=== PATIENT | female | born 1960 | race Two or more races ===

== ENCOUNTER 2018-06-26 17:46 | Inpatient (IN) | payer OTHER ==
[~2018-06-26] VITALS: Ht 160 cm; Wt 63.2 kg
[2018-06-26 21:00] VITALS: BP 134/76; PULSE 94; RESP 18
[2018-06-26 22:00] VITALS: Ht 160 cm; Wt 63.2 kg
[2018-06-26] MEDS ORDERED: IPRATROPIUM (NEB) 0.5 MG/2.5 ML AMP INH PRN (23:09)
[2018-06-26] MEDS ORDERED: ALBUTEROL 0.5% (NEB) 2.5 MG/0.5 ML AMP INH PRN (23:09)
[2018-06-26] MEDS ORDERED: OCULAR LUBRICANT 3.5 GM OPH OINT BOTH EYES PRN (23:09)
[2018-06-27] MEDS ORDERED: MAGNESIUM HYDROXIDE 30ML CUP GTB PRN
[2018-06-27] MEDS ORDERED: BISACODYL 10 MG SUPP PR PRN
[2018-06-27] MEDS ORDERED: LACTULOSE 30ML CUP GTB PRN
[2018-06-27 02:00] VITALS: BP 120/77; PULSE 80; RESP 16
--- NOTE | 2018-06-27 05:51 | NUR ---
Pt slept well during night hours, no complaints noted, vital signs stable. Able to turn position by self, continent for bladder and bowel, voids in the urinal, had BM last night. Hourly rounds done and patient care needs met. Bed alarm activated for safety, call light and bedside table within reach. Addendum: 06/27/18 at 0605 by GENOVEVA ROUSE RN This above notes belongs to another patient
--- NOTE | 2018-06-27 06:03 | NUR ---
Pt got admitted from [place] on 06/26/18 around 5 hours. Around [address] Pearl exchange and left message regarding admission of the patient in the unit. Admission assessment done around 2200 hours. Pt was restless and anxious, try to pull out tracheostomy tube (capped) and G-tube and trying to get out of bed. Pt is Alert, awake to name only, confused most of the time, not able to follow direction and instruction. Pt's daughter Sania was at bedside till 2230 hours, then around 2300 hours pt's sister came to sit with patient, her sister was at bedside last night. Around 0100am, pt went to sleep. She slept on and off during night hours, no complaints noted, vital signs stable. Position turned Q2hrs as per pt's comfort. Gtube feeding Isosource HN @50ml/hr is started and free water 100 ml Q6hrs flushed via feeding pump. HOB elevated >30 degree while on G tubed feeding. Pt kept under aspiration, fall and seizure precaution. Incontinent for bladder and bowel, had BM last night changed and cleaned her. Hourly rounds done and patient care needs met. Bed alarm activated for safety, call light and bedside table within reach.
--- NOTE | 2018-06-27 06:30 | NUR ---
last night Gtube site dressing changed and protect with abdominal binder.
[2018-06-27 07:35] VITALS: BP 117/76; PULSE 84; RESP 18
[2018-06-27 07:45] VITALS: BP 125/81; PULSE 96; RESP 18
[2018-06-27] MEDS: DOCUSATE SODIUM 10 MG/ML (10ML CUP) GTB SCH ×2 (08:50→21:00)
[2018-06-27] MEDS: FAMOTIDINE 20 MG TAB GTB SCH ×2 (08:51→21:00)
[2018-06-27] MEDS: AMLODIPINE 10 MG TAB GTB SCH (08:51)
[2018-06-27] MEDS: NYSTATIN SUSP 5 ML CUP PO SCH ×2 (08:51→21:00)
[2018-06-27] MEDS: LACOSAMIDE (100 MG/10 ML PO SYR) GTB SCH ×2 (08:52→21:03)
[2018-06-27] MEDS: NYSTATIN 30 GM POWDER BTL TOP SCH ×3 (08:52→21:05)
[2018-06-27] MEDS: ENOXAPARIN 40 MG/0.4 ML SYG SC SCH (08:53)
[2018-06-27] MEDS: BALSAM PERU/CASTOR OIL 60 GM TUBE TOP SCH ×2 (09:00→21:00)
--- NOTE | 2018-06-27 09:08 | NUR ---
RN followed up with pharmacy for Jaquan at 8:50 AM.
--- NOTE | 2018-06-27 09:42 | HP ---
Date/Time of Note Date/Time of Note DATE: 06/27/18 TIME: 09:39 Assessment/Plan VTE Prophylaxis Risk score (from Ns)>0 risk: 3 SCD applied (from [facility] [place]): No SCD contraindicated: other Pharmacological prophylaxis: other Lines/Catheters Urinary Cath still in place: No Assessment/Plan Hospital Course HISTORY OF PRESENT ILLNESS: The patient is a 57-year-old female who was transferred from [facility]. 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 She was stabilized, discharged on 04/07/2018 and readmitted on with neck stiffness with major subarachnoid hemorrhage with midline shift and subfalcine herniation. This progressed to paralysis with altered mental status. She was taken to left craniotomy on 04/10/2018 with clipping of the left posterior communicating artery aneurysm and left frontal ventriculostomy placement for drainage of the intraventricular hemorrhage. She had persistent major neurologic deficit with obstructive hydrocephalus, ischemic encephalopathy, and some vasospasm. She had a PEG placement on 04/28/2018 and tracheostomy on 05/01/2018. She had ongoing seizures requiring multiple medications for control. She had urinary tract infection, apparently was treated. On 05/12 she was transferred to [place] for continuity of care. There is no current respiratory distress. Secretions are moderate and saturations are 100% with trach capped d/w charge nurse she is awake and is now tracking no fever, chills, new rash, hematuria, melena, dyspnea or seizure like activities. meds were reviewed s/p trach change and eventual capping UTI treated with abx on 06/26 the patient was transferred to ARU no significant event overnight PMH: as above social and family history reviewed ROS: 13 point ROS was done and pertinent findings are in HPI PHYSICAL EXAMINATION: GENERAL: Shows her to be well developed, well nourished, in no acute distress. HEENT: Status post craniotomy. Pupils are slightly equal, left larger than right. Right is reactive. Left questionably reactive. Fundi: Unable. Ears: Externally normal. Nose: Unremarkable. Mouth and throat: Limited exam. No inflammation seen. NECK: Shows tracheostomy in place. No definite JVD. Nodes are negative, neck and supraclavicular. HEART: Regular rate and rhythm without definite murmurs or gallops appreciated. CHEST: Shows slightly coarse breath sounds, a few rhonchi. No wheeze. Exam limited to supine position. ABDOMEN: Soft, nontender. No masses or organomegaly appreciated. Binders in place. G-tube in place. EXTREMITIES: No clubbing, cyanosis, or edema. No evidence for deep vein thrombosis. NEUROLOGIC: awake but non-verbal Impression and Plan: 1. Acute hypoxemic respiratory failure, clinically stable with capped trach. Continue usual respiratory care with tracheostomy care, pulmonary toilet, anti- aspiration measures. We will continue bronchodilators for now. continue PT 2. 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 surgical scar is well healed. continue anti-seizure meds. she is moving left side of her body and is doing well with rehab. She will be admitted to ARU for continuity of care 3. Seizure secondary to above, controlled. 4. Ischemic encephalopathy due to the above, status post vasospasm, status post obstructive hydrocephalus. 5. Dysphagia, tolerating tube feeding. 6. Hypothyroidism. 7. UTI (recurred): cultures were reviewed. s/p abx Result Diagram: 06/27/1837 06/27/1837 Results 24hrs Laboratory Tests Test 06/26/18 21:30 06/27/18 06:37 Urine Color YELLOW Urine Clarity CLOUDY A Urine pH 7.0 Urine Specific [place] 1.011 Urine Ketones NEGATIVE Urine Nitrite NEGATIVE Urine Bilirubin NEGATIVE Urine Urobilinogen NEGATIVE Urine Leukocyte Esterase NEGATIVE Urine Microscopic RBC 3 Urine Microscopic WBC 4 Urine Amorphous Crystals FEW A Urine Bacteria FEW A Urine Mucus FEW A Urine Hemoglobin NEGATIVE Urine Glucose NEGATIVE Urine Total Protein NEGATIVE White Blood Count 10.4 Red Blood Count 4.03 L Hemoglobin 12.6 Hematocrit 36.7 L Mean Corpuscular Volume 91.1 Mean Corpuscular Hemoglobin 31.3 Mean Corpuscular Hemoglobin Concent 34.3 Red Cell Distribution Width 13.0 Platelet Count 315 Mean Platelet Volume 10.6 H Immature Granulocytes % 0.400 Neutrophils % 58.7 Lymphocytes % 31.3 Monocytes % 7.1 Eosinophils % 2.0 Basophils % 0.5 Nucleated Red Blood Cells % 0.0 Immature Granulocytes # 0.040 H Neutrophils # 6.1 Lymphocytes # 3.3 H Monocytes # 0.7 Eosinophils # 0.2 Basophils # 0.1 Nucleated Red Blood Cells # 0.0 Sodium Level 141 Potassium Level 3.7 Chloride Level 100 Carbon Dioxide Level 31 Anion Gap 10 Blood Urea Nitrogen 13 Creatinine 0.41 L Est Glomerular Filtrat Rate mL/min > 60 Glucose Level 115 Calcium Level 9.5 Total Bilirubin 0.0 L Direct Bilirubin 0.00 Indirect Bilirubin 0.0 Aspartate Amino Transf (AST/SGOT) 26 Alanine Aminotransferase (ALT/SGPT) 39 Alkaline Phosphatase 94 Total Protein 6.9 Albumin 3.8 Globulin 3.10 Albumin/Globulin Ratio 1.22 HPI/ROS Admit Date/Time Admit Date/Time Jun 26, 2018 at 21:04 PMH/Family/Social Past Medical History Medications Current Medications Zolpidem Tartrate (Ambien) 10 mg HS GTB ; Start 06/26/18 at 23:09 Atorvastatin Calcium (Lipitor) 20 mg DAILY@21 PO ; Start 06/26/18 at 23:09 Lacosamide (Vimpat Liq) 50 mg BID GTB Last administered on 06/27/18at 08:52; Admin Dose 50 MG; Start 06/26/18 at 23:09 Albuterol (Proventil 0.5% (Neb)) 2.5 mg Q4H RESP THERAPY PRN INH PRN DYSPNEA; Start 06/26/18 at 23:09 Ipratropium [place] (Atrovent 0.02% (Neb)) 0.5 mg Q4H RESP THERAPY PRN INH DYSPNEA; Start 06/26/18 at 23:09 Simethicone (Mylicon) 80 mg QID PRN PEG DISTENSION/GAS/BLOATING; Start 05/31 02/14 at 23:09 Amlodipine Besylate (Norvasc) 10 mg DAILY GTB Last administered on 06/27/18at 08:51; Admin Dose 10 MG; Start 06/26/18 at 23:09 Nystatin (Nystatin Susp) 5 ml BID PO Last administered on 06/27/18at 08:51; Admin Dose 5 ML; Start 06/26/18 at 23:09 Olanzapine (Zyprexa) 2.5 mg QHS PO ; Start 06/26/18 at 23:09 Acetaminophen (Tylenol Liquid) 650 mg Q4H PRN GTB PRN FOR FEVER; Start at 23:09 Enoxaparin Sodium (Lovenox) 40 mg DAILY SC Last administered on 06/27/18at 08:53; Admin Dose 40 MG; Start 06/26/18 at 23:09 Famotidine (Pepcid) 20 mg BID GTB Last administered on 06/27/18at 08:51; Admin Dose 20 MG; Start 06/26/18 at 23:09 Levetiracetam (Keppra Liquid) 500 mg BID GTB ; Start 06/26/18 at 23:09 Nystatin (Nystatin Powder) 1 applic TID TOP Last administered on 06/27/18at 08:52; Admin Dose 1 APPLIC; Start 06/26/18 at 23:09 Eye Lubricant (Akwa Oint) 1 applic Q1H PRN BOTH EYES PRN; Start 06/26/18 at 23:09 Acetaminophen (Tylenol Liquid) 650 mg Q4H PRN GTB MILD PAIN LEVEL 1-3; Start 06/26/18 at 23:09 Docusate Sodium (Colace Liquid Cup) 100 mg BID GTB ; Start 06/27/18 at 09:00 Magnesium Hydroxide (Milk Of Mag) 30 ml BID PRN GTB CONSTIPATION; Start 06/27/18 at 00:00 Lactulose (Enulose) 20 gm DAILY PRN GTB CONSTIPATION; Start 06/27/18 at 00:00 Bisacodyl (Dulcolax Supp) 10 mg DAILY PRN [place] CONSTIPATION; Start 06/27/18 at 00:00 Coded Allergies: No Known Allergies (Verified Allergy, Unknown, 05/13/18) Social History Smoking Status: Never smoker Exam/Review of Systems Vital Signs Vitals Vital Signs Date Temp Pulse Resp B/P (MAP) Pulse Ox O2 O2 Flow FiO2 Time Delivery Rate 06/27/18 96 18 125/81 96 Room Air 07:45 (96) 06/27/18 97.7 07:35 Intake and Output 06/26/18 06/26/18 06/27/18 1515:00 23:00 07:00 IntakeIntake Total 600 ml BalanceBalance 600 ml HERNAN SHIPLEY DO Jun 27, 2018 09:42
--- NOTE | 2018-06-27 11:29 | NUR ---
RE: Synthroid tablet and Portex 7.0 mm trach RN verified with pharmacy. Pt was taking Synthroid 88 mcg once daily from 05/12/18 to 06/11/18. RN got order to give Synthroid 88 mcg via GTB once daily. RN verified with [facility] at [place]. Pt on Room air with Trach, Portex, 7.0mm uncuffed since 7 days ago. Pt tolerated over 48 hours capped and should remain capped. Do not need to remove light armored reconnaissance officer at night. Respiratory therapist will be made aware. Addendum: 06/27/18 at 1636 by ROMARIO REY RN Respiratory therapist Jeanette made aware about the Portex trach uncuffed. Continue to cap tach as tolerated. RN set up suction and a new set of Portex 7.00 mm with cuff at bedside.
[2018-06-27] MEDS: LEVETIRACETAM (100 MG/ML) 5ML CUP GTB SCH ×2 (11:48→20:59)
[2018-06-27] MEDS: BACLOFEN 10 MG TAB GTB SCH ×3 (11:49→21:00)
[2018-06-27 13:27] VITALS: BP 102/59; PULSE 95; RESP 18
--- NOTE | 2018-06-27 16:36 | NUR ---
RN note Pt is max assist for bed transfer. 2 persons assist. Pt sat in the wheelchair twice this morning for 15 -30 mins. Agitated and anxious, complaining of discomfort on the upper back. Hence, Dr. Gill ordered Baclofen 5 mg GTB TID to relieve the right upper arm stiffness and upper back pain. Discoloration on right subscapular area, 6 cm x [address] Gill assessed the lesion. No skin issue on sacrococcyx area. Air-mattress order canceled. ROHO cushion, seizure pads at bedside. Pt has right sided neglect, advise staff to stay on pt's side to let her get use to it. Eye patch to one eye, alternate it every hour but pt refused. On continuous GT feeding at 50 ml/hr of Isosource HN and water flush 100 cc every 6 hours and Pureed diet. Staff feeds pt and she ate 75% at lunch time. No difficulty swallowing and no coughing episode noted. Bed at the lowest position, call light within reach but pt does not use call light. Bed alarm on at all times. Pt able to stay calm and sleep for 2 hours after a large BM in the afternoon.
--- NOTE | 2018-06-27 19:58 | CONS ---
DATE OF ADMISSION: 06/26/2018 DATE OF CONSULTATION: 06/27/2018 REHABILITATION POST ADMISSION PHYSICIAN EVALUATION REHABILITATION IMPAIRMENT CATEGORY: Left subarachnoid hemorrhage, hydrocephalus, midline shift and subfalcine herniation with patient status post left craniotomy with clipping of the left posterior communicating artery aneurysm and left frontal ventriculostomy placement on 04/10/2018. ACTIVE COMORBIDITIES: 1. Encephalopathy 2. Dysphagia-s/p PEG 3. Seizure Disorder 4. Respiratory Failure- s/p tracheostomy, tolerating cap 5. Urinary Tract Infection 6. Spasticity with increaed tone in Right Upper and Lower Extremity 7. Hypothyroidism 8. 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 Patient was noted to have Left subarachnoid hemorrhage, hydrocephalus, midline shift and subfalcine herniation and underwent left craniotomy with clipping of the left posterior communicating artery aneurysm and left frontal ventriculostomy placement on 04/10/2018. The patient's hospital course was notable for encephalopathy, vasospasm, acute respiratory failure requiring tracheostomy, dysphagia with PEG placement, ongoing seizures, and urinary tract infection. The patient was eventually stabilized and weaned from ventilator support and was transferred to [facility] for continued care. The patient's pulmonary status has gradually improved, and patient has been tolerating trach capping. The patient has now been cleared to transfer to the rehabilitation unit for comprehensive interdisciplinary rehab care. FUNCTIONAL HISTORY: Prior to recent events, she was independent in self-care tasks and mobility. Currently, patient requires moderate to maximal assist for self-care and mobility tasks. I have reviewed the preadmission screen and the patient's current functional status is consistent with the preadmission screen. PAST MEDICAL HISTORY: 1.Hypothyroidism 2.Urinary tract infection. FAMILY AND SOCIAL HISTORY: The patient lives at home with very supportive who hopes to have her return home upon discharge. CURRENT MEDICATIONS: 1. Tylenol p.r.n. 2. Albuterol inhaler. 3. Norvasc 10 mg p.o. daily. 4. Ocular eye drops. 5. Lipitor 20 mg p.o. daily. 6. Lovenox 40 mg subcutaneous daily. 7. Pepcid 20 mg b.i.d. 8. Vimpat liquid 50 mg b.i.d. 9. Keppra 500 mg b.i.d. ALLERGIES: THE PATIENT WITH NO KNOWN DRUG ALLERGIES. PHYSICAL EXAMINATION: VITAL SIGNS: She is currently afebrile with stable vital signs. HEENT: The craniotomy site appears well healed. Oropharynx is clear. Trach site appears clean and is capped. NECK: Supple. LUNGS: Clear anteriorly. CARDIAC: S1, S2. ABDOMEN: Soft, nontender, positive bowel sounds. G-tube site clean. NEUROLOGIC: She is awake and alert. She will follow simple 1-step command. She does have some perseveration to tasks. She demonstrates antigravity strength in the left upper and left lower extremities. She has significant increased tone in the right upper extremity and lower extremity with flexor synergy in the right upper extremity and extensor tone in the right lower extremity. PLAN: The patient has been admitted for comprehensive interdisciplinary acute rehab and is anticipated to tolerate 3 hours of daily therapy in divided doses for at least 5/7 days a week. The treatment plan will include: 1. Physical therapy to focus on bed mobility, transfers, and household ambulation with the goal of having the patient reach a standby assist level. 2. Occupational therapy to focus on hygiene, grooming, dressing, bathing, and toileting activities with goal of having the patient reach a standby assist level. 3. Speech therapy for full cognitive assessment and retraining in addition to dysphagia management with the goal of having the patient meet nutritional needs by mouth and have the G-tube removed and have patient expressed basic needs and improve short-term memory. 4. Neuropsychology for full cognitive assessment and retraining. 5. Rehabilitation nursing for carryover of therapeutic interventions, the goal of continent of bowel and bladder, and the goal of patient and family education with regard to the aforementioned issues. 6. Neurosurgical Nurse to monitor nutritional status, with goal of patient meeting nutritional needs as she is transitioned to full po diet. Will likely start with transition to bolus feeds, and as oral intake improves, work towards discontinuation of tube feedings. 7. Patient with notable spasticity/increased tone, will start low dose baclofen. ESTIMATED LENGTH OF STAY: 14 days. DISPOSITION GOAL: Home with family. BARRIER: Dysphagia INTERVENTION FOR BARRIER: Speech Therapy I acknowledge that I performed a full physical examination on this patient within 24 hours of admission to the rehabilitation unit and believe the patient is a good candidate for comprehensive interdisciplinary rehab care and is anticipated to make reasonable goals in a reasonable period of time as outlined above. Dictated By: ROB HUFF/ASHOK Conf#: [id number] DID#: [id number] MTDD
[2018-06-27 20:00] VITALS: BP 112/66; PULSE 96; RESP 18
[2018-06-27] MEDS: OLANZAPINE 2.5 MG TAB PO SCH (20:59)
[2018-06-27] MEDS: ZOLPIDEM 5 MG TAB GTB SCH (21:00)
[2018-06-27] MEDS: ATORVASTATIN 20 MG TAB PO SCH (21:00)
[2018-06-28 02:00] VITALS: BP 124/76; PULSE 84; RESP 16
--- NOTE | 2018-06-28 06:22 | NUR ---
Pt slept around midnight after giving night medications. NO complaints noted. Vital signs stable. Pt kept on fall, aspiration and seizure precautions, side rails padded. Pt is on G tube feeding Isosource HN @ 50ml/hr is on flow, with free water 100ml q6hrs via feeding pump. HOB elevated >30 degree all the times while on tube feeding. Position turned Q2hrs per turning schedule. Pt's family at bedside all the times. Incontinent for bladder and bowel, changed and cleaned the patient, no BM noted. Hourly round done and patient care needs met. Bed alarm activated for safety, call light and bedside table within reach.
[2018-06-28] MEDS: LEVOTHYROXINE 88 MCG TAB GTB SCH (06:30)
[2018-06-28 08:00] VITALS: BP 116/61; PULSE 89; RESP 18
[2018-06-28] MEDS: BACLOFEN 10 MG TAB GTB SCH ×3 (08:21→20:48)
[2018-06-28] MEDS: AMLODIPINE 10 MG TAB GTB SCH (08:21)
[2018-06-28] MEDS: ENOXAPARIN 40 MG/0.4 ML SYG SC SCH (08:22)
[2018-06-28] MEDS: FAMOTIDINE 20 MG TAB GTB SCH ×2 (08:22→20:48)
[2018-06-28] MEDS: BALSAM PERU/CASTOR OIL 60 GM TUBE TOP SCH ×2 (08:23→20:50)
[2018-06-28] MEDS: NYSTATIN SUSP 5 ML CUP PO SCH ×2 (08:23→20:48)
[2018-06-28] MEDS: LACOSAMIDE (100 MG/10 ML PO SYR) GTB SCH ×2 (08:23→20:49)
[2018-06-28] MEDS: NYSTATIN 30 GM POWDER BTL TOP SCH ×3 (08:24→20:50)
[2018-06-28] MEDS: DOCUSATE SODIUM 10 MG/ML (10ML CUP) GTB SCH ×2 (08:24→20:47)
[2018-06-28] MEDS: LEVETIRACETAM (100 MG/ML) 5ML CUP GTB SCH ×2 (08:24→20:47)
--- NOTE | 2018-06-28 08:30 | PN ---
Date/Time of Note Date/Time of Note DATE: 06/28/18 TIME: 08:30 Assessment/Plan VTE Prophylaxis Risk score (from Ns)>0 risk: 3 SCD applied (from Ns): No SCD contraindicated: other Pharmacological prophylaxis: other Lines/Catheters IV Catheter Type (from [facility]): [place] Urinary Cath still in place: No Assessment/Plan Hospital Course HISTORY OF PRESENT ILLNESS: The patient is a 57-year-old female who was transferred from [facility]. 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 She was stabilized, discharged on 04/07/2018 and readmitted on with neck stiffness with major subarachnoid hemorrhage with midline shift and subfalcine herniation. This progressed to paralysis with altered mental status. She was taken to left craniotomy on 04/10/2018 with clipping of the left posterior communicating artery aneurysm and left frontal ventriculostomy placement for drainage of the intraventricular hemorrhage. She had persistent major neurologic deficit with obstructive hydrocephalus, ischemic encephalopathy, and some vasospasm. She had a PEG placement on 04/28/2018 and tracheostomy on 05/01/2018. She had ongoing seizures requiring multiple medi cations for control. She had urinary tract infection, apparently was treated. On 05/12 she was transferred to [place] for continuity of care. There is no current respiratory distress. Secretions are moderate and saturations are 100% with trach capped d/w charge nurse she is awake and is now tracking no fever, chills, new rash, hematuria, melena, dyspnea or seizure like activities. ROS: 13 point ROS was done and pertinent findings are in HPI PHYSICAL EXAMINATION: GENERAL: Shows her to be well developed, well nourished, in no acute distress. HEENT: Status post craniotomy. Pupils are slightly equal, left larger than right. Right is reactive. Left questionably reactive. Fundi: Unable. Ears: Externally normal. Nose: Unremarkable. Mouth and throat: Limited exam. No inflammation seen. NECK: Shows tracheostomy in place. No definite JVD. Nodes are negative, neck and supraclavicular. HEART: Regular rate and rhythm without definite murmurs or gallops appreciated. CHEST: Shows slightly coarse breath sounds, a few rhonchi. No wheeze. Exam limited to supine position. ABDOMEN: Soft, nontender. No masses or organomegaly appreciated. Binders in place. G-tube in place. EXTREMITIES: No clubbing, cyanosis, or edema. No evidence for deep vein thrombosis. NEUROLOGIC: awake but non-verbal Impression and Plan: 1. Acute hypoxemic respiratory failure, clinically stable with capped trach. Continue usual respiratory care with tracheostomy care, pulmonary toilet, anti- aspiration measures. We will continue bronchodilators for now. continue PT 2. 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 surgical scar is well healed. continue anti-seizure meds. she is moving left side of her body and is doing well with rehab. She will be admitted to ARU for continuity of care 3. Seizure secondary to above, controlled. 4. Ischemic encephalopathy due to the above, status post vasospasm, status post obstructive hydrocephalus. 5. Dysphagia, tolerating tube feeding. 6. Hypothyroidism. 7. UTI (recurred): cultures were reviewed. s/p abx Result Diagram: 06/27/1837 06/27/18 0637 Exam/Review of Systems Vital Signs Vitals Vital Signs Date Temp Pulse Resp B/P (MAP) Pulse Ox O2 O2 Flow FiO2 Time Delivery Rate 06/28/18 97.8 89 18 116/61 Room Air 08:00 (79) 06/28/18 96 02:00 06/28/18 21 01:50 Intake and Output 06/27/18 06/27/18 06/28/18 1515:00 23:00 07:00 IntakeIntake Total 1620 ml 800 ml BalanceBalance 1620 ml 800 ml Medications Medications Current Medications Zolpidem Tartrate (Ambien) 10 mg HS GTB Last administered on 06/27/18at 21:00; Admin Dose 10 MG; Start 06/26/18 at 23:09 Atorvastatin Calcium (Lipitor) 20 mg DAILY@21 PO Last administered on 06/27/18at 21:00; Admin Dose 20 MG; Start 06/26/18 at 23:09 Lacosamide (Vimpat Liq) 50 mg BID GTB Last administered on 06/27/18at 21:03; Admin Dose 50 MG; Start 06/26/18 at 23:09 Albuterol (Proventil 0.5% (Neb)) 2.5 mg Q4H RESP THERAPY PRN INH PRN DYSPNEA; Start 06/26/18 at 23:09 Ipratropium [place] (Atrovent 0.02% (Neb)) 0.5 mg Q4H RESP THERAPY PRN INH DYSPNEA; Start 06/26/18 at 23:09 Simethicone (Mylicon) 80 mg QID PRN PEG DISTENSION/GAS/BLOATING; Start 06/26/18 at 23:09 Amlodipine Besylate (Norvasc) 10 mg DAILY GTB Last administered on 06/27/18at 08:51; Admin Dose 10 MG; Start 06/26/18 at 23:09 Nystatin (Nystatin Susp) 5 ml BID PO Last administered on 06/27/18 08:51; Admin Dose 5 ML; Start 06/26/18 at 23:09 Olanzapine (Zyprexa) 2.5 mg QHS PO Last administered on 06/27/18 20:59; Admin Dose 2.5 MG; Start 06/26/18 at 23:09 Acetaminophen (Tylenol Liquid) 650 mg Q4H PRN GTB PRN FOR FEVER; Start 06/26/18 at 23:09 Enoxaparin Sodium (Lovenox) 40 mg DAILY SC Last administered on 06/27/18 08:53; Admin Dose 40 MG; Start 06/26/18 at 23:09 Famotidine (Pepcid) 20 mg BID GTB Last administered on 06/27/18at 21:00; Admin Dose 20 MG; Start 06/26/18 at 23:09 Levetiracetam (Keppra Liquid) 500 mg BID GTB Last administered on 06/27/18at 20:59; Admin Dose 500 MG; Start 06/26/18 at 23:09 Nystatin (Nystatin Powder) 1 applic TID TOP Last administered on 06/27/18at 21:05; Admin Dose 1 APPLIC; Start 06/26/18 at 23:09 Eye Lubricant (Akwa Oint) 1 applic Q1H PRN BOTH EYES PRN; Start 06/26/18 at 2 3:09 Acetaminophen (Tylenol Liquid) 650 mg Q4H PRN GTB MILD PAIN LEVEL 1-3; Start 06/26/18 at 23:09 Docusate Sodium (Colace Liquid Cup) 100 mg BID GTB ; Start 06/27/18 at 09:00 Magnesium Hydroxide (Milk Of Mag) 30 ml BID PRN GTB CONSTIPATION; Start 06/27/18 at 00:00 Lactulose (Enulose) 20 gm DAILY PRN GTB CONSTIPATION; Start 06/27/18 at 00:00 Bisacodyl (Dulcolax Supp) 10 mg DAILY PRN [place] CONSTIPATION; Start 06/27/18 at 00:00 Baclofen (Lioresal) 5 mg TID GTB Last administered on 06/27/18at 21:00; Admin Dose 5 MG; Start 06/27/18 at 10:30 Levothyroxine Sodium (Synthroid) 88 mcg DAILY@06 GTB Last administered on 06/28/18at 06:30; Admin Dose 88 MCG; Start 06/28/18 at 06:00 HERNAN SHIPLEY DO Jun 28, 2018 08:30
[2018-06-28 14:00] VITALS: BP 104/60; PULSE 82; RESP 18
--- NOTE | 2018-06-28 17:47 | NUR ---
Patient is alert with 1 simple word response. patient with episode of restlessness. speak to in a calm manner and qamar care done. Patient on Feeding tube. patent and intact. no s/sx of malfunction. no residual. Patient with Trach capped. patent and intact. no s/sx of malfunction. trach care done. no s/sx of bleeding or infection in the trach site. Diet given as ordered and required max assist. repositioning as scheduled.
--- NOTE | 2018-06-28 18:09 | NUR ---
Bedside Clinical Swallow Evaluation Completed: Brief Hx: Ms. Rinaldi is a 57-year-old female who was transferred from [facility]. 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 She was stabilized, discharged on 04/07/2018 and readmitted on with neck stiffness with major subarachnoid hemorrhage with midline shift and subfalcine herniation. This progressed to paralysis with altered mental status. She was taken to left craniotomy on 04/10/2018 with clipping of the left posterior communicating artery aneurysm and left frontal ventriculostomy placement for drainage of the intraventricular hemorrhage. She had persistent major neurologic deficit with obstructive hydrocephalus, ischemic encephalopathy, and some vasospasm. She had a PEG placement on 04/28/2018 and tracheostomy on 05/01/2018. She had ongoing seizures requiring multiple medications for control. She had urinary tract infection, apparently was treated. On 05/12 she was transferred to [place] for continuity of care. There is no current respiratory distress. Secretions are moderate and saturations are 100% with trach red capping trials. Trach size: 7mm Portex with red capping trials. (Anticipate decannulation). No further suctioning required, per RN. Current diet: PEG tube-50ml/hr and puree/NTL by cup (pt was recently seen by ST at [place] but per chart review, no Video swallow was completed). Subjective assessment of cognition specific to swallow safety: Awake, alert and can respond to simple yes/no questions with 50% reliability, unable to follow simple commands. Pt primary language is Citizen [place]. Oral mechanism examination completed: Face is symmetrical, lips, and palate are symmetrical, unable to determine strength/symmetry of tongue, and upper/lower dentition noted. P.O trials consisting of the following: thin liquids by teaspoon x 2 and cup x 5, NTL by cup x 5, puree x 4 (sequential bites in a row), cheese x 3 bites, and cracker x2 bites. Impulsivity noted but with prompts pt was able to slow down her rate of p.o intake. Oral phase of swallow: Slow but adequate oral motor strength/coordination. Slow but adequate bolus manipulation/mastication and cohesive formation. Mildly delayed oral anterior to posterior transit. No anterior oral leakage or residue in the oral cavity after the swallow. Mildly reduced oral control with minimally suspected premature loss into the hypopharynx before initiation of the swallow. Pharyngeal phase of swallow; Mildly delayed trigger of swallow. Mildly reduced hyolaryngeal excursion and elevation. No suspected residue in the pharyngeal cavity after the initial or sequential swallows. No overt or subtle s/s of aspiration or penetration noted. Vocal quality was clear across p.o trials. Coordination of breath with swallow safety was adequate. Impression: mild oropharyngeal dysphagia s/p trach and reduced safety awareness during p.o intake. Pt would benefit from a video swallow prior to diet advancement to thin liquids and soft solids inorder to objectively r/o silent aspiration during or after the swallow. Recommendation: 1. Initiate dysphagia therapy 5x per week for 30 minutes 2. Continue with puree diet and NTL by cup until Video swallow is completed 3. Anticipate need for f/u with RD regarding the pts PEG tube feeds, which need to be changed since pt is consuming 50-75% of each meal, per RN. 4. Anticipate Video swallow to objectively determine oropharyngeal swallow function 5. Anticipate need to f/u with Home Agent regarding the pts need to be decannulated off of trach since she has been tolerating the red capping trials. 6. anticipate cognitive-speech evaluation to determine speech/cognitive level
[2018-06-28 20:00] VITALS: BP 115/69; PULSE 96; RESP 18
[2018-06-28] MEDS: ZOLPIDEM 5 MG TAB GTB SCH (20:47)
[2018-06-28] MEDS: ATORVASTATIN 20 MG TAB PO SCH (20:48)
[2018-06-28] MEDS: OLANZAPINE 2.5 MG TAB PO SCH (20:48)
[2018-06-29 02:00] VITALS: BP 124/69; PULSE 86; RESP 16
--- NOTE | 2018-06-29 05:57 | NUR ---
Pt slept after midnight, no complaints noted. Vital signs stable. Medication crushed and given via G-tube, on G-tube feeding Isosource 50ml/hr is on flow and Free H20 100ml Q6hrs via feeding pump. No residual noted. Incontinent for bladder and bowel, cleaned and changed the patient, requires 2 person to change the patient. Kept on fall, aspiration and seizure precautions. HOB elevated >30 degree all the times while on feeding. Position turned Q2hrs as per turning schedule. Allevyn applied over sacrococcyx area for protection. Hourly round done and patient care needs met. Bed alarm activated for safety, call light and bedside table within reach.
[2018-06-29] MEDS: LEVOTHYROXINE 88 MCG TAB GTB SCH (06:16)
[2018-06-29 07:45] VITALS: BP 120/72; PULSE 82; RESP 17
--- NOTE | 2018-06-29 08:54 | PN ---
DATE: 06/29/2018 SUBJECTIVE: The patient stable, no events overnight. No fevers, chills, nausea, or vomiting. OBJECTIVE: VITAL SIGNS: Blood pressure is 124/69, respirations 16, pulse 86, temperature 98.0. HEENT: Head is normocephalic. NECK: Shows trach. HEART: Regular rate. LUNGS: Show diminished breath sounds at the base. ABDOMEN: Soft, nontender to palpation without rebound or guarding. EXTREMITIES: Negative for clubbing, cyanosis, no edema. DERMATOLOGIC: No rashes. MUSCULOSKELETAL: No joint effusions. NEUROLOGIC: No change in exam. MEDICATIONS: Reviewed. LABORATORY DATA: On 06/27/2018 was reviewed. The patient's urine culture is growing out enterococcu s species negative at less than 10,000 colony-forming units. ASSESSMENT AND PLAN: 1. Acute hypoxemic respiratory failure. The patient is currently stable. Trach is capped. Continu e trach care. Follow up with pulmonary for recommendations. Continue pulmonary toilet and anti aspi ration measures. Monitor closely. 2. Status post subarachnoid hemorrhage with left craniotomy and clipping of the left posterior commu nicating artery aneurysm. The patient's surgical scar is well healed. Continue anti-seizure medicat ions. 3. Seizure. Continue medical management. 4. Encephalopathy secondary to cerebrovascular accident. Continue current treatment plan. 5. Dysphagia, continue tube feeding. Continue swallow evaluation. 6. Hypothyroidism. Continue Synthroid. 7. Urinary tract infection. The patient has completed antibiotic course. 8. Mood disorder. Continue Zyprexa. 9. Hypertension. Continue Norvasc. 10. Dyslipidemia. Continue Lipitor. 11. Gastrointestinal and deep vein thrombosis prophylaxis. Dictated By: ANGIE CORDOVA DO NR/ASHOK Conf#: [id number] DID#: [id number] CC: HERNAN SHIPLEY DO;*EndCC*
[2018-06-29] MEDS: FAMOTIDINE 20 MG TAB GTB SCH ×2 (08:59→20:10)
[2018-06-29] MEDS: LACOSAMIDE (100 MG/10 ML PO SYR) GTB SCH ×2 (08:59→20:09)
[2018-06-29] MEDS: AMLODIPINE 10 MG TAB GTB SCH (08:59)
[2018-06-29] MEDS: LEVETIRACETAM (100 MG/ML) 5ML CUP GTB SCH ×2 (08:59→20:09)
[2018-06-29] MEDS: BALSAM PERU/CASTOR OIL 60 GM TUBE TOP SCH ×2 (09:00→20:11)
[2018-06-29] MEDS: ENOXAPARIN 40 MG/0.4 ML SYG SC SCH (09:00)
[2018-06-29] MEDS: NYSTATIN 30 GM POWDER BTL TOP SCH ×3 (09:01→20:11)
[2018-06-29] MEDS: BACLOFEN 10 MG TAB GTB SCH ×3 (09:02→20:10)
[2018-06-29] MEDS: DOCUSATE SODIUM 10 MG/ML (10ML CUP) GTB SCH ×2 (09:12→20:09)
[2018-06-29] MEDS: NYSTATIN SUSP 5 ML CUP PO SCH ×2 (09:14→20:12)
--- NOTE | 2018-06-29 09:45 | PN ---
Date/Time of Note Date/Time of Note DATE: 06/29/18 TIME: 09:43 Objective Vital Signs Date Temp Pulse Resp B/P (MAP) Pulse Ox O2 O2 Flow FiO2 Time Delivery Rate 06/29/18 99.1 82 17 120/72 97 Room Air 07:45 (88) 06/28/18 21 01:50 Intake and Output 06/28/18 06/28/18 06/29/18 1515:00 23:00 07:00 IntakeIntake Total 800 ml BalanceBalance 800 ml Exam INTERDISCIPLINARY TEAM CONFERENCE EXAM PULM-cta ABD-soft, bs BOWEL- Cont BLADDER-Cont SKIN- incision c/d/i OT- DRESSING-max BATHING-max TOILETING-max PT- BED MOBILITY-mod/max TRANSFERS-mod/max AMBULATION-mod/max SPEECH- COGNITION-max Dysphagia- tube feeds, and good p.o. intake of dysphagia diet with . A/P- Interdisciplinary team conference held today. Please see interdisciplinary sheet. Working toward d.c. on 07/10 with post discharge follow up of physical therapy, occupational therapy, speech therapy and home health nursing. Will change from continuous feeds to bolus feeds, and order videofluroscopy, and monitor p.o. intake. Rehab- Left subarachnoid hemorrhage, hydrocephalus, midline shift and subfalcine herniation with patient status post left craniotomy with clipping of the left posterior communicating artery aneurysm and left frontal ventriculostomy placement on 04/10/2018. Treatment plan as above Encephalopathy Dysphagia-s/p PEG Seizure Disorder Respiratory Failure- s/p tracheostomy, tolerating cap Urinary Tract Infection Spasticity with increased tone in Right Upper and Lower Extremity-Continue baclofen, ROM Hypothyroidism Results/Medications Result Diagram: 06/27/1837 06/27/1837 Medications Current Medications Zolpidem Tartrate (Ambien) 10 mg HS GTB Last administered on 06/28/18at 20:47; Admin Dose 10 MG; Start 06/26/18 at 23:09 Atorvastatin Calcium (Lipitor) 20 mg DAILY@21 PO Last administered on 06/28/18at 20:48; Admin Dose 20 MG; Start 06/26/18 at 23:09 Lacosamide (Vimpat Liq) 50 mg BID GTB Last administered on 06/29/18at 08:59; Admin Dose 50 MG; Start 06/26/18 at 23:09 Albuterol (Proventil 0.5% (Neb)) 2.5 mg Q4H RESP THERAPY PRN INH PRN DYSPNEA; Start 06/26/18 at 23:09 Ipratropium [place] (Atrovent 0.02% (Neb)) 0.5 mg Q4H RESP THERAPY PRN INH D YSPNEA; Start 06/26/18 at 23:09 Simethicone (Mylicon) 80 mg QID PRN PEG DISTENSION/GAS/BLOATING; Start 06/26/18 at 23:09 Amlodipine Besylate (Norvasc) 10 mg DAILY GTB Last administered on 06/29/18 08:59; Admin Dose 10 MG; Start 06/26/18 at 23:09 Nystatin (Nystatin Susp) 5 ml BID PO Last administered on 06/29/18at 09:14; Admin Dose 5 ML; Start 06/26/18 at 23:09 Olanzapine (Zyprexa) 2.5 mg QHS PO Last administered on 06/28/18at 20:48; Admin Dose 2.5 MG; Start 06/26/18 at 23:09 Acetaminophen (Tylenol Liquid) 650 mg Q4H PRN GTB PRN FOR FEVER; Start 06/26/18 at 23:09 Enoxaparin Sodium (Lovenox) 40 mg DAILY SC Last administered on 06/29/18at 09:00; Admin Dose 40 MG; Start 06/26/18 at 23:09 Famotidine (Pepcid) 20 mg BID GTB Last administered on 06/29/18 08:59; Admin Dose 20 MG; Start 06/26/18 at 23:09 Levetiracetam (Keppra Liquid) 500 mg BID GTB Last administered on 06/29/18 08:59; Admin Dose 500 MG; Start 06/26/18 at 23:09 Nystatin (Nystatin Powder) 1 applic TID TOP Last administered on 06/29/18at 09:01; Admin Dose 1 APPLIC; Start 06/26/18 at 23:09 Eye Lubricant (Akwa Oint) 1 applic Q1H PRN BOTH EYES PRN; Start 06/26/18 at 23:09 Acetaminophen (Tylenol Liquid) 650 mg Q4H PRN GTB MILD PAIN LEVEL 1-3; Start 06/26/18 at 23:09 Docusate Sodium (Colace Liquid Cup) 100 mg BID GTB Last administered on 06/29/18at 09:12; Admin Dose 100 MG; Start 06/27/18 at 09:00 Magnesium Hydroxide (Milk Of Mag) 30 ml BID PRN GTB CONSTIPATION; Start 06/27/18 at 00:00 Lactulose (Enulose) 20 gm DAILY PRN GTB CONSTIPATION; Start 06/27/18 at 00:00 Bisacodyl (Dulcolax Supp) 10 mg DAILY PRN [place] CONSTIPATION; Start 06/27/18 at 00:00 Baclofen (Lioresal) 5 mg TID GTB Last administered on 06/29/18at 09:02; Admin Dose 5 MG; Start 06/27/18 at 10:30 Levothyroxine Sodium (Synthroid) 88 mcg DAILY@06 GTB Last administered on 06/29/18at 06:16; Admin Dose 88 MCG; Start 06/28/18 at 06:00 ROB CARMONA MD Jun 29, 2018 09:45
[2018-06-29] MEDS: ACETAMINOPHEN 650MG/20.3ML CUP GTB PRN ×2 (11:20→16:20)
[2018-06-29 14:00] VITALS: BP 114/69; PULSE 82; RESP 18
--- NOTE | 2018-06-29 15:00 | CONS ---
DATE OF ADMISSION: 06/26/2018 DATE OF CONSULTATION: TYPE OF CONSULTATION: Pulmonary. REASON FOR CONSULT: Respiratory management. HISTORY OF PRESENT ILLNESS: This is a 57-year-old lady with history of CVA with respiratory failure with tracheostomy, now has tracheostomy capped, transferred to acute rehab for continuing care where she continues physical therapy and speech therapy. PAST MEDICAL HISTORY: Rupture of left posterior communicating artery with aneurysm coiling in 2017 following subarachnoid hemorrhage, status post craniotomy with clipping of communicating artery. She had subsequent persistent hemiplegia, encephalopathy. She is status post PEG tube placement an d tracheostomy, now remains stable for several days with tracheostomy capped for more than 24 hours. PAST MEDICAL HISTORY: As above. MEDICATIONS: Per chart. ALLERGIES: NONE. SOCIAL HISTORY: Nonsmoker, no alcohol, no history of drug use. FAMILY HISTORY: Noncontributory. SYSTEMS REVIEW: A 12-point review of systems was negative other than mentioned above. PHYSICAL EXAMINATION: GENERAL: Well-nourished, well-developed lady, comfortable at rest, in no acute distress. VITAL SIGNS: Currently afebrile, pulse is 80, blood pressure 120/72, O2 saturation 97% on room air, with tracheostomy capped. NECK: Supple. Trach site is clean and intact. CARDIAC: S1, S2. No added sounds or murmurs. CHEST: Diminished air entry bilaterally. ABDOMEN: Soft, nontender. No guarding or rebound. EXTREMITIES: No cyanosis, clubbing, edema. NEUROLOGIC: With hemiplegia. LABORATORY DATA: White count 10.4, hemoglobin 12.6, platelets of 315. BUN 13, creatinine 0.41. IMPRESSION AND PLAN: 1. Status post respiratory failure. 2. 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 3. Dysphagia with G-tube. PLAN: 1. Follow speech therapy recommendations regarding p.o. diet and aspiration risk. 2. Continue trach capping as tolerated. 3. Anticipate decannulation in the next 2 to 3 days. Dictated By: GERTRUDIS SINGH/ASHOK Conf#: [id number] DID#: [id number] CC: HERNAN SHIPLEY DO;*EndCC*
--- NOTE | 2018-06-29 16:05 | NUR ---
G-tube feeding changed to bolus feeding Dr. Gill ordered to increase Baclofen 10 mg via GTB TID. G-tube feeding changed to bolus with Fibersource HN 1 Can 250 ml TID at 10:00, 15:00 and 20:00. Pt ate 100% of pureed food for lunch. First bolus feeding given at 1500. During therapy this morning, pt very confused trying to get out of wheelchair, so she had to be transferred back to bed immediately. Moderate assist to use the BSC, incontinent 2x in the morning. Large BM x1, incontinent. Grimacing and pointing to her R arm with pain scale of 8/10 during therapy. Tylenol 650 mg via GTB given and relieved the pain to 0/10 when re-assessed at 12:05. Bed alarm on at all times. Bed in the lowest position. Family at bedside.
--- NOTE | 2018-06-29 16:38 | NUR ---
Trach Portex inner cannula 7.0 mm changed by RN and Alisia Cabezas. New Hydrphilic foam dressing changed. No secretion noted. Trach capped.
[2018-06-29 20:06] VITALS: BP 113/60; PULSE 95; RESP 18
[2018-06-29] MEDS: ZOLPIDEM 5 MG TAB GTB SCH (20:10)
[2018-06-29] MEDS: OLANZAPINE 2.5 MG TAB PO SCH (20:10)
[2018-06-29] MEDS: ATORVASTATIN 20 MG TAB PO SCH (20:10)
[2018-06-30 02:00] VITALS: BP 107/60; PULSE 88; RESP 16
[2018-06-30] MEDS: ACETAMINOPHEN 650MG/20.3ML CUP GTB PRN ×2 (02:09→08:50)
--- NOTE | 2018-06-30 06:04 | NUR ---
PT IS CONFUSED, AGITATED, NON COOPERATIVE AND TRYING TO GET OUT BED OR PULLING HER TRACH AND GT AT TIMES. FREQUENT VERBAL CUEING GIVEN. SLEPT ON OFF DURING THE NIGHT. C/O PAIN ON HER RIGHT HAND WHEN MOVING OR TURNING. TYLENOL GIVEN, EFFECTIVE. NO ACUTE RESPIRATORY DISTRESS NOTED. TRACH CAPPED AND CARE PROVIDED. GT SITE DRESSING IS DRY AND INTACT, ABDOMINAL BINDER APPLIED. BOLUS OF FIBERSOURCE HN 250 CC GIVEN AT 1999. NO RESIDUAL NOTED. KEEP HOB ELEVATED. PT IS INC. HAD BM X 2, KEPT DRY AND CLEAN. TURN AND REPOSITION Q 2 HOURS. ELEVATED HER RIGHT HAND AND BILATERAL HEELS ON PILLOW. IS AT BEDSIDE. FREQUENT HOURLY ROUNDING MADE. BED ALARM ON. CALL LIGHT AND TABLE ARE WITHIN REACH.
[2018-06-30] MEDS: LEVOTHYROXINE 88 MCG TAB GTB SCH (06:37)
[2018-06-30 07:52] VITALS: BP 122/71; PULSE 85; RESP 18
[2018-06-30] MEDS: ENOXAPARIN 40 MG/0.4 ML SYG SC SCH (07:57)
[2018-06-30] MEDS: LACOSAMIDE (100 MG/10 ML PO SYR) GTB SCH ×2 (07:57→20:22)
[2018-06-30] MEDS: BACLOFEN 10 MG TAB GTB SCH ×3 (08:35→20:23)
[2018-06-30] MEDS: AMLODIPINE 10 MG TAB GTB SCH (08:35)
[2018-06-30] MEDS: FAMOTIDINE 20 MG TAB GTB SCH ×2 (08:35→20:23)
[2018-06-30] MEDS: NYSTATIN SUSP 5 ML CUP PO SCH ×2 (08:35→20:23)
[2018-06-30] MEDS: LEVETIRACETAM (100 MG/ML) 5ML CUP GTB SCH ×2 (08:36→20:23)
[2018-06-30] MEDS: DOCUSATE SODIUM 10 MG/ML (10ML CUP) GTB SCH ×2 (08:37→21:42)
--- NOTE | 2018-06-30 09:51 | PN ---
DATE: 06/30/2018 SUBJECTIVE: The patient is stable, no events overnight. OBJECTIVE: VITAL SIGNS: Blood pressure is 120/72, pulse 95, respiration 18, temperature 99.1. HEENT: Head is normocephalic. NECK: Supple. HEART: Regular rate. LUNGS: Show diminished breath sounds at the base. ABDOMEN: Soft, nontender to palpation without rebound or guarding. EXTREMITIES: Negative for clubbing, cyanosis, no edema. DERMATOLOGIC: No rashes. MUSCULOSKELETAL: No joint effusion. NEUROLOGIC: No change in exam. MEDICATIONS: Reviewed. LABORATORY DATA: From 06/27/2018 was reviewed. ASSESSMENT AND PLAN: 1. Acute hypoxic respiratory failure. The patient is currently stable. The patient's trach is fuller hospital ed. Continue to monitor. Follow up with pulmonary. Expect decannulation in the next 1 to 2 days. 2. Status post subarachnoid hemorrhage with left craniotomy and clipping of left posterior communica ting artery. The patient is currently stable. Continue to monitor. 3. Seizure disorder. Continue medical management. 4. Encephalopathy secondary to cerebrovascular accident. Continue to monitor. 5. Dysphagia. Continue tube feeding. Follow up with swallow evaluation. 6. Hypothyroidism. Continue Synthroid. 7. Urinary tract infection. The patient is completing antibiotic course. 8. Mood disorder. Continue Zyprexa. 9. Hypertension. Continue Norvasc. 10. Dyslipidemia. Continue Lipitor. 11. Gastrointestinal and deep vein thrombosis prophylaxis. Dictated By: ANGIE PINEDA/NTS Conf#: [id number] DID#: [id number]
--- NOTE | 2018-06-30 10:49 | PN ---
Date/Time of Note Date/Time of Note DATE: 06/30/18 TIME: 10:49 Subjective Improving activity tolerance. Patietn still with notable demonstration of pain with Right UE activities. Discussed with medication adjustments. Objective Vital Signs Date Temp Pulse Resp B/P (MAP) Pulse Ox O2 O2 Flow FiO2 Time Delivery Rate 06/30/18 98.0 85 18 122/71 100 Room Air 07:52 (88) 06/28/18 21 01:50 Intake and Output 06/29/18 06/29/18 06/30/18 1515:00 23:00 07:00 IntakeIntake Total 1160 ml 400 ml BalanceBalance 1160 ml 400 ml Exam pulm-cta significant tone in R UE and LE max ambulation Results/Medications Result Diagram: 06/27/1863606/27/18 06 Medications Current Medications Zolpidem Tartrate (Ambien) 10 mg HS GTB Last administered on 06/29/18at 20:10; Admin Dose 10 MG; Start 06/26/18 at 23:09 Atorvastatin Calcium (Lipitor) 20 mg DAILY@21 PO Last administered on at 20:10; Admin Dose 20 MG; Start 06/26/18 at 23:09 Lacosamide (Vimpat Liq) 50 mg BID GTB Last administered on 06/30/18at 07:57; Admin Dose 50 MG; Start 06/26/18 at 23:09 Albuterol (Proventil 0.5% (Neb)) 2.5 mg Q4H RESP THERAPY PRN INH PRN DYSPNEA; Start 06/26/18 at 23:09 Ipratropium [place] (Atrovent 0.02% (Neb)) 0.5 mg Q4H RESP THERAPY PRN INH DYSPNEA; Start 06/26/18 at 23:09 Simethicone (Mylicon) 80 mg QID PRN PEG DISTENSION/GAS/BLOATING; Start 06/26/18 at 23:09 Amlodipine Besylate (Norvasc) 10 mg DAILY GTB Last administered on 06/30/18at 08:35; Admin Dose 10 MG; Start 06/26/18 at 23:09 Nystatin (Nystatin Susp) 5 ml BID PO Last administered on 06/30/18at 08:35; Admin Dose 5 ML; Start 06/26/18 at 23:09 Olanzapine (Zyprexa) 2.5 mg QHS PO Last administered on 06/29/18 20:10; Admin Dose 2.5 MG; Start 06/26/18 at 23:09 Acetaminophen (Tylenol Liquid) 650 mg Q4H PRN GTB PRN FOR FEVER; Start 06/26/18 at 23:09 Enoxaparin Sodium (Lovenox) 40 mg DAILY SC Last administered on 06/30/18 07:57; Admin Dose 40 MG; Start 06/26/18 at 23:09 Famotidine (Pepcid) 20 mg BID GTB Last administered on 06/30/18 08:35; Admin Dose 20 MG; Start 06/26/18 at 23:09 Levetiracetam (Keppra Liquid) 500 mg BID GTB Last administered on 06/30/18 08:36; Admin Dose 500 MG; Start 06/26/18 at 23:09 Nystatin (Nystatin Powder) 1 applic TID TOP Last administered on 06/29/18 20:11; Admin Dose 1 APPLIC; Start 06/26/18 at 23:09 Eye Lubricant (Akwa Oint) 1 applic Q1H PRN BOTH EYES PRN; Start 06/26/18 at 23:09 Acetaminophen (Tylenol Liquid) 650 mg Q4H PRN GTB MILD PAIN LEVEL 1-3 Last administered on 06/30/18 08:50; Admin Dose 650 MG; Start 06/26/18 at 23:09 Docusate Sodium (Colace Liquid Cup) 100 mg BID GTB Last administered on 06/29/18at 20:09; Admin Dose 100 MG; Start 06/27/18 at 09:00 Magnesium Hydroxide (Milk Of Mag) 30 ml BID PRN GTB CONSTIPATION; Start 06/27/18 at 00:00 Lactulose (Enulose) 20 gm DAILY PRN GTB CONSTIPATION; Start 06/27/18 at 00:00 Bisacodyl (Dulcolax Supp) 10 mg DAILY PRN [place] CONSTIPATION; Start 06/27/18 at 00:00 Levothyroxine Sodium (Synthroid) 88 mcg DAILY@06 GTB Last administered on 06/30/18 06:37; Admin Dose 88 MCG; Start 06/28/18 at 06:00 Baclofen (Lioresal) 10 mg TID GTB Last administered on 06/30/18at 08:35; Admin Dose 10 MG; Start 06/29/18 at 13:00 Gabapentin (Neurontin) 100 mg Q12 GTB ; Start 06/30/18 at 21:00 Assessment/Plan Additional Assessment/Plan Rehab- L SAH/hydrocephalus-s/p crani & clipping of the L INSPECTOR CASING aneurysm and L frontal ventriculostomy placement; Encephalopathy Tolerating rehab program, continue treatment plan Pain- add neurontin for likely neuropathic pain Dysphagia-s/p PEG Seizure Disorder Respiratory Failure- s/p tracheostomy, tolerating cap Urinary Tract Infection Spasticity with increased tone in Right Upper and Lower Extremity- Increase baclofen, continue ROM Hypothyroidism ROB CARMONA MD Jun 30, 2018 10:49
[2018-06-30] MEDS: BALSAM PERU/CASTOR OIL 60 GM TUBE TOP SCH ×2 (13:38→20:24)
[2018-06-30] MEDS: NYSTATIN 30 GM POWDER BTL TOP SCH ×2 (13:38→20:24)
[2018-06-30 14:00] VITALS: BP 124/70; PULSE 72; RESP 17
--- NOTE | 2018-06-30 16:35 | NUR ---
Nursing Notes: patient CXR done, RN called the office to notify Dr. Mckee results and the call was connected to answering service machine and nobody answer the phone. Will endorse to next shift to inform Dr. Mckee tomorrow morning. Patient is not in distress, with VS stable, O2 Saturation 99-100 % in Room Air
[2018-06-30 19:29] VITALS: BP 120/73; PULSE 90; RESP 18
[2018-06-30] MEDS: OLANZAPINE 2.5 MG TAB PO SCH (20:22)
[2018-06-30] MEDS: GABAPENTIN 100 MG CAP GTB SCH (20:23)
[2018-06-30] MEDS: ATORVASTATIN 20 MG TAB PO SCH (20:23)
[2018-06-30] MEDS: ZOLPIDEM 5 MG TAB GTB SCH (20:23)
--- NOTE | 2018-07-01 05:43 | NUR ---
PT IS CONFUSED, BUT CALM AND COOPERATIVE. SLEPT WELL DURING THE NIGHT AFTER ALL MEDS GIVEN. NO ACUTE RESPIRATORY DISTRESS NOTED. TRACH CAPPED AND CARE PROVIDED. GT SITE DRESSING IS DRY AND INTACT, ABDOMINAL BINDER APPLIED. BOLUS OF FIBERSOURCE HN 250 CC GIVEN AT 1999. NO RESIDUAL NOTED. KEEP HOB ELEVATED. PT IS INC. HAD BM X 1, KEPT DRY AND CLEAN. TURN AND REPOSITION Q 2 HOURS. ELEVATED HER RIGHT HAND AND BILATERAL HEELS ON PILLOW. IS AT BEDSIDE. FREQUENT HOURLY ROUNDING MADE. BED ALARM ON. CALL LIGHT AND TABLE ARE WITHIN REACH.
[2018-07-01] MEDS: LEVOTHYROXINE 88 MCG TAB GTB SCH (06:13)
[2018-07-01 08:00] VITALS: BP 107/65; PULSE 86; RESP 18
--- NOTE | 2018-07-01 08:23 | NUR ---
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 patient is alert and awake. breathing even with Trach capped.
--- NOTE | 2018-07-01 08:27 | PN ---
DATE: 07/01/2018 SUBJECTIVE: The patient is stable, no events overnight. No fevers, chills, nausea, vomiting. OBJECTIVE: VITAL SIGNS: Blood pressure is 124/70, pulse 90, respiration 18, temperature 98.4. HEENT: Head is normocephalic. NECK: Supple. HEART: Regular rate. LUNGS: Show diminished breath sounds at base. ABDOMEN: Soft, nontender to palpation without rebound or guarding. EXTREMITIES: Negative for clubbing, cyanosis, no edema. DERMATOLOGIC: No rashes. MUSCULOSKELETAL: No joint effusions. NEUROLOGIC: No change in exam. MEDICATIONS: Have been reviewed. LABORATORY DATA: Has been reviewed. ASSESSMENT AND PLAN: 1. Acute hypoxemic respiratory failure. The patient is status post trach. Trach is currently cappe d and stable. Pending possible decannulation per pulmonary. Continue to monitor. 2. Status post subarachnoid hemorrhage with left craniotomy, status post clipping of left posterior communicating artery. The patient is currently stable. Continue to monitor. 3. Seizure disorder. Continue medical management. 4. Encephalopathy secondary to cerebrovascular accident. Continue to monitor. 5. Dysphagia. Continue pureed diet. 6. Hypothyroidism. Continue Synthroid. 7. Urinary tract infection. Patient is completing antibiotic course. 8. Hypertension. Continue Norvasc. 9. Dyslipidemia. Continue Lipitor. 10. Mood disorder. Continue Zyprexa. 11. Gastrointestinal and deep venous thrombosis prophylaxis. Dictated By: ANGIE CORDOVA DO NR/NTS Conf#: [id number] DID#: [id number] CC: HERNAN SHIPLEY DO;*EndCC*
--- NOTE | 2018-07-01 09:15 | NUR ---
Patient came back from Radiology via [facility].
[2018-07-01] MEDS: DOCUSATE SODIUM 10 MG/ML (10ML CUP) GTB SCH ×2 (09:29→20:39)
[2018-07-01] MEDS: LEVETIRACETAM (100 MG/ML) 5ML CUP GTB SCH ×2 (09:29→20:39)
[2018-07-01] MEDS: AMLODIPINE 10 MG TAB GTB SCH (09:30)
[2018-07-01] MEDS: LACOSAMIDE (100 MG/10 ML PO SYR) GTB SCH ×2 (09:30→20:39)
[2018-07-01] MEDS: BACLOFEN 10 MG TAB GTB SCH ×3 (09:30→20:39)
[2018-07-01] MEDS: NYSTATIN SUSP 5 ML CUP PO SCH ×2 (09:30→20:39)
[2018-07-01] MEDS: FAMOTIDINE 20 MG TAB GTB SCH ×2 (09:30→20:39)
[2018-07-01] MEDS: GABAPENTIN 100 MG CAP GTB SCH ×2 (09:30→20:39)
[2018-07-01] MEDS: ENOXAPARIN 40 MG/0.4 ML SYG SC SCH (09:31)
[2018-07-01] MEDS: BALSAM PERU/CASTOR OIL 60 GM TUBE TOP SCH ×2 (09:32→20:40)
[2018-07-01] MEDS: NYSTATIN 30 GM POWDER BTL TOP SCH ×3 (09:32→20:40)
--- NOTE | 2018-07-01 10:56 | NUR ---
PT NOTE Attempted to see pt for PT tx. Pt resistive when encouraged, emotionally labile, becomes agitated then cries. Will try to PU if time permits.
--- NOTE | 2018-07-01 11:25 | PN ---
Date/Time of Note Date/Time of Note DATE: 07/01/18 TIME: 11:22 Subjective Patient with less demonstration of pain, however noted to have more agitation when is not present. Objective Vital Signs Date Temp Pulse Resp B/P (MAP) Pulse Ox O2 O2 Flow FiO2 Time Delivery Rate 06/30/18 98.4 90 18 120/73 98 Room Air 19:29 (89) 06/28/18 21 01:50 Intake and Output 06/30/18 06/30/18 07/01/18 1515:00 23:00 07:00 IntakeIntake Total 900 ml 170 ml 400 ml BalanceBalance 900 ml 170 ml 400 ml Exam pulm-cta bd-soft mod/max Results/Medications Result Diagram: 06/27/1837 06/27/18 0637 Medications Current Medications Zolpidem Tartrate (Ambien) 10 mg HS GTB Last administered on 06/30/18 20:23; Admin Dose 10 MG; Start 06/26/18 at 23:09 Atorvastatin Calcium (Lipitor) 20 mg DAILY@21 PO Last administered on 06/30/18 20:23; Admin Dose 20 MG; Start 06/26/18 at 23:09 Lacosamide (Vimpat Liq) 50 mg BID GTB Last administered on 07/01/18 09:30; Admin Dose 50 MG; Start 06/26/18 at 23:09 Albuterol (Proventil 0.5% (Neb)) 2.5 mg Q4H RESP THERAPY PRN INH PRN DYSPNEA; Start 06/26/18 at 23:09 Ipratropium [place] (Atrovent 0.02% (Neb)) 0.5 mg Q4H RESP THERAPY PRN INH DYSPNEA; Start 06/26/18 at 23:09 Simethicone (Mylicon) 80 mg QID PRN PEG DISTENSION/GAS/BLOATING; Start 06/26/18 at 23:09 Amlodipine Besylate (Norvasc) 10 mg DAILY GTB Last administered on 07/01/18 09:30; Admin Dose 10 MG; Start 06/26/18 at 23:09 Nystatin (Nystatin Susp) 5 ml BID PO Last administered on 07/01/18 09:30; Admin Dose 5 ML; Start 06/26/18 at 23:09 Olanzapine (Zyprexa) 2.5 mg QHS PO Last administered on 06/30/18 20:22; Admin Dose 2.5 MG; Start 06/26/18 at 23:09 Acetaminophen (Tylenol Liquid) 650 mg Q4H PRN GTB PRN FOR FEVER; Start 06/26/18 at 23:09 Enoxaparin Sodium (Lovenox) 40 mg DAILY SC Last administered on 07/01/18 09:31; Admin Dose 40 MG; Start 06/26/18 at 23:09 Famotidine (Pepcid) 20 mg BID GTB Last administered on 07/01/18 09:30; Admin Dose 20 MG; Start 06/26/18 at 23:09 Levetiracetam (Keppra Liquid) 500 mg BID GTB Last administered on 07/01/18 09:29; Admin Dose 500 MG; Start 06/26/18 at 23:09 Nystatin (Nystatin Powder) 1 applic TID TOP Last administered on 07/01/18 09:32; Admin Dose 1 APPLIC; Start 06/26/18 at 23:09 Eye Lubricant (Akwa Oint) 1 applic Q1H PRN BOTH EYES PRN; Start 06/26/18 at 23:09 Acetaminophen (Tylenol Liquid) 650 mg Q4H PRN GTB MILD PAIN LEVEL 1-3 Last administered on 06/30/18 08:50; Admin Dose 650 MG; Start 06/26/18 at 23:09 Docusate Sodium (Colace Liquid Cup) 100 mg BID GTB Last administered on 07/01/18 09:29; Admin Dose 100 MG; Start 06/27/18 at 09:00 Magnesium Hydroxide (Milk Of Mag) 30 ml BID PRN GTB CONSTIPATION; Start at 00:00 Lactulose (Enulose) 20 gm DAILY PRN GTB CONSTIPATION; Start 06/27/18 at 00:00 Bisacodyl (Dulcolax Supp) 10 mg DAILY PRN [place] CONSTIPATION; Start 06/27/18 at 00:00 Levothyroxine Sodium (Synthroid) 88 mcg DAILY@06 GTB Last administered on 07/01/18 06:13; Admin Dose 88 MCG; Start 06/28/18 at 06:00 Baclofen (Lioresal) 10 mg TID GTB Last administered on 1/2/19at 09:30; Admin Dose 10 MG; Start 06/29/18 at 13:00 Gabapentin (Neurontin) 100 mg Q12 GTB Last administered on 07/01/18at 09:30; Admin Dose 100 MG; Start 06/30/18 at 21:00 Assessment/Plan Additional Assessment/Plan Rehab- L SAH/hydrocephalus-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 Pain- appears improved on neurontin for Dysphagia-s/p PEG- tolerating bolus feeds. Apparently unable to tolerate videofluoro today. Would rec patient's be present for videofluoro Seizure Disorder-continue seizure precautions Respiratory Failure- s/p tracheostomy, tolerating cap Urinary Tract Infection Spasticity with increased tone in Right Upper and Lower Extremity- Continue baclofen, continue ROM Hypothyroidism ROB CARMONA MD Jul 01, 2018 11:25
--- NOTE | 2018-07-01 11:53 | NUR ---
PT NOTE: Attempted to see pt for PT tx. Difficulty keeping pt aroused despite max V/T stim, pt opened eyes but quickly went back to sleep. BP 102/60 HR 84bpm SpO2 96%. RN made aware.
--- NOTE | 2018-07-01 12:08 | NUR ---
PT NOTE: Attempted to call pt's using the number on pt's facesheet. Noted that pt participates with therapy when is present. This therapist wants to coordinate therapy time with when will be present. Number in facesheet has been disconnected. Called pt's daughter Sania who stated that number has been disconnected for years, gave this therapist her father's number [phone]. This therapist called the number given, no answer and voicemail not set up. Called daughter again who stated that she will try to get a hold of her dad and will ask him to call the unit (unit's # given to daughter). Daughter stated that she is sure her dad will be present tomorrow morning if she's unable to get a hold of her dad.
--- NOTE | 2018-07-01 13:59 | CONS ---
Date/Time of Note Date/Time of Note DATE: 07/01/18 TIME: 13:58 Consult Date/Type/Reason Admit Date/Time Jun 26, 2018 at 21:04 Initial Consult Date Type of Consultation: Pulmonary ICU Subjective Patient comfortable this morning. No new events pending video swallow. Remains capped without respiratory distress. Objective Vital Signs Date Temp Pulse Resp B/P (MAP) Pulse Ox O2 O2 Flow FiO2 Time Delivery Rate 06/30/18 98.4 90 18 120/73 98 Room Air 19:29 (89) 06/28/18 21 01:50 Intake and Output 06/30/18 06/30/18 07/01/18 1515:00 23:00 07:00 IntakeIntake Total 900 ml 170 ml 400 ml BalanceBalance 900 ml 170 ml 400 ml Exam PHYSICAL EXAMINATION: GENERAL: Well-nourished, well-developed lady, comfortable at rest, in no acute distress. VITAL SIGNS: NECK: Supple. Trach site is clean and intact. Tracheostomy capped CARDIAC: S1, S2. No added sounds or murmurs. CHEST: Diminished air entry bilaterally. ABDOMEN: Soft, nontender. No guarding or rebound. EXTREMITIES: No cyanosis, clubbing, edema. NEUROLOGIC: With hemiplegia. Results/Medications Result Diagram: 06/27/1837 06/27/18 0637 Medications Current Medications Zolpidem Tartrate (Ambien) 10 mg HS GTB Last administered on 06/30/18at 20:23; Admin Dose 10 MG; Start 06/26/18 at 23:09 Atorvastatin Calcium (Lipitor) 20 mg DAILY@21 PO Last administered on 06/30/18at 20:23; Admin Dose 20 MG; Start 06/26/18 at 23:09 Lacosamide (Vimpat Liq) 50 mg BID GTB Last administered on 07/01/18 09:30; Admin Dose 50 MG; Start 06/26/18 at 23:09 Albuterol (Proventil 0.5% (Neb)) 2.5 mg Q4H RESP THERAPY PRN INH PRN DYSPNEA; Start 06/26/18 at 23:09 Ipratropium [place] (Atrovent 0.02% (Neb)) 0.5 mg Q4H RESP THERAPY PRN INH DYSPNEA; Start 06/26/18 at 23:09 Simethicone (Mylicon) 80 mg QID PRN PEG DISTENSION/GAS/BLOATING; Start 06/26/18 at 23:09 Amlodipine Besylate (Norvasc) 10 mg DAILY GTB Last administered on 07/01/18 09:30; Admin Dose 10 MG; Start 06/26/18 at 23:09 Nystatin (Nystatin Susp) 5 ml BID PO Last administered on 07/01/18 09:30; Admin Dose 5 ML; Start 06/26/18 at 23:09 Olanzapine (Zyprexa) 2.5 mg QHS PO Last administered on 06/30/18 20:22; Admin Dose 2.5 MG; Start 06/26/18 at 23:09 Acetaminophen (Tylenol Liquid) 650 mg Q4H PRN GTB PRN FOR FEVER; Start 06/26/18 at 23:09 Enoxaparin Sodium (Lovenox) 40 mg DAILY SC Last administered on 07/01/18 09:31; Admin Dose 40 MG; Start 06/26/18 at 23:09 Famotidine (Pepcid) 20 mg BID GTB Last administered on 07/01/18 09:30; Admin Dose 20 MG; Start 06/26/18 at 23:09 Levetiracetam (Keppra Liquid) 500 mg BID GTB Last administered on 07/01/18 09:29; Admin Dose 500 MG; Start 06/26/18 at 23:09 Nystatin (Nystatin Powder) 1 applic TID TOP Last administered on 07/01/18 12:4 3; Admin Dose 1 APPLIC; Start 06/26/18 at 23:09 Eye Lubricant (Akwa Oint) 1 applic Q1H PRN BOTH EYES PRN; Start 06/26/18 at 23:09 Acetaminophen (Tylenol Liquid) 650 mg Q4H PRN GTB MILD PAIN LEVEL 1-3 Last administered on 06/30/18 08:50; Admin Dose 650 MG; Start 06/26/18 at 23:09 Docusate Sodium (Colace Liquid Cup) 100 mg BID GTB Last administered on 07/01/18 09:29; Admin Dose 100 MG; Start 06/27/18 at 09:00 Magnesium Hydroxide (Milk Of Mag) 30 ml BID PRN GTB CONSTIPATION; Start 06/27/18 at 00:00 Lactulose (Enulose) 20 gm DAILY PRN GTB CONSTIPATION; Start 06/27/18 at 00:00 Bisacodyl (Dulcolax Supp) 10 mg DAILY PRN [place] CONSTIPATION; Start 06/27/18 at 00:00 Levothyroxine Sodium (Synthroid) 88 mcg DAILY@06 GTB Last administered on 07/01/18at 06:13; Admin Dose 88 MCG; Start 06/28/18 at 06:00 Baclofen (Lioresal) 10 mg TID GTB Last administered on 07/01/18at 12:42; Admin Dose 10 MG; Start 06/29/18 at 13:00 Gabapentin (Neurontin) 100 mg Q12 GTB Last administered on 07/01/18at 09:30; Admin Dose 100 MG; Start 06/30/18 at 21:00 Assessment/Plan Chief Complaint/Hosp Course IMPRESSION AND PLAN: 1. Status post respiratory failure. 2. 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 3. Dysphagia with G-tube. PLAN: 1. Follow speech therapy recommendations regarding p.o. diet and aspiration risk. 2. Continue trach capping as tolerated. 3. Anticipate decannulation in the next 2 to 3 days. GERTRUDIS ROACH MD, [facility] Jul 01, 2018 13:59
[2018-07-01 14:00] VITALS: BP 109/67; PULSE 77; RESP 18
[2018-07-01] MEDS: ACETAMINOPHEN 650MG/20.3ML CUP GTB PRN (16:44)
--- NOTE | 2018-07-01 19:19 | NUR ---
Patient is alert x1, unable to follow command. patient with episode of agitation and refused to eat breakfast also patient is getting bolus feeding. patient tolerated well. patient with trach capped. no s/sx of malfunction. no SOB. no secretion. no s/sx of infection on the site. G tube patent and intact. no s/sx of malfunction. repositioned patient as scheduled as patient always leaning on her right sided.
[2018-07-01 19:36] VITALS: BP 112/64; PULSE 87; RESP 18
[2018-07-01] MEDS: ZOLPIDEM 5 MG TAB GTB SCH (20:39)
[2018-07-01] MEDS: OLANZAPINE 2.5 MG TAB PO SCH (20:39)
[2018-07-01] MEDS: ATORVASTATIN 20 MG TAB PO SCH (20:39)
[2018-07-02 01:24] VITALS: BP 90/68; PULSE 70; RESP 18
--- NOTE | 2018-07-02 06:15 | NUR ---
PT IS CONFUSED, BUT CALM AND COOPERATIVE, RECOGNIZE FAMILY MEMBERS. ALL MEDS GIVEN VIA GTUBE. BOLUS OF FIBERSOURCE HN 250 CC GIVEN VIA GT. TOLERATED WELL. KEPT HOB ELEVATED. ASPIRATION PRECAUTION. DRESSING ON GT SITE CHANGED. TRACH CARE DONE. PT WAS IN DEEP SLEEP BUT AROUSABLE WITH PAIN STIMULI AFTER MEDS GIVEN. VS CHECKED. NO ACUTE RESPIRATORY DISTRESS NOTED. TURN AND REPOSITION Q 2HOURS. KEPT DRY AND CLEAN. CLOSE MONITORING. FREQUENT HOURLY ROUNDING MADE.
[2018-07-02 06:37] VITALS: BP 111/65; PULSE 80; RESP 18
[2018-07-02] MEDS: LEVOTHYROXINE 88 MCG TAB GTB SCH (06:38)
--- NOTE | 2018-07-02 06:39 | NUR ---
ST NOTE; attempted yesterday am to do video swallow however when pt came down and procedure started pt blocking her mouth; agitated;pushing therapist away; pt would not allow professor of radiology to take id band from her that she had crumpled up in her hand. st removed this and placed band on side rail on bed. pt also almost pulled out her trach. pt appears to need 1:1 supervision for safety as sev. cognitive deficits video could not get done as pt non compliant; primary rehab therapist needs to call pt's to be present and then can reschedule video swallow; RN aware of inability to do video and will reattempt to schedule. would rec. to be present as pt not participating well in therapy without him.
--- NOTE | 2018-07-02 07:30 | NUR ---
Pt was referred to Dr. Velasquez re: per report pt having deep sleep at night. MD ordered decrease Ambien to 5mg via GT at HS.
--- NOTE | 2018-07-02 07:46 | NUR ---
PT NOTE [id number] Attempted to see pt for PT tx. Pt adamantly refused despite max encouragement. Highly resistive and becomes agitated.
[2018-07-02 08:00] VITALS: BP 115/67; PULSE 85; RESP 18
[2018-07-02] MEDS: LEVETIRACETAM (100 MG/ML) 5ML CUP GTB SCH ×2 (08:24→21:33)
[2018-07-02] MEDS: ACETAMINOPHEN 650MG/20.3ML CUP GTB PRN (08:24)
[2018-07-02] MEDS: BACLOFEN 10 MG TAB GTB SCH ×3 (08:25→21:32)
[2018-07-02] MEDS: GABAPENTIN 100 MG CAP GTB SCH ×2 (08:25→21:32)
[2018-07-02] MEDS: FAMOTIDINE 20 MG TAB GTB SCH ×2 (08:25→21:33)
[2018-07-02] MEDS: NYSTATIN SUSP 5 ML CUP PO SCH ×2 (08:25→21:34)
[2018-07-02] MEDS: LACOSAMIDE (100 MG/10 ML PO SYR) GTB SCH ×2 (08:25→21:33)
[2018-07-02] MEDS: AMLODIPINE 10 MG TAB GTB SCH (08:25)
[2018-07-02] MEDS: DOCUSATE SODIUM 10 MG/ML (10ML CUP) GTB SCH ×2 (08:25→21:00)
[2018-07-02] MEDS: BALSAM PERU/CASTOR OIL 60 GM TUBE TOP SCH ×2 (08:26→21:35)
[2018-07-02] MEDS: NYSTATIN 30 GM POWDER BTL TOP SCH ×3 (08:26→21:34)
--- NOTE | 2018-07-02 08:38 | PN ---
DATE: 07/02/2018 SUBJECTIVE: The patient is stable. No events overnight. No fevers, chills. OBJECTIVE: VITAL SIGNS: Blood pressure is 112/64, pulse 87, respiration 18, temperature 98.4. HEENT: Head is normocephalic. NECK: Supple. HEART: Regular rate. LUNGS: Show diminished breath sounds at the base. ABDOMEN: Soft, nontender to palpation. No rebound or guarding. EXTREMITIES: Negative for clubbing, cyanosis. No edema. DERMATOLOGIC: No rashes. MUSCULOSKELETAL: No joint effusion. NEUROLOGIC: No change in exam. MEDICATIONS: Reviewed. LABORATORY DATA: Has been reviewed. ASSESSMENT AND PLAN: 1. Acute hypoxemic respiratory failure. The patient is status post trach. The patient's trach is c urrently capped. Continue to monitor. Follow up with pulmonary. 2. Status post subarachnoid hemorrhage with craniotomy. Continue to monitor. 3. Seizure disorder. Continue medical management. 4. Encephalopathy secondary to cerebrovascular accident. Continue to monitor. 5. Dysphagia. Continue bolus feeding. Continue puree diet. The patient's video swallow evaluation is pending. 6. Hypothyroidism. Continue Synthroid. 7. Urinary tract infection. Patient completing antibiotic course. 8. Hypertension. Continue Norvasc. 9. Dyslipidemia. Continue Lipitor. 10. Mood disorder. Continue Zyprexa. 11. Gastrointestinal and deep vein thrombosis prophylaxis. Dictated By: ANGIE PINEDA/NTS Conf#: [id number] DID#: [id number] CC: HERNAN SHIPLEY DO; GERTRUDIS ROACH MD;*[facility]*
[2018-07-02] MEDS: ENOXAPARIN 40 MG/0.4 ML SYG SC SCH (09:13)
--- NOTE | 2018-07-02 09:23 | NUR ---
OT NOTE: Upon arrival (829), pt supine in bed and present. Vitals WNL. Therapist attempt to assist pt supine to sit w/ simple verbal cues and tactile cues allowing extra time for processing w/ acting as winter sports manager at times. Each time therapist provide tactile cues, patient push therapist away and become more resistive to movement. After >10 trials, attempt tactile + verbal cues. Pt become more willing to participate. 3p reqd at this time to perform supine to sit, and Min-Max A to maintain sitting EOB (1p application of gait belt; 1p Min-Max A d/t agitation/unsafe movement). Mod A x 2 sit to stand; however resist all safety devices (walker and gait belt). Able to maintain gait belt placement (buckle out of reach behind the back) using distraction and verbal/tactile cues for next command, however, pt refuse to use FWW. One seated in the chair; attempt funct amb d/t pt and family request. Therapist verbalize to pt and family that pt must follow commands and have gait belt on to ensure safety. Family verbalize understanding; pt demo poor understanding. Pt cont to be agitated by gait belt; however w/ extra time and verbal cues for L hand placement pt perform 3 sit to stands w/ Mod A x 2 to stand and Total A to bring RUE onto trough. Max A stand to sit for proper/safe seated position. Unable to take steps d/t agitation w/ gait belt and emotional labile. Once gait belt doffed in sitting position (75% done by patient; unable to successfully re don) pt began to attempt multiple sit to stands. Pt highly agitated. At this time it was deemed unsafe for pt to be up in chair; and pt assisted back to bed. Once in bed pt emotional again and not following commands. COOK CHILL TECHNICIAN present as OT exit.
--- NOTE | 2018-07-02 10:00 | NUR ---
Pt was referred to Dr. Gill re: distended bladder. MD ordered I/O cath PRN per protocol, time void q3h, & collect urine for UA/CS. MD also updated re: in pain w/ activity. MD ordered decrease frequency of Gabapentin 100mg via GT at HS & start pt on [place] 5/325 mg 1 tab via GT q24H (start to give conchita AM before therapy). Also place DVT pumps. Orders were explained to pt's at bedside w/ verbalization of understanding.
--- NOTE | 2018-07-02 11:13 | PN ---
Date/Time of Note Date/Time of Note DATE: 07/02/18 TIME: 11:08 Subjective Staff reports that patient still with significant demonstration of pain with activities. RN reports patient with 700cc retention via bladder scan Objective Vital Signs Date Temp Pulse Resp B/P (MAP) Pulse Ox O2 O2 Flow FiO2 Time Delivery Rate 07/02/18 98.5 85 18 115/67 94 Room Air 08:00 (83) Intake and Output 07/01/18 07/01/18 07/02/18 1515:00 23:00 07:00 IntakeIntake Total 1080 ml BalanceBalance 1080 ml Exam pulm-cta pain with ROM to R UE max transfer Results/Medications Medications Current Medications Atorvastatin Calcium (Lipitor) 20 mg DAILY@21 PO Last administered on 07/01/18 20:39; Admin Dose 20 MG; Start 06/26/18 at 23:09 Lacosamide (Vimpat Liq) 50 mg BID GTB Last administered on 07/02/18 08:25; Admin Dose 50 MG; Start 06/26/18 at 23:09 Albuterol (Proventil 0.5% (Neb)) 2.5 mg Q4H RESP THERAPY PRN INH PRN DYSPNEA; Start 06/26/18 at 23:09 Ipratropium [place] (Atrovent 0.02% (Neb)) 0.5 mg Q4H RESP THERAPY PRN INH DYSPNEA; Start 06/26/18 at 23:09 Simethicone (Mylicon) 80 mg QID PRN PEG DISTENSION/GAS/BLOATING; Start 06/26/18 at 23:09 Amlodipine Besylate (Norvasc) 10 mg DAILY GTB Last administered on 07/02/18 08:25; Admin Dose 10 MG; Start 06/26/18 at 23:09 Nystatin (Nystatin Susp) 5 ml BID PO Last administered on 07/02/18 08:25; Admin Dose 5 ML; Start 06/26/18 at 23:09 Olanzapine (Zyprexa) 2.5 mg QHS PO Last administered on 07/01/18 20:39; Admin Dose 2.5 MG; Start 06/26/18 at 23:09 Acetaminophen (Tylenol Liquid) 650 mg Q4H PRN GTB PRN FOR FEVER Last administered on 1/2/19at 16:44; Admin Dose 650 MG; Start 06/26/18 at 23:09 Enoxaparin Sodium (Lovenox) 40 mg DAILY SC Last administered on 07/02/18 09:13; Admin Dose 40 MG; Start 06/26/18 at 23:09 Famotidine (Pepcid) 20 mg BID GTB Last administered on 07/02/18 08:25; Admin Dose 20 MG; Start 06/26/18 at 23:09 Levetiracetam (Keppra Liquid) 500 mg BID GTB Last administered on 07/02/18 08:2 4; Admin Dose 500 MG; Start 06/26/18 at 23:09 Nystatin (Nystatin Powder) 1 applic TID TOP Last administered on 07/02/18 08:26; Admin Dose 1 APPLIC; Start 06/26/18 at 23:09 Eye Lubricant (Akwa Oint) 1 applic Q1H PRN BOTH EYES PRN; Start 06/26/18 at 23:09 Acetaminophen (Tylenol Liquid) 650 mg Q4H PRN GTB MILD PAIN LEVEL 1-3 Last administered on 07/02/18 08:24; Admin Dose 650 MG; Start 06/26/18 at 23:09 Docusate Sodium (Colace Liquid Cup) 100 mg BID GTB Last administered on 07/02/18 08:25; Admin Dose 100 MG; Start 06/27/18 at 09:00 Magnesium Hydroxide (Milk Of Mag) 30 ml BID PRN GTB CONSTIPATION; Start 06/27/18 at 00:00 Lactulose (Enulose) 20 gm DAILY PRN GTB CONSTIPATION; Start 06/27/18 at 00:00 Bisacodyl (Dulcolax Supp) 10 mg DAILY PRN [place] CONSTIPATION; Start 06/27/18 at 00:00 Levothyroxine Sodium (Synthroid) 88 mcg DAILY@06 GTB Last administered on 07/02/18 06:38; Admin Dose 88 MCG; Start 06/28/18 at 06:00 Baclofen (Lioresal) 10 mg TID GTB Last administered on 07/02/18 08:25; Admin Dose 10 MG; Start 06/29/18 at 13:00 Gabapentin (Neurontin) 100 mg Q12 GTB Last administered on 07/02/18 08:25; Admin Dose 100 MG; Start 06/30/18 at 21:00 Zolpidem Tartrate (Ambien) 5 mg HS GTB ; Start 07/02/18 at 21:00 Assessment/Plan Additional Assessment/Plan Rehab- 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 Seizure Disorder-continue seizure precautions Respiratory Failure- s/p tracheostomy, tolerating cap. case d/w Dr. Mckee, working towards decannulation Friday Urinary Tract Infection Spasticity with increased tone in Right Upper and Lower Extremity- Continue bacl ofen, continue ROM Hypothyroidism ROB CARMONA MD Jul 02, 2018 11:13
[2018-07-02 14:00] VITALS: BP 102/67; PULSE 85; RESP 16
--- NOTE | 2018-07-02 17:39 | NUR ---
Patients was present for treatment. Pt was more willing to participate but was still emotionally labile and would begin to cry spontaneously. Pt required substantial cueing for proper sequencing and safety awareness. When attempting to ambulate, pt would attempt to remove gait belt. Tried to use sheet instead but pt still attempting to remove. Gait belt was placed higher and seemed to tolerate better. Also, patients is reporting that the patient was ambulating with better quality when ambulating hand held assist with 2 therapist. Did not attempt at this time for safety.
--- NOTE | 2018-07-02 18:49 | NUR ---
Pt resting comfortably on her bed at this time. Pt able to participate w/ therapy late in the PM w/ support by . Pt fed w/ strict aspiration precaution. Pt was seen & examined by Dr. Gill & Dr. Mckee during shift. Pt had BM x1. On PVR PRN. Pt need's attended. Pt turned & repositioned q2H & as needed. Placed bilateral DVT pumps. Requested for padded side rails d/t hx of sz however per central supply nothing is available. Pt able to take a rest. Safety precaution observed at all times. Will endorse to PM RN for WM.
[2018-07-02 20:00] VITALS: BP 107/66; PULSE 94; RESP 18
[2018-07-02] MEDS: ATORVASTATIN 20 MG TAB PO SCH (21:31)
[2018-07-02] MEDS: OLANZAPINE 2.5 MG TAB PO SCH (21:32)
[2018-07-02] MEDS: ZOLPIDEM 5 MG TAB GTB SCH (21:33)
[2018-07-03] MEDS: ACETAMINOPHEN 650MG/20.3ML CUP GTB PRN ×2 (01:08→20:23)
[2018-07-03 02:00] VITALS: BP 114/66; PULSE 74; RESP 16
--- NOTE | 2018-07-03 05:59 | NUR ---
Pt was agitated and anxious, try to remove her tracheostomy tube last night, she was calm down after 0100am then went back to sleep. Pt's family came around 2300 hours to sit with patient. c/o pain , Tylenol liquid given x 1 time last night. Vital signs stable. Incontinent for bladder and bowel, had BM last night. Bladder scan done Q6hrs, if no void or PVR >350 ml to do straight cath. Position turned Q2hrs as per turning schedule. Pt kept under fall, aspiration and seizure precautions. Hourly round made and patient care needs met. Bed alarm activated for safety, call light and bedside table within reach.
[2018-07-03] MEDS: LEVOTHYROXINE 88 MCG TAB GTB SCH (06:29)
[2018-07-03] MEDS: HYDROCODONE/APAP (5/325) TAB GTB PRN (07:29)
--- NOTE | 2018-07-03 07:29 | NUR ---
Pt premedicated w/ [place] 5/325 mg 1 tab via GT as ordered prior to therapy. Pt noted was able to participate w/ PT.
[2018-07-03 07:30] VITALS: BP 115/71; PULSE 80; RESP 18
[2018-07-03] MEDS: DOCUSATE SODIUM 10 MG/ML (10ML CUP) GTB SCH ×2 (08:44→20:30)
[2018-07-03] MEDS: BACLOFEN 10 MG TAB GTB SCH ×3 (08:44→20:29)
[2018-07-03] MEDS: FAMOTIDINE 20 MG TAB GTB SCH ×2 (08:44→20:29)
[2018-07-03] MEDS: LEVETIRACETAM (100 MG/ML) 5ML CUP GTB SCH ×2 (08:44→20:29)
[2018-07-03] MEDS: NYSTATIN 30 GM POWDER BTL TOP SCH ×3 (08:45→20:40)
[2018-07-03] MEDS: LACOSAMIDE (100 MG/10 ML PO SYR) GTB SCH ×2 (08:45→20:29)
[2018-07-03] MEDS: AMLODIPINE 10 MG TAB GTB SCH (08:45)
[2018-07-03] MEDS: NYSTATIN SUSP 5 ML CUP PO SCH ×2 (08:45→20:23)
[2018-07-03] MEDS: BALSAM PERU/CASTOR OIL 60 GM TUBE TOP SCH ×2 (08:46→20:40)
[2018-07-03] MEDS: ENOXAPARIN 40 MG/0.4 ML SYG SC SCH (08:50)
--- NOTE | 2018-07-03 09:30 | NUR ---
Dr. Gill updated about pt condition. seen & examined the pt w/ orders to start Lidoderm patch daily to apply on R shoulder. UA/prelim cx results reviewed by w/ orders to start pt on Levaquin 250mg via GT daily x 7 days for UTI. Orders were explained to the at bedside w/ verbalization of understanding.
--- NOTE | 2018-07-03 10:40 | PN ---
Date/Time of Note Date/Time of Note DATE: 07/03/18 TIME: 10:32 Subjective Patient much better today after medication adjustment Objective Vital Signs Date Temp Pulse Resp B/P (MAP) Pulse Ox O2 O2 Flow FiO2 Time Delivery Rate 07/03/18 97.8 80 18 115/71 96 Room Air 07:30 (86) 07/02/18 21 20:35 Intake and Output 07/02/18 07/02/18 07/03/18 1515:00 23:00 07:00 IntakeIntake Total 990 ml 550 ml 50 ml OutputOutput Total 1350 ml 250 ml BalanceBalance -360 ml 300 ml 50 ml Exam pulm-cta abd-soft max ambulation 20 feet Results/Medications Result Diagram: 07/03/18 0547 07/03/18 0547 Results 24 hrs Laboratory Tests Test 07/02/18 10:50 07/03/18 05:47 Urine Color RED Urine Clarity CLOUDY A Urine pH 6.0 Urine Specific Ryan 1.012 Urine Ketones NEGATIVE Urine Nitrite NEGATIVE Urine Bilirubin NEGATIVE Urine Urobilinogen NEGATIVE Urine Leukocyte Esterase 2+ H Urine Microscopic RBC 1 Urine Microscopic WBC > 182 H Urine Bacteria FEW A Urine Mucus FEW A Urine Hemoglobin NEGATIVE Urine Glucose NEGATIVE Urine Total Protein NEGATIVE White Blood Count 10.1 Red Blood Count 3.68 L Hemoglobin 11.8 L Hematocrit 33.4 L Mean Corpuscular Volume 90.8 Mean Corpuscular Hemoglobin 32.1 Mean Corpuscular Hemoglobin Concent 35.3 Red Cell Distribution Width 12.9 Platelet Count 311 Mean Platelet Volume 10.5 H Immature Granulocytes % 0.400 Neutrophils % 54.3 Lymphocytes % 34.4 Monocytes % 7.4 Eosinophils % 2.9 Basophils % 0.6 Nucleated Red Blood Cells % 0.0 Immature Granulocytes # 0.040 H Neutrophils # 5.5 Lymphocytes # 3.5 H Monocytes # 0.8 Eosinophils # 0.3 Basophils # 0.1 Nucleated Red Blood Cells # 0.0 Sodium Level 140 Potassium Level 3.4 L Chloride Level 101 Carbon Dioxide Level 30 Anion Gap 9 Blood Urea Nitrogen 13 Creatinine 0.45 Est Glomerular Filtrat Rate mL/min > 60 Glucose Level 96 Calcium Level 9.4 Phosphorus Level 5.1 H Magnesium Level 2.1 Medications Current Medications Atorvastatin Calcium (Lipitor) 20 mg DAILY@21 PO Last administered on 07/02/18at 21:31; Admin Dose 20 MG; Start 06/26/18 at 23:09 Lacosamide (Vimpat Liq) 50 mg BID GTB Last administered on 07/03/18 08:45; Admin Dose 50 MG; Start 06/26/18 at 23:09 Albuterol (Proventil 0.5% (Neb)) 2.5 mg Q4H RESP THERAPY PRN INH PRN DYSPNEA; Start 06/26/18 at 23:09 Ipratropium [place] (Atrovent 0.02% (Neb)) 0.5 mg Q4H RESP THERAPY PRN INH DYSPNEA; Start 06/26/18 at 23:09 Simethicone (Mylicon) 80 mg QID PRN PEG DISTENSION/GAS/BLOATING; Start 06/26/18 at 23:09 Amlodipine Besylate (Norvasc) 10 mg DAILY GTB Last administered on 07/03/18 08:45; Admin Dose 10 MG; Start 06/26/18 at 23:09 Nystatin (Nystatin Susp) 5 ml BID PO Last administered on 07/03/18 08:45; Admin Dose 5 ML; Start 06/26/18 at 23:09 Olanzapine (Zyprexa) 2.5 mg QHS PO Last administered on 07/02/18 21:32; Admin Dose 2.5 MG; Start 06/26/18 at 23:09 Acetaminophen (Tylenol Liquid) 650 mg Q4H PRN GTB PRN FOR FEVER Last administered on 07/01/18 16:44; Admin Dose 650 MG; Start 06/26/18 at 23:09 Enoxaparin Sodium (Lovenox) 40 mg DAILY SC Last administered on 07/03/18 08:50; Admin Dose 40 MG; Start 06/26/18 at 23:09 Famotidine (Pepcid) 20 mg BID GTB Last administered on 07/03/18 08:44; Admin Dose 20 MG; Start 06/26/18 at 23:09 Levetiracetam (Keppra Liquid) 500 mg BID GTB Last administered on 07/03/18 08:44; Admin Dose 500 MG; Start 06/26/18 at 23:09 Nystatin (Nystatin Powder) 1 applic TID TOP Last administered on 07/03/18 08:45; Admin Dose 1 APPLIC; Start 06/26/18 at 23:09 Eye Lubricant (Akwa Oint) 1 applic Q1H PRN BOTH EYES PRN; Start 06/26/18 at 23:09 Acetaminophen (Tylenol Liquid) 650 mg Q4H PRN GTB MILD PAIN LEVEL 1-3 Last adm inistered on 07/03/18 01:08; Admin Dose 650 MG; Start 06/26/18 at 23:09 Docusate Sodium (Colace Liquid Cup) 100 mg BID GTB Last administered on 07/03/18 08:44; Admin Dose 100 MG; Start 06/27/18 at 09:00 Magnesium Hydroxide (Milk Of Mag) 30 ml BID PRN GTB CONSTIPATION; Start 06/27/18 at 00:00 Lactulose (Enulose) 20 gm DAILY PRN GTB CONSTIPATION; Start 06/27/18 at 00:00 Bisacodyl (Dulcolax Supp) 10 mg DAILY PRN [place] CONSTIPATION; Start 06/27/18 at 00:00 Levothyroxine Sodium (Synthroid) 88 mcg DAILY@06 GTB Last administered on 07/03/18 06:29; Admin Dose 88 MCG; Start 06/28/18 at 06:00 Baclofen (Lioresal) 10 mg TID GTB Last administered on 07/03/18 08:44; Admin Dose 10 MG; Start 06/29/18 at 13:00 Zolpidem Tartrate (Ambien) 5 mg HS GTB Last administered on 07/02/18 21:33; Admin Dose 5 MG; Start 07/02/18 at 21:00 Gabapentin (Neurontin) 100 mg HS GTB Last administered on 07/02/18 21:32; Admin Dose 100 MG; Start 07/02/18 at 21:00 Acetaminophen/ Hydrocodone Bitart ([place] (5/325)) 1 tab Q24H PRN GTB SEVERE PAIN LEVEL 7-10 Last administered on 07/03/18 07:29; Admin Dose 1 TAB; Start 07/02/18 at 12:00 Lidocaine (Lidoderm) 1 patch DAILY TD ; Start 07/03/18 at 10:30 Assessment/Plan Additional Assessment/Plan Rehab- L SAH/hydrocephalus-s/p crani & clipping of the L RECREATION PROGRAMMER aneurysm and L frontal ventriculostomy placement; Encephalopathy Much better today after medication adjustment, and with present. reports he will be available for videofluoro Pain- improved. Patient with neuropathic pain, and pain from spasticity- improved with neurontin/baclofen/ and small prn dose of norco Dysphagia-s/p PEG- tolerating bolus feeds. Encourage po intake. Await videofluoro Seizure Disorder-continue seizure precautions Respiratory Failure- s/p tracheostomy, tolerating cap, probable decannulation Friday - Urinary retention, started on Levoquin for UTI Spasticity with increased tone in Right Upper and Lower Extremity- Continue baclofen, continue ROM Hypothyroidism ROB CARMONA MD Jul 03, 2018 10:40
[2018-07-03] MEDS ORDERED: POTASSIUM CHLORIDE (SR) 20 MEQ TAB PO STA (10:58)
--- NOTE | 2018-07-03 10:59 | PN ---
Date/Time of Note Date/Time of Note DATE: 07/03/18 TIME: 10:59 Assessment/Plan VTE Prophylaxis Risk score (from Ns)>0 risk: 4 SCD applied (from Ns): Yes Pharmacological prophylaxis: other Lines/Catheters IV Catheter Type (from Nrs): Saline Lock Urinary Cath still in place: No Assessment/Plan Hospital Course HISTORY OF PRESENT ILLNESS: The patient is a 57-year-old female who was tr ansferred from [facility]. 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 She was stabilized, discharged on 04/07/2018 and readmitted on with neck stiffness with major subarachnoid hemorrhage with midline shift and subfalcine herniation. This progressed to paralysis with altered mental status. She was taken to left craniotomy on 04/10/2018 with clipping of the left posterior communicating artery aneurysm and left frontal ventriculostomy placement for drainage of the intraventricular hemorrhage. She had persistent major neurologic deficit with obstructive hydrocephalus, ischemic encephalopathy, and some vasospasm. She had a PEG placement on 04/28/2018 and tracheostomy on 05/01/2018. She had ongoing seizures requiring multiple medications for control. She had urinary tract infection, apparently was treated. On 05/12 she was transferred to [facility] for continuity of care. There is no current respiratory distress. Secretions are moderate and saturations are 100% with trach capped d/w charge nurse she is awake and is now tracking no fever, chills, new rash, hematuria, melena, dyspnea or seizure like activities. ROS: 13 point ROS was done and pertinent findings are in HPI PHYSICAL EXAMINATION: GENERAL: Shows her to be well developed, well nourished, in no acute distress. HEENT: Status post craniotomy. Pupils are slightly equal, left larger than right. Right is reactive. Left questionably reactive. Fundi: Unable. Ears: Externally normal. Nose: Unremarkable. Mouth and throat: Limited exam. No inflammation seen. NECK: Shows tracheostomy in place. No definite JVD. Nodes are negative, neck and supraclavicular. HEART: Regular rate and rhythm without definite murmurs or gallops appreciated. CHEST: Shows slightly coarse breath sounds, a few rhonchi. No wheeze. Exam limited to supine position. ABDOMEN: Soft, nontender. No masses or organomegaly appreciated. Binders in place. G-tube in place. EXTREMITIES: No clubbing, cyanosis, or edema. No evidence for deep vein thrombosis. NEUROLOGIC: awake but non-verbal Impression and Plan: 1. Acute hypoxemic respiratory failure, clinically stable with capped trach. Continue usual respiratory care with tracheostomy care, pulmonary toilet, anti- aspiration measures. We will continue bronchodilators for now. continue PT 2. 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 surgical scar is well healed. c ontinue anti-seizure meds. she is moving left side of her body and is doing well with rehab. She will be admitted to ARU for continuity of care 3. Seizure secondary to above, controlled. 4. Ischemic encephalopathy due to the above, status post vasospasm, status post obstructive hydrocephalus. 5. Dysphagia, tolerating tube feeding. 6. Hypothyroidism. 7. UTI (recurred): cultures were reviewed. s/p abx Result Diagram: 07/03/18 0547 07/03/18 0547 Results 24hrs Laboratory Tests Test 07/03/18 05:47 White Blood Count 10.1 Red Blood Count 3.68 L Hemoglobin 11.8 L Hematocrit 33.4 L Mean Corpuscular Volume 90.8 Mean Corpuscular Hemoglobin 32.1 Mean Corpuscular Hemoglobin Concent 35.3 Red Cell Distribution Width 12.9 Platelet Count 311 Mean Platelet Volume 10.5 H Immature Granulocytes % 0.400 Neutrophils % 54.3 Lymphocytes % 34.4 Monocytes % 7.4 Eosinophils % 2.9 Basophils % 0.6 Nucleated Red Blood Cells % 0.0 Immature Granulocytes # 0.040 H Neutrophils # 5.5 Lymphocytes # 3.5 H Monocytes # 0.8 Eosinophils # 0.3 Basophils # 0.1 Nucleated Red Blood Cells # 0.0 Sodium Level 140 Potassium Level 3.4 L Chloride Level 101 Carbon Dioxide Level 30 Anion Gap 9 Blood Urea Nitrogen 13 Creatinine 0.45 Est Glomerular Filtrat Rate mL/min > 60 Glucose Level 96 Calcium Level 9.4 Phosphorus Level 5.1 H Magnesium Level 2.1 Exam/Review of Systems Vital Signs Vitals Vital Signs Date Temp Pulse Resp B/P (MAP) Pulse Ox O2 O2 Flow FiO2 Time Delivery Rate 07/03/18 97.8 80 18 115/71 96 Room Air 07:30 (86) 07/02/18 21 20:35 Intake and Output 07/02/18 07/02/18 07/03/18 1515:00 23:00 07:00 IntakeIntake Total 990 ml 550 ml 50 ml OutputOutput Total 1350 ml 250 ml BalanceBalance -360 ml 300 ml 50 ml Medications Medications Current Medications Atorvastatin Calcium (Lipitor) 20 mg DAILY@21 PO Last administered on 07/02/18 21:31; Admin Dose 20 MG; Start 06/26/18 at 23:09 Lacosamide (Vimpat Liq) 50 mg BID GTB Last administered on 07/03/18 08:45; Admin Dose 50 MG; Start 06/26/18 at 23:09 Albuterol (Proventil 0.5% (Neb)) 2.5 mg Q4H RESP THERAPY PRN INH PRN DYSPNEA; Start 06/26/18 at 23:09 Ipratropium [place] (Atrovent 0.02% (Neb)) 0.5 mg Q4H RESP THERAPY PRN INH DYSPNEA; Start 06/26/18 at 23:09 Simethicone (Mylicon) 80 mg QID PRN PEG DISTENSION/GAS/BLOATING; Start 06/26/18 at 23:09 Amlodipine Besylate (Norvasc) 10 mg DAILY GTB Last administered on 07/03/18 08:45; Admin Dose 10 MG; Start 06/26/18 at 23:09 Nystatin (Nystatin Susp) 5 ml BID PO Last administered on 07/03/18 08:45; Admin Dose 5 ML; Start 06/26/18 at 23:09 Olanzapine (Zyprexa) 2.5 mg QHS PO Last administered on 07/02/18 21:32; Admin Dose 2.5 MG; Start 06/26/18 at 23:09 Acetaminophen (Tylenol Liquid) 650 mg Q4H PRN GTB PRN FOR FEVER Last administered on 07/01/18 16:44; Admin Dose 650 MG; Start 06/26/18 at 23:09 Enoxaparin Sodium (Lovenox) 40 mg DAILY SC Last administered on 07/03/18 08:50; Admin Dose 40 MG; Start 06/26/18 at 23:09 Famotidine (Pepcid) 20 mg BID GTB Last administered on 07/03/18 08:44; Admin Dose 20 MG; Start 06/26/18 at 23:09 Levetiracetam (Keppra Liquid) 500 mg BID GTB Last administered on 07/03/18 08:44; Admin Dose 500 MG; Start 06/26/18 at 23:09 Nystatin (Nystatin Powder) 1 applic TID TOP Last administered on 07/03/18 08:45; Admin Dose 1 APPLIC; Start 06/26/18 at 23:09 Eye Lubricant (Akwa Oint) 1 applic Q1H PRN BOTH EYES PRN; Start 06/26/18 at 23:09 Acetaminophen (Tylenol Liquid) 650 mg Q4H PRN GTB MILD PAIN LEVEL 1-3 Last a dministered on 07/03/18 01:08; Admin Dose 650 MG; Start 06/26/18 at 23:09 Docusate Sodium (Colace Liquid Cup) 100 mg BID GTB Last administered on 07/03/18 08:44; Admin Dose 100 MG; Start 06/27/18 at 09:00 Magnesium Hydroxide (Milk Of Mag) 30 ml BID PRN GTB CONSTIPATION; Start 06/27/18 at 00:00 Lactulose (Enulose) 20 gm DAILY PRN GTB CONSTIPATION; Start 06/27/18 at 00:00 Bisacodyl (Dulcolax Supp) 10 mg DAILY PRN [place] CONSTIPATION; Start 06/27/18 at 00:00 Levothyroxine Sodium (Synthroid) 88 mcg DAILY@06 GTB Last administered on 07/03/18 06:29; Admin Dose 88 MCG; Start 06/28/18 at 06:00 Baclofen (Lioresal) 10 mg TID GTB Last administered on 07/03/18 08:44; Admin Dose 10 MG; Start 06/29/18 at 13:00 Zolpidem Tartrate (Ambien) 5 mg HS GTB Last administered on 07/02/18 21:33; Admin Dose 5 MG; Start 07/02/18 at 21:00 Gabapentin (Neurontin) 100 mg HS GTB Last administered on 07/02/18 21:32; Admin Dose 100 MG; Start 07/02/18 at 21:00 Acetaminophen/ Hydrocodone Bitart ([place] (5/325)) 1 tab Q24H PRN GTB SEVERE PAIN LEVEL 7-10 Last administered on 07/03/18at 07:29; Admin Dose 1 TAB; Start 07/02/18 at 12:00 Lidocaine (Lidoderm) 1 patch DAILY TD ; Start 07/03/18 at 10:30 Levofloxacin (Levaquin) 250 mg DAILY GTB ; Start 07/03/18 at 11:00; Stop 07/10/18 at 10:59 HERNAN SHIPLEY DO Jul 03, 2018 10:59
[2018-07-03] MEDS ORDERED: LEVOFLOXACIN 250 MG TAB GTB SCH (11:00)
[2018-07-03] MEDS: LIDOCAINE 5% PATCH TD SCH (11:12)
[2018-07-03] MEDS: LEVOFLOXACIN 250 MG TAB GTB SCH (11:13)
--- NOTE | 2018-07-03 11:33 | NUR ---
Speech therapist at bedside, pt tolerated drinking her Fibersource HN w/o difficulty as well as taking some of her crushed meds w/ applesauce. Followed strict aspiration precaution.
--- NOTE | 2018-07-03 12:34 | NUR ---
SOCIAL WORK NOTE: Received a call from Sandra at [employer] [phone] reports that pt has been authorized until 07/06/18. This medical writer made medical billing and coding instructor and entry level programmer aware, medical billing and coding instructor requesting extension until 07/13 due to decsnnulation and urinary retention. This executive secretary social welfare will f/u with JOHN Nicole.
[2018-07-03 14:00] VITALS: BP 118/69; PULSE 78; RESP 18
--- NOTE | 2018-07-03 15:46 | CONS ---
Date/Time of Note Date/Time of Note DATE: 07/03/18 TIME: 15:45 Consult Date/Type/Reason Admit Date/Time Jun 26, 2018 at 21:04 Initial Consult Date Type of Consultation: Pulmonary ICU Subjective Patient continues to remain stable no significant events. Attempted to pull out tracheostomy the other day. Objective Vital Signs Date Temp Pulse Resp B/P (MAP) Pulse Ox O2 O2 Flow FiO2 Time Delivery Rate 07/03/18 97.8 80 18 115/71 96 Room Air 07:30 (86) 07/02/18 21 20:35 Intake and Output 07/02/18 07/02/18 07/03/18 1515:00 23:00 07:00 IntakeIntake Total 990 ml 550 ml 50 ml OutputOutput Total 1350 ml 250 ml BalanceBalance -360 ml 300 ml 50 ml Exam PHYSICAL EXAMINATION: GENERAL: Well-nourished, well-developed lady, comfortable at rest, in no acute distress. VITAL SIGNS: NECK: Supple. Trach site is clean and intact. Tracheostomy capped CARDIAC: S1, S2. No added sounds or murmurs. CHEST: Diminished air entry bilaterally. ABDOMEN: Soft, nontender. No guarding or rebound. EXTREMITIES: No cyanosis, clubbing, edema. NEUROLOGIC: With hemiplegia. Results/Medications Result Diagram: 07/03/18 0547 07/03/18 0547 Results 24 hrs Laboratory Tests Test 07/03/18 05:47 White Blood Count 10.1 Red Blood Count 3.68 L Hemoglobin 11.8 L Hematocrit 33.4 L Mean Corpuscular Volume 90.8 Mean Corpuscular Hemoglobin 32.1 Mean Corpuscular Hemoglobin Concent 35.3 Red Cell Distribution Width 12.9 Platelet Count 311 Mean Platelet Volume 10.5 H Immature Granulocytes % 0.400 Neutrophils % 54.3 Lymphocytes % 34.4 Monocytes % 7.4 Eosinophils % 2.9 Basophils % 0.6 Nucleated Red Blood Cells % 0.0 Immature Granulocytes # 0.040 H Neutrophils # 5.5 Lymphocytes # 3.5 H Monocytes # 0.8 Eosinophils # 0.3 Basophils # 0.1 Nucleated Red Blood Cells # 0.0 Sodium Level 140 Potassium Level 3.4 L Chloride Level 101 Carbon Dioxide Level 30 Anion Gap 9 Blood Urea Nitrogen 13 Creatinine 0.45 Est Glomerular Filtrat Rate mL/min > 60 Glucose Level 96 Calcium Level 9.4 Phosphorus Level 5.1 H Magnesium Level 2.1 Medications Current Medications Atorvastatin Calcium (Lipitor) 20 mg DAILY@21 PO Last administered on 07/02/18 21:31; Admin Dose 20 MG; Start 06/26/18 at 23:09 Lacosamide (Vimpat Liq) 50 mg BID GTB Last administered on 07/03/18 08:45; Admin Dose 50 MG; Start 06/26/18 at 23:09 Albuterol (Proventil 0.5% (Neb)) 2.5 mg Q4H RESP THERAPY PRN INH PRN DYSPNEA; Start 06/26/18 at 23:09 Ipratropium [place] (Atrovent 0.02% (Neb)) 0.5 mg Q4H RESP THERAPY PRN INH DYSPNEA; Start 06/26/18 at 23:09 Simethicone (Mylicon) 80 mg QID PRN PEG DISTENSION/GAS/BLOATING; Start 06/26/18 at 23:09 Amlodipine Besylate (Norvasc) 10 mg DAILY GTB Last administered on 07/03/18 08:45; Admin Dose 10 MG; Start 06/26/18 at 23:09 Nystatin (Nystatin Susp) 5 ml BID PO Last administered on 07/03/18 08:45; Admin Dose 5 ML; Start 06/26/18 at 23:09 Olanzapine (Zyprexa) 2.5 mg QHS PO Last administered on 07/02/18 21:32; Admin Dose 2.5 MG; Start 06/26/18 at 23:09 Acetaminophen (Tylenol Liquid) 650 mg Q4H PRN GTB PRN FOR FEVER Last administered on 07/01/18 16:44; Admin Dose 650 MG; Start 06/26/18 at 23:09 Enoxaparin Sodium (Lovenox) 40 mg DAILY SC Last administered on 07/03/18 08:50; Admin Dose 40 MG; Start 06/26/18 at 23:09 Famotidine (Pepcid) 20 mg BID GTB Last administered on 07/03/18 08:44; Admin Dose 20 MG; Start 06/26/18 at 23:09 Levetiracetam (Keppra Liquid) 500 mg BID GTB Last administered on 07/03/18 08:44; Admin Dose 500 MG; Start 06/26/18 at 23:09 Nystatin (Nystatin Powder) 1 applic TID TOP Last administered on 07/03/18 1 3:56; Admin Dose 1 APPLIC; Start 06/26/18 at 23:09 Eye Lubricant (Akwa Oint) 1 applic Q1H PRN BOTH EYES PRN; Start 06/26/18 at 23:09 Acetaminophen (Tylenol Liquid) 650 mg Q4H PRN GTB MILD PAIN LEVEL 1-3 Last administered on 07/03/18 01:08; Admin Dose 650 MG; Start 06/26/18 at 23:09 Docusate Sodium (Colace Liquid Cup) 100 mg BID GTB Last administered on 07/03/18 08:44; Admin Dose 100 MG; Start 06/27/18 at 09:00 Magnesium Hydroxide (Milk Of Mag) 30 ml BID PRN GTB CONSTIPATION; Start 06/27 at 00:00 Lactulose (Enulose) 20 gm DAILY PRN GTB CONSTIPATION; Start 06/27/18 at 00:00 Bisacodyl (Dulcolax Supp) 10 mg DAILY PRN [place] CONSTIPATION; Start 06/27/18 at 00:00 Levothyroxine Sodium (Synthroid) 88 mcg DAILY@06 GTB Last administered on 07/03/18 06:29; Admin Dose 88 MCG; Start 06/28/18 at 06:00 Baclofen (Lioresal) 10 mg TID GTB Last administered on 07/03/18 13:56; Admin Dose 10 MG; Start 06/29/18 at 13:00 Zolpidem Tartrate (Ambien) 5 mg HS GTB Last administered on 07/02/18 21:33; Admin Dose 5 MG; Start 07/02/18 at 21:00 Gabapentin (Neurontin) 100 mg HS GTB Last administered on 07/02/18 21:32; Admin Dose 100 MG; Start 07/02/18 at 21:00 Acetaminophen/ Hydrocodone Bitart ([place] (5/325)) 1 tab Q24H PRN GTB SEVERE PAIN LEVEL 7-10 Last administered on 07/03/18 07:29; Admin Dose 1 TAB; Start 07/02/18 at 12:00 Lidocaine (Lidoderm) 1 patch DAILY TD Last administered on 1/4/19at 11:12; Admin Dose 1 PATCH; Start 07/03/18 at 10:30 Levofloxacin (Levaquin) 250 mg DAILY GTB Last administered on 07/03/18at 11:13; Admin Dose 250 MG; Start 07/03/18 at 11:00; Stop 07/10/18 at 10:59 Assessment/Plan Chief Complaint/Hosp Course IMPRESSION AND PLAN: 1. Status post respiratory failure. 2. 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 3. Dysphagia with G-tube. PLAN: 1. Follow speech therapy recommendations regarding p.o. diet and aspiration risk. 2. Continue trach capping as tolerated. 3. Anticipate decannulation in the next 2 to 3 days. Would not replace tracheostomy if patient self decannulates GERTRUDIS ROACH MD, [facility] Jul 03, 2018 15:46
--- NOTE | 2018-07-03 18:42 | NUR ---
Pt resting on her bed at this time, not showing any sign of pain. Pt answers to simple question. Pt had BM, large amount. PVR done after diaper noted soaked w/ urine, 100cc. Brother at bedside at this time. Pt turned/repositioned q2H. Trach & GT kept patent & intact w/ no sign of infection. Dressing clean & dry. Kept well rested. Needs attended. Bed kept low & in locked pos. Call light w/in reach. Will endorse to PM RN for WM.
[2018-07-03 20:00] VITALS: BP 110/68; PULSE 84; RESP 18
[2018-07-03] MEDS: OLANZAPINE 2.5 MG TAB PO SCH (20:23)
[2018-07-03] MEDS: ATORVASTATIN 20 MG TAB PO SCH (20:23)
[2018-07-03] MEDS: ZOLPIDEM 5 MG TAB GTB SCH (20:29)
[2018-07-03] MEDS: GABAPENTIN 100 MG CAP GTB SCH (20:29)
[2018-07-04 01:53] VITALS: BP 95/55; PULSE 65; RESP 18
--- NOTE | 2018-07-04 05:37 | NUR ---
Pt asleep at this time, no s/s of distress. Tylenol given for mild pain; manifested relief after interventions. Slept well through the night. Due meds given. Incontinent care given, kept clean and comfortable. PVR done after change of absorbent pad. Trach and Gtube patent, with no signs of infection. Safety precautions in place. Frequent checks done. at bedside. Will endorse accordingly.
[2018-07-04] MEDS: LEVOTHYROXINE 88 MCG TAB GTB SCH (06:39)
[2018-07-04 08:00] VITALS: BP 104/58; PULSE 67; RESP 16
[2018-07-04] MEDS: HYDROCODONE/APAP (5/325) TAB GTB PRN (08:15)
[2018-07-04] MEDS: FAMOTIDINE 20 MG TAB GTB SCH ×2 (08:15→20:24)
[2018-07-04] MEDS: BACLOFEN 10 MG TAB GTB SCH ×3 (08:15→20:24)
[2018-07-04] MEDS: DOCUSATE SODIUM 10 MG/ML (10ML CUP) GTB SCH ×2 (08:16→20:29)
[2018-07-04] MEDS: AMLODIPINE 10 MG TAB GTB SCH (08:16)
[2018-07-04] MEDS: NYSTATIN SUSP 5 ML CUP PO SCH ×2 (08:16→20:29)
[2018-07-04] MEDS: LACOSAMIDE (100 MG/10 ML PO SYR) GTB SCH ×2 (08:16→21:25)
[2018-07-04] MEDS: LEVETIRACETAM (100 MG/ML) 5ML CUP GTB SCH ×2 (08:16→20:24)
[2018-07-04] MEDS: LEVOFLOXACIN 250 MG TAB GTB SCH (08:16)
[2018-07-04] MEDS: BALSAM PERU/CASTOR OIL 60 GM TUBE TOP SCH ×2 (08:17→22:15)
[2018-07-04] MEDS: LIDOCAINE 5% PATCH TD SCH (08:17)
[2018-07-04] MEDS: NYSTATIN 30 GM POWDER BTL TOP SCH ×3 (08:17→22:15)
[2018-07-04] MEDS: ENOXAPARIN 40 MG/0.4 ML SYG SC SCH (08:32)
--- NOTE | 2018-07-04 10:00 | NUR ---
Pt was seen & examined by Dr. Gill. MD also updated about pt able to tolerate taking her meds crushed w/ apple sauce as well as drinking his Fibersource HN PO. Per MD may hold GTF now. also ordered to use abdominal binder instead of gait belt for support as pt refusing to use gait belt. at bedside.
--- NOTE | 2018-07-04 11:08 | CONS ---
Date/Time of Note Date/Time of Note DATE: 07/04/18 TIME: 11:07 Consult Date/Type/Reason Admit Date/Time Jun 26, 2018 at 21:04 Initial Consult Date Type of Consultation: Pulmonary ICU Objective Vital Signs Date Temp Pulse Resp B/P (MAP) Pulse Ox O2 O2 Flow FiO2 Time Delivery Rate 07/04/18 98.2 65 18 95/55 (68) 96 Room Air 01:53 07/02/18 21 20:35 Intake and Output 07/03/18 07/03/18 07/04/18 1515:00 23:00 07:00 IntakeIntake Total 900 ml 100 ml 120 ml OutputOutput Total 1150 ml BalanceBalance -250 ml 100 ml 120 ml Results/Medications Result Diagram: 07/03/18 0547 07/03/18 0547 Medications Current Medications Atorvastatin Calcium (Lipitor) 20 mg DAILY@21 PO Last administered on 07/03/18 20:23; Admin Dose 20 MG; Start 06/26/18 at 23:09 Lacosamide (Vimpat Liq) 50 mg BID GTB Last administered on 07/04/18 08:16; Admin Dose 50 MG; Start 06/26/18 at 23:09 Albuterol (Proventil 0.5% (Neb)) 2.5 mg Q4H RESP THERAPY PRN INH PRN DYSPNEA; Start 06/26/18 at 23:09 Ipratropium [place] (Atrovent 0.02% (Neb)) 0.5 mg Q4H RESP THERAPY PRN INH DYSPNEA; Start 06/26/18 at 23:09 Simethicone (Mylicon) 80 mg QID PRN PEG DISTENSION/GAS/BLOATING; Start 06/26 at 23:09 Amlodipine Besylate (Norvasc) 10 mg DAILY GTB Last administered on 07/03/18 08:45; Admin Dose 10 MG; Start 06/26/18 at 23:09 Nystatin (Nystatin Susp) 5 ml BID PO Last administered on 07/04/18 08:16; Admin Dose 5 ML; Start 06/26/18 at 23:09 Olanzapine (Zyprexa) 2.5 mg QHS PO Last administered on 07/03/18 20:23; Admin Dose 2.5 MG; Start 06/26/18 at 23:09 Acetaminophen (Tylenol Liquid) 650 mg Q4H PRN GTB PRN FOR FEVER Last administered on 07/01/18 16:44; Admin Dose 650 MG; Start 06/26/18 at 23:09 Enoxaparin Sodium (Lovenox) 40 mg DAILY SC Last administered on 07/04/18 08:32; Admin Dose 40 MG; Start 06/26/18 at 23:09 Famotidine (Pepcid) 20 mg BID GTB Last administered on 07/04/18 08:15; Admin Dose 20 MG; Start 06/26/18 at 23:09 Levetiracetam (Keppra Liquid) 500 mg BID GTB Last administered on 07/04/18 08:16; Admin Dose 500 MG; Start 06/26/18 at 23:09 Nystatin (Nystatin Powder) 1 applic TID TOP Last administered on 07/04/18 08:17; Admin Dose 1 APPLIC; Start 06/26/18 at 23:09 Eye Lubricant (Akwa Oint) 1 applic Q1H PRN BOTH EYES PRN; Start 06/26/18 at 23:09 Acetaminophen (Tylenol Liquid) 650 mg Q4H PRN GTB MILD PAIN LEVEL 1-3 Last administered on 07/03/18 20:23; Admin Dose 650 MG; Start 06/26/18 at 23:09 Docusate Sodium (Colace Liquid Cup) 100 mg BID GTB Last administered on 07/04/18 08:16; Admin Dose 100 MG; Start 06/27/18 at 09:00 Magnesium Hydroxide (Milk Of Mag) 30 ml BID PRN GTB CONSTIPATION; Start 06/27/18 at 00:00 Lactulose (Enulose) 20 gm DAILY PRN GTB CONSTIPATION; Start 06/27/18 at 00:00 Bisacodyl (Dulcolax Supp) 10 mg DAILY PRN [place] CONSTIPATION; Start 06/27/18 at 00:00 Levothyroxine Sodium (Synthroid) 88 mcg DAILY@06 GTB Last administered on 07/04/18 06:39; Admin Dose 88 MCG; Start 06/28/18 at 06:00 Baclofen (Lioresal) 10 mg TID GTB Last administered on 07/04/18 08:15; Admin Dose 10 MG; Start 06/29/18 at 13:00 Zolpidem Tartrate (Ambien) 5 mg HS GTB Last administered on 07/03/18 20:29; Admin Dose 5 MG; Start 07/02/18 at 21:00 Gabapentin (Neurontin) 100 mg HS GTB Last administered on 07/03/18 20:29; Admin Dose 100 MG; Start 07/02/18 at 21:00 Acetaminophen/ Hydrocodone Bitart ([place] (5/325)) 1 tab Q24H PRN GTB SEVERE PAIN LEVEL 7-10 Last administered on 07/04/18 08:15; Admin Dose 1 TAB; Start 07/02/18 at 12:00 Lidocaine (Lidoderm) 1 patch DAILY TD Last administered on 07/04/18 08:17; Admin Dose 1 PATCH; Start 07/03/18 at 10:30 Levofloxacin (Levaquin) 250 mg DAILY GTB Last administered on 07/04/18 08:16; Admin Dose 250 MG; Start 07/03/18 at 11:00; Stop 07/10/18 at 10:59 Assessment/Plan Chief Complaint/Hosp Course she is awake and is now tracking no fever, chills, new rash, hematuria, melena, dyspnea or seizure like activities. ROS: 13 point ROS was done and pertinent findings are in HPI PHYSICAL EXAMINATION: GENERAL: Shows her to be well developed, well nourished, in no acute distress. HEENT: Status post craniotomy. Pupils are slightly equal, left larger than r ight. Right is reactive. Left questionably reactive. Fundi: Unable. Ears: Externally normal. Nose: Unremarkable. Mouth and throat: Limited exam. No inflammation seen. NECK: Shows tracheostomy in place. No definite JVD. Nodes are negative, neck and supraclavicular. HEART: Regular rate and rhythm without definite murmurs or gallops appreciated. CHEST: Shows slightly coarse breath sounds, a few rhonchi. No wheeze. Exam limited to supine position. ABDOMEN: Soft, nontender. No masses or organomegaly appreciated. Binders in place. G-tube in place. EXTREMITIES: No clubbing, cyanosis, or edema. No evidence for deep vein thrombosis. NEUROLOGIC: awake but non-verbal Impression and Plan: 1. Acute hypoxemic respiratory failure, clinically stable with capped trach. Continue usual respiratory care with tracheostomy care, pulmonary toilet, anti- aspiration measures. We will continue bronchodilators for now. continue PT 2. 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 surgical scar is well healed. continue anti-seizure meds. she is moving left side of her body and is doing well with rehab. She will be admitted to ARU for continuity of care 3. Seizure secondary to above, controlled. 4. Ischemic encephalopathy due to the above, status post vasospasm, status post obstructive hydrocephalus. 5. Dysphagia, tolerating tube feeding. 6. Hypothyroidism. 7. UTI (recurred): cultures were reviewed. s/p GOVIND Petit MD Jul 04, 2018 11:08
--- NOTE | 2018-07-04 11:30 | PN ---
Date/Time of Note Date/Time of Note DATE: 07/04/18 TIME: 11:27 Subjective Patient does not like gait belt, perhaps due to irritation to gtube. RN reports improved p.o. intake Objective Vital Signs Date Temp Pulse Resp B/P (MAP) Pulse Ox O2 O2 Flow FiO2 Time Delivery Rate 07/04/18 98.2 65 18 95/55 (68) 96 Room Air 01:53 07/02/18 21 20:35 Intake and Output 07/03/18 07/03/18 07/04/18 1515:00 23:00 07:00 IntakeIntake Total 900 ml 100 ml 120 ml OutputOutput Total 1150 ml BalanceBalance -250 ml 100 ml 120 ml Exam pulm-cta abd-soft mod/max assist Results/Medications Result Diagram: 07/03/18 0547 07/03/18 0547 Medications Current Medications Atorvastatin Calcium (Lipitor) 20 mg DAILY@21 PO Last administered on 07/03/18 20:23; Admin Dose 20 MG; Start 06/26/18 at 23:09 Lacosamide (Vimpat Liq) 50 mg BID GTB Last administered on 07/04/18 08:16; Admin Dose 50 MG; Start 06/26/18 at 23:09 Albuterol (Proventil 0.5% (Neb)) 2.5 mg Q4H RESP THERAPY PRN INH PRN DYSPNEA; Start 06/26/18 at 23:09 Ipratropium [place] (Atrovent 0.02% (Neb)) 0.5 mg Q4H RESP THERAPY PRN INH DYSPNEA; Start 06/26/18 at 23:09 Simethicone (Mylicon) 80 mg QID PRN PEG DISTENSION/GAS/BLOATING; Start 06/26/18 at 23:09 Amlodipine Besylate (Norvasc) 10 mg DAILY GTB Last administered on 07/03/18 08:45; Admin Dose 10 MG; Start 06/26/18 at 23:09 Nystatin (Nystatin Susp) 5 ml BID PO Last administered on 07/04/18 08:16; Admin Dose 5 ML; Start 06/26/18 at 23:09 Olanzapine (Zyprexa) 2.5 mg QHS PO Last administered on 07/03/18 20:23; Admin Dose 2.5 MG; Start 06/26/18 at 23:09 Acetaminophen (Tylenol Liquid) 650 mg Q4H PRN GTB PRN FOR FEVER Last administered on 07/01/18 16:44; Admin Dose 650 MG; Start 06/26/18 at 23:09 Enoxaparin Sodium (Lovenox) 40 mg DAILY SC Last administered on 07/04/18 08:32; Admin Dose 40 MG; Start 06/26/18 at 23:09 Famotidine (Pepcid) 20 mg BID GTB Last administered on 07/04/18 08:15; Admin Dose 20 MG; Start 06/26/18 at 23:09 Levetiracetam (Keppra Liquid) 500 mg BID GTB Last administered on 07/04/18 08:16; Admin Dose 500 MG; Start 06/26/18 at 23:09 Nystatin (Nystatin Powder) 1 applic TID TOP Last administered on 07/04/18 08:17; Admin Dose 1 APPLIC; Start 06/26/18 at 23:09 Eye Lubricant (Akwa Oint) 1 applic Q1H PRN BOTH EYES PRN; Start 06/26/18 at 23:09 Acetaminophen (Tylenol Liquid) 650 mg Q4H PRN GTB MILD PAIN LEVEL 1-3 Last administered on 07/03/18 20:23; Admin Dose 650 MG; Start 06/26/18 at 23:09 Docusate Sodium (Colace Liquid Cup) 100 mg BID GTB Last administered on 07/04/18 08:16; Admin Dose 100 MG; Start 06/27/18 at 09:00 Magnesium Hydroxide (Milk Of Mag) 30 ml BID PRN GTB CONSTIPATION; Start 06/27/18 at 00:00 Lactulose (Enulose) 20 gm DAILY PRN GTB CONSTIPATION; Start 06/27/18 at 00:00 Bisacodyl (Dulcolax Supp) 10 mg DAILY PRN [place] CONSTIPATION; Start 06/27/18 at 00:00 Levothyroxine Sodium (Synthroid) 88 mcg DAILY@06 GTB Last administered on 07/04/18 06:39; Admin Dose 88 MCG; Start 06/28/18 at 06:00 Baclofen (Lioresal) 10 mg TID GTB Last administered on 07/04/18 08:15; Admin Dose 10 MG; Start 06/29/18 at 13:00 Zolpidem Tartrate (Ambien) 5 mg HS GTB Last administered on 07/03/18 20:29; Admin Dose 5 MG; Start 07/02/18 at 21:00 Gabapentin (Neurontin) 100 mg HS GTB Last administered on 07/03/18 20:29; Admin Dose 100 MG; Start 07/02/18 at 21:00 Acetaminophen/ Hydrocodone Bitart ([place] (5/325)) 1 tab Q24H PRN GTB SEVERE DUSTY N LEVEL 7-10 Last administered on 07/04/18 08:15; Admin Dose 1 TAB; Start 07/02/18 at 12:00 Lidocaine (Lidoderm) 1 patch DAILY TD Last administered on 07/04/18 08:17; Admin Dose 1 PATCH; Start 07/03/18 at 10:30 Levofloxacin (Levaquin) 250 mg DAILY GTB Last administered on 07/04/18 08:16; Admin Dose 250 MG; Start 07/03/18 at 11:00; Stop 07/10/18 at 10:59 Assessment/Plan Additional Assessment/Plan Rehab- L SAH/hydrocephalus-s/p crani & clipping of the L [employer] aneurysm and L frontal ventriculostomy placement; Encephalopathy Ambulation with PT. Modified gait belt for less irritation to gtube Pain- continueneurontin/baclofen/ and small prn dose of norco Dysphagia-s/p PEG- Improving PO intake. Will d.c. tube feeds, as she is able to take nutritional supplement by mouth Seizure Disorder-continue seizure precautions Respiratory Failure- s/p tracheostomy, tolerating cap, probable decannulation Friday - Urinary retention, started on Levoquin for UTI- improved voiding Spasticity with increased tone in Right Upper and Lower Extremity- Continue baclofen, continue ROM Hypothyroidism ROB CARMONA MD Jul 04, 2018 11:30
[2018-07-04 14:00] VITALS: BP 108/68; PULSE 78; RESP 16
--- NOTE | 2018-07-04 15:08 | CONS ---
Date/Time of Note Date/Time of Note DATE: 07/04/18 TIME: 15:07 Consult Date/Type/Reason Admit Date/Time Jun 26, 2018 at 21:04 Initial Consult Date Type of Consultation: Pulmonary Subjective Tolerated trach capping. Objective Vital Signs Date Temp Pulse Resp B/P (MAP) Pulse Ox O2 O2 Flow FiO2 Time Delivery Rate 07/04/18 97.3 67 16 104/58 100 Room Air 08:00 (73) 07/02/18 21 20:35 Intake and Output 07/03/18 07/03/18 07/04/18 1414:59 22:59 06:59 IntakeIntake Total 650 ml 350 ml 120 ml OutputOutput Total 1150 ml BalanceBalance -500 ml 350 ml 120 ml Exam NECK: Supple. Trach site is clean and intact. Tracheostomy capped CARDIAC: S1, S2. No added sounds or murmurs. CHEST: Diminished air entry bilaterally. ABDOMEN: Soft, nontender. No guarding or rebound. EXTREMITIES: No cyanosis, clubbing, edema. NEUROLOGIC: With hemiplegia. Results/Medications Result Diagram: 07/03/18 0547 07/03/18 0547 Medications Current Medications Atorvastatin Calcium (Lipitor) 20 mg DAILY@21 PO Last administered on 07/03/18at 20:23; Admin Dose 20 MG; Start 06/26/18 at 23:09 Lacosamide (Vimpat Liq) 50 mg BID GTB Last administered on 07/04/18at 08:16; Admin Dose 50 MG; Start 06/26/18 at 23:09 Albuterol (Proventil 0.5% (Neb)) 2.5 mg Q4H RESP THERAPY PRN INH PRN DYSPNEA; Start 06/26/18 at 23:09 Ipratropium [place] (Atrovent 0.02% (Neb)) 0.5 mg Q4H RESP THERAPY PRN INH DYSPNEA; Start 06/26/18 at 23:09 Simethicone (Mylicon) 80 mg QID PRN PEG DISTENSION/GAS/BLOATING; Start 06/26/18 at 23:09 Amlodipine Besylate (Norvasc) 10 mg DAILY GTB Last administered on 07/03/18at 08:45; Admin Dose 10 MG; Start 06/26/18 at 23:09 Nystatin (Nystatin Susp) 5 ml BID PO Last administered on 07/04/18 08:16; Admin Dose 5 ML; Start 06/26/18 at 23:09 Olanzapine (Zyprexa) 2.5 mg QHS PO Last administered on 07/03/18 20:23; Admin Dose 2.5 MG; Start 06/26/18 at 23:09 Acetaminophen (Tylenol Liquid) 650 mg Q4H PRN GTB PRN FOR FEVER Last administered on 07/01/18 16:44; Admin Dose 650 MG; Start 06/26/18 at 23:09 Enoxaparin Sodium (Lovenox) 40 mg DAILY SC Last administered on 07/04/18 08:32; Admin Dose 40 MG; Start 06/26/18 at 23:09 Famotidine (Pepcid) 20 mg BID GTB Last administered on 07/04/18 08:15; Admin Dose 20 MG; Start 06/26/18 at 23:09 Levetiracetam (Keppra Liquid) 500 mg BID GTB Last administered on 07/04/18 08:16; Admin Dose 500 MG; Start 06/26/18 at 23:09 Nystatin (Nystatin Powder) 1 applic TID TOP Last administered on 07/04/18 13:56; Admin Dose 1 APPLIC; Start 06/26/18 at 23:09 Eye Lubricant ([place]wa Oint) 1 applic Q1H PRN BOTH EYES PRN; Start 06/26/18 at 23:09 Acetaminophen (Tylenol Liquid) 650 mg Q4H PRN GTB MILD PAIN LEVEL 1-3 Last administered on 07/03/18 20:23; Admin Dose 650 MG; Start 06/26/18 at 23:09 Docusate Sodium (Colace Liquid Cup) 100 mg BID GTB Last administered on 07/04/18 08:16; Admin Dose 100 MG; Start 06/27/18 at 09:00 Magnesium Hydroxide (Milk Of Mag) 30 ml BID PRN GTB CONSTIPATION; Start 06/27/18 at 00:00 Lactulose (Enulose) 20 gm DAILY PRN GTB CONSTIPATION; Start 06/27/18 at 00:00 Bisacodyl (Dulcolax Supp) 10 mg DAILY PRN [place] CONSTIPATION; Start 06/27/18 at 00:00 Levothyroxine Sodium (Synthroid) 88 mcg DAILY@06 GTB Last administered on 07/04/18 06:39; Admin Dose 88 MCG; Start 06/28/18 at 06:00 Baclofen (Lioresal) 10 mg TID GTB Last administered on 07/04/18 13:56; Admin Dose 10 MG; Start 06/29/18 at 13:00 Zolpidem Tartrate (Ambien) 5 mg HS GTB Last administered on 07/03/18 20:29; Admin Dose 5 MG; Start 07/02/18 at 21:00 Gabapentin (Neurontin) 100 mg HS GTB Last administered on 07/03/18 20:29; Admin Dose 100 MG; Start 07/02/18 at 21:00 Acetaminophen/ Hydrocodone Bitart ([place] (5/325)) 1 tab Q24H PRN GTB SEVERE PAIN LEVEL 7-10 Last administered on 07/04/18 08:15; Admin Dose 1 TAB; Start 07/02/18 at 12:00 Lidocaine (Lidoderm) 1 patch DAILY TD Last administered on 07/04/18 08:17; Admin Dose 1 PATCH; Start 07/03/18 at 10:30 Levofloxacin (Levaquin) 250 mg DAILY GTB Last administered on 07/04/18 08:16; Admin Dose 250 MG; Start 07/03/18 at 11:00; Stop 07/10/18 at 10:59 Assessment/Plan Additional Assessment/Plan IMP: 1. Status post respiratory failure 2. Status post clipping of an aneurysm with subarachnoid hemorrhage 3. Dysphagia with G-tube RECS: 1 Will decannulate on Friday if she continues to tolerate capping GUERITA ODEN MD Jul 04, 2018 15:08
[2018-07-04] MEDS: ACETAMINOPHEN 650MG/20.3ML CUP GTB PRN (18:47)
--- NOTE | 2018-07-04 18:53 | NUR ---
Pt on her bed at this time w/ family at bedside. Pt still is emotionally labile when family at bedside. Pt able to participate w/ therapy w/ support from . Pt fed w/ strict aspiration precaution, meds given crushed w/ apple sauce. On PVR PRN, I/O done d/t urinary retention. Pt need's attended. Pt turned & repositioned q2H & as needed. Trach & GT kept patent & intact w/ no issues noted, dressing changed. Pt able to take a rest. Safety precaution observed at all times. Will endorse to PM RN for WM.
[2018-07-04 19:42] VITALS: BP 111/67; PULSE 81; RESP 16
[2018-07-04] MEDS: OLANZAPINE 2.5 MG TAB PO SCH (20:23)
[2018-07-04] MEDS: ZOLPIDEM 5 MG TAB GTB SCH (20:23)
[2018-07-04] MEDS: ATORVASTATIN 20 MG TAB PO SCH (20:24)
[2018-07-04] MEDS: GABAPENTIN 100 MG CAP GTB SCH (20:29)
--- NOTE | 2018-07-05 00:01 | NUR ---
LEXIC RN Weekly Summary Dates From: 06/26/18 to 07/05/18 Patient Name: AG MCCOLLUM MR#: [id number] Height: 5 ft 3 in Weight: 139 lbs 5.314 oz 63.200 kg Reason for Visit: NON TRAUMATIC BRAIN INJURY Precautions: Standard/Fall/Pressure Injury/VTE/Aspiration Date: 07/05/18 Time: 0001 User: ANITA TATYANAJOAN Short-term Goals: 1. Pt will be free of falls or injuries 2. Pt will not develop any pressure sores 3. Pt will be free from aspiration 4. Pt will have a regular BM 5. Pt will have good pain control Patient's progress: Fair Short-term goals not met and reason/barriers: Ongoing Bladder - level of function and accidents: 1, 17 accidents Bowel - level of function and accidents: 1, 8 accidents Skin: Status: bilateral heel and sacrococcyx blanching, left lower back scratches,abdomen bruising Treatment: Venelex applied to left and righ heels Changes: Pain: Yes Level: 3-10/10 pain Location: Right arm Management: PRN Woody and Tylenol given Changes: No Functional levels: Self Care:1 Transfers: 0 Locomotion: 1 Assistance requirements: Communication: 1 Social Cognition: 2 Safety awareness: Yes, high risk for falls, bed alarm activated and call light within pt's reach for safety. Interdisciplinary interactions: PT/OT/ST/RN/MD Patient education: Yes, education given QS and PRN to pt and family regarding safety, medications. Discharge needs: Ongoing Comorbid conditions: 1. Encephalopathy 2. Dysphagia-s/p PEG 3. Seizure Disorder 4. Respiratory Failure- s/p tracheostomy, tolerating cap 5. Urinary Tract Infection 6. Spasticity with increaed tone in Right Upper and Lower Extremity 7. Hypothyroidism 8. Impairments in self care, mobility, and cognition Plan of Care continuation: Yes, continue current plan of care.
[2018-07-05 02:00] VITALS: BP 105/64; PULSE 76; RESP 16
--- NOTE | 2018-07-05 06:13 | NUR ---
No acute distress noted. Pt with at bedside. No complaints of pain/discomfort noted. Due medications given via PO & meds crushed with applesauce. Strict aspiration precautions observed. Pt with capped tracheostomy, dressing change and kept clean and dry. G-tube clamped, secured & patent. Dressing changed. On PVR checks PRN, I & O done as ordered d/t urinary retention. Repositioned patient Q2H and PRN. Slept well during the night. Pt stable. Safety precautions observed at all times. Will endorse to AM nurse all pertinent information.
[2018-07-05] MEDS: LEVOTHYROXINE 88 MCG TAB GTB SCH (06:40)
[2018-07-05] MEDS: NYSTATIN SUSP 5 ML CUP PO SCH ×2 (08:45→20:49)
[2018-07-05] MEDS: AMLODIPINE 10 MG TAB GTB SCH (08:46)
[2018-07-05] MEDS: BACLOFEN 10 MG TAB GTB SCH ×3 (08:46→20:48)
[2018-07-05] MEDS: LEVETIRACETAM (100 MG/ML) 5ML CUP GTB SCH ×2 (08:46→20:49)
[2018-07-05] MEDS: DOCUSATE SODIUM 10 MG/ML (10ML CUP) GTB SCH ×2 (08:46→20:49)
[2018-07-05 08:47] VITALS: BP 113/88; PULSE 76; RESP 20
[2018-07-05] MEDS: HYDROCODONE/APAP (5/325) TAB GTB PRN (08:47)
[2018-07-05] MEDS: LEVOFLOXACIN 250 MG TAB GTB SCH (08:47)
[2018-07-05] MEDS: FAMOTIDINE 20 MG TAB GTB SCH ×2 (08:47→20:48)
[2018-07-05] MEDS: LACOSAMIDE (100 MG/10 ML PO SYR) GTB SCH ×2 (08:47→20:49)
[2018-07-05] MEDS: LIDOCAINE 5% PATCH TD SCH (08:48)
[2018-07-05] MEDS: ENOXAPARIN 40 MG/0.4 ML SYG SC SCH (08:48)
[2018-07-05] MEDS: BALSAM PERU/CASTOR OIL 60 GM TUBE TOP SCH ×2 (08:49→20:49)
[2018-07-05] MEDS: NYSTATIN 30 GM POWDER BTL TOP SCH ×3 (08:49→20:49)
--- NOTE | 2018-07-05 11:06 | CONS ---
Date/Time of Note Date/Time of Note DATE: 07/05/18 TIME: 11:05 Consult Date/Type/Reason Admit Date/Time Jun 26, 2018 at 21:04 Initial Consult Date Type of Consultation: Pulmonary Objective Vital Signs Date Temp Pulse Resp B/P (MAP) Pulse Ox O2 O2 Flow FiO2 Time Delivery Rate 07/05/18 98.0 76 20 113/88 97 Room Air 08:47 (96) 07/04/18 21 21:20 Intake and Output 07/04/18 07/04/18 07/05/18 1515:00 23:00 07:00 IntakeIntake Total 370 ml 120 ml 50 ml OutputOutput Total 1530 ml 630 ml BalanceBalance 370 ml -1410 ml -580 ml Results/Medications Result Diagram: 07/03/1847 07/03/1847 Medications Current Medications Atorvastatin Calcium (Lipitor) 20 mg DAILY@21 PO Last administered on 07/04/18 20:24; Admin Dose 20 MG; Start 06/26/18 at 23:09 Lacosamide (Vimpat Liq) 50 mg BID GTB Last administered on 07/05/18 08:47; Admin Dose 50 MG; Start 06/26/18 at 23:09 Albuterol (Proventil 0.5% (Neb)) 2.5 mg Q4H RESP THERAPY PRN INH PRN DYSPNEA; Start 06/26/18 at 23:09 Ipratropium [place] (Atrovent 0.02% (Neb)) 0.5 mg Q4H RESP THERAPY PRN INH DYSPNEA; Start 06/26/18 at 23:09 Simethicone (Mylicon) 80 mg QID PRN PEG DISTENSION/GAS/BLOATING; Start 1 08/27/17 at 23:09 Amlodipine Besylate (Norvasc) 10 mg DAILY GTB Last administered on 07/05/18 08:46; Admin Dose 10 MG; Start 06/26/18 at 23:09 Nystatin (Nystatin Susp) 5 ml BID PO Last administered on 07/05/18 08:45; Admin Dose 5 ML; Start 06/26/18 at 23:09 Olanzapine (Zyprexa) 2.5 mg QHS PO Last administered on 07/04/18 20:23; Admin Dose 2.5 MG; Start 06/26/18 at 23:09 Acetaminophen (Tylenol Liquid) 650 mg Q4H PRN GTB PRN FOR FEVER Last administered on 07/01/18 16:44; Admin Dose 650 MG; Start 06/26/18 at 23:09 Enoxaparin Sodium (Lovenox) 40 mg DAILY SC Last administered on 07/05/18 08:48; Admin Dose 40 MG; Start 06/26/18 at 23:09 Famotidine (Pepcid) 20 mg BID GTB Last administered on 07/05/18 08:47; Admin Dose 20 MG; Start 06/26/18 at 23:09 Levetiracetam (Keppra Liquid) 500 mg BID GTB Last administered on 07/05/18 08:46; Admin Dose 500 MG; Start 06/26/18 at 23:09 Nystatin (Nystatin Powder) 1 applic TID TOP Last administered on 07/05/18 08:49; Admin Dose 1 APPLIC; Start 06/26/18 at 23:09 Eye Lubricant ([place] Oint) 1 applic Q1H PRN BOTH EYES PRN; Start 06/26/18 at 23:09 Acetaminophen (Tylenol Liquid) 650 mg Q4H PRN GTB MILD PAIN LEVEL 1-3 Last administered on 07/04/18 18:47; Admin Dose 650 MG; Start 06/26/18 at 23:09 Docusate Sodium (Colace Liquid Cup) 100 mg BID GTB Last administered on 07/05/18 08:46; Admin Dose 100 MG; Start 06/27/18 at 09:00 Magnesium Hydroxide (Milk Of Mag) 30 ml BID PRN GTB CONSTIPATION; Start 06/27/18 at 00:00 Lactulose (Enulose) 20 gm DAILY PRN GTB CONSTIPATION; Start 06/27/18 at 00:00 Bisacodyl (Dulcolax Supp) 10 mg DAILY PRN [place] CONSTIPATION; Start 06/27/18 at 00:00 Levothyroxine Sodium (Synthroid) 88 mcg DAILY@06 GTB Last administered on 07/05/18 06:40; Admin Dose 88 MCG; Start 06/28/18 at 06:00 Baclofen (Lioresal) 10 mg TID GTB Last administered on 07/05/18 08:46; Admin Dose 10 MG; Start 06/29/18 at 13:00 Zolpidem Tartrate (Ambien) 5 mg HS GTB Last administered on 07/04/18 20:23; Admin Dose 5 MG; Start 07/02/18 at 21:00 Gabapentin (Neurontin) 100 mg HS GTB Last administered on 07/04/18 20:29; Admin Dose 100 MG; Start 07/02/18 at 21:00 Acetaminophen/ Hydrocodone Bitart ([place] (5/325)) 1 tab Q24H PRN GTB SEVERE PAIN LEVEL 7-10 Last administered on 07/05/18 08:47; Admin Dose 1 TAB; Start 07/02/18 at 12:00 Lidocaine (Lidoderm) 1 patch DAILY TD Last administered on 07/05/18 08:48; Admin Dose 1 PATCH; Start 07/03/18 at 10:30 Levofloxacin (Levaquin) 250 mg DAILY GTB Last administered on 07/05/18 08:47; Admin Dose 250 MG; Start 07/03/18 at 11:00; Stop 07/10/18 at 10:59 Assessment/Plan Chief Complaint/Hosp Course no new c/o. trach capped good uop. no fever, chills, new rash, hematuria, melena, dyspnea or seizure like activities. PHYSICAL EXAMINATION: GENERAL: Shows her to be well developed, well nourished, in no acute distress. HEENT: Status post craniotomy. Pupils are slightly equal, left larger than right. Right is reactive. Left questionably reactive. Fundi: Unable. Ears: Externally normal. Nose: Unremarkable. Mouth and throat: Limited exam. No inflammation seen. NECK: Shows tracheostomy in place. No definite JVD. Nodes are negative, neck and supraclavicular. HEART: Regular rate and rhythm without definite murmurs or gallops appreciated. CHEST: Shows slightly coarse breath sounds, a few rhonchi. No wheeze. Exam limited to supine position. ABDOMEN: Soft, nontender. No masses or organomegaly appreciated. Binders in place. G-tube in place. EXTREMITIES: No clubbing, cyanosis, or edema. No evidence for deep vein thrombosis. NEUROLOGIC: awake but non-verbal Impression and Plan: 1. Acute hypoxemic respiratory failure, clinically stable with capped trach. Continue usual respiratory care with tracheostomy care, pulmonary toilet, anti- aspiration measures. We will continue bronchodilators for now. continue PT 2. 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 surgical scar is well healed. continue anti-seizure meds. she is moving left side of her body and is doing well with rehab. She will be admitted to ARU for continuity of care 3. Seizure secondary to above, controlled. 4. Ischemic encephalopathy due to the above, status post vasospasm, status post obstructive hydrocephalus. 5. Dysphagia, tolerating tube feeding. 6. Hypothyroidism. 7. UTI (recurred): cultures were reviewed. s/p GOVIND Petit MD Jul 05, 2018 11:06
[2018-07-05] MEDS: ACETAMINOPHEN 650MG/20.3ML CUP GTB PRN (12:16)
[2018-07-05 14:00] VITALS: BP 104/61; PULSE 70; RESP 19
--- NOTE | 2018-07-05 17:17 | NUR ---
Patient in bed sleeping. Easily arousable. Alert, oriented x 1 with periods of confusion. No SOB. Complained of pain so given PRN pain medication. Relieved after 30 minutes. No seizure episode noted. Kept clean & dry. All due meds given. Bed alarm on & in low position.
[2018-07-05 20:00] VITALS: BP 107/68; PULSE 69; RESP 16
[2018-07-05] MEDS: ATORVASTATIN 20 MG TAB PO SCH (20:48)
[2018-07-05] MEDS: GABAPENTIN 100 MG CAP GTB SCH (20:48)
[2018-07-05] MEDS: OLANZAPINE 2.5 MG TAB PO SCH (20:48)
[2018-07-05] MEDS: ZOLPIDEM 5 MG TAB GTB SCH (20:49)
[2018-07-06 02:00] VITALS: BP 118/74; PULSE 76; RESP 16
--- NOTE | 2018-07-06 05:28 | NUR ---
Pt in bed with eyes close. Pt slept well throughout the night. No acute distress noted during shift. No complaints of pain/discomfort noted. Pt remains stable and vitals noted WNL. Pt with capped tracheostomy & clamped Gtube. Dressing done as ordered, kept clean and dry. Pt remains incontinent both bowel and bladder with PRN PVR checks d/t urinary retention. Repositoned patient Q2H and PRN. Safety measures in place. Will endorse pt to AM nurse.
[2018-07-06] MEDS: LEVOTHYROXINE 88 MCG TAB GTB SCH (05:47)
--- NOTE | 2018-07-06 07:56 | NUR ---
[facility] PT Weekly Summary Dates From: 06/27/18 to 07/04/18 Patient Name: AG MCCOLLUM MR#: [id number] Height: 5 ft 3 in Weight: 139 lbs 5.314 oz 63.200 kg Reason for Visit: NON TRAUMATIC BRAIN INJURY Precautions: fall risk, Lt hemiplegia, Lt neglect, confused, follows less than 25% commands, emotionally labile Date: 07/06/18 Time: 0756 User: BHARGAVI PATEL Short-term Goals: 1. Bed Mobility with Min A 2. All transfers with Min A 3. Gait training with AD with min A 50ft x20 Pt making very conservative progress during her stay at [facility]. Pt demonstrates mod/max assist for bed mobility, max assist for transfers, max assist for gait 20ft using FWW with FA trough. Pt requires 2PA for safety. Barriers: Lt hemiplegia, Lt neglect, confused, follows less than 25% commands, emotionally labile, multiple refusals. Recommended: FWW with FA trough, manual WC with swing away foot rests, BSC, home with HHPT and 24hr assistance. Cont POC and progress as don Addendum: 07/13/18 at 1444 by BHARGAVI PATEL PT Correction: Right hemiplegia, Right neglect NOT Left
[2018-07-06 08:00] VITALS: BP 104/65; PULSE 88; RESP 18
[2018-07-06] MEDS: BACLOFEN 10 MG TAB GTB SCH ×3 (08:18→20:13)
[2018-07-06] MEDS: LACOSAMIDE (100 MG/10 ML PO SYR) GTB SCH ×2 (08:18→20:12)
[2018-07-06] MEDS: FAMOTIDINE 20 MG TAB GTB SCH ×2 (08:18→20:13)
[2018-07-06] MEDS: NYSTATIN SUSP 5 ML CUP PO SCH ×2 (08:18→20:12)
[2018-07-06] MEDS: LEVOFLOXACIN 250 MG TAB GTB SCH (08:18)
[2018-07-06] MEDS: HYDROCODONE/APAP (5/325) TAB GTB PRN (08:18)
[2018-07-06] MEDS: DOCUSATE SODIUM 10 MG/ML (10ML CUP) GTB SCH ×2 (08:18→20:14)
[2018-07-06] MEDS: LIDOCAINE 5% PATCH TD SCH (08:18)
[2018-07-06] MEDS: LEVETIRACETAM (100 MG/ML) 5ML CUP GTB SCH ×2 (08:18→20:13)
[2018-07-06] MEDS: AMLODIPINE 10 MG TAB GTB SCH (08:19)
[2018-07-06] MEDS: BALSAM PERU/CASTOR OIL 60 GM TUBE TOP SCH ×2 (08:20→20:15)
[2018-07-06] MEDS: NYSTATIN 30 GM POWDER BTL TOP SCH ×3 (08:20→20:16)
[2018-07-06] MEDS: ENOXAPARIN 40 MG/0.4 ML SYG SC SCH (08:22)
--- NOTE | 2018-07-06 08:25 | PN ---
DATE: 07/06/2018 SUBJECTIVE: The patient is stable, no events overnight. No fevers, chills, nausea, vomiting. OBJECTIVE: VITAL SIGNS: Blood pressure is 119/74, respirations 16, pulse 76, temperature 98.3. HEENT: Head is normocephalic. NECK: Supple. HEART: Regular rate. LUNGS: Show diminished breath sounds at base. ABDOMEN: Soft, nontender to palpation without rebound or guarding. EXTREMITIES: Negative for clubbing, cyanosis, no edema. DERMATOLOGIC: No rashes. MUSCULOSKELETAL: No joint effusion. NEUROLOGIC: No change in exam. MEDICATIONS: The patient's medications have been reviewed. LABORATORY DATA: From 07/03/2018 was reviewed. ASSESSMENT AND PLAN: 1. Status post hypoxemic respiratory failure. The patient is currently with trachea that is capped. Consider decannulation per pulmonary and monitor closely. 2. 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 The patient is currently stable. Continue to monitor. 3. Seizure disorder. Continue medical management. 4. Encephalopathy secondary to cerebrovascular improving. 5. Dysphagia. Continue pureed diet, bolus feedings. 6. Hypothyroidism. Continue Synthroid. 7. Urinary tract infection. The patient is completing antibiotic course. 8. Hypertension. Continue current blood pressure regimen. 9. Dyslipidemia. Continue Lipitor. 10. Mood disorder. Continue Zyprexa. 11. Gastrointestinal and deep vein thrombosis prophylaxis. Dictated By: ANGIE CORDOVA DO NR/NTS Conf#: [id number] DID#: [id number] CC: HERNAN SHIPLEY DO;*EndCC*
--- NOTE | 2018-07-06 11:53 | NUR ---
Dr. Mckee agreed to decannulate pt today c/o RT. Dr. Gill & family made aware.
--- NOTE | 2018-07-06 11:55 | PN ---
Date/Time of Note Date/Time of Note DATE: 07/06/18 TIME: 11:49 Subjective Improving activity tolerance, less agitated with family present. Less demonstration of pain. Objective Vital Signs Date Temp Pulse Resp B/P (MAP) Pulse Ox O2 O2 Flow FiO2 Time Delivery Rate 07/06/18 96.9 88 18 104/65 98 Room Air 08:00 (78) 07/04/18 21 21:20 Intake and Output 07/05/18 07/05/18 07/06/18 1414:59 22:59 06:59 IntakeIntake Total 130 ml 250 ml BalanceBalance 130 ml 250 ml Exam INTERDISCIPLINARY TEAM CONFERENCE EXAM PULM-cta ABD-soft, bs BOWEL- Cont BLADDER-Cont SKIN- incision c/d/i OT- DRESSING-mod/max BATHING-mod/max TOILETING-mod/max PT- BED MOBILITY-mod/max TRANSFERS-mod/max AMBULATION-mod/max 20 feet SPEECH- COGNITION-max Dysphagia- tolerating p.o. diet, no tube feeds currently A/P- Interdisciplinary team conference held today. Please see interdisciplinary sheet. Working toward d.c. on 07/16 with post discharge follow up of physical therapy, occupational therapy, speech therapy and home health nursing. Anticipate decannulation today Will monitor caloric intake, and work towards Gtube removal next week Current functional status, goals and medical status reviewed with daughter . Results/Medications Result Diagram: 07/03/18 0547 07/03/18 0547 Medications Current Medications Atorvastatin Calcium (Lipitor) 20 mg DAILY@21 PO Last administered on 07/05/18at 20:48; Admin Dose 20 MG; Start 06/26/18 at 23:09 Lacosamide (Vimpat Liq) 50 mg BID GTB Last administered on 07/06/18at 08:18; Admin Dose 50 MG; Start 06/26/18 at 23:09 Albuterol (Proventil 0.5% (Neb)) 2.5 mg Q4H RESP THERAPY PRN INH PRN DYSPNEA; Start 06/26/18 at 23:09 Ipratropium [place] (Atrovent 0.02% (Neb)) 0.5 mg Q4H RESP THERAPY PRN INH DYSPNEA; Start 06/26/18 at 23:09 Simethicone (Mylicon) 80 mg QID PRN PEG DISTENSION/GAS/BLOATING; Start 06/26/18 at 23:09 Amlodipine Besylate (Norvasc) 10 mg DAILY GTB Last administered on 07/05/18 08:46; Admin Dose 10 MG; Start 06/26/18 at 23:09 Nystatin (Nystatin Susp) 5 ml BID PO Last administered on 07/06/18 08:18; Admin Dose 5 ML; Start 06/26/18 at 23:09 Olanzapine (Zyprexa) 2.5 mg QHS PO Last administered on 07/05/18 20:48; Admin Dose 2.5 MG; Start 06/26/18 at 23:09 Acetaminophen (Tylenol Liquid) 650 mg Q4H PRN GTB PRN FOR FEVER Last administered on 07/01/18 16:44; Admin Dose 650 MG; Start 06/26/18 at 23:09 Enoxaparin Sodium (Lovenox) 40 mg DAILY SC Last administered on 07/06/18 08:22; Admin Dose 40 MG; Start 06/26/18 at 23:09 Famotidine (Pepcid) 20 mg BID GTB Last administered on 07/06/18 08:18; Admin Dose 20 MG; Start 06/26/18 at 23:09 Levetiracetam (Keppra Liquid) 500 mg BID GTB Last administered on 07/06/18 08: 18; Admin Dose 500 MG; Start 06/26/18 at 23:09 Nystatin (Nystatin Powder) 1 applic TID TOP Last administered on 07/06/18 08:20; Admin Dose 1 APPLIC; Start 06/26/18 at 23:09 Eye Lubricant ([place]wa Oint) 1 applic Q1H PRN BOTH EYES PRN; Start 06/26/18 at 23:09 Acetaminophen (Tylenol Liquid) 650 mg Q4H PRN GTB MILD PAIN LEVEL 1-3 Last administered on 07/05/18 12:16; Admin Dose 650 MG; Start 06/26/18 at 23:09 Docusate Sodium (Colace Liquid Cup) 100 mg BID GTB Last administered on 07/06/18 08:18; Admin Dose 100 MG; Start 06/27/18 at 09:00 Magnesium Hydroxide (Milk Of Mag) 30 ml BID PRN GTB CONSTIPATION; Start 06/27/18 at 00:00 Lactulose (Enulose) 20 gm DAILY PRN GTB CONSTIPATION; Start 06/27/18 at 00:00 Bisacodyl (Dulcolax Supp) 10 mg DAILY PRN [place] CONSTIPATION; Start 06/27/18 at 00:00 Levothyroxine Sodium (Synthroid) 88 mcg DAILY@06 GTB Last administered on 07/06/18 05:47; Admin Dose 88 MCG; Start 06/28/18 at 06:00 Baclofen (Lioresal) 10 mg TID GTB Last administered on 07/06/18 08:18; Admin Dose 10 MG; Start 06/29/18 at 13:00 Zolpidem Tartrate (Ambien) 5 mg HS GTB Last administered on 07/05/18 20:49; Admin Dose 5 MG; Start 07/02/18 at 21:00 Gabapentin (Neurontin) 100 mg HS GTB Last administered on 07/05/18 20:48; Admin Dose 100 MG; Start 07/02/18 at 21:00 Acetaminophen/ Hydrocodone Bitart ([place] (5/325)) 1 tab Q24H PRN GTB SEVERE PAIN LEVEL 7-10 Last administered on 07/06/18 08:18; Admin Dose 1 TAB; Start 07/02/18 at 12:00 Lidocaine (Lidoderm) 1 patch DAILY TD Last administered on 07/06/18 08:18; Admin Dose 1 PATCH; Start 07/03/18 at 10:30 Levofloxacin (Levaquin) 250 mg DAILY GTB Last administered on 07/06/18 08:18; Admin Dose 250 MG; Start 07/03/18 at 11:00; Stop 07/10/18 at 10:59 ROB CARMONA MD Jul 06, 2018 11:55
--- NOTE | 2018-07-06 12:30 | NUR ---
Dr. Mckee updated about pt status. Pt is for decannulation today per RT. Left VM to RT on duty 9587. Alisia DIXON rec'd call back from RT & will see pt in a while. Addendum: 07/06/18 at 1426 by LYNN FUNK RN Addendum: Pt's & dtr at bedside informed about the POC.
[2018-07-06 14:00] VITALS: BP 100/64; PULSE 87; RESP 16
--- NOTE | 2018-07-06 16:21 | NUR ---
Nutrition note: Pt potassium and phosphorus levels elevated on 07/03. Rec adding renal diet restriction. Will continue to monitor.
--- NOTE | 2018-07-06 17:00 | NUR ---
Trach Decannulation done c/o RT Machelle. Pt tolerated the procedure well & was happy per dtr who was at bedside at that time. No bleeding noted from the site.
--- NOTE | 2018-07-06 17:00 | NUR ---
PT DECANNULATED PER MD ORDER. PT REMAINS STABLE ON ROOM AIR. SPO2: 97%. NO SOB/RESP DISTRESS NOTED. NO BLEEDING NOTED. RN AWARE.
--- NOTE | 2018-07-06 18:47 | NUR ---
Pt resting comfortably on her bed at this time, s/p decannulation (site is cleaned, dressing is clean/dry/intact). Pt still is emotionally labile at times. Pt able to participate w/ therapy w/ support from family. Pt fed w/ strict aspiration precaution, meds given crushed w/ apple sauce, tolerated well. Pt still incontinent w/ bowel & bladder, uses absorbent pad. Pt need's attended. Pt turned & repositioned q2H & as needed. GT kept patent & intact w/ no issues noted, dressing changed. Pt able to take a rest. Safety precaution observed at all times. Will endorse to PM RN for WM.
[2018-07-06 20:00] VITALS: BP 120/76; PULSE 86; RESP 16
[2018-07-06] MEDS: ATORVASTATIN 20 MG TAB PO SCH (20:13)
[2018-07-06] MEDS: GABAPENTIN 100 MG CAP GTB SCH (20:13)
[2018-07-06] MEDS: OLANZAPINE 2.5 MG TAB PO SCH (20:13)
[2018-07-06] MEDS: ZOLPIDEM 5 MG TAB GTB SCH (20:15)
[2018-07-07 02:00] VITALS: BP 117/64; PULSE 65; RESP 18
[2018-07-07] MEDS: LEVOTHYROXINE 88 MCG TAB GTB SCH (05:17)
--- NOTE | 2018-07-07 06:09 | NUR ---
PATIENT SLEPT WELL. RESTING IN BED. NO C/O PAIN OR DISCOMFORT. DAUGHTER AND SON IN LAW AT BEDSIDE. ON STRICT ASPIRATION PRECAUTION. SEIZURE PRECAUTION. INCONTINENT OF BLADDER AND BOWEL. ON PVR CHECK. IN AND OUT CATH X1 LAST NIGHT. AT 0545 NO VOIDING YET, PVR SHOWS 287. CONTINUE TO MONITOR PVR. RECREATIONAL ACTIVITIES PROVIDED TO PATIENT; WATCHING TV. CALL LIGHT WITHIN REACH. TRACH SITE DRESSING DRY AND INTACT. G TUBE REMAIN CLAMPED. NO ACUTE DISTRESS NOTED
[2018-07-07 07:40] VITALS: BP 112/71; PULSE 70; RESP 18
[2018-07-07] MEDS: HYDROCODONE/APAP (5/325) TAB GTB PRN (07:45)
--- NOTE | 2018-07-07 08:26 | PN ---
DATE: 07/07/2018 SUBJECTIVE: The patient is stable, was decannulated yesterday, tolerated well. OBJECTIVE: VITAL SIGNS: Blood pressure is 117/64, respiration 18, pulse 65, temperature 98.8. HEENT: Head is normocephalic. NECK: Supple. HEART: Regular rate. LUNGS: Show diminished breath sounds at the base. ABDOMEN: Soft, nontender to palpation without rebound or guarding. EXTREMITIES: Negative for clubbing, cyanosis, no edema. DERMATOLOGIC: No rashes. MUSCULOSKELETAL: No joint effusion. NEUROLOGIC: No change in exam. MEDICATIONS: Reviewed. LABORATORY DATA: Shows sodium 143, potassium 3.8, bicarbonate 33. White count 7.7, hemoglobin 13.8, platelet count 337. ASSESSMENT AND PLAN: 1. Status post respiratory failure. The patient has been decannulated. Continue to monitor. 2. Dysphagia. The patient tolerating p.o., will discontinue PEG tube in the next 1 to 2 days if rem ains stable following decannulation. 3. Seizure disorder. Continue medical management. 4. Status post subarachnoid hemorrhage. 5. Encephalopathy, improving. 6. Hypothyroidism. Continue Synthroid. 7. Urinary tract infection. The patient has completed antibiotic course. 8. Hypertension. Continue current blood pressure regimen. 9. Dyslipidemia, continue Lipitor. 10. Mood disorder. Continue and Zyprexa. 11. Gastrointestinal and deep vein thrombosis prophylaxis. Dictated By: ANGIE CORDOVA DO NR/NTS Conf#: [id number] DID#: [id number] CC: GERTRUDIS ROACH MD; HERNAN SHIPLEY DO;*EndCC*
[2018-07-07] MEDS: LEVETIRACETAM (100 MG/ML) 5ML CUP GTB SCH ×2 (08:46→20:25)
[2018-07-07] MEDS: AMLODIPINE 10 MG TAB GTB SCH (08:46)
[2018-07-07] MEDS: LACOSAMIDE (100 MG/10 ML PO SYR) GTB SCH ×2 (08:47→20:26)
[2018-07-07] MEDS: FAMOTIDINE 20 MG TAB GTB SCH ×2 (08:47→20:25)
[2018-07-07] MEDS: LEVOFLOXACIN 250 MG TAB GTB SCH (08:47)
[2018-07-07] MEDS: BACLOFEN 10 MG TAB GTB SCH ×3 (08:47→20:25)
[2018-07-07] MEDS: NYSTATIN SUSP 5 ML CUP PO SCH ×2 (08:47→20:26)
[2018-07-07] MEDS: DOCUSATE SODIUM 10 MG/ML (10ML CUP) GTB SCH ×2 (08:48→20:25)
[2018-07-07] MEDS: ENOXAPARIN 40 MG/0.4 ML SYG SC SCH (08:49)
[2018-07-07] MEDS: LIDOCAINE 5% PATCH TD SCH (08:50)
[2018-07-07] MEDS: NYSTATIN 30 GM POWDER BTL TOP SCH ×3 (09:15→20:26)
[2018-07-07] MEDS: BALSAM PERU/CASTOR OIL 60 GM TUBE TOP SCH ×2 (09:15→20:26)
--- NOTE | 2018-07-07 10:55 | PN ---
Date/Time of Note Date/Time of Note DATE: 07/07/18 TIME: 10:53 Subjective Comfortable Objective Vital Signs Date Temp Pulse Resp B/P (MAP) Pulse Ox O2 O2 Flow FiO2 Time Delivery Rate 07/07/18 98.6 70 18 112/71 98 Room Air 07:40 (85) 07/06/18 21 17:00 Intake and Output 07/06/18 07/06/18 07/07/18 1515:00 23:00 07:00 IntakeIntake Total 450 ml 200 ml 50 ml OutputOutput Total 170 ml BalanceBalance 280 ml 200 ml 50 ml Exam pulm-ca abd-soft mod assist transfer mod ambulation Results/Medications Result Diagram: 07/07/18 0640 07/07/18 0640 Results 24 hrs Laboratory Tests Test 07/07/18 06:40 White Blood Count 7.7 # Red Blood Count 4.48 # Hemoglobin 13.8 Hematocrit 41.2 # Mean Corpuscular Volume 92.0 Mean Corpuscular Hemoglobin 30.8 Mean Corpuscular Hemoglobin Concent 33.5 Red Cell Distribution Width 13.2 Platelet Count 337 Mean Platelet Volume 10.1 Immature Granulocytes % 0.500 H Neutrophils % 62.3 Lymphocytes % 28.6 Monocytes % 5.9 Eosinophils % 2.2 Basophils % 0.5 Nucleated Red Blood Cells % 0.0 Immature Granulocytes # 0.040 H Neutrophils # 4.8 Lymphocytes # 2.2 Monocytes # 0.5 Eosinophils # 0.2 Basophils # 0.0 Nucleated Red Blood Cells # 0.0 Sodium Level 143 Potassium Level 3.8 Chloride Level 93 L Carbon Dioxide Level 33 H Anion Gap 17 H Blood Urea Nitrogen 13 Creatinine 0.45 Est Glomerular Filtrat Rate mL/min > 60 Glucose Level 93 Calcium Level 9.9 Phosphorus Level 4.8 Magnesium Level 2.0 Medications Current Medications Atorvastatin Calcium (Lipitor) 20 mg DAILY@21 PO Last administered on 07/06/18at 20:13; Admin Dose 20 MG; Start 06/26/18 at 23:09 Lacosamide (Vimpat Liq) 50 mg BID GTB Last administered on 07/07/18at 08:47; Admin Dose 50 MG; Start 06/26/18 at 23:09 Albuterol (Proventil 0.5% (Neb)) 2.5 mg Q4H RESP THERAPY PRN INH PRN DYSPNEA; Start 06/26/18 at 23:09 Ipratropium [place] (Atrovent 0.02% (Neb)) 0.5 mg Q4H RESP THERAPY PRN INH DYSPNEA; Start 06/26/18 at 23:09 Simethicone (Mylicon) 80 mg QID PRN PEG DISTENSION/GAS/BLOATING; Start 06/26/18 at 23:09 Amlodipine Besylate (Norvasc) 10 mg DAILY GTB Last administered on 07/07/18 08:46; Admin Dose 10 MG; Start 06/26/18 at 23:09 Nystatin (Nystatin Susp) 5 ml BID PO Last administered on 07/07/18 08:47; Admin Dose 5 ML; Start 06/26/18 at 23:09 Olanzapine (Zyprexa) 2.5 mg QHS PO Last administered on 07/06/18 20:13; Admin Dose 2.5 MG; Start 06/26/18 at 23:09 Acetaminophen (Tylenol Liquid) 650 mg Q4H PRN GTB PRN FOR FEVER Last administered on 07/01/18 16:44; Admin Dose 650 MG; Start 06/26/18 at 23:09 Enoxaparin Sodium (Lovenox) 40 mg DAILY SC Last administered on 07/07/18 08:49; Admin Dose 40 MG; Start 06/26/18 at 23:09 Famotidine (Pepcid) 20 mg BID GTB Last administered on 07/07/18 08:47; Admin Do se 20 MG; Start 06/26/18 at 23:09 Levetiracetam (Keppra Liquid) 500 mg BID GTB Last administered on 07/07/18 08:46; Admin Dose 500 MG; Start 06/26/18 at 23:09 Nystatin (Nystatin Powder) 1 applic TID TOP Last administered on 07/07/18 09:15; Admin Dose 1 APPLIC; Start 06/26/18 at 23:09 Eye Lubricant (Akwa Oint) 1 applic Q1H PRN BOTH EYES PRN; Start 06/26/18 at 23:09 Acetaminophen (Tylenol Liquid) 650 mg Q4H PRN GTB MILD PAIN LEVEL 1-3 Last administered on 07/05/18 12:16; Admin Dose 650 MG; Start 06/26/18 at 23:09 Docusate Sodium (Colace Liquid Cup) 100 mg BID GTB Last administered on 08:18; Admin Dose 100 MG; Start 06/27/18 at 09:00 Magnesium Hydroxide (Milk Of Mag) 30 ml BID PRN GTB CONSTIPATION; Start 06/27/18 at 00:00 Lactulose (Enulose) 20 gm DAILY PRN GTB CONSTIPATION; Start 06/27/18 at 00:00 Bisacodyl (Dulcolax Supp) 10 mg DAILY PRN [place] CONSTIPATION; Start 06/27/18 at 00:00 Levothyroxine Sodium (Synthroid) 88 mcg DAILY@06 GTB Last administered on 07/07/18 05:17; Admin Dose 88 MCG; Start 06/28/18 at 06:00 Baclofen (Lioresal) 10 mg TID GTB Last administered on 07/07/18 08:47; Admin Dose 10 MG; Start 06/29/18 at 13:00 Zolpidem Tartrate (Ambien) 5 mg HS GTB Last administered on 07/06/18 20:15; Admin Dose 5 MG; Start 07/02/18 at 21:00 Gabapentin (Neurontin) 100 mg HS GTB Last administered on 07/06/18 20:13; Admin Dose 100 MG; Start 07/02/18 at 21:00 Acetaminophen/ Hydrocodone Bitart ([place] (5/325)) 1 tab Q24H PRN GTB SEVERE PAIN LEVEL 7-10 Last administered on 07/07/18 07:45; Admin Dose 1 TAB; Start 07/02/18 at 12:00 Lidocaine (Lidoderm) 1 patch DAILY TD Last administered on 07/07/18 08:50; Admin Dose 1 PATCH; Start 07/03/18 at 10:30 Levofloxacin (Levaquin) 250 mg DAILY GTB Last administered on 07/07/18 08:47; Admin Dose 250 MG; Start 07/03/18 at 11:00; Stop 07/10/18 at 10:59 Assessment/Plan Additional Assessment/Plan Rehab- L SAH/hydrocephalus-s/p crani & clipping of the L [employer] aneurysm and L frontal ventriculostomy placement; Encephalopathy Progressin [facility] treatment plan Pain- continueneurontin/baclofen/ and small prn dose of norco Dysphagia-having po intake, monitor calories po Seizure Disorder-continue seizure precautions Respiratory Failure- decannulated, doing well - Urinary retention, started on Levoquin for UTI. Will have urology consult Spasticity with increased tone in Right Upper and Lower Extremity- Continue baclofen, continue ROM Hypothyroidism ROB CARMONA MD Jul 07, 2018 10:55
--- NOTE | 2018-07-07 11:13 | NUR ---
Pt agitated and refused to stay in the wheelchair after working with physical therapist [place]. She removed her lap callie with her left hand, pretty strong. RN stayed with her the whole time for about 45 mins. Reinforcement given. Pt calmed down when her Alexis came to see her at 09:30 AM. Thereafter, pt was able to work with JUNO Moreno. At 10:30 AM, PVR checked showed 472 cc. I/O cath. drained 500 cc, yellowish, clear urine. BM x1. Dr. Gill ordered to consult Dr. Morales for urinary retention. Dr. Gill talked to Alexis at bedside. Alexis agreed to continue giving [place] 5/325 1 tab po before therapy in the morning.
[2018-07-07 14:00] VITALS: BP 110/70; PULSE 72; RESP 18
--- NOTE | 2018-07-07 15:22 | NUR ---
Sami todd [employer] delivered Right Toe-off AFO, size small to bedside.
--- NOTE | 2018-07-07 18:28 | CONS ---
Date/Time of Note Date/Time of Note DATE: 07/07/18 TIME: 18:13 Assessment/Plan Assessment/Plan Assessment/Plan 57-year-old female was transferred from [facility]. 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 She was stabilized, discharged on 04/07/2018 and readmitted on with neck stiffness with major subarachnoid hemorrhage with midline shift and subfalcine herniation. This progressed to paralysis with altered mental status. She underwent left craniotomy on 04/10/2018 with clipping of the left posterior communicating artery aneurysm and left frontal ventriculostomy placement for drainage of the intraventricular hemorrhage. She had persistent major neurologic deficit with obstructive hydrocephalus, ischemic encephalopathy, and some vasospasm. She had a PEG placement on 04/28/2018 and tracheostomy on 05/01/2018. She had ongoing seizures requiring multiple medications for control. She had urinary tract infection, apparently was treated. On 05/12 she was transferred to [place] for continuity of care and then to the rehab floor at [facility]. Patient was initially incontinent and then she was placed on intermittent catheterization. She continues to have urinary retention and therefore a urological consultation was requested. The tracheostomy has been decannulated and the patient still have the G-tube in place and that is comfortably removed tomorrow. Patient does have right sided hemiplegia . The patient is not communicative. I reviewed her medical record. Patient does have urinary retention secondary to her neurological problems.. She also had seizures. Because of the seizures we cannot give her Urecholine as the Urecholine does have a potential of triggering seizures. I will continue t he straight catheterization for a bladder volume of 500 mL or more. We will get a KUB to make sure that she does not have any constipation causing pressure on the urethra. Result Diagram: 07/07/18 0640 07/07/18 0640 Results 24hrs Laboratory Tests Test 07/07/18 06:40 White Blood Count 7.7 # Red Blood Count 4.48 # Hemoglobin 13.8 Hematocrit 41.2 # Mean Corpuscular Volume 92.0 Mean Corpuscular Hemoglobin 30.8 Mean Corpuscular Hemoglobin Concent 33.5 Red Cell Distribution Width 13.2 Platelet Count 337 Mean Platelet Volume 10.1 Immature Granulocytes % 0.500 H Neutrophils % 62.3 Lymphocytes % 28.6 Monocytes % 5.9 Eosinophils % 2.2 Basophils % 0.5 Nucleated Red Blood Cells % 0.0 Immature Granulocytes # 0.040 H Neutrophils # 4.8 Lymphocytes # 2.2 Monocytes # 0.5 Eosinophils # 0.2 Basophils # 0.0 Nucleated Red Blood Cells # 0.0 Sodium Level 143 Potassium Level 3.8 Chloride Level 93 L Carbon Dioxide Level 33 H Anion Gap 17 H Blood Urea Nitrogen 13 Creatinine 0.45 Est Glomerular Filtrat Rate mL/min > 60 Glucose Level 93 Calcium Level 9.9 Phosphorus Level 4.8 Magnesium Level 2.0 Consultation Date/Type/Reason Admit Date/Time Jun 26, 2018 at 21:04 Date of Consultation: Jul 07, 2018 Type of Consult Urology Reason for Consultation Urinary retention Requesting Provider: ROB CARMONA MD Hx of Present Illness 57-year-old female was transferred from [facility]. She apparently had a ruptured left posterior communicating artery aneurysm and underwent coili ng . She was stabilized, discharged on 04/07/2018 and readmitted on with neck stiffness with major subarachnoid hemorrhage with midline shift and subfalcine herniation. This progressed to paralysis with altered mental status. She underwent left craniotomy on 04/10/2018 with clipping of the left posterior communicating artery aneurysm and left frontal ventriculostomy placement for drainage of the intraventricular hemorrhage. She had persistent major neurologic deficit with obstructive hydrocephalus, ischemic encephalopathy, and some vasospasm. She had a PEG placement on 04/28/2018 and tracheostomy on 05/01/2018. She had ongoing seizures requiring multiple medications for contro l. She had urinary tract infection, apparently was treated. On 05/12 she was transferred to [place] for continuity of care and then to the rehab floor at [facility]. Patient was initially incontinent and then she was placed on intermittent catheterization. She continues to have urinary retention and therefore a urological consultation was requested. The tracheostomy has been decannulated and the patient still have the G-tube in place and that is comfortably removed tomorrow. Patient does have right sided hemiplegia . The patient is not communicative. I reviewed her medical record. Subjective hx not possible: pt non-verbal Respiratory: No wheezing Past Medical History Medical History: other (As per history of present illness) Medications Current Medications Atorvastatin Calcium (Lipitor) 20 mg DAILY@21 PO Last administered on 07/06/18 20:13; Admin Dose 20 MG; Start 06/26/18 at 23:09 Lacosamide (Vimpat Liq) 50 mg BID GTB Last administered on 07/07/18 08:47; Admin Dose 50 MG; Start 06/26/18 at 23:09 Albuterol (Proventil 0.5% (Neb)) 2.5 mg Q4H RESP THERAPY PRN INH PRN DYSPNEA; Start 06/26/18 at 23:09 Ipratropium [place] (Atrovent 0.02% (Neb)) 0.5 mg Q4H RESP THERAPY PRN INH DYSPNEA; Start 06/26/18 at 23:09 Simethicone (Mylicon) 80 mg QID PRN PEG DISTENSION/GAS/BLOATING; Start 06/26/18 at 23:09 Amlodipine Besylate (Norvasc) 10 mg DAILY GTB Last administered on 07/07/18 08:46; Admin Dose 10 MG; Start 06/26/18 at 23:09 Nystatin (Nystatin Susp) 5 ml BID PO Last administered on 07/07/18 08:47; Admin Dose 5 ML; Start 06/26/18 at 23:09 Olanzapine (Zyprexa) 2.5 mg QHS PO Last administered on 07/06/18 20:13; Admin Dose 2.5 MG; Start 06/26/18 at 23:09 Acetaminophen (Tylenol Liquid) 650 mg Q4H PRN GTB PRN FOR FEVER Last administered on 07/01/18 16:44; Admin Dose 650 MG; Start 06/26/18 at 23:09 Enoxaparin Sodium (Lovenox) 40 mg DAILY SC Last administered on 07/07/18 08:49; Admin Dose 40 MG; Start 06/26/18 at 23:09 Famotidine (Pepcid) 20 mg BID GTB Last administered on 07/07/18 08:47; Admin Dose 20 MG; Start 06/26/18 at 23:09 Levetiracetam (Keppra Liquid) 500 mg BID GTB Last administered on 07/07/18 08:46; Admin Dose 500 MG; Start 06/26/18 at 23:09 Nystatin (Nystatin Powder) 1 applic TID TOP Last administered on 07/07/18 12:54; Admin Dose 1 APPLIC; Start 06/26/18 at 23:09 Eye Lubricant (Akwa Oint) 1 applic Q1H PRN BOTH EYES PRN; Start 06/26/18 at 23:09 Acetaminophen (Tylenol Liquid) 650 mg Q4H PRN GTB MILD PAIN LEVEL 1-3 Last administered on 07/05/18 12:16; Admin Dose 650 MG; Start 06/26/18 at 23:09 Docusate Sodium (Colace Liquid Cup) 100 mg BID GTB Last administered on 07/06/18 08:18; Admin Dose 100 MG; Start 06/27/18 at 09:00 Magnesium Hydroxide (Milk Of Mag) 30 ml BID PRN GTB CONSTIPATION; Start 06/27/18 at 00:00 Lactulose (Enulose) 20 gm DAILY PRN GTB CONSTIPATION; Start 06/27/18 at 00:00 Bisacodyl (Dulcolax Supp) 10 mg DAILY PRN [place] CONSTIPATION; Start 06/27/18 at 00:00 Levothyroxine Sodium (Synthroid) 88 mcg DAILY@06 GTB Last administered on 07/07/18 05:17; Admin Dose 88 MCG; Start 06/28/18 at 06:00 Baclofen (Lioresal) 10 mg TID GTB Last administered on 07/07/18 12:53; Admin Dose 10 MG; Start 06/29/18 at 13:00 Zolpidem Tartrate (Ambien) 5 mg HS GTB Last administered on 07/06/18 20:15; Admin Dose 5 MG; Start 07/02/18 at 21:00 Gabapentin (Neurontin) 100 mg HS GTB Last administered on 07/06/18 20:13; Admin Dose 100 MG; Start 07/02/18 at 21:00 Acetaminophen/ Hydrocodone Bitart ([place] (5/325)) 1 tab Q24H PRN GTB SEVERE PAIN LEVEL 7-10 Last administered on 07/07/18 07:45; Admin Dose 1 TAB; Start 07/02/18 at 12:00 Lidocaine (Lidoderm) 1 patch DAILY TD Last administered on 07/07/18 08:50; Admin Dose 1 PATCH; Start 07/03/18 at 10:30 Levofloxacin (Levaquin) 250 mg DAILY GTB Last administered on 07/07/18 08:47; Admin Dose 250 MG; Start 07/03/18 at 11:00; Stop 07/10/18 at 10:59 Allergies: Coded Allergies: No Known Allergies (Verified Allergy, Unknown, 05/13/18) Past Surgical History Past Surgical Hx: other (As per history of present illness) Social History Smoking Status: Never smoker Exam/Review of Systems Vital Signs Vitals Vital Signs Date Temp Pulse Resp B/P (MAP) Pulse Ox O2 O2 Flow FiO2 Time Delivery Rate 07/07/18 98.5 72 18 110/70 98 Room Air 14:00 (83) 07/06/18 21 17:00 Intake and Output 07/06/18 07/06/18 07/07/18 1515:00 23:00 07:00 IntakeIntake Total 450 ml 200 ml 50 ml OutputOutput Total 170 ml BalanceBalance 280 ml 200 ml 50 ml Exam Constitutional: alert Neck: other (Tracheostomy wound) Gastrointestinal: other (G-tube in place, mildly distended abdomen.) Genitourinary - Female: other (Pelvic: exam no mass, no discharge. Patient is constipated) Extremities: other (Right hemiparesis) Neurological: other (Right-sided weakness upper as well as lower extremities.) Medications Medications Current Medications Atorvastatin Calcium (Lipitor) 20 mg DAILY@21 PO Last administered on 07/06/18 20:13; Admin Dose 20 MG; Start 06/26/18 at 23:09 Lacosamide (Vimpat Liq) 50 mg BID GTB Last administered on 07/07/18 08:47; Admin Dose 50 MG; Start 06/26/18 at 23:09 Albuterol (Proventil 0.5% (Neb)) 2.5 mg Q4H RESP THERAPY PRN INH PRN DYSPNEA; Start 06/26/18 at 23:09 Ipratropium [place] (Atrovent 0.02% (Neb)) 0.5 mg Q4H RESP THERAPY PRN INH DYSPNEA; Start 06/26/18 at 23:09 Simethicone (Mylicon) 80 mg QID PRN PEG DISTENSION/GAS/BLOATING; Start 06/26/18 at 23:09 Amlodipine Besylate (Norvasc) 10 mg DAILY GTB Last administered on 07/07/18 08:46; Admin Dose 10 MG; Start 06/26/18 at 23:09 Nystatin (Nystatin Susp) 5 ml BID PO Last administered on 07/07/18 08:47; Admin Dose 5 ML; Start 06/26/18 at 23:09 Olanzapine (Zyprexa) 2.5 mg QHS PO Last administered on 07/06/18 20:13; Admin Dose 2.5 MG; Start 06/26/18 at 23:09 Acetaminophen (Tylenol Liquid) 650 mg Q4H PRN GTB PRN FOR FEVER Last administered on 07/01/18 16:44; Admin Dose 650 MG; Start 06/26/18 at 23:09 Enoxaparin Sodium (Lovenox) 40 mg DAILY SC Last administered on 07/07/18 08:49; Admin Dose 40 MG; Start 06/26/18 at 23:09 Famotidine (Pepcid) 20 mg BID GTB Last administered on 07/07/18 08:47; Admin Dose 20 MG; Start 06/26/18 at 23:09 Levetiracetam (Keppra Liquid) 500 mg BID GTB Last administered on 07/07/18 08:46; Admin Dose 500 MG; Start 06/26/18 at 23:09 Nystatin (Nystatin Powder) 1 applic TID TOP Last administered on 07/07/18 12:54; Admin Dose 1 APPLIC; Start 06/26/18 at 23:09 Eye Lubricant ([place]wa Oint) 1 applic Q1H PRN BOTH EYES PRN; Start 06/26/18 at 23:09 Acetaminophen (Tylenol Liquid) 650 mg Q4H PRN GTB MILD PAIN LEVEL 1-3 Last administered on 07/05/18 12:16; Admin Dose 650 MG; Start 06/26/18 at 23:09 Docusate Sodium (Colace Liquid Cup) 100 mg BID GTB Last administered on 07/06/18 08:18; Admin Dose 100 MG; Start 06/27/18 at 09:00 Magnesium Hydroxide (Milk Of Mag) 30 ml BID PRN GTB CONSTIPATION; Start 06/27/18 at 00:00 Lactulose (Enulose) 20 gm DAILY PRN GTB CONSTIPATION; Start 06/27/18 at 00:00 Bisacodyl (Dulcolax Supp) 10 mg DAILY PRN [place] CONSTIPATION; Start 06/27/18 at 00:00 Levothyroxine Sodium (Synthroid) 88 mcg DAILY@06 GTB Last administered on 07/07/18 05:17; Admin Dose 88 MCG; Start 06/28/18 at 06:00 Baclofen (Lioresal) 10 mg TID GTB Last administered on 07/07/18 12:53; Admin Dose 10 MG; Start 06/29/18 at 13:00 Zolpidem Tartrate (Ambien) 5 mg HS GTB Last administered on 07/06/18 20:15; Admin Dose 5 MG; Start 07/02/18 at 21:00 Gabapentin (Neurontin) 100 mg HS GTB Last administered on 07/06/18 20:13; Admin Dose 100 MG; Start 07/02/18 at 21:00 Acetaminophen/ Hydrocodone Bitart ([place] (5/325)) 1 tab Q24H PRN GTB SEVERE PAIN LEVEL 7-10 Last administered on 07/07/18 07:45; Admin Dose 1 TAB; Start 07/02/18 at 12:00 Lidocaine (Lidoderm) 1 patch DAILY TD Last administered on 07/07/18 08:50; Admin Dose 1 PATCH; Start 07/03/18 at 10:30 Levofloxacin (Levaquin) 250 mg DAILY GTB Last administered on 07/07/18 08:47; Admin Dose 250 MG; Start 07/03/18 at 11:00; Stop 07/10/18 at 10:59 BRENDEN ENRIQUE MD Jul 07, 2018 18:24
--- NOTE | 2018-07-07 19:09 | NUR ---
Bladder scan 482 cc. I/O cath done at 18:30. Drained 600 cc, yellowish, clear urine. Dr. Morales saw pt this afternoon, gave order of doing bladder scan and KUB. Dr. Morales talked to Sania over the phone. RN also relayed message about explaining to pt the need of I/O catheterization for urinary retention. Bed at the lowest position. Bed alarm on at all times. Endorsed to supervisor tree trimming Michelle to follow-up KUB result.
[2018-07-07 20:00] VITALS: BP 124/66; PULSE 88; RESP 18
[2018-07-07] MEDS: ATORVASTATIN 20 MG TAB PO SCH (20:25)
[2018-07-07] MEDS: ZOLPIDEM 5 MG TAB GTB SCH (20:25)
[2018-07-07] MEDS: GABAPENTIN 100 MG CAP GTB SCH (20:25)
[2018-07-07] MEDS: OLANZAPINE 2.5 MG TAB PO SCH (20:25)
[2018-07-07] MEDS: ACETAMINOPHEN 650MG/20.3ML CUP GTB PRN (20:48)
[2018-07-08 02:00] VITALS: BP 124/76; PULSE 74; RESP 16
[2018-07-08] MEDS: LEVOTHYROXINE 88 MCG TAB GTB SCH (06:16)
--- NOTE | 2018-07-08 06:27 | NUR ---
Pt slept well after sleeping pill ambien 5mg and her other pills, c/o pain on her right arm, Liquid Tylenol by mouth prn given x 1 time, no other complaints noted. Vital signs stable. Pt is awake and alert to name only, confused and emotional liable at times, cries at times and get anxious and agitated at times. Pt kept under fall, seizures and aspiration precautions. Medication crushed and given with apple sauce, HOB elevated 90 degree while eating, drinking and giving medications. Seizures pads on. Position turned Q2hrs as per turning schedule. Sacrococcyx area blanchable redness noted. G-Tube clamped, dressing dry and intact, protected with abdominal binder. Incontinent for bladder and bowel, bladder scan done around 0030 hours (07/08/18) it was 210 ml, then rechecked around 0230 am it was 340ml, pt did not voided that time, then around 0430am rechecked bladder scan it was 356 ml, pt was incontinent x 1 time for bladder, straight cath done and removed about dark mely color urine about 400 ml as per 's orders. 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 Hourly round done and patient care needs met. Bed alarm activated for safety, call light and bedside table within reach.
--- NOTE | 2018-07-08 08:31 | PN ---
DATE: 07/08/2018 SUBJECTIVE: The patient is stable, no events overnight. No fever, chills, nausea, vomiting. OBJECTIVE: VITAL SIGNS: Blood pressure is 124/66, respirations 18, pulse 88, temperature 97.6. HEENT: Head is normocephalic. NECK: Supple. HEART: Regular rate. LUNGS: Show diminished breath sounds at the base. ABDOMEN: Soft, nontender to palpation. No rebound or guarding. EXTREMITIES: Negative for clubbing, cyanosis, no edema. DERMATOLOGIC: No rashes. MUSCULOSKELETAL: No joint effusion. NEUROLOGIC: No change in exam. MEDICATIONS: Reviewed. LABORATORY DATA: Reviewed. ASSESSMENT AND PLAN: 1. Status post respiratory failure. The patient has been decannulated currently stable. Continue t o monitor. 2. Dysphagia, tolerating p.o. Consider discontinuing percutaneous endoscopic gastrostomy tube in ne xt 1 to 2 days. 3. Urinary retention. The patient has been seen by urologist. Continue to monitor. 4. Seizure disorder. Continue medical management. 5. Hypothyroidism. Continue Synthroid. 6. Encephalopathy, improving. 7. Hypertension. Continue blood pressure regimen. 8. Dyslipidemia. Continue Lipitor. 9. Mood disorder. Continue Zyprexa. 10. Status post subarachnoid hemorrhage. 11. Gastrointestinal and deep vein thrombosis prophylaxis. Dictated By: ANGIE CORDOVA DO NR/NTS Conf#: [id number] DID#: [id number] CC: HERNAN SHIPLEY DO; BRENDEN ENRIQUE MD;*EndCC*
[2018-07-08] MEDS: FAMOTIDINE 20 MG TAB GTB SCH (08:40)
[2018-07-08] MEDS: LEVOFLOXACIN 250 MG TAB GTB SCH (08:40)
[2018-07-08] MEDS: BACLOFEN 10 MG TAB GTB SCH ×2 (08:40→12:09)
[2018-07-08 08:41] VITALS: BP 106/66; PULSE 67; RESP 19
[2018-07-08] MEDS: NYSTATIN SUSP 5 ML CUP PO SCH (08:41)
[2018-07-08] MEDS: LACOSAMIDE (100 MG/10 ML PO SYR) GTB SCH (08:41)
[2018-07-08] MEDS: ACETAMINOPHEN 650MG/20.3ML CUP GTB PRN (08:41)
[2018-07-08] MEDS: LEVETIRACETAM (100 MG/ML) 5ML CUP GTB SCH (08:41)
[2018-07-08] MEDS: DOCUSATE SODIUM 10 MG/ML (10ML CUP) GTB SCH ×2 (08:41→21:00)
[2018-07-08] MEDS: LIDOCAINE 5% PATCH TD SCH (08:41)
[2018-07-08] MEDS: ENOXAPARIN 40 MG/0.4 ML SYG SC SCH (08:42)
[2018-07-08] MEDS: AMLODIPINE 10 MG TAB GTB SCH (08:42)
[2018-07-08] MEDS: NYSTATIN 30 GM POWDER BTL TOP SCH ×2 (08:43→12:09)
[2018-07-08] MEDS: BALSAM PERU/CASTOR OIL 60 GM TUBE TOP SCH (08:43)
--- NOTE | 2018-07-08 11:24 | PN ---
Date/Time of Note Date/Time of Note DATE: 07/08/18 TIME: 11:21 Subjective Patient comfortable, improving activity tolerance Objective Vital Signs Date Temp Pulse Resp B/P (MAP) Pulse Ox O2 O2 Flow FiO2 Time Delivery Rate 07/08/18 97.6 67 19 106/66 96 Room Air 08:41 (79) 07/06/18 21 17:00 Intake and Output 07/07/18 07/07/18 07/08/18 1515:00 23:00 07:00 IntakeIntake Total 360 ml 300 ml 120 ml OutputOutput Total 500 ml 600 ml 400 ml BalanceBalance -140 ml -300 ml -280 ml Exam pulm-cta abd-soft mod assist transfers and ambulation Results/Medications Result Diagram: 07/07/1840 07/07/18 0640 Medications Current Medications Atorvastatin Calcium (Lipitor) 20 mg DAILY@21 PO Last administered on 07/07/18 20:25; Admin Dose 20 MG; Start 06/26/18 at 23:09 Lacosamide (Vimpat Liq) 50 mg BID GTB Last administered on 07/08/18 08:41; Admin Dose 50 MG; Start 06/26/18 at 23:09 Albuterol (Proventil 0.5% (Neb)) 2.5 mg Q4H RESP THERAPY PRN INH PRN DYSPNEA; Start 06/26/18 at 23:09 Ipratropium [place] (Atrovent 0.02% (Neb)) 0.5 mg Q4H RESP THERAPY PRN INH DYSPNEA; Start 06/26/18 at 23:09 Simethicone (Mylicon) 80 mg QID PRN PEG DISTENSION/GAS/BLOATING; Start 06/26/18 at 23:09 Amlodipine Besylate (Norvasc) 10 mg DAILY GTB Last administered on 07/07/18 08:46; Admin Dose 10 MG; Start 06/26/18 at 23:09 Nystatin (Nystatin Susp) 5 ml BID PO Last administered on 07/08/18 08:41; Admin Dose 5 ML; Start 06/26/18 at 23:09 Olanzapine (Zyprexa) 2.5 mg QHS PO Last administered on 07/07/18 20:25; Admin Dose 2.5 MG; Start 06/26/18 at 23:09 Acetaminophen (Tylenol Liquid) 650 mg Q4H PRN GTB PRN FOR FEVER Last administered on 07/01/18 16:44; Admin Dose 650 MG; Start 06/26/18 at 23:09 Enoxaparin Sodium (Lovenox) 40 mg DAILY SC Last administered on 07/08/18 08:42; Admin Dose 40 MG; Start 06/26/18 at 23:09 Famotidine (Pepcid) 20 mg BID GTB Last administered on 07/08/18 08:40; Admin Dose 20 MG; Start 06/26/18 at 23:09 Levetiracetam (Keppra Liquid) 500 mg BID GTB Last administered on 07/08/18 08:41; Admin Dose 500 MG; Start 06/26/18 at 23:09 Nystatin (Nystatin Powder) 1 applic TID TOP Last administered on 07/08/18 08:43; Admin Dose 1 APPLIC; Start 06/26/18 at 23:09 Eye Lubricant (Akwa Oint) 1 applic Q1H PRN BOTH EYES PRN; Start 06/26/18 at 23:09 Acetaminophen (Tylenol Liquid) 650 mg Q4H PRN GTB MILD PAIN LEVEL 1-3 Last administered on 07/08/18 08:41; Admin Dose 650 MG; Start 06/26/18 at 23:09 Docusate Sodium (Colace Liquid Cup) 100 mg BID GTB Last administered on 07/08/18 08:41; Admin Dose 100 MG; Start 06/27/18 at 09:00 Magnesium Hydroxide (Milk Of Mag) 30 ml BID PRN GTB CONSTIPATION; Start 06/27/18 at 00:00 Lactulose (Enulose) 20 gm DAILY PRN GTB CONSTIPATION; Start 06/27/18 at 00:00 Bisacodyl (Dulcolax Supp) 10 mg DAILY PRN [place] CONSTIPATION; Start 06/27/18 at 00:00 Levothyroxine Sodium (Synthroid) 88 mcg DAILY@06 GTB Last administered on 9at 06:16; Admin Dose 88 MCG; Start 06/28/18 at 06:00 Baclofen (Lioresal) 10 mg TID GTB Last administered on 07/08/18 08:40; Admin Dose 10 MG; Start 06/29/18 at 13:00 Zolpidem Tartrate (Ambien) 5 mg HS GTB Last administered on 07/07/18 20:25; Admin Dose 5 MG; Start 07/02/18 at 21:00 Gabapentin (Neurontin) 100 mg HS GTB Last administered on 07/07/18 20:25; Admin Dose 100 MG; Start 07/02/18 at 21:00 Acetaminophen/ Hydrocodone Bitart ([place] (5/325)) 1 tab Q24H PRN GTB SEVERE PAIN LEVEL 7-10 Last administered on 07/07/18 07:45; Admin Dose 1 TAB; Start 07/02/18 at 12:00 Lidocaine (Lidoderm) 1 patch DAILY TD Last administered on 07/08/18 08:41; Admin Dose 1 PATCH; Start 07/03/18 at 10:30 Levofloxacin (Levaquin) 250 mg DAILY GTB Last administered on 07/08/18 08:40; Admin Dose 250 MG; Start 07/03/18 at 11:00; Stop 07/10/18 at 10:59 Assessment/Plan Additional Assessment/Plan Additional Assessment/Plan Rehab- L SAH/hydrocephalus-s/p crani & clipping of the L BRASS CUTTER aneurysm and L frontal ventriculostomy placement; Encephalopathy Overall continued improvement. Improving verbal communication according to . Pain- continue neurontin/baclofen/ and small prn dose of norco Dysphagia- good po intake Seizure Disorder-continue seizure precautions Respiratory Failure- decannulated, doing well - Urinary retention, started on Levoquin for UTI. Retention improving. Appreciate urology input Spasticity with increased tone in Right Upper and Lower Extremity- Continue baclofen, continue ROM Hypothyroidism ROB CARMONA MD Jul 08, 2018 11:24
--- NOTE | 2018-07-08 12:00 | NUR ---
Received verbal authorization from [employer]ekah [phone] who is covering for Bonnie, extension confirmed until 07/16/17 w/ dc on 07/17/18, team and pt family made aware.
[2018-07-08 14:00] VITALS: BP 118/77; PULSE 72; RESP 20
--- NOTE | 2018-07-08 15:37 | NUR ---
NUTRITION NOTE: Pt has been tolerating PO diet well. Re-evaluated by HOTEL FRONT DESK AGENT on 07/08. Diet advancements per HOTEL FRONT DESK AGENT recs. Communicated with diet office regarding updated diet orders as medically appropriate. Pt has been eating mostly 100% at meals. Also receiving bolus TF Fibersoursce 250 ml TID. Family has previously expressed goal of not needing to use PEG for feeding when pt is able to adequately meet nutritional needs orally. As pt continues to tolerate PO intake well with at least 60% intake at meals, may consider discontinuing PEG supplemental feeding. Will add Boost Plus TID to optimize oral intake.
--- NOTE | 2018-07-08 17:34 | NUR ---
Patient in bed eating dinner assisted by her sister. Alert, oriented x 1 with periods of confusion. No SOB. Complained of pain so given PRN pain medication. Relieved after 30 minutes. No seizure episode noted. Patient had a bowel movement twice & urinating regularly. So far bladder scan result is below 350cc. Will continue to monitor. Kept clean & dry. All due meds given. Bed alarm on & in low position. Kept comfortable.
[2018-07-08 20:00] VITALS: BP 120/72; PULSE 84; RESP 18
[2018-07-09] MEDS: LEVETIRACETAM (100 MG/ML) 5ML CUP GTB SCH ×3 (00:41→20:50)
[2018-07-09] MEDS: BACLOFEN 10 MG TAB GTB SCH ×4 (00:42→20:52)
[2018-07-09] MEDS: GABAPENTIN 100 MG CAP GTB SCH ×3 (00:42→20:51)
[2018-07-09] MEDS: OLANZAPINE 2.5 MG TAB PO SCH ×2 (00:42→20:52)
[2018-07-09] MEDS: ZOLPIDEM 5 MG TAB GTB SCH ×2 (00:42→20:52)
[2018-07-09] MEDS: LACOSAMIDE (100 MG/10 ML PO SYR) GTB SCH ×3 (00:42→20:53)
[2018-07-09] MEDS: ATORVASTATIN 20 MG TAB PO SCH ×2 (00:42→20:52)
[2018-07-09] MEDS: FAMOTIDINE 20 MG TAB GTB SCH ×3 (00:42→20:52)
[2018-07-09] MEDS: NYSTATIN SUSP 5 ML CUP PO SCH ×3 (00:42→20:50)
[2018-07-09] MEDS: BALSAM PERU/CASTOR OIL 60 GM TUBE TOP SCH ×3 (00:51→20:58)
[2018-07-09] MEDS: NYSTATIN 30 GM POWDER BTL TOP SCH ×4 (00:51→20:58)
[2018-07-09 02:00] VITALS: BP 108/70; PULSE 61; RESP 18
--- NOTE | 2018-07-09 06:12 | NUR ---
Pt asleep at this time, no s/s of distress. No compalints of pain during the shift. Slept well through the night. Due meds given. Incontinent care given, kept clean and comfortable. PVR done. Safety precautions in place. Frequent checks done. at bedside. Will endorse accordingly.
[2018-07-09] MEDS: LEVOTHYROXINE 88 MCG TAB GTB SCH (06:44)
[2018-07-09 07:50] VITALS: BP 112/62; PULSE 74; RESP 18
--- NOTE | 2018-07-09 08:38 | PN ---
DATE: 07/09/2018 SUBJECTIVE: The patient is stable, no events overnight. No fevers, chills, nausea, or vomiting. Th e patient is voiding well. OBJECTIVE: VITAL SIGNS: Blood pressure is 108/70, respirations 18, pulse 61, temperature 97.9. HEENT: Head is normocephalic. NECK: Supple. HEART: Regular rate. LUNGS: Show diminished breath sounds at the base. EXTREMITIES: Negative for clubbing, cyanosis, no edema. DERMATOLOGIC: No rashes. MUSCULOSKELETAL: No joint effusion. NEUROLOGIC: No change in exam. MEDICATIONS: Reviewed. LABORATORY DATA: Reviewed. ASSESSMENT AND PLAN: 1. Status post respiratory failure. The patient was decannulated with infiltrate, currently stable. 2. Dysphagia, tolerating p.o. We will have a percutaneous endoscopic gastrostomy tube removed per g astroenterologist 3. Urinary retention. Continue in and out catheterizations. Appreciate urology evaluation. 4. Urinary tract infection. Continue antibiotic therapy. 5. Seizure disorder. Continue current medical management. 6. Hypothyroidism. Continue Synthroid. 7. Encephalopathy, improving. 8. Hypertension. Continue current blood pressure regimen. 9. Cerebrovascular accident with hemiplegia. Continue to monitor. 10. Mood disorder. Continue Zyprexa. 11. Status post subarachnoid hemorrhage. 12. Gastrointestinal and deep vein thrombosis prophylaxis. 13. Neuropathy. Continue Neurontin. Dictated By: ANGIE PINEDA/ASHOK Conf#: [id number] DID#: [id number] CC: HERNAN SHIPLEY DO; BRENDEN ENRIQUE MD;*End*
[2018-07-09] MEDS: ACETAMINOPHEN 650MG/20.3ML CUP GTB PRN (09:40)
[2018-07-09] MEDS: LEVOFLOXACIN 250 MG TAB GTB SCH (09:41)
[2018-07-09] MEDS: LIDOCAINE 5% PATCH TD SCH (09:41)
[2018-07-09] MEDS: AMLODIPINE 10 MG TAB GTB SCH (09:41)
[2018-07-09] MEDS: DOCUSATE SODIUM 10 MG/ML (10ML CUP) GTB SCH ×2 (09:41→20:53)
[2018-07-09] MEDS: ENOXAPARIN 40 MG/0.4 ML SYG SC SCH (09:52)
--- NOTE | 2018-07-09 11:55 | CONS ---
Date/Time of Note Date/Time of Note DATE: 07/09/18 TIME: 11:53 Consult Date/Type/Reason Admit Date/Time Jun 26, 2018 at 21:04 Initial Consult Date Type of Consultation: Pulmonary Requesting Provider: ROB CARMONA MD Subjective Remains stable post decannulation. Objective Vital Signs Date Temp Pulse Resp B/P (MAP) Pulse Ox O2 O2 Flow FiO2 Time Delivery Rate 07/09/18 98.3 74 18 112/62 99 Room Air 07:50 (79) 07/06/18 21 17:00 Intake and Output 07/08/18 07/08/18 07/09/18 1515:00 23:00 07:00 IntakeIntake Total 330 ml 200 ml BalanceBalance 330 ml 200 ml Exam GENERAL: Chronically ill-appearing gentleman respiratory failure with tra cheostomy VITAL SIGNS: per chart NECK: Supple. No JVD or lymphadenopathy. CARDIAC EXAM: S1, S2. No added sounds or murmurs. CHEST: Diminished air entry bilaterally ABDOMEN: Soft, nontender. No guarding or rebound. EXTREMITIES: No cyanosis, clubbing or edema. NEUROLOGIC: Generalized weakness. No focal deficits. Results/Medications Result Diagram: 07/07/1863907/07/18 0640 Medications Current Medications Atorvastatin Calcium (Lipitor) 20 mg DAILY@21 PO Last administered on 07/09/18at 00:42; Admin Dose 20 MG; Start 06/26/18 at 23:09 Lacosamide (Vimpat Liq) 50 mg BID GTB Last administered on 07/09/18at 09:42; Admin Dose 50 MG; Start 06/26/18 at 23:09 Albuterol (Proventil 0.5% (Neb)) 2.5 mg Q4H RESP THERAPY PRN INH PRN DYSPNEA; Start 06/26/18 at 23:09 Ipratropium [place] (Atrovent 0.02% (Neb)) 0.5 mg Q4H RESP THERAPY PRN INH DYSPNEA; Start 06/26/18 at 23:09 Simethicone (Mylicon) 80 mg QID PRN PEG DISTENSION/GAS/BLOATING; Start 06/26/18 at 23:09 Amlodipine Besylate (Norvasc) 10 mg DAILY GTB Last administered on 07/09/18at 09:41; Admin Dose 10 MG; Start 06/26/18 at 23:09 Nystatin (Nystatin Susp) 5 ml BID PO Last administered on 07/09/18 09:41; Admin Dose 5 ML; Start 06/26/18 at 23:09 Olanzapine (Zyprexa) 2.5 mg QHS PO Last administered on 07/09/18 00:42; Admin Dose 2.5 MG; Start 06/26/18 at 23:09 Acetaminophen (Tylenol Liquid) 650 mg Q4H PRN GTB PRN FOR FEVER Last administered on 07/01/18 16:44; Admin Dose 650 MG; Start 06/26/18 at 23:09 Enoxaparin Sodium (Lovenox) 40 mg DAILY SC Last administered on 07/09/18 09:52; Admin Dose 40 MG; Start 06/26/18 at 23:09 Famotidine (Pepcid) 20 mg BID GTB Last administered on 07/09/18 09:41; Admin Dose 20 MG; Start 06/26/18 at 23:09 Levetiracetam (Keppra Liquid) 500 mg BID GTB Last administered on 07/09/18 09:41; Admin Dose 500 MG; Start 06/26/18 at 23:09 Nystatin (Nystatin Powder) 1 applic TID TOP Last administered on 07/09/18 09:48; Admin Dose 1 APPLIC; Start 06/26/18 at 23:09 Eye Lubricant (Akwa Oint) 1 applic Q1H PRN BOTH EYES PRN; Start 06/26/18 at 23:09 Acetaminophen (Tylenol Liquid) 650 mg Q4H PRN GTB MILD PAIN LEVEL 1-3 Last administered on 07/09/18 09:40; Admin Dose 650 MG; Start 06/26/18 at 23:09 Docusate Sodium (Colace Liquid Cup) 100 mg BID GTB Last administered on 07/09/18 09:41; Admin Dose 100 MG; Start 06/27/18 at 09:00 Magnesium Hydroxide (Milk Of Mag) 30 ml BID PRN GTB CONSTIPATION; Start 06/27/18 at 00:00 Lactulose (Enulose) 20 gm DAILY PRN GTB CONSTIPATION; Start 06/27/18 at 00:00 Bisacodyl (Dulcolax Supp) 10 mg DAILY PRN [place] CONSTIPATION; Start 06/27/18 at 00:00 Levothyroxine Sodium (Synthroid) 88 mcg DAILY@06 GTB Last administered on 07/09/18 06:44; Admin Dose 88 MCG; Start 06/28/18 at 06:00 Baclofen (Lioresal) 10 mg TID GTB Last administered on 07/09/18 09:41; Admin Dose 10 MG; Start 06/29/18 at 13:00 Zolpidem Tartrate (Ambien) 5 mg HS GTB Last administered on 07/09/18 00:42; Admin Dose 5 MG; Start 07/02/18 at 21:00 Acetaminophen/ Hydrocodone Bitart ([place] (5/325)) 1 tab Q24H PRN GTB SEVERE PAIN LEVEL 7-10 Last administered on 07/07/18 07:45; Admin Dose 1 TAB; Start 07/02/18 at 12:00 Lidocaine (Lidoderm) 1 patch DAILY TD Last administered on 07/09/18 09:41; Admin Dose 1 PATCH; Start 07/03/18 at 10:30 Levofloxacin (Levaquin) 250 mg DAILY GTB Last administered on 07/09/18 09:41; Admin Dose 250 MG; Start 07/03/18 at 11:00; Stop 07/10/18 at 10:59 Gabapentin (Neurontin) 100 mg BID GTB Last administered on 07/09/18 10:43; Admin Dose 100 MG; Start 07/09/18 at 10:30 Assessment/Plan Chief Complaint/Hosp Course IMPRESSION 1. Status post respiratory failure. 2. 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 3. Dysphagia with G-tube. PLAN: 1. Follow speech therapy recommendations regarding p.o. diet and aspiration risk. 2. Stoma site care 3. Anticipate removal of peg next week. GERTRUDIS ROACH MD, [facility] Jul 09, 2018 11:55
--- NOTE | 2018-07-09 13:03 | PN ---
Date/Time of Note Date/Time of Note DATE: 07/09/18 TIME: 13:01 Subjective Voiding improved, but patient with significant pain with ROM to R UE Objective Vital Signs Date Temp Pulse Resp B/P (MAP) Pulse Ox O2 O2 Flow FiO2 Time Delivery Rate 07/09/18 98.3 74 18 112/62 99 Room Air 07:50 (79) 07/06/18 21 17:00 Intake and Output 07/08/18 07/08/18 07/09/18 1515:00 23:00 07:00 IntakeIntake Total 330 ml 200 ml BalanceBalance 330 ml 200 ml Exam pulm-cta abd-soft mod assist Results/Medications Result Diagram: 07/07/1863907/07/18 0640 Medications Current Medications Atorvastatin Calcium (Lipitor) 20 mg DAILY@21 PO Last administered on 07/09/18 00:42; Admin Dose 20 MG; Start 06/26/18 at 23:09 Lacosamide (Vimpat Liq) 50 mg BID GTB Last administered on 07/09/18 09:42; Admin Dose 50 MG; Start 06/26/18 at 23:09 Albuterol (Proventil 0.5% (Neb)) 2.5 mg Q4H RESP THERAPY PRN INH PRN DYSPNEA; Start 06/26/18 at 23:09 Ipratropium [place] (Atrovent 0.02% (Neb)) 0.5 mg Q4H RESP THERAPY PRN INH DYSPNEA; Start 06/26/18 at 23:09 Simethicone (Mylicon) 80 mg QID PRN PEG DISTENSION/GAS/BLOATING; Start 06/26/18 at 23:09 Amlodipine Besylate (Norvasc) 10 mg DAILY GTB Last administered on 07/09/18 09:41; Admin Dose 10 MG; Start 06/26/18 at 23:09 Nystatin (Nystatin Susp) 5 ml BID PO Last administered on 07/09/18 09:41; Admin Dose 5 ML; Start 06/26/18 at 23:09 Olanzapine (Zyprexa) 2.5 mg QHS PO Last administered on 07/09/18 00:42; Admin Dose 2.5 MG; Start 06/26/18 at 23:09 Acetaminophen (Tylenol Liquid) 650 mg Q4H PRN GTB PRN FOR FEVER Last administered on 07/01/18 16:44; Admin Dose 650 MG; Start 06/26/18 at 23:09 Enoxaparin Sodium (Lovenox) 40 mg DAILY SC Last administered on 07/09/18 09:52; Admin Dose 40 MG; Start 06/26/18 at 23:09 Famotidine (Pepcid) 20 mg BID GTB Last administered on 07/09/18 09:41; Admin Dose 20 MG; Start 06/26/18 at 23:09 Levetiracetam (Keppra Liquid) 500 mg BID GTB Last administered on 07/09/18 09:41; Admin Dose 500 MG; Start 06/26/18 at 23:09 Nystatin (Nystatin Powder) 1 applic TID TOP Last administered on 07/09/18 09:4 8; Admin Dose 1 APPLIC; Start 06/26/18 at 23:09 Eye Lubricant (Akwa Oint) 1 applic Q1H PRN BOTH EYES PRN; Start 06/26/18 at 23:09 Acetaminophen (Tylenol Liquid) 650 mg Q4H PRN GTB MILD PAIN LEVEL 1-3 Last administered on 07/09/18 09:40; Admin Dose 650 MG; Start 06/26/18 at 23:09 Docusate Sodium (Colace Liquid Cup) 100 mg BID GTB Last administered on 07/09/18 09:41; Admin Dose 100 MG; Start 06/27/18 at 09:00 Magnesium Hydroxide (Milk Of Mag) 30 ml BID PRN GTB CONSTIPATION; Start at 00:00 Lactulose (Enulose) 20 gm DAILY PRN GTB CONSTIPATION; Start 06/27/18 at 00:00 Bisacodyl (Dulcolax Supp) 10 mg DAILY PRN [place] CONSTIPATION; Start 06/27/18 at 00:00 Levothyroxine Sodium (Synthroid) 88 mcg DAILY@06 GTB Last administered on 07/09/18 06:44; Admin Dose 88 MCG; Start 06/28/18 at 06:00 Baclofen (Lioresal) 10 mg TID GTB Last administered on 07/09/18 09:41; Admin Dose 10 MG; Start 06/29/18 at 13:00 Zolpidem Tartrate (Ambien) 5 mg HS GTB Last administered on 07/09/18 00:42; Admin Dose 5 MG; Start 07/02/18 at 21:00 Acetaminophen/ Hydrocodone Bitart ([place] (5/325)) 1 tab Q24H PRN GTB SEVERE PAIN LEVEL 7-10 Last administered on 07/07/18 07:45; Admin Dose 1 TAB; Start 07/02/18 at 12:00 Lidocaine (Lidoderm) 1 patch DAILY TD Last administered on 07/09/18 09:41; Admin Dose 1 PATCH; Start 07/03/18 at 10:30 Levofloxacin (Levaquin) 250 mg DAILY GTB Last administered on 07/09/18 09:41; Admin Dose 250 MG; Start 07/03/18 at 11:00; Stop 07/10/18 at 10:59 Gabapentin (Neurontin) 100 mg BID GTB Last administered on 07/09/18at 10:43; Admin Dose 100 MG; Start 07/09/18 at 10:30 Assessment/Plan Additional Assessment/Plan Rehab- L SAH/hydrocephalus-s/p crani & clipping of the L [employer] aneurysm and L frontal ventriculostomy placement; Encephalopathy Medication reviewed with family. When patient is premedicated she is able to ambulate with therapies. Pain- continue neurontin/baclofen/ and small prn dose of norco. Increase neurontin Dysphagia- good po intake Seizure Disorder-continue seizure precautions Respiratory Failure- decannulated, doing well - Urinary retention, started on Levoquin for UTI. Voidin well with low PVRs Spasticity with increased tone in Right Upper and Lower Extremity- Continue baclofen, continue ROM Hypothyroidism ROB CARMONA MD Jul 09, 2018 13:03
[2018-07-09 14:00] VITALS: BP 102/64; PULSE 77; RESP 18
--- NOTE | 2018-07-09 19:35 | NUR ---
End of shift summary note Patient awake and alert with complaints of pain during the shift and was medicated with Tylenol liq 650mg; relief noted. All due medications given. No noted dizziness and denies nausea or vomiting. On PVR check. Call light and bedside table placed within reach. Bed alarm activated for safety and bed placed on lowest position. Participated with therapy. Needs attended and continuous monitoring provided. Will endorse to next shift.
[2018-07-09 20:00] VITALS: BP 112/74; PULSE 90; RESP 18
[2018-07-09] MEDS ORDERED: GABAPENTIN 100 MG CAP GTB SCH (21:00)
--- NOTE | 2018-07-10 05:42 | NUR ---
Pt asleep at this time, no s/s of distress. Observed to be participating in therapy at the beginning of the shift. No complaints of pain during the shift. Slept well through the night. Due meds given. Incontinent care done, kept clean and comfortable. PVR done. Safety precautions in place. Frequent checks done. Brother at bedside. Will endorse accordingly.
[2018-07-10] MEDS: LEVOTHYROXINE 88 MCG TAB GTB SCH (05:57)
--- NOTE | 2018-07-10 08:07 | PN ---
DATE: 07/10/2018 SUBJECTIVE: The patient is stable, no events overnight, tolerating p.o. The patient's G-tube has br oken. Urinary output has been adequate. No other events noted. OBJECTIVE: VITAL SIGNS: Blood pressure is 112/74, respirations 18, pulse 90, temperature 97.0. HEENT: Head is normocephalic. NECK: Supple. HEART: Regular rate. LUNGS: Show diminished breath sounds at the base. ABDOMEN: Soft, nontender to palpation. No rebound or guarding. EXTREMITIES: Negative for clubbing, cyanosis, no edema. DERMATOLOGIC: No rashes. MUSCULOSKELETAL: No joint effusion. NEUROLOGIC: No change in exam. MEDICATIONS: Reviewed. LABORATORY DATA: From 07/10/2018 was reviewed. ASSESSMENT AND PLAN: 1. Status post respiratory failure. The patient is currently stable, status post decannulation. 2. Dysphagia, tolerating p.o. Place a GI consult with Dr. Lockhart for removal of percutaneous endosc opic gastrostomy tube. 3. Urinary retention. Continue to monitor. Appreciate urology's evaluation. 4. Urinary tract infection. The patient is completing antibiotic course. 5. Seizure disorder. Continue medical management. 6. Hypothyroidism. Continue Synthroid. 7. Encephalopathy, improving. 8. Hypertension. Continue current blood pressure regimen. 9. Cerebrovascular accident with hemiplegia. Continue to monitor. 10. Mood disorder. Continue Zyprexa. 11. Neuropathy. Continue Neurontin. 12. Status post subarachnoid hemorrhage. 13. Gastrointestinal and deep vein thrombosis prophylaxis. Dictated By: ANGIE CORDOVA DO NR/NTS Conf#: [id number] DID#: [id number] CC: HERNAN SHIPLEY DO; BRENDEN ENRIQUE MD;*EndCC*
[2018-07-10] MEDS: LIDOCAINE 5% PATCH TD SCH (08:17)
[2018-07-10] MEDS: ACETAMINOPHEN 650MG/20.3ML CUP GTB PRN (08:18)
[2018-07-10 08:31] VITALS: BP 141/65; PULSE 75; RESP 18
[2018-07-10] MEDS: GABAPENTIN 100 MG CAP GTB SCH (08:35)
[2018-07-10] MEDS: BACLOFEN 10 MG TAB GTB SCH ×2 (08:35→12:16)
[2018-07-10] MEDS: AMLODIPINE 10 MG TAB GTB SCH (08:35)
[2018-07-10] MEDS: LEVOFLOXACIN 250 MG TAB GTB SCH (08:35)
[2018-07-10] MEDS: LEVETIRACETAM (100 MG/ML) 5ML CUP GTB SCH (08:35)
[2018-07-10] MEDS: DOCUSATE SODIUM 10 MG/ML (10ML CUP) GTB SCH (08:35)
[2018-07-10] MEDS: FAMOTIDINE 20 MG TAB GTB SCH (08:35)
[2018-07-10] MEDS: LACOSAMIDE (100 MG/10 ML PO SYR) GTB SCH (08:36)
[2018-07-10] MEDS: NYSTATIN 30 GM POWDER BTL TOP SCH ×3 (08:36→20:20)
[2018-07-10] MEDS: BALSAM PERU/CASTOR OIL 60 GM TUBE TOP SCH ×2 (08:37→20:21)
[2018-07-10] MEDS: NYSTATIN SUSP 5 ML CUP PO SCH ×2 (09:00→20:37)
[2018-07-10] MEDS: ENOXAPARIN 40 MG/0.4 ML SYG SC SCH (10:13)
--- NOTE | 2018-07-10 10:56 | CONS ---
Date/Time of Note Date/Time of Note DATE: 07/10/18 TIME: 10:55 Consult Date/Type/Reason Admit Date/Time Jun 26, 2018 at 21:04 Initial Consult Date Type of Consultation: Pulmonary Requesting Provider: ROB CARMONA MD Objective Vital Signs Date Temp Pulse Resp B/P (MAP) Pulse Ox O2 O2 Flow FiO2 Time Delivery Rate 07/10/18 97.5 75 18 141/65 98 Room Air 08:31 (90) 07/06/18 21 17:00 Intake and Output 07/09/18 07/09/18 07/10/18 1515:00 23:00 07:00 IntakeIntake Total 120 ml BalanceBalance 120 ml Exam GENERAL: Well-nourished well-developed lady comfortable at rest no acute distress VITAL SIGNS: per chart NECK: Supple. No JVD or lymphadenopathy. Trach stoma site healing well CARDIAC EXAM: S1, S2. No added sounds or murmurs. CHEST: clear bilaterally, No added sounds, rales or wheezes ABDOMEN: Soft, nontender. No guarding or rebound. EXTREMITIES: No cyanosis, clubbing or edema. NEUROLOGIC: Generalized weakness. Hemiplegia Results/Medications Result Diagram: 07/10/18 0649 07/10/18 0649 Results 24 hrs Laboratory Tests Test 07/10/18 06:49 White Blood Count 7.3 Red Blood Count 4.26 Hemoglobin 13.1 Hematocrit 38.4 Mean Corpuscular Volume 90.1 Mean Corpuscular Hemoglobin 30.8 Mean Corpuscular Hemoglobin Concent 34.1 Red Cell Distribution Width 12.8 Platelet Count 318 Mean Platelet Volume 9.8 Immature Granulocytes % 0.400 Neutrophils % 57.5 Lymphocytes % 31.2 Monocytes % 7.8 Eosinophils % 2.6 Basophils % 0.5 Nucleated Red Blood Cells % 0.0 Immature Granulocytes # 0.030 Neutrophils # 4.2 Lymphocytes # 2.3 Monocytes # 0.6 Eosinophils # 0.2 Basophils # 0.0 Nucleated Red Blood Cells # 0.0 Sodium Level 140 Potassium Level 3.3 L Chloride Level 101 Carbon Dioxide Level 28 Anion Gap 11 Blood Urea Nitrogen 10 Creatinine 0.39 L Est Glomerular Filtrat Rate mL/min > 60 Glucose Level 103 Calcium Level 9.5 Phosphorus Level 4.6 Magnesium Level 2.0 Medications Current Medications Atorvastatin Calcium (Lipitor) 20 mg DAILY@21 PO Last administered on 07/09/18 20:52; Admin Dose 20 MG; Start 06/26/18 at 23:09 Lacosamide (Vimpat Liq) 50 mg BID GTB Last administered on 07/10/18 08:36; Admin Dose 50 MG; Start 06/26/18 at 23:09 Albuterol (Proventil 0.5% (Neb)) 2.5 mg Q4H RESP THERAPY PRN INH PRN DYSPNEA; Start 06/26/18 at 23:09 Ipratropium [place] (Atrovent 0.02% (Neb)) 0.5 mg Q4H RESP THERAPY PRN INH DYSPNEA; Start 06/26/18 at 23:09 Simethicone (Mylicon) 80 mg QID PRN PEG DISTENSION/GAS/BLOATING; Start 06/26/18 at 23:09 Amlodipine Besylate (Norvasc) 10 mg DAILY GTB Last administered on 07/10/18 08:35; Admin Dose 10 MG; Start 06/26/18 at 23:09 Nystatin (Nystatin Susp) 5 ml BID PO Last administered on 07/09/18 20:50; Admin Dose 5 ML; Start 06/26/18 at 23:09 Olanzapine (Zyprexa) 2.5 mg QHS PO Last administered on 07/09/18 20:52; Admin Dose 2.5 MG; Start 06/26/18 at 23:09 Acetaminophen (Tylenol Liquid) 650 mg Q4H PRN GTB PRN FOR FEVER Last administered on 07/10/18 08:18; Admin Dose 650 MG; Start 06/26/18 at 23:09 Enoxaparin Sodium (Lovenox) 40 mg DAILY SC Last administered on 07/10/18 10:13; Admin Dose 40 MG; Start 06/26/18 at 23:09 Famotidine (Pepcid) 20 mg BID GTB Last administered on 07/10/18 08:35; Admin Dose 20 MG; Start 06/26/18 at 23:09 Levetiracetam (Keppra Liquid) 500 mg BID GTB Last administered on 07/10/18 08:35; Admin Dose 500 MG; Start 06/26/18 at 23:09 Nystatin (Nystatin Powder) 1 applic TID TOP Last administered on 07/10/18 0 8:36; Admin Dose 1 APPLIC; Start 06/26/18 at 23:09 Eye Lubricant (Akwa Oint) 1 applic Q1H PRN BOTH EYES PRN; Start 06/26/18 at 23:09 Acetaminophen (Tylenol Liquid) 650 mg Q4H PRN GTB MILD PAIN LEVEL 1-3 Last administered on 07/09/18 09:40; Admin Dose 650 MG; Start 06/26/18 at 23:09 Docusate Sodium (Colace Liquid Cup) 100 mg BID GTB Last administered on 07/09/18 09:41; Admin Dose 100 MG; Start 06/27/18 at 09:00 Magnesium Hydroxide (Milk Of Mag) 30 ml BID PRN GTB CONSTIPATION; Start at 00:00 Lactulose (Enulose) 20 gm DAILY PRN GTB CONSTIPATION; Start 06/27/18 at 00:00 Bisacodyl (Dulcolax Supp) 10 mg DAILY PRN [place] CONSTIPATION; Start 06/27/18 at 00:00 Levothyroxine Sodium (Synthroid) 88 mcg DAILY@06 GTB Last administered on 07/10/18 05:57; Admin Dose 88 MCG; Start 06/28/18 at 06:00 Baclofen (Lioresal) 10 mg TID GTB Last administered on 07/10/18 08:35; Admin Dose 10 MG; Start 06/29/18 at 13:00 Zolpidem Tartrate (Ambien) 5 mg HS GTB Last administered on 07/09/18 20:52; Admin Dose 5 MG; Start 07/02/18 at 21:00 Acetaminophen/ Hydrocodone Bitart ([place] (5/325)) 1 tab Q24H PRN GTB SEVERE PAIN LEVEL 7-10 Last administered on 07/07/18 07:45; Admin Dose 1 TAB; Start 07/02/18 at 12:00 Levofloxacin (Levaquin) 250 mg DAILY GTB Last administered on 07/10/18 08:35; Admin Dose 250 MG; Start 07/03/18 at 11:00; Stop 07/10/18 at 10:59 Gabapentin (Neurontin) 100 mg BID GTB Last administered on 07/10/18 08:35; Admin Dose 100 MG; Start 07/09/18 at 10:30 Lidocaine (Lidoderm) 1 patch 0800 TD Last administered on 07/10/18at 08:17; Admin Dose 1 PATCH; Start 07/10/18 at 08:00 Assessment/Plan Chief Complaint/Hosp Course IMPRESSION 1. Status post respiratory failure. 2. 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 3. Dysphagia with G-tube. PLAN: 1. Follow speech therapy recommendations regarding p.o. diet and aspiration risk. 2. Stoma site care 3. Anticipate removal of peg next week. GERTRUDIS ROACH MD, [facility] Jul 10, 2018 10:56
--- NOTE | 2018-07-10 12:03 | NUR ---
[facility] OT Weekly Summary Dates From: 07/03/18 to 07/10/18 Patient Name: AG MCCOLLUM MR#: [id number] Height: 5 ft 3 in Weight: 139 lbs 5.314 oz 63.200 kg Reason for Visit: NON TRAUMATIC BRAIN INJURY Precautions: fall risk Date: 07/10/18 Time: 1203 User: EVELYN BETTS Short-term Goals: 1. Mod A w/ Feeding 2. Mod A w/ Grooming 3. Mod A w/ UB/LB dressing 4. Mod A w/ Toileting 5. Mod A w/ Bathing 6. Mod A w/ functional transfers Patient's progress: Upon admission pt has the following levels: Grooming: Dep, Feeding: Dep, UB/LB dress: Dep/Dep, Toileting: Dep, Bathing: Dep, Functional transfers: Dep. Pt made good progress towards goals through ADL retraining NMRE, thera ex and actv. Pt current levels are:Feeding: MOd A, Grooming: Max A, Bathing: dependent, UB/LB dress: MAx A/ Dependent, Toielting: dependent, Funct transfers: Max A. Recommended DME: commode, shower chair
--- NOTE | 2018-07-10 12:26 | CONS ---
Date/Time of Note Date/Time of Note DATE: 07/10/18 TIME: 12:23 Assessment/Plan Assessment/Plan Hospital Course 57 yo female 1. Dysphagia, resolved 2. S/PSubarachnoid hemorrhagic stroke Plan: Dr. Lockhart will come by and remove g tube later this afternoon. Result Diagram: 07/10/18 0649 07/10/18 0649 Results 24hrs Laboratory Tests Test 07/10/18 06:49 White Blood Count 7.3 Red Blood Count 4.26 Hemoglobin 13.1 Hematocrit 38.4 Mean Corpuscular Volume 90.1 Mean Corpuscular Hemoglobin 30.8 Mean Corpuscular Hemoglobin Concent 34.1 Red Cell Distribution Width 12.8 Platelet Count 318 Mean Platelet Volume 9.8 Immature Granulocytes % 0.400 Neutrophils % 57.5 Lymphocytes % 31.2 Monocytes % 7.8 Eosinophils % 2.6 Basophils % 0.5 Nucleated Red Blood Cells % 0.0 Immature Granulocytes # 0.030 Neutrophils # 4.2 Lymphocytes # 2.3 Monocytes # 0.6 Eosinophils # 0.2 Basophils # 0.0 Nucleated Red Blood Cells # 0.0 Sodium Level 140 Potassium Level 3.3 L Chloride Level 101 Carbon Dioxide Level 28 Anion Gap 11 Blood Urea Nitrogen 10 Creatinine 0.39 L Est Glomerular Filtrat Rate mL/min > 60 Glucose Level 103 Calcium Level 9.5 Phosphorus Level 4.6 Magnesium Level 2.0 Consultation Date/Type/Reason Admit Date/Time Jun 26, 2018 at 21:04 Hx of Present Illness 57 yo female with subarach[facility]oid hemorrhage [facility] is now tolerating PO diet and we have been asked to removed G tube. Pt denies N/V, SOB, cough. Past Medical History Medical History: other (As per history of present illness) Medications Current Medications Atorvastatin Calcium (Lipitor) 20 mg DAILY@21 PO Last administered on 07/09/18at 20:52; Admin Dose 20 MG; Start 06/26/18 at 23:09 Lacosamide (Vimpat Liq) 50 mg BID GTB Last administered on 07/10/18at 08:36; Admin Dose 50 MG; Start 06/26/18 at 23:09 Albuterol (Proventil 0.5% (Neb)) 2.5 mg Q4H RESP THERAPY PRN INH PRN DYSPNEA; Start 06/26/18 at 23:09 Ipratropium [place] (Atrovent 0.02% (Neb)) 0.5 mg Q4H RESP THERAPY PRN INH DYSPNEA; Start 06/26/18 at 23:09 Simethicone (Mylicon) 80 mg QID PRN PEG DISTENSION/GAS/BLOATING; Start 06/26/18 at 23:09 Amlodipine Besylate (Norvasc) 10 mg DAILY GTB Last administered on 07/10/18 08:35; Admin Dose 10 MG; Start 06/26/18 at 23:09 Nystatin (Nystatin Susp) 5 ml BID PO Last administered on 07/09/18 20:50; Admin Dose 5 ML; Start 06/26/18 at 23:09 Olanzapine (Zyprexa) 2.5 mg QHS PO Last administered on 07/09/18 20:52; Admin Dose 2.5 MG; Start 06/26/18 at 23:09 Acetaminophen (Tylenol Liquid) 650 mg Q4H PRN GTB PRN FOR FEVER Last administered on 07/10/18 08:18; Admin Dose 650 MG; Start 06/26/18 at 23:09 Enoxaparin Sodium (Lovenox) 40 mg DAILY SC Last administered on 07/10/18 10:13; Admin Dose 40 MG; Start 06/26/18 at 23:09 Famotidine (Pepcid) 20 mg BID GTB Last administered on 07/10/18 08:35; Admin Dose 20 MG; Start 06/26/18 at 23:09 Levetiracetam (Keppra Liquid) 500 mg BID GTB Last administered on 07/10/18 08:35; Admin Dose 500 MG; Start 06/26/18 at 23:09 Nystatin (Nystatin Powder) 1 applic TID TOP Last administered on 07/10/18 08:36; Admin Dose 1 APPLIC; Start 06/26/18 at 23:09 Eye Lubricant (Akwa Oint) 1 applic Q1H PRN BOTH EYES PRN; Start 06/26/18 at 23:09 Acetaminophen (Tylenol Liquid) 650 mg Q4H PRN GTB MILD PAIN LEVEL 1-3 Last administered on 07/09/18 09:40; Admin Dose 650 MG; Start 06/26/18 at 23:09 Docusate Sodium (Colace Liquid Cup) 100 mg BID GTB Last administered on 07/09/18 09:41; Admin Dose 100 MG; Start 06/27/18 at 09:00 Magnesium Hydroxide (Milk Of Mag) 30 ml BID PRN GTB CONSTIPATION; Start 06/27/18 at 00:00 Lactulose (Enulose) 20 gm DAILY PRN GTB CONSTIPATION; Start 06/27/18 at 00:00 Bisacodyl (Dulcolax Supp) 10 mg DAILY PRN [place] CONSTIPATION; Start 06/27/18 at 00:00 Levothyroxine Sodium (Synthroid) 88 mcg DAILY@06 GTB Last administered on 07/10/18 05:57; Admin Dose 88 MCG; Start 06/28/18 at 06:00 Baclofen (Lioresal) 10 mg TID GTB Last administered on 07/10/18 08:35; Admin Dose 10 MG; Start 06/29/18 at 13:00 Zolpidem Tartrate (Ambien) 5 mg HS GTB Last administered on 07/09/18at 20:52; Admin Dose 5 MG; Start 07/02/18 at 21:00 Acetaminophen/ Hydrocodone Bitart ([place] (5/325)) 1 tab Q24H PRN GTB SEVERE PAIN LEVEL 7-10 Last administered on 07/07/18 07:45; Admin Dose 1 TAB; Start 07/02/18 at 12:00 Gabapentin (Neurontin) 100 mg BID GTB Last administered on 07/10/18 08:35; Admin Dose 100 MG; Start 07/09/18 at 10:30 Lidocaine (Lidoderm) 1 patch 0800 TD Last administered on 07/10/18at 08:17; Admin Dose 1 PATCH; Start 07/10/18 at 08:00 Allergies: Coded Allergies: No Known Allergies (Verified Allergy, Unknown, 05/13/18) Past Surgical History Past Surgical Hx: other (As per history of present illness) Social History Smoking Status: Never smoker Exam/Review of Systems Vital Signs Vitals Vital Signs Date Temp Pulse Resp B/P (MAP) Pulse Ox O2 O2 Flow FiO2 Time Delivery Rate 07/10/18 97.5 75 18 141/65 98 Room Air 08:31 (90) 07/06/18 21 17:00 Intake and Output 07/09/18 07/09/18 07/10/18 1515:00 23:00 07:00 IntakeIntake Total 120 ml BalanceBalance 120 ml Exam Constitutional: alert Psych: no complaints Head: normocephalic Eyes: nl sclera, PERRL ENMT: mucosa pink and moist Respiratory: clear to auscultation Cardiovascular: regular rate and rhythm Gastrointestinal: soft, non-tender, other (g tube site clean and dry and is missing the top portion of the g tube) Musculoskeletal: muscle weakness Medications Medications Current Medications Atorvastatin Calcium (Lipitor) 20 mg DAILY@21 PO Last administered on 07/09/18 20:52; Admin Dose 20 MG; Start 06/26/18 at 23:09 Lacosamide (Vimpat Liq) 50 mg BID GTB Last administered on 07/10/18 08:36; Admin Dose 50 MG; Start 06/26/18 at 23:09 Albuterol (Proventil 0.5% (Neb)) 2.5 mg Q4H RESP THERAPY PRN INH PRN DYSPNEA; Start 06/26/18 at 23:09 Ipratropium [place] (Atrovent 0.02% (Neb)) 0.5 mg Q4H RESP THERAPY PRN INH DYSPNEA; Start 06/26/18 at 23:09 Simethicone (Mylicon) 80 mg QID PRN PEG DISTENSION/GAS/BLOATING; Start 06/26/18 at 23:09 Amlodipine Besylate (Norvasc) 10 mg DAILY GTB Last administered on 07/10/18 08:35; Admin Dose 10 MG; Start 06/26/18 at 23:09 Nystatin (Nystatin Susp) 5 ml BID PO Last administered on 07/09/18 20:50; Admin Dose 5 ML; Start 06/26/18 at 23:09 Olanzapine (Zyprexa) 2.5 mg QHS PO Last administered on 07/09/18 20:52; Admin Dose 2.5 MG; Start 06/26/18 at 23:09 Acetaminophen (Tylenol Liquid) 650 mg Q4H PRN GTB PRN FOR FEVER Last administered on 07/10/18 08:18; Admin Dose 650 MG; Start 06/26/18 at 23:09 Enoxaparin Sodium (Lovenox) 40 mg DAILY SC Last administered on 07/10/18 10:13; Admin Dose 40 MG; Start 06/26/18 at 23:09 Famotidine (Pepcid) 20 mg BID GTB Last administered on 07/10/18 08:35; Admin Dose 20 MG; Start 06/26/18 at 23:09 Levetiracetam (Keppra Liquid) 500 mg BID GTB Last administered on 07/10/18 08:35; Admin Dose 500 MG; Start 06/26/18 at 23:09 Nystatin (Nystatin Powder) 1 applic TID TOP Last administered on 07/10/18 08:36; Admin Dose 1 APPLIC; Start 06/26/18 at 23:09 Eye Lubricant (Akwa Oint) 1 applic Q1H PRN BOTH EYES PRN; Start 06/26/18 at 23:09 Acetaminophen (Tylenol Liquid) 650 mg Q4H PRN GTB MILD PAIN LEVEL 1-3 Last administered on 07/09/18 09:40; Admin Dose 650 MG; Start 06/26/18 at 23:09 Docusate Sodium (Colace Liquid Cup) 100 mg BID GTB Last administered on 07/09/18 09:41; Admin Dose 100 MG; Start 06/27/18 at 09:00 Magnesium Hydroxide (Milk Of Mag) 30 ml BID PRN GTB CONSTIPATION; Start 06/27/18 at 00:00 Lactulose (Enulose) 20 gm DAILY PRN GTB CONSTIPATION; Start 06/27/18 at 00:00 Bisacodyl (Dulcolax Supp) 10 mg DAILY PRN [place] CONSTIPATION; Start 06/27/18 at 00:00 Levothyroxine Sodium (Synthroid) 88 mcg DAILY@06 GTB Last administered on 07/10/18 05:57; Admin Dose 88 MCG; Start 06/28/18 at 06:00 Baclofen (Lioresal) 10 mg TID GTB Last administered on 07/10/18 08:35; Admin Dose 10 MG; Start 06/29/18 at 13:00 Zolpidem Tartrate (Ambien) 5 mg HS GTB Last administered on 07/09/18 20:52; Admin Dose 5 MG; Start 07/02/18 at 21:00 Acetaminophen/ Hydrocodone Bitart ([place] (5/325)) 1 tab Q24H PRN GTB SEVERE PAIN LEVEL 7-10 Last administered on 07/07/18at 07:45; Admin Dose 1 TAB; Start 07/02/18 at 12:00 Gabapentin (Neurontin) 100 mg BID GTB Last administered on 07/10/18at 08:35; Admin Dose 100 MG; Start 07/09/18 at 10:30 Lidocaine (Lidoderm) 1 patch 0800 TD Last administered on 07/10/18at 08:17; Admin Dose 1 PATCH; Start 07/10/18 at 08:00 MARCELINA WEINER Jul 10, 2018 12:26
--- NOTE | 2018-07-10 13:45 | PN ---
Date/Time of Note Date/Time of Note DATE: 07/10/18 TIME: 13:44 Subjective Improved participation today Objective Vital Signs Date Temp Pulse Resp B/P (MAP) Pulse Ox O2 O2 Flow FiO2 Time Delivery Rate 07/10/18 97.5 75 18 141/65 98 Room Air 08:31 (90) 07/06/18 21 17:00 Intake and Output 07/09/18 07/09/18 07/10/18 1515:00 23:00 07:00 IntakeIntake Total 120 ml BalanceBalance 120 ml Exam pulm-cta abd- soft mod ambulation 30 feet Results/Medications Result Diagram: 07/10/18 0649 07/10/18 0649 Results 24 hrs Laboratory Tests Test 07/10/18 06:49 White Blood Count 7.3 Red Blood Count 4.26 Hemoglobin 13.1 Hematocrit 38.4 Mean Corpuscular Volume 90.1 Mean Corpuscular Hemoglobin 30.8 Mean Corpuscular Hemoglobin Concent 34.1 Red Cell Distribution Width 12.8 Platelet Count 318 Mean Platelet Volume 9.8 Immature Granulocytes % 0.400 Neutrophils % 57.5 Lymphocytes % 31.2 Monocytes % 7.8 Eosinophils % 2.6 Basophils % 0.5 Nucleated Red Blood Cells % 0.0 Immature Granulocytes # 0.030 Neutrophils # 4.2 Lymphocytes # 2.3 Monocytes # 0.6 Eosinophils # 0.2 Basophils # 0.0 Nucleated Red Blood Cells # 0.0 Sodium Level 140 Potassium Level 3.3 L Chloride Level 101 Carbon Dioxide Level 28 Anion Gap 11 Blood Urea Nitrogen 10 Creatinine 0.39 L Est Glomerular Filtrat Rate mL/min > 60 Glucose Level 103 Calcium Level 9.5 Phosphorus Level 4.6 Magnesium Level 2.0 Medications Current Medications Atorvastatin Calcium (Lipitor) 20 mg DAILY@21 PO Last administered on 07/09/18at 20:52; Admin Dose 20 MG; Start 06/26/18 at 23:09 Lacosamide (Vimpat Liq) 50 mg BID GTB Last administered on 07/10/18at 08:36; Admin Dose 50 MG; Start 06/26/18 at 23:09 Albuterol (Proventil 0.5% (Neb)) 2.5 mg Q4H RESP THERAPY PRN INH PRN DYSPNEA; Start 06/26/18 at 23:09 Ipratropium [place] (Atrovent 0.02% (Neb)) 0.5 mg Q4H RESP THERAPY PRN INH DYSPNEA; Start 06/26/18 at 23:09 Simethicone (Mylicon) 80 mg QID PRN PEG DISTENSION/GAS/BLOATING; Start 06/26/18 at 23:09 Amlodipine Besylate (Norvasc) 10 mg DAILY GTB Last administered on 07/10/18 08:35; Admin Dose 10 MG; Start 06/26/18 at 23:09 Nystatin (Nystatin Susp) 5 ml BID PO Last administered on 07/09/18 20:50; Admin Dose 5 ML; Start 06/26/18 at 23:09 Olanzapine (Zyprexa) 2.5 mg QHS PO Last administered on 07/09/18 20:52; Admin Dose 2.5 MG; Start 06/26/18 at 23:09 Acetaminophen (Tylenol Liquid) 650 mg Q4H PRN GTB PRN FOR FEVER Last administered on 07/10/18 08:18; Admin Dose 650 MG; Start 06/26/18 at 23:09 Enoxaparin Sodium (Lovenox) 40 mg DAILY SC Last administered on 07/10/18 10:13; Admin Dose 40 MG; Start 06/26/18 at 23:09 Famotidine (Pepcid) 20 mg BID GTB Last administered on 07/10/18 08:35; Admin Dose 20 MG; Start 06/26/18 at 23:09 Levetiracetam (Keppra Liquid) 500 mg BID GTB Last administered on 07/10/18 08:35; Admin Dose 500 MG; Start 06/26/18 at 23:09 Nystatin (Nystatin Powder) 1 applic TID TOP Last administered on 07/10/18 12:23; Admin Dose 1 APPLIC; Start 06/26/18 at 23:09 Eye Lubricant (Akwa Oint) 1 applic Q1H PRN BOTH EYES PRN; Start 06/26/18 at 23:09 Acetaminophen (Tylenol Liquid) 650 mg Q4H PRN GTB MILD PAIN LEVEL 1-3 Last administered on 07/09/18 09:40; Admin Dose 650 MG; Start 06/26/18 at 23:09 Docusate Sodium (Colace Liquid Cup) 100 mg BID GTB Last administered on 07/09/18 09:41; Admin Dose 100 MG; Start 06/27/18 at 09:00 Magnesium Hydroxide (Milk Of Mag) 30 ml BID PRN GTB CONSTIPATION; Start 06/27/18 at 00:00 Lactulose (Enulose) 20 gm DAILY PRN GTB CONSTIPATION; Start 06/27/18 at 00:00 Bisacodyl (Dulcolax Supp) 10 mg DAILY PRN [place] CONSTIPATION; Start 06/27/18 at 00:00 Levothyroxine Sodium (Synthroid) 88 mcg DAILY@06 GTB Last administered on 07/10/18 05:57; Admin Dose 88 MCG; Start 06/28/18 at 06:00 Baclofen (Lioresal) 10 mg TID GTB Last administered on 07/10/18 12:16; Admin Dose 10 MG; Start 06/29/18 at 13:00 Zolpidem Tartrate (Ambien) 5 mg HS GTB Last administered on 07/09/18 20:52; Admin Dose 5 MG; Start 07/02/18 at 21:00 Acetaminophen/ Hydrocodone Bitart ([place] (5/325)) 1 tab Q24H PRN GTB SEVERE PAIN LEVEL 7-10 Last administered on 07/07/18 07:45; Admin Dose 1 TAB; Start 07/02/18 at 12:00 Gabapentin (Neurontin) 100 mg BID GTB Last administered on 07/10/18 08:35; Admin Dose 100 MG; Start 07/09/18 at 10:30 Lidocaine (Lidoderm) 1 patch 0800 TD Last administered on 07/10/18 08:17; Admin Dose 1 PATCH; Start 07/10/18 at 08:00 Assessment/Plan Additional Assessment/Plan Rehab- L SAH/hydrocephalus-s/p crani & clipping of the 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 Pain- continue neurontin/baclofen/ and small prn dose of norco. Dysphagia- good po intake. Seizure Disorder-continue seizure precautions Respiratory Failure- decannulated, doing well - Urinary retention, started on Levoquin for UTI. Voiding well with low PVRs Spasticity with increased tone in Right Upper and Lower Extremity- Continue baclofen, continue ROM Hypothyroidism ROB CARMONA MD Jul 10, 2018 13:45
--- NOTE | 2018-07-10 16:44 | NUR ---
Dr. Lockhart talked to daughter of pt for consent to remove Gastrostomy tube. Daughter consented. Stephanie and RN got telephone consent from daughter Sania. Dr. Lockhart removed G-tube at bedside at 16:15. 4 x 4 gauge folded and taped in place. No bleeding noted. May shower.
[2018-07-10 20:00] VITALS: BP 124/68; PULSE 77; RESP 18
[2018-07-10] MEDS ORDERED: MAGNESIUM HYDROXIDE 30ML CUP PO PRN (20:00)
[2018-07-10] MEDS: ATORVASTATIN 20 MG TAB PO SCH (20:19)
[2018-07-10] MEDS: OLANZAPINE 2.5 MG TAB PO SCH (20:19)
[2018-07-10] MEDS: FAMOTIDINE 20 MG TAB PO SCH (20:19)
[2018-07-10] MEDS: GABAPENTIN 100 MG CAP PO SCH (20:19)
[2018-07-10] MEDS: LEVETIRACETAM (100 MG/ML) 5ML CUP PO SCH (20:19)
[2018-07-10] MEDS: LACOSAMIDE (100 MG/10 ML PO SYR) PO SCH (20:20)
[2018-07-10] MEDS: ZOLPIDEM 5 MG TAB PO SCH (20:20)
[2018-07-10] MEDS: BACLOFEN 10 MG TAB PO SCH (20:20)
[2018-07-10] MEDS: DOCUSATE SODIUM 10 MG/ML (10ML CUP) PO SCH (20:30)
[2018-07-10] MEDS ORDERED: ACETAMINOPHEN 650MG/20.3ML CUP PO PRN (23:09)
[2018-07-11 02:00] VITALS: BP 116/70; PULSE 74; RESP 18
--- NOTE | 2018-07-11 05:20 | NUR ---
PATIENT SLEPT WELL. NO C/O PAIN OR DISCOMFORT. RECREATIONAL ACTIVITIES PROVIDED TO PATIENT; WATCHING TV. FAMILY AT BEDSIDE. CONTINUE PVR CHECKED. INCONTINENT OF BLADDER AND BOWEL. KEPT CLEAN AND DRY. CALL LIGHT WITHIN REACH
[2018-07-11] MEDS: LEVOTHYROXINE 88 MCG TAB PO SCH (05:36)
[2018-07-11 07:30] VITALS: BP 103/64; PULSE 71; RESP 20
--- NOTE | 2018-07-11 08:02 | PN ---
DATE: 07/11/2018 SUBJECTIVE: The patient is stable, no events overnight. The patient's PEG tube was removed without complications. No other acute events noted. OBJECTIVE: VITAL SIGNS: Blood pressure 116/70, respiration 18, pulse 74, temperature 98.0. HEENT: Head is normocephalic. NECK: Supple. HEART: Regular rate. LUNGS: Show diminished breath sounds at the base. ABDOMEN: Soft, nontender to palpation without rebound or guarding. EXTREMITIES: Negative for clubbing, cyanosis, no edema. DERMATOLOGIC: No rashes. MUSCULOSKELETAL: No joint effusion. NEUROLOGIC: No change in exam. MEDICATIONS: Reviewed. LABORATORY DATA: From 07/10/2018 was reviewed. ASSESSMENT AND PLAN: 1. Urinary tract infection. Patient is completing antibiotic course. 2. Urinary retention, improving. Continue to monitor with bladder scan. 3. Dysphagia. The patient is currently tolerating p.o. PEG tube was removed per GI. 4. Seizure disorder. Continue medical management. 5. Hypothyroidism. Continue Synthroid. 6. Encephalopathy, improving. 7. Hypertension. Continue current blood pressure regimen. 8. History of cerebrovascular accident. 9. Mood disorder. Continue Zyprexa. 10. Neuropathy. Continue Neurontin. 11. Status post subarachnoid hemorrhage. 12. Status post respiratory failure. 13. GI and DVT prophylaxis. Dictated By: ANGIE CORDOVA DO NR/NTS Conf#: [id number] DID#: [id number] CC: BRENDEN ENRIQUE MD; HERNAN SHIPLEY DO;*EndCC*
[2018-07-11] MEDS: DOCUSATE SODIUM 10 MG/ML (10ML CUP) PO SCH ×2 (08:36→20:35)
[2018-07-11] MEDS: LEVETIRACETAM (100 MG/ML) 5ML CUP PO SCH ×2 (08:38→20:35)
[2018-07-11] MEDS: LACOSAMIDE (100 MG/10 ML PO SYR) PO SCH ×2 (08:39→20:36)
[2018-07-11] MEDS: NYSTATIN SUSP 5 ML CUP PO SCH ×2 (08:39→20:35)
[2018-07-11] MEDS: AMLODIPINE 10 MG TAB PO SCH (08:40)
[2018-07-11] MEDS: ENOXAPARIN 40 MG/0.4 ML SYG SC SCH (08:41)
[2018-07-11] MEDS: BACLOFEN 10 MG TAB PO SCH ×3 (08:41→20:35)
[2018-07-11] MEDS: FAMOTIDINE 20 MG TAB PO SCH ×2 (08:41→20:36)
[2018-07-11] MEDS: GABAPENTIN 100 MG CAP PO SCH ×2 (08:41→20:36)
[2018-07-11] MEDS: NYSTATIN 30 GM POWDER BTL TOP SCH ×3 (08:42→21:00)
[2018-07-11] MEDS: BALSAM PERU/CASTOR OIL 60 GM TUBE TOP SCH ×2 (08:42→21:00)
[2018-07-11] MEDS: LIDOCAINE 5% PATCH TD SCH (08:43)
--- NOTE | 2018-07-11 08:49 | PN ---
Date/Time of Note Date/Time of Note DATE: 07/11/18 TIME: 08:49 Subjective Much better with therapies Objective Vital Signs Date Temp Pulse Resp B/P (MAP) Pulse Ox O2 O2 Flow FiO2 Time Delivery Rate 07/11/18 98.3 71 20 103/64 97 Room Air 07:30 (77) Intake and Output 07/10/18 07/10/18 07/11/18 1414:59 22:59 06:59 IntakeIntake Total 600 ml 360 ml 100 ml BalanceBalance 600 ml 360 ml 100 ml Exam pulm-cta abd-soft mod assist ambulation Results/Medications Result Diagram: 07/10/1849 07/10/18 0649 Medications Current Medications Atorvastatin Calcium (Lipitor) 20 mg DAILY@21 PO Last administered on 07/10/18at 20:19; Admin Dose 20 MG; Start 06/26/18 at 23:09 Albuterol (Proventil 0.5% (Neb)) 2.5 mg Q4H RESP THERAPY PRN INH PRN DYSPNEA; Start 06/26/18 at 23:09 Ipratropium [place] (Atrovent 0.02% (Neb)) 0.5 mg Q4H RESP THERAPY PRN INH DYSPNEA; Start 06/26/18 at 23:09 Nystatin (Nystatin Susp) 5 ml BID PO Last administered on 07/11/18 08:39; Admin Dose 5 ML; Start 06/26/18 at 23:09 Olanzapine (Zyprexa) 2.5 mg QHS PO Last administered on 07/10/18 20:19; Admin Dose 2.5 MG; Start 06/26/18 at 23:09 Enoxaparin Sodium (Lovenox) 40 mg DAILY SC Last administered on 07/11/18 08:41; Admin Dose 40 MG; Start 06/26/18 at 23:09 Nystatin (Nystatin Powder) 1 applic TID TOP Last administered on 07/11/18 08:42; Admin Dose 1 APPLIC; Start 06/26/18 at 23:09 Eye Lubricant (Akwa Oint) 1 applic Q1H PRN BOTH EYES PRN; Start 06/26/18 at 23:09 Lactulose (Enulose) 20 gm DAILY PRN GTB CONSTIPATION; Start 06/27/18 at 00:00 Bisacodyl (Dulcolax Supp) 10 mg DAILY PRN [place] CONSTIPATION; Start 06/27/18 at 00:00 Acetaminophen/ Hydrocodone Bitart ([place] (5/325)) 1 tab Q24H PRN GTB SEVERE PAIN LEVEL 7-10 Last administered on 07/07/18at 07:45; Admin Dose 1 TAB; Start 07/02/18 at 12:00 Lidocaine (Lidoderm) 1 patch 0800 TD Last administered on 07/11/18 08:43; Admin Dose 1 PATCH; Start 07/10/18 at 08:00 Acetaminophen (Tylenol Liquid) 650 mg Q4H PRN PO MILD PAIN LEVEL 1-3; Start 05/18 at 23:09 Acetaminophen (Tylenol Liquid) 650 mg Q4H PRN PO PRN FOR FEVER; Start 07/10/18 at 23:09 Amlodipine Besylate (Norvasc) 10 mg DAILY PO ; Start 07/11/18 at 09:00 Baclofen (Lioresal) 10 mg TID PO Last administered on 07/11/18 08:41; Admin Dose 10 MG; Start 07/10/18 at 21:00 Docusate Sodium (Colace Liquid Cup) 100 mg BID PO ; Start 07/10/18 at 21:00 Famotidine (Pepcid) 20 mg BID PO Last administered on 07/11/18 08:41; Admin Dose 20 MG; Start 07/10/18 at 21:00 Gabapentin (Neurontin) 100 mg BID PO Last administered on 07/11/18 08:41; Admin Dose 100 MG; Start 07/10/18 at 21:00 Lacosamide (Vimpat Liq) 50 mg BID PO Last administered on 07/11/18 08:39; Admin Dose 50 MG; Start 07/10/18 at 21:00 Levetiracetam (Keppra Liquid) 500 mg BID PO Last administered on 07/11/18 08:38; Admin Dose 500 MG; Start 07/10/18 at 21:00 Levothyroxine Sodium (Synthroid) 88 mcg DAILY@06 PO Last administered on 07/11/18 05:36; Admin Dose 88 MCG; Start 07/11/18 at 06:00 Magnesium Hydroxide (Milk Of Mag) 30 ml BID PRN PO CONSTIPATION; Start 07/10/18 at 20:00 Simethicone (Mylicon) 80 mg QID PRN PO DISTENSION/GAS/BLOATING; Start 07/10/18 at 20:00 Zolpidem Tartrate (Ambien) 5 mg HS PO Last administered on 07/10/18at 20:20; Admin Dose 5 MG; Start 07/10/18 at 21:00 Assessment/Plan Additional Assessment/Plan rehab- L SAH, 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
[2018-07-11] MEDS ORDERED: POTASSIUM CHLORIDE (SR) 20 MEQ TAB PO STA (10:12)
[2018-07-11] MEDS ORDERED: POTASSIUM CHLORIDE 20 MEQ POWDER FOR ORAL SOLN PO ONE (11:00)
--- NOTE | 2018-07-11 11:00 | NUR ---
Pt received at bedside. Needs coaxing to participate in tx. Incorporated bed mob training including bed rolling while completing pericare tasks. Pt given cues in [place] to initiate pericare tasks, however does not initiate. Pt. limited by R sided weakness, RUE tone, neglect. Pt cued and encouraged to participate in EOB and wc acts, however stating, "no. no." Hand off to nursing end of tx. Addendum: 07/11/18 at 1155 by [facility] OT Amended: Links added.
--- NOTE | 2018-07-11 13:31 | CONS ---
Date/Time of Note Date/Time of Note DATE: 07/11/18 TIME: 13:31 Assessment/Plan Assessment/Plan Assessment/Plan 1. Dysphagia, resolved 2. S/PSubarachnoid hemorrhagic stroke 3. Status post removal of G-tube Plan Continue oral feeding Patient can have a bath Result Diagram: 07/10/18 0649 07/10/18 0649 Consultation Date/Type/Reason Admit Date/Time Jun 26, 2018 at 21:04 Initial Consult Date 07/07/18 Requesting Provider: ROB CARMONA MD 24 HR Interval Summary Constitutional: no complaints, improved, disoriented Exam/Review of Systems Vital Signs Vitals Vital Signs Date Temp Pulse Resp B/P (MAP) Pulse Ox O2 O2 Flow FiO2 Time Delivery Rate 07/11/18 98.3 71 20 103/64 97 Room Air 07:30 (77) Intake and Output 07/10/18 07/10/18 07/11/18 1515:00 23:00 07:00 IntakeIntake Total 600 ml 360 ml 100 ml BalanceBalance 600 ml 360 ml 100 ml Exam Constitutional: alert, oriented, well developed Psych: no complaints, nl mood/affect Head: normocephalic, atraumatic Eyes: nl conjunctiva, EOMI, nl lids, nl sclera, PERRL ENMT: nl external ears & nose, nl lips & teeth, nl nasal mucosa & septum Neck: supple, non-tender Respiratory: clear to auscultation, normal air movement Cardiovascular: regular rate and rhythm, nl pulses Gastrointestinal: soft, nl liver, spleen, non-tender Musculoskeletal: nl extremities to inspection, nl gait and stance Extremities: normal pulses 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, nl mental status, nl speech, nl strength Skin: nl turgor; No rash or lesions Lymph: nl lymph nodes Medications Medications Current Medications Atorvastatin Calcium (Lipitor) 20 mg DAILY@21 PO Last administered on 07/10/18at 20:19; Admin Dose 20 MG; Start 06/26/18 at 23:09 Albuterol (Proventil 0.5% (Neb)) 2.5 mg Q4H RESP THERAPY PRN INH PRN DYSPNEA; Start 06/26/18 at 23:09 Ipratropium [place] (Atrovent 0.02% (Neb)) 0.5 mg Q4H RESP THERAPY PRN INH DYSPNEA; Start 06/26/18 at 23:09 Nystatin (Nystatin Susp) 5 ml BID PO Last administered on 07/11/18 08:39; Admin Dose 5 ML; Start 06/26/18 at 23:09 Olanzapine (Zyprexa) 2.5 mg QHS PO Last administered on 07/10/18 20:19; Admin Dose 2.5 MG; Start 06/26/18 at 23:09 Enoxaparin Sodium (Lovenox) 40 mg DAILY SC Last administered on 07/11/18 08:41; Admin Dose 40 MG; Start 06/26/18 at 23:09 Nystatin (Nystatin Powder) 1 applic TID TOP Last administered on 07/11/18 12:25; Admin Dose 1 APPLIC; Start 06/26/18 at 23:09 Eye Lubricant (Akwa Oint) 1 applic Q1H PRN BOTH EYES PRN; Start 06/26/18 at 23:09 Lactulose (Enulose) 20 gm DAILY PRN GTB CONSTIPATION; Start 06/27/18 at 00:00 Bisacodyl (Dulcolax Supp) 10 mg DAILY PRN [place] CONSTIPATION; Start 06/27/18 at 00:00 Acetaminophen/ Hydrocodone Bitart ([place] (5/325)) 1 tab Q24H PRN GTB SEVERE PAIN LEVEL 7-10 Last administered on 07/07/18at 07:45; Admin Dose 1 TAB; Start 07/02/18 at 12:00 Lidocaine (Lidoderm) 1 patch 0800 TD Last administered on 07/11/18at 08:43; Admin Dose 1 PATCH; Start 07/10/18 at 08:00 Acetaminophen (Tylenol Liquid) 650 mg Q4H PRN PO MILD PAIN LEVEL 1-3; Start 07/10/18 at 23:09 Acetaminophen (Tylenol Liquid) 650 mg Q4H PRN PO PRN FOR FEVER; Start 07/10/18 at 23:09 Amlodipine Besylate (Norvasc) 10 mg DAILY PO ; Start 07/11/18 at 09:00 Baclofen (Lioresal) 10 mg TID PO Last administered on 07/11/18at 12:56; Admin Dose 10 MG; Start 07/10/18 at 21:00 Docusate Sodium (Colace Liquid Cup) 100 mg BID PO ; Start 07/10/18 at 21:00 Famotidine (Pepcid) 20 mg BID PO Last administered on 07/11/18at 08:41; Admin Dose 20 MG; Start 07/10/18 at 21:00 Gabapentin (Neurontin) 100 mg BID PO Last administered on 07/11/18 08:41; Admin Dose 100 MG; Start 07/10/18 at 21:00 Lacosamide (Vimpat Liq) 50 mg BID PO Last administered on 07/11/18at 08:39; Admin Dose 50 MG; Start 07/10/18 at 21:00 Levetiracetam (Keppra Liquid) 500 mg BID PO Last administered on 07/11/18 08:38; Admin Dose 500 MG; Start 07/10/18 at 21:00 Levothyroxine Sodium (Synthroid) 88 mcg DAILY@06 PO Last administered on 07/11/18at 05:36; Admin Dose 88 MCG; Start 07/11/18 at 06:00 Magnesium Hydroxide (Milk Of Mag) 30 ml BID PRN PO CONSTIPATION; Start 07/10/18 at 20:00 Simethicone (Mylicon) 80 mg QID PRN PO DISTENSION/GAS/BLOATING; Start 07/10/18 at 20:00 Zolpidem Tartrate (Ambien) 5 mg HS PO Last administered on 07/10/18at 20:20; Adm in Dose 5 MG; Start 07/10/18 at 21:00 KEITH SAUNDERS MD Jul 11, 2018 13:31
--- NOTE | 2018-07-11 14:13 | CONS ---
Date/Time of Note Date/Time of Note DATE: 07/11/18 TIME: 14:10 Consult Date/Type/Reason Admit Date/Time Jun 26, 2018 at 21:04 Initial Consult Date 07/07/18 Type of Consultation: Urology Reason for Consultation Urinary retention and urinary incontinence Requesting Provider: ROB CARMONA MD Subjective Patient appears to be comfortable and has no pain Objective Vital Signs Date Temp Pulse Resp B/P (MAP) Pulse Ox O2 O2 Flow FiO2 Time Delivery Rate 07/11/18 98.3 71 20 103/64 97 Room Air 07:30 (77) Intake and Output 07/10/18 07/10/18 07/11/18 1515:00 23:00 07:00 IntakeIntake Total 600 ml 360 ml 100 ml BalanceBalance 600 ml 360 ml 100 ml Exam The abdomen is soft. The bladder is not distended. Results/Medications Result Diagram: 07/10/18 0649 07/10/18 0649 Medications Current Medications Atorvastatin Calcium (Lipitor) 20 mg DAILY@21 PO Last administered on 07/10/18 20:19; Admin Dose 20 MG; Start 06/26/18 at 23:09 Albuterol (Proventil 0.5% (Neb)) 2.5 mg Q4H RESP THERAPY PRN INH PRN DYSPNEA; Start 06/26/18 at 23:09 Ipratropium [place] (Atrovent 0.02% (Neb)) 0.5 mg Q4H RESP THERAPY PRN INH DYSPNEA; Start 06/26/18 at 23:09 Nystatin (Nystatin Susp) 5 ml BID PO Last administered on 07/11/18 08:39; Admin Dose 5 ML; Start 06/26/18 at 23:09 Olanzapine (Zyprexa) 2.5 mg QHS PO Last administered on 07/10/18 20:19; Admin Dose 2.5 MG; Start 06/26/18 at 23:09 Enoxaparin Sodium (Lovenox) 40 mg DAILY SC Last administered on 07/11/18 08:41; Admin Dose 40 MG; Start 06/26/18 at 23:09 Nystatin (Nystatin Powder) 1 applic TID TOP Last administered on 07/11/18 12:25; Admin Dose 1 APPLIC; Start 06/26/18 at 23:09 Eye Lubricant (Akwa Oint) 1 applic Q1H PRN BOTH EYES PRN; Start 06/26/18 at 23:09 Lactulose (Enulose) 20 gm DAILY PRN GTB CONSTIPATION; Start 06/27/18 at 00:00 Bisacodyl (Dulcolax Supp) 10 mg DAILY PRN [place] CONSTIPATION; Start 06/27/18 at 00:00 Acetaminophen/ Hydrocodone Bitart ([place] (5/325)) 1 tab Q24H PRN GTB SEVERE PAIN LEVEL 7-10 Last administered on 07/07/18at 07:45; Admin Dose 1 TAB; Start 07/02/18 at 12:00 Lidocaine (Lidoderm) 1 patch 0800 TD Last administered on 07/11/18 08:43; Admin Dose 1 PATCH; Start 07/10/18 at 08:00 Acetaminophen (Tylenol Liquid) 650 mg Q4H PRN PO MILD PAIN LEVEL 1-3; Start 07/10/18 at 23:09 Acetaminophen (Tylenol Liquid) 650 mg Q4H PRN PO PRN FOR FEVER; Start 07/10/18 at 23:09 Amlodipine Besylate (Norvasc) 10 mg DAILY PO ; Start 07/11/18 at 09:00 Baclofen (Lioresal) 10 mg TID PO Last administered on 07/11/18at 12:56; Admin Dose 10 MG; Start 07/10/18 at 21:00 Docusate Sodium (Colace Liquid Cup) 100 mg BID PO ; Start 07/10/18 at 21:00 Famotidine (Pepcid) 20 mg BID PO Last administered on 07/11/18 08:41; Admin Dose 20 MG; Start 07/10/18 at 21:00 Gabapentin (Neurontin) 100 mg BID PO Last administered on 07/11/18 08:41; Admin Dose 100 MG; Start 07/10/18 at 21:00 Lacosamide (Vimpat Liq) 50 mg BID PO Last administered on 07/11/18 08:39; Admin Dose 50 MG; Start 07/10/18 at 21:00 Levetiracetam (Keppra Liquid) 500 mg BID PO Last administered on 07/11/18at 08:38; Admin Dose 500 MG; Start 07/10/18 at 21:00 Levothyroxine Sodium (Synthroid) 88 mcg DAILY@06 PO Last administered on 07/11/18at 05:36; Admin Dose 88 MCG; Start 07/11/18 at 06:00 Magnesium Hydroxide (Milk Of Mag) 30 ml BID PRN PO CONSTIPATION; Start 07/10/18 at 20:00 Simethicone (Mylicon) 80 mg QID PRN PO DISTENSION/GAS/BLOATING; Start 07/10/18 at 20:00 Zolpidem Tartrate (Ambien) 5 mg HS PO Last administered on 07/10/18at 20:20; Admin Dose 5 MG; Start 07/10/18 at 21:00 Assessment/Plan Chief Complaint/Hosp Course 57-year-old female was transferred from [facility]. 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 She was stabilized, discharged on 04/07/2018 and readmitted on with neck stiffness with major subarachnoid hemorrhage with midline shift and subfalcine herniation. This progressed to paralysis with altered mental status. She underwent left craniotomy on 04/10/2018 with clipping of the left posterior communicating artery aneurysm and left frontal ventriculostomy placement for drainage of the intraventricular hemorrhage. She had persistent major neurologic deficit with obstructive hydrocephalus, ischemic encephalopathy, and some vasospasm. She had a PEG placement on 04/28/2018 and tracheostomy on 05/01/2018. She had ongoing seizures requiring multiple medications for control. She had urinary tract infection, apparently was treated. On 05/12 she was transferred to [place] for continuity of care and then to the rehab floor at [facility]. Patient was initially incontinent and then she was placed on intermittent catheterization. She continues to have urinary retention and therefore a urological consultation was requested. The patient has been incontinent and her bladder scan has been showing a volume of around 75 mL. That indicates no urinary retention. Therefore we will not have to do in and out cath on her if she continues to urinate as she is doing now. BRENDEN ENRIQUE MD Jul 11, 2018 14:13
--- NOTE | 2018-07-11 18:32 | NUR ---
Pt participated in therapies and sat uop in W/C for lunch. Some tearfulness noted after lunch; here; provided encouragement. Continue bladder scan assessments with low measurements- not straight catheterization needed. Frequent rounds made for safety; bed alarm and W/C alarm in use at all times. Careful skin care provided.
--- NOTE | 2018-07-11 18:35 | NUR ---
KCL 40meq po given today for most recent K 3.3. BMP tomorrow.
[2018-07-11 19:55] VITALS: BP 111/55; PULSE 77; RESP 17
[2018-07-11] MEDS: ZOLPIDEM 5 MG TAB PO SCH (20:35)
[2018-07-11] MEDS: OLANZAPINE 2.5 MG TAB PO SCH (20:36)
[2018-07-11] MEDS: ATORVASTATIN 20 MG TAB PO SCH (20:36)
--- NOTE | 2018-07-11 21:00 | NUR ---
PT REFUSED TO TAKE MEDICATIONS AND REFUSED TO TAKE FLUID. KEEP OFFERING AND EXPLAIN TO PT BUT PT STILL REFUSED.
--- NOTE | 2018-07-12 | NUR ---
PT'S SPOUSE IS HERE AND ABLE TO FEED PT AND RN IS ABLE TO GIVE MEDICATIONS. PT HAD BM X1 INC, KEPT DRY AND CLEAN. BLADDER SCAN CHECK= 58 CC. NO STRAIGHT CATH NEEDED. HOURLY ROUNDING MADE. TURN AND REPOSITION Q 2HOURS. NEEDS ATTENDED.
[2018-07-12 02:00] VITALS: BP 103/65; PULSE 67; RESP 18
--- NOTE | 2018-07-12 02:07 | NUR ---
[facility] RN Weekly Summary Dates From: 07/06/18 to 07/12/18 Patient Name: AG MCCOLLUM MR#: [id number] Height: 5 ft 3 in Weight: 139 lbs 5.314 oz 63.200 kg Reason for Visit: NON TRAUMATIC BRAIN INJURY Precautions: Standard/Fall/Pressure Injury/VTE/Aspiration Date: 07/12/18 Time: 0215 AM User: Jasno Elizalde Short-term Goals: 1. Pt will be free of falls or injuries 2. Pt will not develop any pressure sores 3. Pt will be free from aspiration 4. Pt will have a regular BM 5. Pt will have good pain control Patient's progress: Fair Short-term goals not met and reason/barriers: Ongoing Bladder - level of function and accidents: 1, >7 accidents Bowel - level of function and accidents: 1, 6 accidents Skin: Status: Bilateral heel and sacrococcyx blanching, left lower back scratches,abdomen bruising Treatment: Venelex applied to left and right heels Changes: Pain: Yes Level: 3/10 on pain scale Location: Right arm Management:Tab.[place] and Tylenol given Changes: No Functional levels: Self Care:1 Transfers: 2 Locomotion: 1 Assistance requirements: Communication: 1 Social Cognition: 2 Safety awareness: Yes, high risk for falls, bed alarm activated and call light within pt's reach for safety. Interdisciplinary interactions: PT/OT/ST/RN/MD Patient education: Yes, education given QS and PRN to pt and family regarding safety, medications. Discharge needs: Plan to d/c 07/16/18 Comorbid conditions: 1. Encephalopathy 2. Dysphagia-s/p PEG 3. Seizure Disorder 4. Respiratory Failure- s/p tracheostomy, tolerating cap 5. Urinary Tract Infection 6. Spasticity with increased tone in Right upper and Lower extremity 7. Hypothyroidism 8. Impairments in self care, mobility, and cognition Plan of Care continuation: Yes, continue current plan of care.
--- NOTE | 2018-07-12 03:28 | NUR ---
Pt report received from Yuliana DIXON to f/up continuation of care.
--- NOTE | 2018-07-12 06:27 | NUR ---
Pt slept on and off during night hours, no other complaints noted. Vital signs stable. Position turned Q2hrs as per turning schedule. Incontinent for bladder and bowel, Bladder scan checked Q6hrs if no void or PVR >300 ml to do straight cath, had BM last night. Hourly rounds done and patient care needs met. Bed alarm activated for safety, call light and bedside table within reach.
[2018-07-12] MEDS: LEVOTHYROXINE 88 MCG TAB PO SCH (06:48)
[2018-07-12 08:14] VITALS: BP 102/64; PULSE 80; RESP 17
--- NOTE | 2018-07-12 08:56 | PN ---
DATE: 07/12/2018 SUBJECTIVE: The patient is stable, no events overnight. No fevers, chills, nausea, vomiting. OBJECTIVE: VITAL SIGNS: Blood pressure is 103/65, respiration 18, pulse 67, temperature 97.8. HEENT: Head is normocephalic. NECK: Supple. HEART: Regular rate. LUNGS: Show diminished breath sounds at the base. ABDOMEN: Soft, nontender to palpation without rebound or guarding. EXTREMITIES: Negative for clubbing, cyanosis, no edema. DERMATOLOGIC: No rashes. MUSCULOSKELETAL: No joint effusion. NEUROLOGIC: No change in exam. MEDICATIONS: Reviewed. LABORATORY DATA: Has been reviewed. The patient's BMP within normal limits. ASSESSMENT AND PLAN: 1. Urinary tract infection. Patient has completed an antibiotic course. 2. Urinary retention, improving. Continue to monitor. Continue in and out catheterization as neede d. 3. Dysphagia, tolerating p.o. 4. Seizure disorder. Continue medical management. 5. Hypothyroidism. Continue Synthroid. 6. Encephalopathy, improving. 7. Hypertension. Continue current blood pressure regimen. 8. History of cerebrovascular accident. 9. Mood disorder. Continue Zyprexa. 10. Neuropathy. Continue Neurontin. 11. Status post subarachnoid hemorrhage. 12. Status post respiratory failure. 13. Gastrointestinal and deep vein thrombosis prophylaxis. Dictated By: ANGIE CORDOVA DO NR/NTS Conf#: [id number] DID#: [id number] CC: HERNAN SHIPLEY DO; BRENDEN ENRIQUE MD;*EndCC*
[2018-07-12] MEDS: AMLODIPINE 10 MG TAB PO SCH (09:00)
[2018-07-12] MEDS: DOCUSATE SODIUM 10 MG/ML (10ML CUP) PO SCH ×2 (09:20→20:06)
[2018-07-12] MEDS: LEVETIRACETAM (100 MG/ML) 5ML CUP PO SCH ×2 (09:20→20:03)
[2018-07-12] MEDS: NYSTATIN SUSP 5 ML CUP PO SCH ×2 (09:20→20:03)
[2018-07-12] MEDS: BACLOFEN 10 MG TAB PO SCH ×3 (09:21→20:04)
[2018-07-12] MEDS: GABAPENTIN 100 MG CAP PO SCH ×2 (09:21→20:04)
[2018-07-12] MEDS: FAMOTIDINE 20 MG TAB PO SCH ×2 (09:21→20:04)
[2018-07-12] MEDS: LACOSAMIDE (100 MG/10 ML PO SYR) PO SCH ×2 (09:21→20:05)
[2018-07-12] MEDS: ENOXAPARIN 40 MG/0.4 ML SYG SC SCH (09:24)
[2018-07-12] MEDS: LIDOCAINE 5% PATCH TD SCH (09:30)
[2018-07-12] MEDS: NYSTATIN 30 GM POWDER BTL TOP SCH ×3 (09:37→20:05)
[2018-07-12] MEDS: BALSAM PERU/CASTOR OIL 60 GM TUBE TOP SCH ×2 (09:37→20:06)
--- NOTE | 2018-07-12 13:07 | PN ---
Date/Time of Note Date/Time of Note DATE: 07/12/18 TIME: 13:06 Subjective comfortable Objective Vital Signs Date Temp Pulse Resp B/P (MAP) Pulse Ox O2 O2 Flow FiO2 Time Delivery Rate 07/12/18 98.8 80 17 102/64 100 Room Air 08:14 (77) Intake and Output 07/11/18 07/11/18 07/12/18 1515:00 23:00 07:00 IntakeIntake Total 200 ml 120 ml OutputOutput Total 1 ml BalanceBalance 200 ml 119 ml Exam improved verbal output [id number] mod assist Results/Medications Result Diagram: 07/10/18 0649 07/12/18 0556 Results 24 hrs Laboratory Tests Test 07/12/18 05:56 Sodium Level 140 Potassium Level 3.6 Chloride Level 106 Carbon Dioxide Level 28 Anion Gap 6 Blood Urea Nitrogen 15 Creatinine 0.47 Est Glomerular Filtrat Rate mL/min > 60 Glucose Level 108 Calcium Level 9.5 Medications Current Medications Atorvastatin Calcium (Lipitor) 20 mg DAILY@21 PO Last administered on 07/11/18 20:36; Admin Dose 20 MG; Start 06/26/18 at 23:09 Albuterol (Proventil 0.5% (Neb)) 2.5 mg Q4H RESP THERAPY PRN INH PRN DYSPNEA; Start 06/26/18 at 23:09 Ipratropium [place] (Atrovent 0.02% (Neb)) 0.5 mg Q4H RESP THERAPY PRN INH DYSPNEA; Start 06/26/18 at 23:09 Nystatin (Nystatin Susp) 5 ml BID PO Last administered on 07/12/18 09:20; Admin Dose 5 ML; Start 06/26/18 at 23:09 Olanzapine (Zyprexa) 2.5 mg QHS PO Last administered on 07/11/18 20:36; Admin Dose 2.5 MG; Start 06/26/18 at 23:09 Enoxaparin Sodium (Lovenox) 40 mg DAILY SC Last administered on 07/12/18 09:24; Admin Dose 40 MG; Start 06/26/18 at 23:09 Nystatin (Nystatin Powder) 1 applic TID TOP Last administered on 07/12/18 09:37; Admin Dose 1 APPLIC; Start 06/26/18 at 23:09 Eye Lubricant (Akwa Oint) 1 applic Q1H PRN BOTH EYES PRN; Start 06/26/18 at 23:09 Lactulose (Enulose) 20 gm DAILY PRN GTB CONSTIPATION; Start 06/27/18 at 00:00 Bisacodyl (Dulcolax Supp) 10 mg DAILY PRN [place] CONSTIPATION; Start 06/27/18 at 00:00 Acetaminophen/ Hydrocodone Bitart ([place] (5/325)) 1 tab Q24H PRN GTB SEVERE PAIN LEVEL 7-10 Last administered on 07/07/18 07:45; Admin Dose 1 TAB; Start 07/02/18 at 12:00 Lidocaine (Lidoderm) 1 patch 0800 TD Last administered on 07/12/18 09:30; Admin Dose 1 PATCH; Start 07/10/18 at 08:00 Acetaminophen (Tylenol Liquid) 650 mg Q4H PRN PO MILD PAIN LEVEL 1-3; Start 07/10/18 at 23:09 Acetaminophen (Tylenol Liquid) 650 mg Q4H PRN PO PRN FOR FEVER; Start 07/10/18 at 23:09 Amlodipine Besylate (Norvasc) 10 mg DAILY PO ; Start 07/11/18 at 09:00 Baclofen (Lioresal) 10 mg TID PO Last administered on 07/12/18 09:21; Admin D ose 10 MG; Start 07/10/18 at 21:00 Docusate Sodium (Colace Liquid Cup) 100 mg BID PO Last administered on 07/12/18 09:20; Admin Dose 100 MG; Start 07/10/18 at 21:00 Famotidine (Pepcid) 20 mg BID PO Last administered on 07/12/18 09:21; Admin Dose 20 MG; Start 07/10/18 at 21:00 Gabapentin (Neurontin) 100 mg BID PO Last administered on 07/12/18 09:21; Admin Dose 100 MG; Start 07/10/18 at 21:00 Lacosamide (Vimpat Liq) 50 mg BID PO Last administered on 07/12/18 09:21; Admin Dose 50 MG; Start 07/10/18 at 21:00 Levetiracetam (Keppra Liquid) 500 mg BID PO Last administered on 07/12/18 09:20; Admin Dose 500 MG; Start 07/10/18 at 21:00 Levothyroxine Sodium (Synthroid) 88 mcg DAILY@06 PO Last administered on 07/12/18at 06:48; Admin Dose 88 MCG; Start 07/11/18 at 06:00 Magnesium Hydroxide (Milk Of Mag) 30 ml BID PRN PO CONSTIPATION; Start 07/10/18 at 20:00 Simethicone (Mylicon) 80 mg QID PRN PO DISTENSION/GAS/BLOATING; Start 07/10/18 at 20:00 Zolpidem Tartrate (Ambien) 5 mg HS PO Last administered on 07/11/18at 20:35; Admin Dose 5 MG; Start 07/10/18 at 21:00 Assessment/Plan Additional Assessment/Plan Rehab- L SAH/hydrocephalus-s/p crani & clipping of the L [employer] aneurysm and L frontal ventriculostomy placement; Encephalopathy Good gains, continue treatmnet Pain- continue neurontin/baclofen/ and small prn dose of norco. Dysphagia- good po intake. Seizure Disorder-continue seizure precautions Respiratory Failure- decannulated, doing well - Urinary retention, started on Levoquin for UTI. Voiding well with low PVRs Spasticity with increased tone in Right Upper and Lower Extremity- Continue baclofen, continue ROM Hypothyroidism ROB CARMONA MD Jul 12, 2018 13:07
--- NOTE | 2018-07-12 14:27 | NUR ---
Patient urinated/incontinent. Checked bladder post void residual obtained 360. Straight catheterization done obtained 300 cc urine.
[2018-07-12 15:15] VITALS: BP 100/60; PULSE 86; RESP 16
--- NOTE | 2018-07-12 15:47 | NUR ---
Patient awake,resting in bed comfortably. no respiratory distress or pain noted. Vital signs stable. Report given to Anjali.
--- NOTE | 2018-07-12 19:14 | CONS ---
Date/Time of Note Date/Time of Note DATE: 07/12/18 TIME: 19:11 Consult Date/Type/Reason Admit Date/Time Jun 26, 2018 at 21:04 Initial Consult Date 07/07/18 Type of Consultation: Urology Reason for Consultation Urinary retention Requesting Provider: ROB CARMONA MD Subjective Patient appears to be comfortable and in no acute distress. It is difficult to understand her when she talks Objective Vital Signs Date Temp Pulse Resp B/P (MAP) Pulse Ox O2 O2 Flow FiO2 Time Delivery Rate 07/12/18 98.8 86 16 100/60 98 15:15 (73) 07/12/18 Room Air 08:14 Intake and Output 07/11/18 07/11/18 07/12/18 1414:59 22:59 06:59 IntakeIntake Total 200 ml 120 ml OutputOutput Total 1 ml BalanceBalance 200 ml 119 ml Exam She has been incontinent of urine but today the postvoid residual on the bladder scan was high so she was catheterized and 300 mL drained out Results/Medications Result Diagram: 07/10/18 0649 07/12/18 0556 Results 24 hrs Laboratory Tests Test 07/12/18 05:56 Sodium Level 140 Potassium Level 3.6 Chloride Level 106 Carbon Dioxide Level 28 Anion Gap 6 Blood Urea Nitrogen 15 Creatinine 0.47 Est Glomerular Filtrat Rate mL/min > 60 Glucose Level 108 Calcium Level 9.5 Medications Current Medications Atorvastatin Calcium (Lipitor) 20 mg DAILY@21 PO Last administered on 07/11/18at 20:36; Admin Dose 20 MG; Start 06/26/18 at 23:09 Albuterol (Proventil 0.5% (Neb)) 2.5 mg Q4H RESP THERAPY PRN INH PRN DYSPNEA; Start 06/26/18 at 23:09 Ipratropium [place] (Atrovent 0.02% (Neb)) 0.5 mg Q4H RESP THERAPY PRN INH DYSPNEA; Start 06/26/18 at 23:09 Nystatin (Nystatin Susp) 5 ml BID PO Last administered on 07/12/18 09:20; Admin Dose 5 ML; Start 06/26/18 at 23:09 Olanzapine (Zyprexa) 2.5 mg QHS PO Last administered on 07/11/18at 20:36; Admin Dose 2.5 MG; Start 06/26/18 at 23:09 Enoxaparin Sodium (Lovenox) 40 mg DAILY SC Last administered on 07/12/18 09:24 ; Admin Dose 40 MG; Start 06/26/18 at 23:09 Nystatin (Nystatin Powder) 1 applic TID TOP Last administered on 07/12/18 14:03; Admin Dose 1 APPLIC; Start 06/26/18 at 23:09 Eye Lubricant (Akwa Oint) 1 applic Q1H PRN BOTH EYES PRN; Start 06/26/18 at 23:09 Lactulose (Enulose) 20 gm DAILY PRN GTB CONSTIPATION; Start 06/27/18 at 00:00 Bisacodyl (Dulcolax Supp) 10 mg DAILY PRN [place] CONSTIPATION; Start 06/27/18 at 00:00 Acetaminophen/ Hydrocodone Bitart ([place] (5/325)) 1 tab Q24H PRN GTB SEVERE PAIN LEVEL 7-10 Last administered on 07/07/18 07:45; Admin Dose 1 TAB; Start 07/02/18 at 12:00 Lidocaine (Lidoderm) 1 patch 0800 TD Last administered on 07/12/18 09:30; Admin Dose 1 PATCH; Start 07/10/18 at 08:00 Acetaminophen (Tylenol Liquid) 650 mg Q4H PRN PO MILD PAIN LEVEL 1-3; Start 07/10/18 at 23:09 Acetaminophen (Tylenol Liquid) 650 mg Q4H PRN PO PRN FOR FEVER; Start 07/10/18 at 23:09 Amlodipine Besylate (Norvasc) 10 mg DAILY PO ; Start 07/11/18 at 09:00 Baclofen (Lioresal) 10 mg TID PO Last administered on 07/12/18 14:01; Admin Dose 10 MG; Start 07/10/18 at 21:00 Docusate Sodium (Colace Liquid Cup) 100 mg BID PO Last administered on 07/12/18 09:20; Admin Dose 100 MG; Start 07/10/18 at 21:00 Famotidine (Pepcid) 20 mg BID PO Last administered on 07/12/18 09:21; Admin Dose 20 MG; Start 07/10/18 at 21:00 Gabapentin (Neurontin) 100 mg BID PO Last administered on 1/13/19at 09:21; Admin Dose 100 MG; Start 07/10/18 at 21:00 Lacosamide (Vimpat Liq) 50 mg BID PO Last administered on 07/12/18at 09:21; Admin Dose 50 MG; Start 07/10/18 at 21:00 Levetiracetam (Keppra Liquid) 500 mg BID PO Last administered on 07/12/18at 09:20; Admin Dose 500 MG; Start 07/10/18 at 21:00 Levothyroxine Sodium (Synthroid) 88 mcg DAILY@06 PO Last administered on 07/12/18at 06:48; Admin Dose 88 MCG; Start 07/11/18 at 06:00 Magnesium Hydroxide (Milk Of Mag) 30 ml BID PRN PO CONSTIPATION; Start 07/10/18 at 20:00 Simethicone (Mylicon) 80 mg QID PRN PO DISTENSION/GAS/BLOATING; Start 07/10/18 at 20:00 Zolpidem Tartrate (Ambien) 5 mg HS PO Last administered on 07/11/18at 20:35; Admin Dose 5 MG; Start 07/10/18 at 21:00 Assessment/Plan Chief Complaint/Hosp Course 57-year-old female was transferred from [facility]. 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 She was stabilized, discharged on 04/07/2018 and readmitted on with neck stiffness with major subarachnoid hemorrhage with midline shift and subfalcine herniation. This progressed to paralysis with altered mental status. She underwent left craniotomy on 04/10/2018 with clipping of the left posterior communicating artery aneurysm and left frontal ventriculostomy placement for drainage of the intraventricular hemorrhage. She had persistent major neurologic deficit with obstructive hydrocephalus, ischemic encephalopathy, and some vasospasm. She had a PEG placement on 04/28/2018 and tracheostomy on 05/01/2018. She had ongoing seizures requiring multiple medications for control. She had urinary tract infection, apparently was treated. On 05/12 she was transferred to [place] for continuity of care and then to the [facility] floor at [facility]. Patient was initially incontinent and then she was placed on intermittent catheterization. She has had urinary retention on and off. She has been voiding but today bladder scan did show over 300 mL and she was catheterized for 300 mL. We will continue to check her voiding and her postvoid residual and do straight cath as needed. BRENDEN ENRIQUE MD Jul 12, 2018 19:14
[2018-07-12 20:02] VITALS: BP 113/76; PULSE 97; RESP 18
[2018-07-12] MEDS: ACETAMINOPHEN 650MG/20.3ML CUP PO PRN (20:03)
[2018-07-12] MEDS: ATORVASTATIN 20 MG TAB PO SCH (20:04)
[2018-07-12] MEDS: ZOLPIDEM 5 MG TAB PO SCH (20:04)
[2018-07-12] MEDS: OLANZAPINE 2.5 MG TAB PO SCH (20:04)
[2018-07-13 02:00] VITALS: BP 121/73; PULSE 78; RESP 18
--- NOTE | 2018-07-13 05:42 | NUR ---
PATIENT IS SLEEPING WELL DURING THE SHIFT AFTER TAKING ALL HER MEDS. PAIN NOTED ON HER RIGHT ARM, TYLENOL GIVEN, PARTIALLY EFFECTIVE. FLUID OFFERED. ASPIRATION PRECAUTION. SEIZURE PRECAUTION. BLADDER SCAN CHECKED PER ORDER, NO STRAIGHT CATH NEEDED DURING THE SHIFT. TURN AND REPOSITION Q2 HOURS. ELEVATED RIGHT ARM AND BILATERAL HEELS ON PILLOW. BED ALARM ON. HOURLY ROUNDING MADE. CALL LIGHT AND TABLE ARE WITHIN REACH.
[2018-07-13] MEDS: LEVOTHYROXINE 88 MCG TAB PO SCH (06:21)
[2018-07-13 08:00] VITALS: BP 100/60; PULSE 72; RESP 20
--- NOTE | 2018-07-13 08:04 | PN ---
DATE: 07/13/2018 SUBJECTIVE: The patient is stable, no events overnight. No fevers, chills, nausea, vomiting. OBJECTIVE: VITAL SIGNS: Blood pressure is 121/73, pulse 97, respirations 18, temperature 98.8. HEENT: Head is normocephalic. NECK: Supple. HEART: Regular rate. LUNGS: Show diminished breath sounds at the base. ABDOMEN: Soft, nontender to palpation, no rebound or guarding. EXTREMITIES: Negative for clubbing, cyanosis, no edema. DERMATOLOGIC: No rashes. MUSCULOSKELETAL: No joint effusion. NEUROLOGIC: No change in exam. MEDICATIONS: Reviewed. LABORATORY DATA: From 07/12/2018 was reviewed. ASSESSMENT AND PLAN: 1. Urinary tract infection. Patient is completing antibiotic course. 2. Urinary retention, resolved. 3. Seizure disorder. Continue medical management. 4. Hypothyroidism. Continue Synthroid. 5. Encephalopathy, improving. 6. Hypertension. Continue current blood pressure regimen. 7. History of cerebrovascular accident. 8. Mood disorder. Continue Zyprexa. 9. Neuropathy. Continue Neurontin. 10. Status post dysphagia. 11. Status post respiratory failure. 12. Status post subarachnoid hemorrhage. Dictated By: ANGIE CORDOVA DO NR/NTS Conf#: [id number] DID#: [id number] CC: HERNAN SHIPLEY DO;*EndCC*
--- NOTE | 2018-07-13 08:20 | NUR ---
[facility] PT Weekly Summary Dates From: 07/06/18 to 07/13/18 Patient Name: AG MCCOLLUM MR#: [id number] Height: 5 ft 3 in Weight: 139 lbs 5.314 oz 63.200 kg Reason for Visit: NON TRAUMATIC BRAIN INJURY Precautions: fall risk, R hemiplegia, R-sided neglect, confused, emotionally labile, premedicate for RUE pain per Dr. Gill, German language Date: 07/13/18 Time: 0820 User: SYLVIA RIVERA Short-term Goals: 1. Bed Mobility with Min A 2. All transfers with Min A 3. Gait training with AD with min A 50ft x20 Pt making very conservative gains during her stay here [facility]. Currently demonstrates max assist for bed mobility, mod assist for transfers, max assist for gait 25ft using FWW with R FA trough (requires 2P assist for gait), and dep. w/c mobility x 10 ft. Barriers include R hemiplegia, R neglect, confusion, follows less than 25% commands, emotional lability, poor carryover of learning/dec ability to retain info, and refusals. Recommend FWW with R FA trough, manual WC with swing away foot rests, BSC, home with HHPT and 24hr assistance. Cont POC.
[2018-07-13] MEDS: LEVETIRACETAM (100 MG/ML) 5ML CUP PO SCH ×2 (08:25→23:26)
[2018-07-13] MEDS: DOCUSATE SODIUM 10 MG/ML (10ML CUP) PO SCH ×2 (08:25→21:00)
[2018-07-13] MEDS: FAMOTIDINE 20 MG TAB PO SCH ×2 (08:25→20:45)
[2018-07-13] MEDS: GABAPENTIN 100 MG CAP PO SCH ×2 (08:25→20:45)
[2018-07-13] MEDS: LIDOCAINE 5% PATCH TD SCH (08:25)
[2018-07-13] MEDS: NYSTATIN SUSP 5 ML CUP PO SCH ×2 (08:25→20:45)
[2018-07-13] MEDS: BACLOFEN 10 MG TAB PO SCH ×3 (08:25→20:45)
[2018-07-13] MEDS: NYSTATIN 30 GM POWDER BTL TOP SCH ×3 (08:26→20:46)
[2018-07-13] MEDS: AMLODIPINE 10 MG TAB PO SCH (08:26)
[2018-07-13] MEDS: LACOSAMIDE (100 MG/10 ML PO SYR) PO SCH ×2 (08:26→20:45)
[2018-07-13] MEDS: BALSAM PERU/CASTOR OIL 60 GM TUBE TOP SCH ×2 (08:26→20:46)
[2018-07-13] MEDS: ACETAMINOPHEN 650MG/20.3ML CUP PO PRN ×2 (08:27→18:34)
[2018-07-13] MEDS: ENOXAPARIN 40 MG/0.4 ML SYG SC SCH (08:28)
--- NOTE | 2018-07-13 12:52 | PN ---
Date/Time of Note Date/Time of Note DATE: 07/13/18 TIME: 12:52 Objective Vital Signs Date Temp Pulse Resp B/P (MAP) Pulse Ox O2 O2 Flow FiO2 Time Delivery Rate 07/13/18 97.5 72 20 100/60 96 Room Air 08:00 (73) Intake and Output 07/12/18 07/12/18 07/13/18 1515:00 23:00 07:00 IntakeIntake Total 340 ml 440 ml 300 ml OutputOutput Total 301 ml BalanceBalance 39 ml 440 ml 300 ml Exam INTERDISCIPLINARY TEAM CONFERENCE Physical Exam: Pulm-cta Abd-soft BOWEL- Cont BLADDER-Cont/incont SKIN- intact OT- DRESSING- mod/max BATHING-mod/max TOILETING-mod/max PT- BED MOBILITY-mod/min TRANSFERS-mod/min AMBULATION-mod/max 25 feet SPEECH- COGNITION-max Dysphagia- tolerating ground diet A/P- Interdisciplinary team conference held today. Please see interdisciplinary sheet. Working toward d.c. on 07/17 with post discharge follow up of physical therapy, occupational therapy. Results/Medications Result Diagram: 07/10/18 0649 07/12/18 0556 Medications Current Medications Atorvastatin Calcium (Lipitor) 20 mg DAILY@21 PO Last administered on 07/12/18 20:04; Admin Dose 20 MG; Start 06/26/18 at 23:09 Albuterol (Proventil 0.5% (Neb)) 2.5 mg Q4H RESP THERAPY PRN INH PRN DYSPNEA; Start 06/26/18 at 23:09 Ipratropium [place] (Atrovent 0.02% (Neb)) 0.5 mg Q4H RESP THERAPY PRN INH DYSPNEA; Start 06/26/18 at 23:09 Nystatin (Nystatin Susp) 5 ml BID PO Last administered on 07/13/18 08:25; Admin Dose 5 ML; Start 06/26/18 at 23:09 Olanzapine (Zyprexa) 2.5 mg QHS PO Last administered on 07/12/18 20:04; Admin Dose 2.5 MG; Start 06/26/18 at 23:09 Enoxaparin Sodium (Lovenox) 40 mg DAILY SC Last administered on 07/13/18 08:28; Admin Dose 40 MG; Start 06/26/18 at 23:09 Nystatin (Nystatin Powder) 1 applic TID TOP Last administered on 07/13/18 08:26; Admin Dose 1 APPLIC; Start 06/26/18 at 23:09 Eye Lubricant (Akwa Oint) 1 applic Q1H PRN BOTH EYES PRN; Start 06/26/18 at 23:09 Lactulose (Enulose) 20 gm DAILY PRN GTB CONSTIPATION; Start 06/27/18 at 00:00 Bisacodyl (Dulcolax Supp) 10 mg DAILY PRN [place] CONSTIPATION; Start 06/27/18 at 00:00 Acetaminophen/ Hydrocodone Bitart ([place] (5/325)) 1 tab Q24H PRN GTB SEVERE PAIN LEVEL 7-10 Last administered on 07/07/18 07:45; Admin Dose 1 TAB; Start 07/02/18 at 12:00 Lidocaine (Lidoderm) 1 patch 0800 TD Last administered on 07/13/18 08:25; Admin Dose 1 PATCH; Start 07/10/18 at 08:00 Acetaminophen (Tylenol Liquid) 650 mg Q4H PRN PO MILD PAIN LEVEL 1-3 Last administered on 07/13/18 08:27; Admin Dose 650 MG; Start 07/10/18 at 23:09 Acetaminophen (Tylenol Liquid) 650 mg Q4H PRN PO PRN FOR FEVER; Start 07/10/18 at 23:09 Amlodipine Besylate (Norvasc) 10 mg DAILY PO ; Start 07/11/18 at 09:00 Baclofen (Lioresal) 10 mg TID PO Last administered on 07/13/18 08:25; Admin Dose 10 MG; Start 07/10/18 at 21:00 Docusate Sodium (Colace Liquid Cup) 100 mg BID PO Last administered on 07/13/18 08:25; Admin Dose 100 MG; Start 07/10/18 at 21:00 Famotidine (Pepcid) 20 mg BID PO Last administered on 07/13/18 08:25; Admin Dose 20 MG; Start 07/10/18 at 21:00 Gabapentin (Neurontin) 100 mg BID PO Last administered on 07/13/18 08:25; Admin Dose 100 MG; Start 07/10/18 at 21:00 Lacosamide (Vimpat Liq) 50 mg BID PO Last administered on 07/13/18 08:26; Admin Dose 50 MG; Start 07/10/18 at 21:00 Levetiracetam (Keppra Liquid) 500 mg BID PO Last administered on 07/13/18 08:25; Admin Dose 500 MG; Start 07/10/18 at 21:00 Levothyroxine Sodium (Synthroid) 88 mcg DAILY@06 PO Last administered on 07/13/18 06:21; Admin Dose 88 MCG; Start 07/11/18 at 06:00 Magnesium Hydroxide (Milk Of Mag) 30 ml BID PRN PO CONSTIPATION; Start 07/10/18 at 20:00 Simethicone (Mylicon) 80 mg QID PRN PO DISTENSION/GAS/BLOATING; Start 07/10/18 at 20:00 Zolpidem Tartrate (Ambien) 5 mg HS PO Last administered on 07/12/18at 20:04; Admin Dose 5 MG; Start 07/10/18 at 21:00 ROB CARMONA MD Jul 13, 2018 12:52
--- NOTE | 2018-07-13 18:27 | NUR ---
No significant changes noted w/in shift. Pt tolerated her therapy today w/ 's support. Pt is still emotionally labile at times. Pt is incontinent w/ both bowel & bladder using diaper. PVR checks done PRN, I/O straight not indicated. Pt fed w/ strict aspiration precautions. Safety precautions kept in place at all times. Call light placed w/in reach. Will endorse to PM RN for WM/
[2018-07-13 20:00] VITALS: BP 129/70; PULSE 93; RESP 18
[2018-07-13] MEDS: ATORVASTATIN 20 MG TAB PO SCH (20:44)
[2018-07-13] MEDS: ZOLPIDEM 5 MG TAB PO SCH (20:44)
[2018-07-13] MEDS: OLANZAPINE 2.5 MG TAB PO SCH (20:45)
[2018-07-14 02:00] VITALS: BP 110/62; PULSE 70; RESP 18
[2018-07-14] MEDS: LEVOTHYROXINE 88 MCG TAB PO SCH (06:30)
--- NOTE | 2018-07-14 06:39 | NUR ---
PATIENT SLEPT WELL. UNABLE TO VOID. IN AND OUT CATH DONE X 1. ON CONTINUE PVR CHECKED. FAMILY AT BEDSIDE. RECREATIONAL ACTIVITIES PROVIDED TO PATIENT.WATCHING TV. CALL LIGHT WITHIN REACH.
[2018-07-14 07:00] VITALS: BP 115/67; PULSE 68; RESP 18
--- NOTE | 2018-07-14 08:18 | PN ---
DATE: 07/14/2018 SUBJECTIVE: The patient is stable. No events overnight. OBJECTIVE: VITAL SIGNS: Blood pressure is 129/70, pulse 93, respiration 20, temperature 98.1. HEENT: Head is normocephalic. NECK: Supple. HEART: Regular rate. LUNGS: Show diminished breath sounds at the base. ABDOMEN: Soft, nontender to palpation without rebound or guarding. EXTREMITIES: Negative for clubbing, cyanosis, no edema. DERMATOLOGIC: No rashes. MUSCULOSKELETAL: No joint effusion. NEUROLOGIC: No change in exam. MEDICATIONS: Reviewed. LABORATORY DATA: Reviewed. ASSESSMENT AND PLAN: 1. Urinary retention. The patient continues to have in and out catheterization. We will continue. Follow up with urology. 2. Seizure disorder. Continue medical management. 3. Hypothyroidism. Continue Synthroid. 4. Encephalopathy, chronic. Continue to monitor. 5. Hypertension. Continue current blood pressure regimen. 6. History of cerebrovascular accident. 7. Mood disorder. Continue Zyprexa. 8. Neuropathy. Continue Neurontin. 9. Status post urinary tract infection. 10. Status post dysphagia. 11. Status post subarachnoid hemorrhage. Dictated By: ANGIE CORDOVA DO NR/NTS Conf#: [id number] DID#: [id number] CC: HERNAN SHIPLEY DO;*End*
[2018-07-14] MEDS: DOCUSATE SODIUM 10 MG/ML (10ML CUP) PO SCH ×2 (09:00→21:00)
[2018-07-14] MEDS: NYSTATIN SUSP 5 ML CUP PO SCH ×2 (09:00→20:41)
[2018-07-14] MEDS: ACETAMINOPHEN 650MG/20.3ML CUP PO PRN ×2 (09:47→20:40)
[2018-07-14] MEDS: LIDOCAINE 5% PATCH TD SCH (09:47)
[2018-07-14] MEDS: FAMOTIDINE 20 MG TAB PO SCH ×2 (09:47→20:42)
[2018-07-14] MEDS: LEVETIRACETAM (100 MG/ML) 5ML CUP PO SCH ×2 (09:47→20:41)
[2018-07-14] MEDS: GABAPENTIN 100 MG CAP PO SCH ×2 (09:47→20:42)
[2018-07-14] MEDS: LACOSAMIDE (100 MG/10 ML PO SYR) PO SCH ×2 (09:48→20:41)
[2018-07-14] MEDS: ENOXAPARIN 40 MG/0.4 ML SYG SC SCH (09:50)
[2018-07-14] MEDS: BACLOFEN 10 MG TAB PO SCH ×3 (09:51→20:42)
[2018-07-14] MEDS: BALSAM PERU/CASTOR OIL 60 GM TUBE TOP SCH ×2 (09:51→20:43)
[2018-07-14] MEDS: NYSTATIN 30 GM POWDER BTL TOP SCH ×3 (09:51→20:43)
--- NOTE | 2018-07-14 09:52 | NUR ---
Norvasc and Nystatin suspension pending from pharmacy. Pharmacy notified.
--- NOTE | 2018-07-14 12:09 | PN ---
Date/Time of Note Date/Time of Note DATE: 07/14/18 TIME: 12:07 Subjective Patient talking more Objective Vital Signs Date Temp Pulse Resp B/P (MAP) Pulse Ox O2 O2 Flow FiO2 Time Delivery Rate 07/14/18 97.7 68 18 115/67 100 Room Air 07:00 (83) Intake and Output 07/13/18 07/13/18 07/14/18 1515:00 23:00 07:00 IntakeIntake Total 320 ml 250 ml 100 ml OutputOutput Total 190 ml 100 ml 210 ml BalanceBalance 130 ml 150 ml -110 ml Exam pulm-cta abd-soft min/mod ambulation Results/Medications Result Diagram: 07/10/18 0649 07/12/18 0556 Medications Current Medications Atorvastatin Calcium (Lipitor) 20 mg DAILY@21 PO Last administered on 07/13/18 20:44; Admin Dose 20 MG; Start 06/26/18 at 23:09 Albuterol (Proventil 0.5% (Neb)) 2.5 mg Q4H RESP THERAPY PRN INH PRN DYSPNEA; Start 06/26/18 at 23:09 Ipratropium [place] (Atrovent 0.02% (Neb)) 0.5 mg Q4H RESP THERAPY PRN INH DYSPNEA; Start 06/26/18 at 23:09 Nystatin (Nystatin Susp) 5 ml BID PO Last administered on 07/13/18 20:45; Admin Dose 5 ML; Start 06/26/18 at 23:09 Olanzapine (Zyprexa) 2.5 mg QHS PO Last administered on 07/13/18 20:45; Admin Dose 2.5 MG; Start 06/26/18 at 23:09 Enoxaparin Sodium (Lovenox) 40 mg DAILY SC Last administered on 07/14/18 09:50; Admin Dose 40 MG; Start 06/26/18 at 23:09 Nystatin (Nystatin Powder) 1 applic TID TOP Last administered on 07/14/18 09:51; Admin Dose 1 APPLIC; Start 06/26/18 at 23:09 Eye Lubricant (Akwa Oint) 1 applic Q1H PRN BOTH EYES PRN; Start 06/26/18 at 23:09 Lactulose (Enulose) 20 gm DAILY PRN GTB CONSTIPATION; Start 06/27/18 at 00:00 Bisacodyl (Dulcolax Supp) 10 mg DAILY PRN [place] CONSTIPATION; Start 06/27/18 at 00:00 Acetaminophen/ Hydrocodone Bitart ([place] (5/325)) 1 tab Q24H PRN GTB SEVERE PAIN LEVEL 7-10 Last administered on 07/07/18 07:45; Admin Dose 1 TAB; Start 07/02/18 at 12:00 Lidocaine (Lidoderm) 1 patch 0800 TD Last administered on 07/14/18 09:47; Admin Dose 1 PATCH; Start 07/10/18 at 08:00 Acetaminophen (Tylenol Liquid) 650 mg Q4H PRN PO MILD PAIN LEVEL 1-3 Last administered on 07/14/18 09:47; Admin Dose 650 MG; Start 07/10/18 at 23:09 Acetaminophen (Tylenol Liquid) 650 mg Q4H PRN PO PRN FOR FEVER; Start 07/10/18 at 23:09 Amlodipine Besylate (Norvasc) 10 mg DAILY PO ; Start 07/11/18 at 09:00 Baclofen (Lioresal) 10 mg TID PO Last administered on 07/14/18 09:51; Admin Dose 10 MG; Start 07/10/18 at 21:00 Docusate Sodium (Colace Liquid Cup) 100 mg BID PO Last administered on 07/13/18 08:25; Admin Dose 100 MG; Start 07/10/18 at 21:00 Famotidine (Pepcid) 20 mg BID PO Last administered on 07/14/18 09:47; Admin Dose 20 MG; Start 07/10/18 at 21:00 Gabapentin (Neurontin) 100 mg BID PO Last administered on 07/14/18 09:47; Admi n Dose 100 MG; Start 07/10/18 at 21:00 Lacosamide (Vimpat Liq) 50 mg BID PO Last administered on 07/14/18 09:48; Admin Dose 50 MG; Start 07/10/18 at 21:00 Levetiracetam (Keppra Liquid) 500 mg BID PO Last administered on 07/14/18 09:47; Admin Dose 500 MG; Start 07/10/18 at 21:00 Levothyroxine Sodium (Synthroid) 88 mcg DAILY@06 PO Last administered on 1/15/19at 06:30; Admin Dose 88 MCG; Start 07/11/18 at 06:00 Magnesium Hydroxide (Milk Of Mag) 30 ml BID PRN PO CONSTIPATION; Start 07/10/18 at 20:00 Simethicone (Mylicon) 80 mg QID PRN PO DISTENSION/GAS/BLOATING; Start 07/10/18 at 20:00 Zolpidem Tartrate (Ambien) 5 mg HS PO Last administered on 07/13/18at 20:44; Admin Dose 5 MG; Start 07/10/18 at 21:00 Assessment/Plan Additional Assessment/Plan Rehab- L SAH/hydrocephalus-s/p crani & clipping 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 Case d/w , who is in agreement with treatment plan. Pain- overall improved. Dysphagia- good po intake. Seizure Disorder-continue seizure precautions Respiratory Failure- decannulated, doing well - Urinary retention- voiding well with low PVRs Spasticity with increased tone in Right Upper and Lower Extremity- Continue baclofen, continue ROM Hypothyroidism ROB CARMONA MD Jul 14, 2018 12:09
[2018-07-14 14:00] VITALS: BP 141/101; PULSE 104; RESP 18
[2018-07-14] MEDS: AMLODIPINE 10 MG TAB PO SCH (15:41)
[2018-07-14 20:00] VITALS: BP 119/80; PULSE 97; RESP 18
[2018-07-14] MEDS: OLANZAPINE 2.5 MG TAB PO SCH (20:42)
[2018-07-14] MEDS: ATORVASTATIN 20 MG TAB PO SCH (20:42)
[2018-07-14] MEDS: ZOLPIDEM 5 MG TAB PO SCH (20:42)
[2018-07-15 02:19] VITALS: BP 100/66; PULSE 76; RESP 18
--- NOTE | 2018-07-15 05:38 | NUR ---
PATIENT SLEPT WELL. RECREATIONAL ACTIVITY PROVIDED TO PATIENT; TV. CONTINUE TO MONITOR PVR. CALL LIGHT WITHIN REACH. NO ACUTE DISTRESS NOTED
[2018-07-15] MEDS: ACETAMINOPHEN 650MG/20.3ML CUP PO PRN (06:24)
[2018-07-15] MEDS: LEVOTHYROXINE 88 MCG TAB PO SCH (06:24)
[2018-07-15 07:30] VITALS: BP 109/67; PULSE 64; RESP 20
[2018-07-15] MEDS: DOCUSATE SODIUM 10 MG/ML (10ML CUP) PO SCH ×2 (08:45→20:24)
[2018-07-15] MEDS: LEVETIRACETAM (100 MG/ML) 5ML CUP PO SCH ×2 (08:45→20:24)
[2018-07-15] MEDS: BACLOFEN 10 MG TAB PO SCH ×3 (08:46→20:24)
[2018-07-15] MEDS: GABAPENTIN 100 MG CAP PO SCH ×2 (08:46→20:30)
[2018-07-15] MEDS: LACOSAMIDE (100 MG/10 ML PO SYR) PO SCH ×2 (08:46→20:24)
[2018-07-15] MEDS: FAMOTIDINE 20 MG TAB PO SCH ×2 (08:46→20:24)
[2018-07-15] MEDS: NYSTATIN SUSP 5 ML CUP PO SCH ×2 (08:46→20:24)
[2018-07-15] MEDS: LIDOCAINE 5% PATCH TD SCH (08:47)
--- NOTE | 2018-07-15 08:47 | PN ---
DATE: 07/15/2018 SUBJECTIVE: The patient is stable. No events overnight. OBJECTIVE: VITAL SIGNS: Blood pressure is 141/101, pulse 104, respiration 18, temperature 98.8. HEENT: Head is normocephalic. NECK: Supple. HEART: Regular rate. LUNGS: Show diminished breath sounds at the base. ABDOMEN: Soft, nontender to palpation without rebound or guarding. EXTREMITIES: Negative for clubbing, cyanosis, no edema. DERMATOLOGIC: No rashes. MUSCULOSKELETAL: No joint effusion. NEUROLOGIC: No change in exam. MEDICATIONS: Reviewed. LABORATORY DATA: Reviewed. ASSESSMENT AND PLAN: 1. Urinary retention. The patient continues to require in and out catheterization. Continue to mon itor. Continue bladder scans and follow up with urology. 2. Seizure disorder. Continue medical management. 3. Hypothyroidism. Continue Synthroid. 4. Chronic encephalopathy. Continue to monitor. 5. Hypertension. Continue current blood pressure regimen. 6. History of cerebrovascular accident. 7. Behavioral mood disorder. Continue Zyprexa. 8. Neuropathy. Continue Neurontin. 9. Status post urinary tract infection. 10. Status post dysphagia. 11. Status post respiratory failure. The patient is decannulated with a decannulating trach. 12. Status post subarachnoid hemorrhage. Dictated By: ANGIE CORDOVA DO NR/NTS Conf#: [id number] DID#: [id number] CC: HERNAN SHIPLEY DO;*EndCC*
[2018-07-15] MEDS: NYSTATIN 30 GM POWDER BTL TOP SCH ×3 (08:49→20:30)
[2018-07-15] MEDS: AMLODIPINE 10 MG TAB PO SCH (08:49)
[2018-07-15] MEDS: BALSAM PERU/CASTOR OIL 60 GM TUBE TOP SCH ×2 (08:50→20:30)
[2018-07-15] MEDS: ENOXAPARIN 40 MG/0.4 ML SYG SC SCH (08:51)
--- NOTE | 2018-07-15 10:08 | PN ---
Date/Time of Note Date/Time of Note DATE: 07/15/18 TIME: 09:59 Subjective Overall patient with steady improvements, and imporved functional activity tolerance Objective Vital Signs Date Temp Pulse Resp B/P (MAP) Pulse Ox O2 O2 Flow FiO2 Time Delivery Rate 07/15/18 98.0 76 18 100/66 94 Room Air 02:19 (77) Intake and Output 07/14/18 07/14/18 07/15/18 1515:00 23:00 07:00 IntakeIntake Total 1200 ml 100 ml OutputOutput Total 400 ml BalanceBalance 800 ml 100 ml Exam pulm-cta abd-soft mod assist Results/Medications Result Diagram: 07/12/18 0556 Medications Current Medications Atorvastatin Calcium (Lipitor) 20 mg DAILY@21 PO Last administered on 07/14/18 20:42; Admin Dose 20 MG; Start 06/26/18 at 23:09 Albuterol (Proventil 0.5% (Neb)) 2.5 mg Q4H RESP THERAPY PRN INH PRN DYSPNEA; Start 06/26/18 at 23:09 Ipratropium [place] (Atrovent 0.02% (Neb)) 0.5 mg Q4H RESP THERAPY PRN INH DYSPNEA; Start 06/26/18 at 23:09 Nystatin (Nystatin Susp) 5 ml BID PO Last administered on 07/15/18 08:46; Admin Dose 5 ML; Start 06/26/18 at 23:09 Olanzapine (Zyprexa) 2.5 mg QHS PO Last administered on 07/14/18 20:42; Admin Dose 2.5 MG; Start 06/26/18 at 23:09 Enoxaparin Sodium (Lovenox) 40 mg DAILY SC Last administered on 07/15/18 08:51; Admin Dose 40 MG; Start 06/26/18 at 23:09 Nystatin (Nystatin Powder) 1 applic TID TOP Last administered on 07/15/18 08:49; Admin Dose 1 APPLIC; Start 06/26/18 at 23:09 Eye Lubricant (Akwa Oint) 1 applic Q1H PRN BOTH EYES PRN; Start 06/26/18 at 23:09 Lactulose (Enulose) 20 gm DAILY PRN GTB CONSTIPATION; Start 06/27/18 at 00:00 Bisacodyl (Dulcolax Supp) 10 mg DAILY PRN [place] CONSTIPATION; Start 06/27/18 at 00:00 Acetaminophen/ Hydrocodone Bitart ([place] (5/325)) 1 tab Q24H PRN GTB SEVERE PAIN LEVEL 7-10 Last administered on 07/07/18 07:45; Admin Dose 1 TAB; Start 07/02/18 at 12:00 Lidocaine (Lidoderm) 1 patch 0800 TD Last administered on 07/15/18 08:47; Admin Dose 1 PATCH; Start 07/10/18 at 08:00 Acetaminophen (Tylenol Liquid) 650 mg Q4H PRN PO MILD PAIN LEVEL 1-3 Last administered on 07/15/18 06:24; Admin Dose 650 MG; Start 07/10/18 at 23:09 Acetaminophen (Tylenol Liquid) 650 mg Q4H PRN PO PRN FOR FEVER; Start 07/10/18 at 23:09 Amlodipine Besylate (Norvasc) 10 mg DAILY PO Last administered on 07/14/18 15:41; Admin Dose 10 MG; Start 07/11/18 at 09:00 Baclofen (Lioresal) 10 mg TID PO Last administered on 07/15/18 08:46; Admin Dose 10 MG; Start 07/10/18 at 21:00 Docusate Sodium (Colace Liquid Cup) 100 mg BID PO Last administered on 07/15/18 08:45; Admin Dose 100 MG; Start 07/10/18 at 21:00 Famotidine (Pepcid) 20 mg BID PO Last administered on 07/15/18 08:46; Admin Dose 20 MG; Start 07/10/18 at 21:00 Gabapentin (Neurontin) 100 mg BID PO Last administered on 07/15/18 08:46; Admin Dose 100 MG; Start 07/10/18 at 21:00 Lacosamide (Vimpat Liq) 50 mg BID PO Last administered on 07/15/18 08:46; Admin Dose 50 MG; Start 07/10/18 at 21:00 Levetiracetam (Keppra Liquid) 500 mg BID PO Last administered on 07/15/18 08:45; Admin Dose 500 MG; Start 07/10/18 at 21:00 Levothyroxine Sodium (Synthroid) 88 mcg DAILY@06 PO Last administered on 1/16/19at 06:24; Admin Dose 88 MCG; Start 07/11/18 at 06:00 Magnesium Hydroxide (Milk Of Mag) 30 ml BID PRN PO CONSTIPATION; Start 07/10/18 at 20:00 Simethicone (Mylicon) 80 mg QID PRN PO DISTENSION/GAS/BLOATING; Start 07/10/18 at 20:00 Zolpidem Tartrate (Ambien) 5 mg HS PO Last administered on 07/14/18at 20:42; Admin Dose 5 MG; Start 07/10/18 at 21:00 Assessment/Plan Additional Assessment/Plan Rehab- L SAH/hydrocephalus-s/p crani & clipping of the L RN CLINICAL 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 Patient would benefit from extension of acute rehabilitation program with goal of improving functional status to a min assist level for self care and mobility and to have the family safely trained in assistance. Will focus on family training with regards to functional activities as well as dysphagia, cognition, and medication management. patient's agitation overall has improved, but family will still need education regarding behavioral management in order to have her successfully return home. Pain- overall improved on current medications, but still some discomfort with ROM to R UE. Will adjust medications as tolerated, with goal of improved pain, but no somnolence. Dysphagia- overall improved po intake, continue therapy and education for patient and family. Seizure Disorder-continue seizure precautions Respiratory Failure- decannulated, doing well - Urinary retention- voiding well with low PVRs. Monitor, and begin family education with regards to bladder management. Spasticity with increased tone in Right Upper and Lower Extremity- Continue baclofen, continue ROM Hypothyroidism ROB CARMONA MD Jul 15, 2018 10:08
--- NOTE | 2018-07-15 11:49 | NUR ---
PT NOTE: [id number] Spouse at bedside to encourage/motivate/assist pt. Pt noted to be more emotionally labile and poor willingness to participate with therapy. Needed max/constant encouragement from this therapist and spouse to participate. Spouse called daughter Sania as pt initially refused therapy, was labile/getting agitated/pushing this therapist away. Daughter requesting if another staff can assist and not her father. Informed daughter that patient has been more willing to participate with spouse around, daughter expressed understanding. Educated daughter on POC, functional mobility status and limitations with therapy; demo good understanding.
[2018-07-15 14:00] VITALS: BP 101/68; PULSE 70; RESP 18
--- NOTE | 2018-07-15 14:10 | NUR ---
SOCIAL WORK NOTE: As per discussion w/ general medical practitioner Dr. Gill, this social insurance specialist sent a referral to [facility] [phone]/fax#[phone]. This social insurance specialist spoke w/ Nick is admissions and he confirmed receipt of referral. Nick reports they may have a discharge this weeek; therefore a bed may open up, otherwise pt can do outpatient. Also, pt has option to go inpatient in [place]; however pt is not open to [place] as [place]. Nick reports that the earliest an assessment can be done is on Monday 07/17. This social insurance specialist to follow up.
--- NOTE | 2018-07-15 16:10 | NUR ---
NUTRITION NOTE: Gtube was removed on 07/10. Pt is only on an oral diet now, [facility] soft diet with thin liquids, per [employer] recs. Tolerating well with good appetite. PO intake mostly 75-100%. No reported n/v. Continue to offer Boost TID with meals to optimize PO intake. Recommend to discontinue current diet order containing bolus TF formulas and change to mech soft ground with thin liquids and Boost Plus TID (instead of Fibersource HN). Boost plus TID is more palatable for pt than Fibersource which can be used for GT/oral. Thank you!
--- NOTE | 2018-07-15 17:00 | NUR ---
Patient in bed eating dinner assisted by her brother. Offered TV & educational materials for recreational activities. Alert, oriented x 1 with periods of confusion. No SOB. Denies pain. No seizure episode noted. Patient refused padded siderails. Offered 3x but refused 3x. Explained risks & benefits but she still refused. at bedside while offering padded siderails. Kept clean & dry. All due meds given. Call light within reach. Bed alarm on & in low position. Kept comfortable.
[2018-07-15 20:02] VITALS: BP 114/72; PULSE 77; RESP 18
[2018-07-15] MEDS: ZOLPIDEM 5 MG TAB PO SCH (20:24)
[2018-07-15] MEDS: ATORVASTATIN 20 MG TAB PO SCH (20:24)
[2018-07-15] MEDS: OLANZAPINE 2.5 MG TAB PO SCH (20:24)
--- NOTE | 2018-07-15 21:30 | NUR ---
ALL MEDS WAS CRUSHED AND MIXED WITH APPLE SAUCE BUT WHEN PT'S BROTHER TRIED TO GIVE THE MEDICATION IT WAS FALL DOWN IN THE FLOOR ACCIDENTALLY, UNABLE TO GIVE IT TO THE PATIENT.PT'S DAUGHTER REQUESTED TO GIVE HER NIGHT MEDICATIONS SO ALL HER NIGHT MEDICATION PULLED AGAIN FROM OMNICELL THEN CRUSHED AND GIVEN WITH APPLE SAUCE.
[2018-07-16 02:00] VITALS: BP 108/67; PULSE 68; RESP 18
[2018-07-16] MEDS: LEVOTHYROXINE 88 MCG TAB PO SCH (06:21)
[2018-07-16 07:00] VITALS: BP 103/66; PULSE 58; RESP 18
--- NOTE | 2018-07-16 07:30 | NUR ---
Pt slept well after giving her night medication, no other complaints noted. Vital signs stable. Position turned Q2hrs as per pt's comfort. Pt kept under fall, aspiration and seizure precautions. Incontinent for bladder and bowel, bed alarm activated for safety, call light and bedside table within reach. Pt's family at bedside stayed during night hours.
--- NOTE | 2018-07-16 08:22 | CONS ---
Date/Time of Note Date/Time of Note DATE: 07/16/18 TIME: 08:18 Consult Date/Type/Reason Admit Date/Time Jun 26, 2018 at 21:04 Initial Consult Date 07/07/18 Type of Consultation: Urology Reason for Consultation Urinary incontinence Requesting Provider: ROB CARMONA MD Subjective Patient getting physical therapy. She appears to be comfortable. Objective Vital Signs Date Temp Pulse Resp B/P (MAP) Pulse Ox O2 O2 Flow FiO2 Time Delivery Rate 07/16/18 98.3 68 18 108/67 97 Room Air 02:00 (81) Intake and Output 07/15/18 07/15/18 07/16/18 1515:00 23:00 07:00 IntakeIntake Total 620 ml OutputOutput Total 200 ml BalanceBalance 620 ml -200 ml Exam Patient is reported to be incontinent and her postvoid residual has been about 120 mL and 200 mL. Results/Medications Result Diagram: 07/12/18 0556 Medications Current Medications Atorvastatin Calcium (Lipitor) 20 mg DAILY@21 PO Last administered on 07/15/18 20:24; Admin Dose 20 MG; Start 06/26/18 at 23:09 Albuterol (Proventil 0.5% (Neb)) 2.5 mg Q4H RESP THERAPY PRN INH PRN DYSPNEA; Start 06/26/18 at 23:09 Ipratropium [place] (Atrovent 0.02% (Neb)) 0.5 mg Q4H RESP THERAPY PRN INH D YSPNEA; Start 06/26/18 at 23:09 Nystatin (Nystatin Susp) 5 ml BID PO Last administered on 07/15/18 20:24; Admin Dose 5 ML; Start 06/26/18 at 23:09 Olanzapine (Zyprexa) 2.5 mg QHS PO Last administered on 07/15/18 20:24; Admin Dose 2.5 MG; Start 06/26/18 at 23:09 Enoxaparin Sodium (Lovenox) 40 mg DAILY SC Last administered on 07/15/18 08:51; Admin Dose 40 MG; Start 06/26/18 at 23:09 Nystatin (Nystatin Powder) 1 applic TID TOP Last administered on 07/15/18 20:30; Admin Dose 1 APPLIC; Start 06/26/18 at 23:09 Eye Lubricant (Akwa Oint) 1 applic Q1H PRN BOTH EYES PRN; Start 06/26/18 at 23:09 Lactulose (Enulose) 20 gm DAILY PRN GTB CONSTIPATION; Start 06/27/18 at 00:00 Bisacodyl (Dulcolax Supp) 10 mg DAILY PRN [place] CONSTIPATION; Start 06/27/18 at 00:00 Acetaminophen/ Hydrocodone Bitart ([place] (5/325)) 1 tab Q24H PRN GTB SEVERE PAIN LEVEL 7-10 Last administered on 07/07/18 07:45; Admin Dose 1 TAB; Start 07/02/18 at 12:00 Lidocaine (Lidoderm) 1 patch 0800 TD Last administered on 07/15/18 08:47; Admin Dose 1 PATCH; Start 07/10/18 at 08:00 Acetaminophen (Tylenol Liquid) 650 mg Q4H PRN PO MILD PAIN LEVEL 1-3 Last administered on 07/15/18 06:24; Admin Dose 650 MG; Start 07/10/18 at 23:09 Acetaminophen (Tylenol Liquid) 650 mg Q4H PRN PO PRN FOR FEVER; Start 07/10/18 at 23:09 Amlodipine Besylate (Norvasc) 10 mg DAILY PO Last administered on 07/14/18 15:41; Admin Dose 10 MG; Start 07/11/18 at 09:00 Baclofen (Lioresal) 10 mg TID PO Last administered on 07/15/18 20:24; Admin Dose 10 MG; Start 07/10/18 at 21:00 Docusate Sodium (Colace Liquid Cup) 100 mg BID PO Last administered on 07/15/18 20:24; Admin Dose 100 MG; Start 07/10/18 at 21:00 Famotidine (Pepcid) 20 mg BID PO Last administered on 07/15/18 20:24; Admin Dose 20 MG; Start 07/10/18 at 21:00 Gabapentin (Neurontin) 100 mg BID PO Last administered on 07/15/18 20:30; Admin Dose 100 MG; Start 07/10/18 at 21:00 Lacosamide (Vimpat Liq) 50 mg BID PO Last administered on 07/15/18 20:24; Admin Dose 50 MG; Start 07/10/18 at 21:00 Levetiracetam (Keppra Liquid) 500 mg BID PO Last administered on 07/15/18at 20:24; Admin Dose 500 MG; Start 07/10/18 at 21:00 Levothyroxine Sodium (Synthroid) 88 mcg DAILY@06 PO Last administered on 07/16/18at 06:21; Admin Dose 88 MCG; Start 07/11/18 at 06:00 Magnesium Hydroxide (Milk Of Mag) 30 ml BID PRN PO CONSTIPATION; Start 07/10/18 at 20:00 Simethicone (Mylicon) 80 mg QID PRN PO DISTENSION/GAS/BLOATING; Start 07/10/18 at 20:00 Zolpidem Tartrate (Ambien) 5 mg HS PO Last administered on 07/15/18at 20:24; Admin Dose 5 MG; Start 07/10/18 at 21:00 Assessment/Plan Chief Complaint/Hosp Course 57-year-old female was transferred from [facility]. 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 She was stabilized, discharged on 04/07/2018 and readmitted on with neck stiffness with major subarachnoid hemorrhage with midline shift and subfalcine herniation. This progressed to paralysis with altered mental status. She underwent left craniotomy on 04/10/2018 with clipping of the left posterior communicating artery aneurysm and left frontal ventriculostomy pl acement for drainage of the intraventricular hemorrhage. She had persistent major neurologic deficit with obstructive hydrocephalus, ischemic encephalopathy, and some vasospasm. She had a PEG placement on 04/28/2018 and tracheostomy on 05/01/2018. She had ongoing seizures requiring multiple medic ations for control. She had urinary tract infection, apparently was treated. On 05/12 she was transferred to [place] for continuity of care and then to the rehab floor at [facility]. Patient was initially incontinent and then she was placed on intermittent catheterization. She has had urinary retention on and off. Presently she has been voiding and the postvoid residual has been 120 mL to 200 ml. Continue present treatment. BRENDEN ENRIQUE MD Jul 16, 2018 08:22
[2018-07-16] MEDS: AMLODIPINE 10 MG TAB PO SCH (09:00)
[2018-07-16] MEDS: LIDOCAINE 5% PATCH TD SCH (09:22)
[2018-07-16] MEDS: FAMOTIDINE 20 MG TAB PO SCH ×2 (09:24→21:26)
[2018-07-16] MEDS: ACETAMINOPHEN 650MG/20.3ML CUP PO PRN ×2 (09:24→21:25)
[2018-07-16] MEDS: NYSTATIN SUSP 5 ML CUP PO SCH ×2 (09:24→21:26)
[2018-07-16] MEDS: LEVETIRACETAM (100 MG/ML) 5ML CUP PO SCH ×2 (09:24→21:26)
[2018-07-16] MEDS: DOCUSATE SODIUM 10 MG/ML (10ML CUP) PO SCH ×2 (09:24→21:00)
[2018-07-16] MEDS: ENOXAPARIN 40 MG/0.4 ML SYG SC SCH (09:25)
[2018-07-16] MEDS: LACOSAMIDE (100 MG/10 ML PO SYR) PO SCH ×2 (09:25→21:28)
[2018-07-16] MEDS: GABAPENTIN 100 MG CAP PO SCH ×2 (09:26→21:26)
[2018-07-16] MEDS: BACLOFEN 10 MG TAB PO SCH ×3 (09:29→21:26)
[2018-07-16] MEDS: BALSAM PERU/CASTOR OIL 60 GM TUBE TOP SCH ×2 (09:37→21:29)
[2018-07-16] MEDS: NYSTATIN 30 GM POWDER BTL TOP SCH ×3 (09:37→21:29)
--- NOTE | 2018-07-16 10:04 | PN ---
DATE: 07/16/2018 SUBJECTIVE: The patient is stable, no events overnight. No fever, chills, nausea or vomiting. OBJECTIVE: VITAL SIGNS: Blood pressure is 114/72, pulse 77, respirations 20, temperature 98.6. HEENT: Head is normocephalic. NECK: Supple. HEART: Regular rate. LUNGS: Show diminished breath sounds at the base. ABDOMEN: Soft, nontender to palpation without rebound or guarding. EXTREMITIES: Negative for clubbing, cyanosis, no edema. DERMATOLOGIC: No rashes. MUSCULOSKELETAL: No joint effusion. NEUROLOGIC: No change in exam. MEDICATIONS: Have been reviewed. LABORATORY DATA: Has been reviewed. ASSESSMENT AND PLAN: 1. Urinary retention. Continue to monitor postvoid residuals. Continue in and out catheterization as needed. 2. Seizure disorder. Continue medical management. 3. Hypothyroidism. Continue Synthroid. 4. Chronic encephalopathy. Continue to monitor. 5. Hypertension. Continue current blood pressure regimen. 6. History of cerebrovascular accident. 7. Behavioral mood disorder. Continue Zyprexa. 8. Neuropathy. Continue Neurontin. 9. Status post urinary tract infection. 10. Status post intubation. 11. Status post respiratory failure. 12. Status post subarachnoid hemorrhage. Dictated By: ANGIE CORDOVA DO NR/NTS Conf#: [id number] DID#: [id number] CC: HERNAN SHIPLEY DO;*EndCC*
--- NOTE | 2018-07-16 10:18 | NUR ---
PT NOTE [id number] Spouse at bedside to encourage/motivate/assist pt. Pt noted to be more emotionally labile (cyring/agitated) and dec willingness to participate with therapy. Needed max/constant encouragement from this therapist and spouse to participate. Caregiver training performed with spouse (will continue with training). Bed mobility/transfer training regarding safe techs, body mechanics, sequencing; spouse demo good carryover. Recommended that pt ambulate with PT only as pt is high risk for falls, unsteady, 2PA and needs max verbal/tactile cues for proper sequencing/hand placement/safety; demo good understanding.
--- NOTE | 2018-07-16 11:44 | NUR ---
SOCIAL WORK: This mortgage loan underwriter discussed possible discharge to [place] for Neuro skills so that pt can benefit from more neuro treatment. This mortgage loan underwriter discussed with pt and pt daughter Sania [phone], both are in agreement. This social services assistant spoke chloe/ Dione [phone] at [facility] and she reports that an extrusion die corrector will come to ARU to assess pt around 10am on Friday07/17/18. Staff was made aware as well as pt family.
--- NOTE | 2018-07-16 12:37 | PN ---
Date/Time of Note Date/Time of Note DATE: 07/16/18 TIME: 12:36 Subjective Comfortable, improving verbal responses Objective Vital Signs Date Temp Pulse Resp B/P (MAP) Pulse Ox O2 O2 Flow FiO2 Time Delivery Rate 07/16/18 97.6 58 18 103/66 97 Room Air 07:00 (78) Intake and Output 07/15/18 07/15/18 07/16/18 1515:00 23:00 07:00 IntakeIntake Total 620 ml OutputOutput Total 200 ml BalanceBalance 620 ml -200 ml Exam pulm-cta bd-soft min/mod Results/Medications Result Diagram: 07/12/18 0556 Medications Current Medications Atorvastatin Calcium (Lipitor) 20 mg DAILY@21 PO Last administered on 07/15/18 20:24; Admin Dose 20 MG; Start 06/26/18 at 23:09 Albuterol (Proventil 0.5% (Neb)) 2.5 mg Q4H RESP THERAPY PRN INH PRN DYSPNEA; Start 06/26/18 at 23:09 Ipratropium [place] (Atrovent 0.02% (Neb)) 0.5 mg Q4H RESP THERAPY PRN INH DYSPNEA; Start 06/26/18 at 23:09 Nystatin (Nystatin Susp) 5 ml BID PO Last administered on 07/16/18 09:24; Admin Dose 5 ML; Start 06/26/18 at 23:09 Olanzapine (Zyprexa) 2.5 mg QHS PO Last administered on 07/15/18 20:24; Admin Dose 2.5 MG; Start 06/26/18 at 23:09 Enoxaparin Sodium (Lovenox) 40 mg DAILY SC Last administered on 07/16/18 09:25; Admin Dose 40 MG; Start 06/26/18 at 23:09 Nystatin (Nystatin Powder) 1 applic TID TOP Last administered on 07/16/18 09:37; Admin Dose 1 APPLIC; Start 06/26/18 at 23:09 Eye Lubricant (Akwa Oint) 1 applic Q1H PRN BOTH EYES PRN; Start 06/26/18 at 23:09 Lactulose (Enulose) 20 gm DAILY PRN GTB CONSTIPATION; Start 06/27/18 at 00:00 Bisacodyl (Dulcolax Supp) 10 mg DAILY PRN [place] CONSTIPATION; Start 06/27/18 at 00:00 Acetaminophen/ Hydrocodone Bitart ([place] (5/325)) 1 tab Q24H PRN GTB SEVERE PAIN LEVEL 7-10 Last administered on 07/07/18 07:45; Admin Dose 1 TAB; Start 07/02/18 at 12:00 Lidocaine (Lidoderm) 1 patch 0800 TD Last administered on 07/16/18 09:22; Admin Dose 1 PATCH; Start 07/10/18 at 08:00 Acetaminophen (Tylenol Liquid) 650 mg Q4H PRN PO MILD PAIN LEVEL 1-3 Last administered on 07/16/18 09:24; Admin Dose 650 MG; Start 07/10/18 at 23:09 Acetaminophen (Tylenol Liquid) 650 mg Q4H PRN PO PRN FOR FEVER; Start 07/10/18 at 23:09 Amlodipine Besylate (Norvasc) 10 mg DAILY PO Last administered on 07/14/18 15:41; Admin Dose 10 MG; Start 07/11/18 at 09:00 Baclofen (Lioresal) 10 mg TID PO Last administered on 07/16/18 09:29; Admin Dose 10 MG; Start 07/10/18 at 21:00 Docusate Sodium (Colace Liquid Cup) 100 mg BID PO Last administered on 07/16/18 09:24; Admin Dose 100 MG; Start 07/10/18 at 21:00 Famotidine (Pepcid) 20 mg BID PO Last administered on 07/16/18 09:24; Admin Dose 20 MG; Start 07/10/18 at 21:00 Gabapentin (Neurontin) 100 mg BID PO Last administered on 07/16/18 09:26; Admin Dose 100 MG; Start 07/10/18 at 21:00 Lacosamide (Vimpat Liq) 50 mg BID PO Last administered on 07/16/18 09:25; Admin Dose 50 MG; Start 07/10/18 at 21:00 Levetiracetam (Keppra Liquid) 500 mg BID PO Last administered on 07/16/18 09:24; Admin Dose 500 MG; Start 07/10/18 at 21:00 Levothyroxine Sodium (Synthroid) 88 mcg DAILY@06 PO Last administered on 1/17 /19at 06:21; Admin Dose 88 MCG; Start 07/11/18 at 06:00 Magnesium Hydroxide (Milk Of Mag) 30 ml BID PRN PO CONSTIPATION; Start 07/10/18 at 20:00 Simethicone (Mylicon) 80 mg QID PRN PO DISTENSION/GAS/BLOATING; Start 07/10/18 at 20:00 Zolpidem Tartrate (Ambien) 5 mg HS PO Last administered on 07/15/18at 20:24; Admin Dose 5 MG; Start 07/10/18 at 21:00 Assessment/Plan Additional Assessment/Plan Rehab- L SAH/hydrocephalus-s/p crani & clipping of the L [place]ICK[place] aneurysm and L frontal ventriculostomy placement; Encephalopathy Continue current rehab program Pain- overall improved on current medications Dysphagia- overall improved po intake, continue therapy and education for patient and family. Seizure Disorder-continue seizure precautions Respiratory Failure- decannulated, doing well - Urinary retention- voiding well with low PVRs. Monitor, and begin family ed ucation with regards to bladder management. Spasticity with increased tone in Right Upper and Lower Extremity- Continue baclofen, continue ROM Hypothyroidism ROB CARMONA MD Jul 16, 2018 12:37
[2018-07-16 14:00] VITALS: BP 110/69; PULSE 91; RESP 18
[2018-07-16 19:28] VITALS: BP 117/72; PULSE 62; RESP 17
[2018-07-16] MEDS: OLANZAPINE 2.5 MG TAB PO SCH (21:26)
[2018-07-16] MEDS: ZOLPIDEM 5 MG TAB PO SCH (21:26)
[2018-07-16] MEDS: ATORVASTATIN 20 MG TAB PO SCH (21:26)
[2018-07-17] MEDS: LEVOTHYROXINE 88 MCG TAB PO SCH (06:40)
[2018-07-17 07:00] VITALS: BP 109/72; PULSE 6; PULSE 63; RESP 19
--- NOTE | 2018-07-17 08:12 | NUR ---
SOCIAL WORK NOTE: This program writer spoke w/ Bonnie at [facility] [phone], reports patient has been authorized until 07/23/18.
--- NOTE | 2018-07-17 08:27 | NUR ---
PT SLEPT ON OFF DURING THE NIGHT, C/O PAIN ON HER RIGHT ARM MEDICATED WITH TYLENOL, NO ACUTE DISTRESS NOTED. ALL DUE MEDS GIVEN. KEPT DRY AND CLEAN, BM X 1 INC NOTED.TURN AND REPOSITION Q 2 HOURS. ASPIRATION PRECAUTION. HOURLY ROUNDING MADE. CALL LIGHT AND TABLE ARE WITHIN REACH. DAUGHTER WERE AT BEDSIDE.
[2018-07-17] MEDS: LEVETIRACETAM (100 MG/ML) 5ML CUP PO SCH ×2 (08:45→21:09)
[2018-07-17] MEDS: LACOSAMIDE (100 MG/10 ML PO SYR) PO SCH ×2 (08:45→21:09)
[2018-07-17] MEDS: NYSTATIN SUSP 5 ML CUP PO SCH ×2 (08:45→21:08)
[2018-07-17] MEDS: GABAPENTIN 100 MG CAP PO SCH ×2 (08:46→21:08)
[2018-07-17] MEDS: ACETAMINOPHEN 650MG/20.3ML CUP PO PRN (08:46)
[2018-07-17] MEDS: DOCUSATE SODIUM 10 MG/ML (10ML CUP) PO SCH ×2 (08:46→21:09)
[2018-07-17] MEDS: FAMOTIDINE 20 MG TAB PO SCH ×2 (08:46→21:08)
[2018-07-17] MEDS: LIDOCAINE 5% PATCH TD SCH (08:46)
[2018-07-17] MEDS: BACLOFEN 10 MG TAB PO SCH ×3 (08:48→21:08)
[2018-07-17] MEDS: BALSAM PERU/CASTOR OIL 60 GM TUBE TOP SCH ×2 (08:49→21:10)
[2018-07-17] MEDS: NYSTATIN 30 GM POWDER BTL TOP SCH ×3 (08:49→21:10)
[2018-07-17] MEDS: ENOXAPARIN 40 MG/0.4 ML SYG SC SCH (08:50)
[2018-07-17] MEDS: AMLODIPINE 10 MG TAB PO SCH (09:00)
--- NOTE | 2018-07-17 12:48 | PN ---
Date/Time of Note Date/Time of Note DATE: 07/17/18 TIME: 12:48 Subjective Appears less labile. Good participation Objective Vital Signs Date Temp Pulse Resp B/P (MAP) Pulse Ox O2 O2 Flow FiO2 Time Delivery Rate 07/17/18 98.0 6 19 109/72 97 Room Air 07:00 (84) Intake and Output 07/16/18 07/16/18 07/17/18 1515:00 23:00 07:00 IntakeIntake Total 1000 ml 200 ml OutputOutput Total 300 ml 1 ml BalanceBalance 700 ml 199 ml Exam pulm-cta mod transfers and ambulation Results/Medications Result Diagram: 07/17/18 0614 07/17/18 0614 Results 24 hrs Laboratory Tests Test 07/17/18 06:14 White Blood Count 12.2 #H Red Blood Count 3.82 L Hemoglobin 11.8 L Hematocrit 35.0 L Mean Corpuscular Volume 91.6 Mean Corpuscular Hemoglobin 30.9 Mean Corpuscular Hemoglobin Concent 33.7 Red Cell Distribution Width 13.2 Platelet Count 311 Mean Platelet Volume 10.2 Immature Granulocytes % 0.300 Neutrophils % 63.8 Lymphocytes % 26.0 Monocytes % 7.1 Eosinophils % 2.3 Basophils % 0.5 Nucleated Red Blood Cells % 0.0 Immature Granulocytes # 0.040 H Neutrophils # 7.8 H Lymphocytes # 3.2 H Monocytes # 0.9 Eosinophils # 0.3 Basophils # 0.1 Nucleated Red Blood Cells # 0.0 Sodium Level 137 Potassium Level 3.5 Chloride Level 100 Carbon Dioxide Level 27 Anion Gap 10 Blood Urea Nitrogen 14 Creatinine 0.45 Est Glomerular Filtrat Rate mL/min > 60 Glucose Level 92 Calcium Level 9.3 Phosphorus Level 5.1 H Magnesium Level 2.0 Medications Current Medications Atorvastatin Calcium (Lipitor) 20 mg DAILY@21 PO Last administered on 07/16/18at 21:26; Admin Dose 20 MG; Start 06/26/18 at 23:09 Albuterol (Proventil 0.5% (Neb)) 2.5 mg Q4H RESP THERAPY PRN INH PRN DYSPNEA; Start 06/26/18 at 23:09 Ipratropium [place] (Atrovent 0.02% (Neb)) 0.5 mg Q4H RESP THERAPY PRN INH DYSPNEA; Start 06/26/18 at 23:09 Nystatin (Nystatin Susp) 5 ml BID PO Last administered on 07/17/18 08:45; Admin Dose 5 ML; Start 06/26/18 at 23:09 Olanzapine (Zyprexa) 2.5 mg QHS PO Last administered on 07/16/18 21:26; Admin Dose 2.5 MG; Start 06/26/18 at 23:09 Enoxaparin Sodium (Lovenox) 40 mg DAILY SC Last administered on 07/17/18 08:50; Admin Dose 40 MG; Start 06/26/18 at 23:09 Nystatin (Nystatin Powder) 1 applic TID TOP Last administered on 07/17/18 12:41; Admin Dose 1 APPLIC; Start 06/26/18 at 23:09 Eye Lubricant (Akwa Oint) 1 applic Q1H PRN BOTH EYES PRN; Start 06/26/18 at 23:09 Lactulose (Enulose) 20 gm DAILY PRN GTB CONSTIPATION; Start 06/27/18 at 00:00 Bisacodyl (Dulcolax Supp) 10 mg DAILY PRN [place] CONSTIPATION; Start 06/27/18 at 00:00 Acetaminophen/ Hydrocodone Bitart ([place] (5/325)) 1 tab Q24H PRN GTB SEVERE PAIN LEVEL 7-10 Last administered on 07/07/18 07:45; Admin Dose 1 TAB; Start 07/02/18 at 12:00 Lidocaine (Lidoderm) 1 patch 0800 TD Last administered on 07/17/18 08:46; Admin Dose 1 PATCH; Start 07/10/18 at 08:00 Acetaminophen (Tylenol Liquid) 650 mg Q4H PRN PO MILD PAIN LEVEL 1-3 Last administered on 07/17/18 08:46; Admin Dose 650 MG; Start 07/10/18 at 23:09 Acetaminophen (Tylenol Liquid) 650 mg Q4H PRN PO PRN FOR FEVER; Start 07/10/18 at 23:09 Amlodipine Besylate (Norvasc) 10 mg DAILY PO Last administered on 07/14/18 15:41; Admin Dose 10 MG; Start 07/11/18 at 09:00 Baclofen (Lioresal) 10 mg TID PO Last administered on 07/17/18 12:40; Admin Dose 10 MG; Start 07/10/18 at 21:00 Docusate Sodium (Colace Liquid Cup) 100 mg BID PO Last administered on 07/17/18 08:46; Admin Dose 100 MG; Start 07/10/18 at 21:00 Famotidine (Pepcid) 20 mg BID PO Last administered on 07/17/18 08:46; Admin Dose 20 MG; Start 07/10/18 at 21:00 Gabapentin (Neurontin) 100 mg BID PO Last administered on 07/17/18 08:46; Admin Dose 100 MG; Start 07/10/18 at 21:00 Lacosamide (Vimpat Liq) 50 mg BID PO Last administered on 07/17/18 08:45; Admin Dose 50 MG; Start 07/10/18 at 21:00 Levetiracetam (Keppra Liquid) 500 mg BID PO Last administered on 07/17/18 08:45; Admin Dose 500 MG; Start 07/10/18 at 21:00 Levothyroxine Sodium (Synthroid) 88 mcg DAILY@06 PO Last administered on 07/17/18at 06:40; Admin Dose 88 MCG; Start 07/11/18 at 06:00 Magnesium Hydroxide (Milk Of Mag) 30 ml BID PRN PO CONSTIPATION; Start 07/10/18 at 20:00 Simethicone (Mylicon) 80 mg QID PRN PO DISTENSION/GAS/BLOATING; Start 07/10/18 at 20:00 Zolpidem Tartrate (Ambien) 5 mg HS PO Last administered on 07/16/18at 21:26; Admin Dose 5 MG; Start 07/10/18 at 21:00 Assessment/Plan Additional Assessment/Plan Rehab- L SAH/hydrocephalus-s/p crani & clipping of the L [place] aneurysm and L frontal ventriculostomy placement; Encephalopathy Continue current rehab program, excellent progress, good family support. Pain- overall improved on current medications Dysphagia- overall improved po intake, continue therapy and education for patient and family. Seizure Disorder-continue seizure precautions Respiratory Failure- decannulated, doing well - Urinary retention- voiding well with low PVRs. Monitor, and begin family education with regards to bladder management. Spasticity with increased tone in Right Upper and Lower Extremity- Continue baclofen, continue ROM Hypothyroidism ROB CARMONA MD Jul 17, 2018 12:48
--- NOTE | 2018-07-17 13:35 | NUR ---
Attempted to see pt for ST. Unable to arouse despite max verbal and tactile prompting from ST and family at bedside. Tactile prompting included nail bed and sternal rub. Session discontinued. Addendum: 07/17/18 at [address] RN and family report lack of sleep overnight.
[2018-07-17 14:00] VITALS: BP 95/55; PULSE 61; RESP 16
--- NOTE | 2018-07-17 17:00 | NUR ---
Patient in bed eating dinner assisted by family member. Offered TV & educational materials for recreational activities. Alert, oriented x 1 with periods of confusion. No SOB. Denies pain. No seizure episode noted. Patient refused padded siderails. Offered 3x but refused 3x. Explained risks & benefits but she still refused. Patient kept removing padded siderails. Kept clean & dry. All due meds given. Call light within reach. Bed alarm on & in low position. Kept comfortable.
[2018-07-17 20:05] VITALS: BP 107/65; PULSE 65; RESP 18
[2018-07-17] MEDS: OLANZAPINE 2.5 MG TAB PO SCH (21:08)
[2018-07-17] MEDS: ATORVASTATIN 20 MG TAB PO SCH (21:08)
[2018-07-17] MEDS: ZOLPIDEM 5 MG TAB PO SCH (21:08)
[2018-07-18 02:00] VITALS: BP 112/72; PULSE 62; RESP 18
[2018-07-18] MEDS: LEVOTHYROXINE 88 MCG TAB PO SCH (06:07)
[2018-07-18 07:30] VITALS: BP 122/74; PULSE 72; RESP 18
--- NOTE | 2018-07-18 08:04 | PN ---
Date/Time of Note Date/Time of Note DATE: 07/18/18 TIME: 08:03 Assessment/Plan VTE Prophylaxis Risk score (from Ns)>0 risk: 2 SCD applied (from Ns): No SCD contraindicated: other Pharmacological prophylaxis: other Lines/Catheters IV C[facility]ter Type [facility]from [facility] [place] Lock Urinary Cath still in place: No Assessment/Plan Hospital Course medicine follow up she is awake and tracking no fever, chills, new rash, hematuria, melena, dyspnea or seizure like activiti es. d/w family at the bedside ROS: 13 point ROS was done and pertinent findings are in HPI PHYSICAL EXAMINATION: GENERAL: Shows her to be well developed, well nourished, in no acute distress. HEENT: Status post craniotomy. Pupils are slightly equal, left larger than right. Right is reactive. Left questionably reactive. Fundi: Unable. Ears: Externally normal. Nose: Unremarkable. Mouth and throat: Limited exam. No inflammation seen. NECK: Shows tracheostomy in place. No definite JVD. Nodes are negative, neck and supraclavicular. HEART: Regular rate and rhythm without definite murmurs or gallops appreciated. CHEST: Shows slightly coarse breath sounds, a few rhonchi. No wheeze. Exam limited to supine position. ABDOMEN: Soft, nontender. No masses or organomegaly appreciated. Binders in place. G-tube in place. EXTREMITIES: No clubbing, cyanosis, or edema. No evidence for deep vein thrombosis. NEUROLOGIC: awake but non-verbal Impression and Plan: 1. Acute hypoxemic respiratory failure, clinically stable after decannulation. 2. 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 surgical scar is well healed. continue anti-seizure meds. she is moving left side of her body and is doing well with rehab. continue rehab 3. Seizure secondary to above, controlled. 4. Ischemic encephalopathy due to the above, status post vasospasm, status post obstructive hydrocephalus. 5. Dysphagia, tolerating tube feeding. 6. Hypothyroidism. 7. UTI Result Diagram: 07/17/1861307/17/1814 Exam/Review of Systems Vital Signs Vitals Vital Signs Date Temp Pulse Resp B/P (MAP) Pulse Ox O2 O2 Flow FiO2 Time Delivery Rate 07/18/18 98.4 62 18 112/72 98 Room Air 02:00 (85) Intake and Output 07/17/18 07/17/18 07/18/18 1515:00 23:00 07:00 IntakeIntake Total 100 ml 800 ml 300 ml BalanceBalance 100 ml 800 ml 300 ml Medications Medications Current Medications Atorvastatin Calcium (Lipitor) 20 mg DAILY@21 PO Last administered on 07/17/18 21:08; Admin Dose 20 MG; Start 06/26/18 at 23:09 Albuterol (Proventil 0.5% (Neb)) 2.5 mg Q4H RESP THERAPY PRN INH PRN DYSPNEA; Start 06/26/18 at 23:09 Ipratropium [place] (Atrovent 0.02% (Neb)) 0.5 mg Q4H RESP THERAPY PRN INH DYSPNEA; Start 06/26/18 at 23:09 Nystatin (Nystatin Susp) 5 ml BID PO Last administered on 07/17/18 21:08; Admin Dose 5 ML; Start 06/26/18 at 23:09 Olanzapine (Zyprexa) 2.5 mg QHS PO Last administered on 07/17/18 21:08; Admin Dose 2.5 MG; Start 06/26/18 at 23:09 Enoxaparin Sodium (Lovenox) 40 mg DAILY SC Last administered on 07/17/18 08:50; Admin Dose 40 MG; Start 06/26/18 at 23:09 Nystatin (Nystatin Powder) 1 applic TID TOP Last administered on 07/17/18 21:10; Admin Dose 1 APPLIC; Start 06/26/18 at 23:09 Eye Lubricant (Akwa Oint) 1 applic Q1H PRN BOTH EYES PRN; Start 06/26/18 at 23:09 Lactulose (Enulose) 20 gm DAILY PRN GTB CONSTIPATION; Start 06/27/18 at 00:00 Bisacodyl (Dulcolax Supp) 10 mg DAILY PRN [place] CONSTIPATION; Start 06/27/18 at 00:00 Acetaminophen/ Hydrocodone Bitart ([place] (5/325)) 1 tab Q24H PRN GTB SEVERE PAIN LEVEL 7-10 Last administered on 07/07/18 07:45; Admin Dose 1 TAB; Start 07/02/18 at 12:00 Lidocaine (Lidoderm) 1 patch 0800 TD Last administered on 07/17/18 08:46; Admin Dose 1 PATCH; Start 07/10/18 at 08:00 Acetaminophen (Tylenol Liquid) 650 mg Q4H PRN PO MILD PAIN LEVEL 1-3 Last administered on 07/17/18 08:46; Admin Dose 650 MG; Start 07/10/18 at 23:09 Acetaminophen (Tylenol Liquid) 650 mg Q4H PRN PO PRN FOR FEVER; Start 07/10/18 at 23:09 Amlodipine Besylate (Norvasc) 10 mg DAILY PO Last administered on 07/14/18 15:41; Admin Dose 10 MG; Start 07/11/18 at 09:00 Baclofen (Lioresal) 10 mg TID PO Last administered on 07/17/18 21:08; Admin Dose 10 MG; Start 07/10/18 at 21:00 Docusate Sodium (Colace Liquid Cup) 100 mg BID PO Last administered on 07/17/18 21:09; Admin Dose 100 MG; Start 07/10/18 at 21:00 Famotidine (Pepcid) 20 mg BID PO Last administered on 07/17/18 21:08; Admin D ose 20 MG; Start 07/10/18 at 21:00 Gabapentin (Neurontin) 100 mg BID PO Last administered on 07/17/18 21:08; Admin Dose 100 MG; Start 07/10/18 at 21:00 Lacosamide (Vimpat Liq) 50 mg BID PO Last administered on 07/17/18 21:09; Admin Dose 50 MG; Start 07/10/18 at 21:00 Levetiracetam (Keppra Liquid) 500 mg BID PO Last administered on 07/17/18 21:09; Admin Dose 500 MG; Start 07/10/18 at 21:00 Levothyroxine Sodium (Synthroid) 88 mcg DAILY@06 PO Last administered on 07/18/18 06:07; Admin Dose 88 MCG; Start 07/11/18 at 06:00 Magnesium Hydroxide (Milk Of Mag) 30 ml BID PRN PO CONSTIPATION; Start 07/10/18 at 20:00 Simethicone (Mylicon) 80 mg QID PRN PO DISTENSION/GAS/BLOATING; Start 07/10/18 at 20:00 Zolpidem Tartrate (Ambien) 5 mg HS PO Last administered on 07/17/18at 21:08; Admin Dose 5 MG; Start 07/10/18 at 21:00 HERNAN SHIPLEY DO Jul 18, 2018 08:04
[2018-07-18] MEDS: NYSTATIN SUSP 5 ML CUP PO SCH ×2 (08:59→20:38)
[2018-07-18] MEDS: LIDOCAINE 5% PATCH TD SCH (08:59)
[2018-07-18] MEDS: ACETAMINOPHEN 650MG/20.3ML CUP PO PRN (08:59)
[2018-07-18] MEDS: DOCUSATE SODIUM 10 MG/ML (10ML CUP) PO SCH ×2 (08:59→20:38)
[2018-07-18] MEDS: LEVETIRACETAM (100 MG/ML) 5ML CUP PO SCH ×2 (08:59→20:41)
[2018-07-18] MEDS: LACOSAMIDE (100 MG/10 ML PO SYR) PO SCH ×2 (08:59→20:38)
[2018-07-18] MEDS: ENOXAPARIN 40 MG/0.4 ML SYG SC SCH ×2 (09:00→10:22)
[2018-07-18] MEDS: FAMOTIDINE 20 MG TAB PO SCH ×2 (09:01→20:37)
[2018-07-18] MEDS: GABAPENTIN 100 MG CAP PO SCH ×2 (09:01→20:38)
[2018-07-18] MEDS: BALSAM PERU/CASTOR OIL 60 GM TUBE TOP SCH ×2 (09:02→20:41)
[2018-07-18] MEDS: NYSTATIN 30 GM POWDER BTL TOP SCH ×3 (09:02→20:41)
[2018-07-18] MEDS: AMLODIPINE 10 MG TAB PO SCH (09:02)
[2018-07-18] MEDS: BACLOFEN 10 MG TAB PO SCH ×3 (09:02→20:38)
--- NOTE | 2018-07-18 09:13 | NUR ---
[facility] OT Weekly Summary Dates From: 07/10/18 to 07/18/18 Patient Name: AG MCCOLLUM MR#: [id number] Height: 5 ft 3 in Weight: 139 lbs 5.314 oz 63.200 kg Reason for Visit: NON TRAUMATIC BRAIN INJURY Precautions: fall risk,c onfusion Date: 07/18/18 Time: 912 User: EVELYN BETTS Short-term Goals: 1. Mod A w/ Feeding 2. Mod A w/ Grooming 3. Mod A w/ UB/LB dressing 4. Mod A w/ Toileting 5. Mod A w/ Bathing 6. Mod A w/ functional transfers Patient's progress: Upon admission pt has the following levels: Grooming: Dep, Feeding: Dep, UB/LB dress: Dep/Dep, Toileting: Dep, Bathing: Dep, Functional transfers: Dep. Pt making steady progress towards goal ADL retraining NMRE, thera ex and actv. Pt current levels are:Feeding: MOd A, Grooming: Mod A, Bathing: Max A, UB/LB dress: Mod A/ Dependent, Toileting: dependent, Funct transfers: Max A. Recommended DME: commode, shower chair.Barriers include: emotional lability, poor motivation
--- NOTE | 2018-07-18 12:37 | CONS ---
Date/Time of Note Date/Time of Note DATE: 07/18/18 TIME: 12:34 Consult Date/Type/Reason Admit Date/Time Jun 26, 2018 at 21:04 Initial Consult Date 07/07/18 Type of Consultation: Urology Reason for Consultation Urinary retention and incontinence Requesting Provider: ROB CARMONA MD Subjective Patient is sleeping and nurses tell me she is comfortable and is voiding and the diapers Objective Vital Signs Date Temp Pulse Resp B/P (MAP) Pulse Ox O2 O2 Flow FiO2 Time Delivery Rate 07/18/18 98.4 62 18 112/72 98 Room Air 02:00 (85) Intake and Output 07/17/18 07/17/18 07/18/18 1515:00 23:00 07:00 IntakeIntake Total 100 ml 800 ml 300 ml BalanceBalance 100 ml 800 ml 300 ml Exam She voids in the diapers and her postvoid residual is not high to require in and out catheterization. Results/Medications Result Diagram: 07/18/18 0814 07/17/18 0614 Results 24 hrs Laboratory Tests Test 07/18/18 08:14 White Blood Count 9.3 # Red Blood Count 4.35 Hemoglobin 13.2 Hematocrit 39.3 Mean Corpuscular Volume 90.3 Mean Corpuscular Hemoglobin 30.3 Mean Corpuscular Hemoglobin Concent 33.6 Red Cell Distribution Width 12.9 Platelet Count 306 Mean Platelet Volume 10.0 Immature Granulocytes % 0.300 Neutrophils % 58.1 Lymphocytes % 31.9 Monocytes % 6.7 Eosinophils % 2.6 Basophils % 0.4 Nucleated Red Blood Cells % 0.0 Immature Granulocytes # 0.030 Neutrophils # 5.4 Lymphocytes # 3.0 H Monocytes # 0.6 Eosinophils # 0.2 Basophils # 0.0 Nucleated Red Blood Cells # 0.0 Medications Current Medications Atorvastatin Calcium (Lipitor) 20 mg DAILY@21 PO Last administered on 07/17/18at 21:08; Admin Dose 20 MG; Start 06/26/18 at 23:09 Albuterol (Proventil 0.5% (Neb)) 2.5 mg Q4H RESP THERAPY PRN INH PRN DYSPNEA; Start 06/26/18 at 23:09 Ipratropium [place] (Atrovent 0.02% (Neb)) 0.5 mg Q4H RESP THERAPY PRN INH DYSPNEA; Start 06/26/18 at 23:09 Nystatin (Nystatin Susp) 5 ml BID PO Last administered on 07/18/18 08:59; Admin Dose 5 ML; Start 06/26/18 at 23:09 Olanzapine (Zyprexa) 2.5 mg QHS PO Last administered on 07/17/18 21:08; Admin Dose 2.5 MG; Start 06/26/18 at 23:09 Enoxaparin Sodium (Lovenox) 40 mg DAILY SC Last administered on 07/18/18 10:22; Admin Dose 40 MG; Start 06/26/18 at 23:09 Nystatin (Nystatin Powder) 1 applic TID TOP Last administered on 07/18/18 12:22; Admin Dose 1 APPLIC; Start 06/26/18 at 23:09 Eye Lubricant (Akwa Oint) 1 applic Q1H PRN BOTH EYES PRN; Start 06/26/18 at 23:09 Lactulose (Enulose) 20 gm DAILY PRN GTB CONSTIPATION; Start 06/27/18 at 00:00 Bisacodyl (Dulcolax Supp) 10 mg DAILY PRN [place] CONSTIPATION; Start 06/27/18 at 00:00 Acetaminophen/ Hydrocodone Bitart ([place] (5/325)) 1 tab Q24H PRN GTB SEVERE PAIN LEVEL 7-10 Last administered on 07/07/18 07:45; Admin Dose 1 TAB; Start 07/02/18 at 12:00 Lidocaine (Lidoderm) 1 patch 0800 TD Last administered on 07/18/18 08:59; Adm in Dose 1 PATCH; Start 07/10/18 at 08:00 Acetaminophen (Tylenol Liquid) 650 mg Q4H PRN PO MILD PAIN LEVEL 1-3 Last administered on 07/18/18 08:59; Admin Dose 650 MG; Start 07/10/18 at 23:09 Acetaminophen (Tylenol Liquid) 650 mg Q4H PRN PO PRN FOR FEVER; Start 07/10/18 at 23:09 Amlodipine Besylate (Norvasc) 10 mg DAILY PO Last administered on 07/18/18 09:02; Admin Dose 10 MG; Start 07/11/18 at 09:00 Baclofen (Lioresal) 10 mg TID PO Last administered on 07/18/18 12:21; Admin Dose 10 MG; Start 07/10/18 at 21:00 Docusate Sodium (Colace Liquid Cup) 100 mg BID PO Last administered on 07/18/18 at 08:59; Admin Dose 100 MG; Start 07/10/18 at 21:00 Famotidine (Pepcid) 20 mg BID PO Last administered on 07/18/18at 09:01; Admin Dose 20 MG; Start 07/10/18 at 21:00 Gabapentin (Neurontin) 100 mg BID PO Last administered on 07/18/18at 09:01; Admin Dose 100 MG; Start 07/10/18 at 21:00 Lacosamide (Vimpat Liq) 50 mg BID PO Last administered on 07/18/18at 08:59; Admin Dose 50 MG; Start 07/10/18 at 21:00 Levetiracetam (Keppra Liquid) 500 mg BID PO Last administered on 07/18/18at 08:59; Admin Dose 500 MG; Start 07/10/18 at 21:00 Levothyroxine Sodium (Synthroid) 88 mcg DAILY@06 PO Last administered on 07/18/18at 06:07; Admin Dose 88 MCG; Start 07/11/18 at 06:00 Magnesium Hydroxide (Milk Of Mag) 30 ml BID PRN PO CONSTIPATION; Start 07/10/18 at 20:00 Simethicone (Mylicon) 80 mg QID PRN PO DISTENSION/GAS/BLOATING; Start 07/10/18 at 20:00 Zolpidem Tartrate (Ambien) 5 mg HS PO Last administered on 07/17/18at 21:08; Admin Dose 5 MG; Start 07/10/18 at 21:00 Assessment/Plan Chief Complaint/Hosp Course 57-year-old female was transferred from [facility]. 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 She was stabilized, discharged on 04/07/2018 and readmitted on with neck stiffness with major subarachnoid hemorrhage with midline shift and subfalcine herniation. This progressed to paralysis with altered mental status. She underwent left craniotomy on 04/10/2018 with clipping of the left posterior communicating artery aneurysm and left frontal ventriculostomy placement for drainage of the intraventricular hemorrhage. She had persistent major neurologic deficit with obstructive hydrocephalus, ischemic encephalopathy, and some vasospasm. She had a PEG placement on 04/28/2018 and tracheostomy on 05/01/2018. She had ongoing seizures requiring multiple medications for control. She had urinary tract infection, apparently was treated. On 05/12 she was transferred to [facility] for continuity of care and then to the rehab floor at [facility]. Patient was initially incontinent and then she was placed on intermittent catheterization. She had urinary retention on and off. Now she is voiding and the diapers and her postvoid residual has been low and not requiring any catheterization. Continue present treatment BRENDEN ENRIQUE MD Jul 18, 2018 12:37
[2018-07-18 14:00] VITALS: BP 103/68; PULSE 81; RESP 18
--- NOTE | 2018-07-18 17:30 | NUR ---
Patient in bed playing with her stuff toy. Offered TV & educational materials for recreational activities. Alert, oriented x 1 with periods of confusion. No SOB. Denies pain. No seizure episode noted. Patient refused padded siderails. Offered 3x but refused 3x. Explained risks & benefits but she still refused. Patient kept removing padded siderails. Kept clean & dry. All due meds given. Call light within reach. Bed alarm on & in low position. Kept comfortable.
[2018-07-18 20:01] VITALS: BP 118/65; PULSE 78; RESP 18
[2018-07-18] MEDS: ZOLPIDEM 5 MG TAB PO SCH (20:37)
[2018-07-18] MEDS: OLANZAPINE 2.5 MG TAB PO SCH (20:38)
[2018-07-18] MEDS: ATORVASTATIN 20 MG TAB PO SCH (20:38)
--- NOTE | 2018-07-19 00:13 | NUR ---
[facility] RN Weekly Summary Dates From: 07/13/18 to 07/18/18 Patient Name: AG MCCOLLUM MR#: [id number] Height: 5 ft 3 in Weight: 139 lbs 5.314 oz 63.200 kg Reason for Visit: NON TRAUMATIC BRAIN INJURY Precautions: FALL. PRESSURE ULCER. ASPIRATION Date: 07/19/18 Time: 0014 User: SHAKA GARCIA Short-term Goals: 1. free of falls or injuries 2. Skin integrity will be maintained 3. No episode of aspiration 4. Pt will be continent of B&B 5. Pt will have good pain control Patient's progress: Fair Short-term goals not met and reason/barriers: Ongoing Bladder - level of function and accidents: 1, 14 accidents Bowel - level of function and accidents: 1, 8 accidents Skin: Status: Bilateral heel and sacrococcyx blanching, left lower back scratches,abdomen bruising Treatment: Venelex applied to left and right heels Changes: Pain: Yes Level: 3-6/10 on pain scale Location: Right arm Management:Tab.[place] and Tylenol given Changes: No Functional levels: Self Care:1 Transfers: 1 Locomotion: 1 Assistance requirements: Communication: 1 Social Cognition: 2 Safety awareness: Yes, high risk for falls, bed alarm activated and call light within pt's reach for safety. Interdisciplinary interactions: PT/OT/ST/SW/RN/MD Patient education: Yes, education given QS and PRN to pt and family regarding safety, medications. Discharge needs: Plan to d/c 07/23/18 Comorbid conditions: 1. Encephalopathy 2. Dysphagia-s/p PEG 3. Seizure Disorder 4. Respiratory Failure- s/p tracheostomy, tolerating cap 5. Urinary Tract Infection 6. Spasticity with increased tone in Right upper and Lower extremity 7. Hypothyroidism 8. Impairments in self care, mobility, and cognition Plan of Care continuation: Yes, continue current plan of care.
[2018-07-19 02:00] VITALS: BP 110/70; PULSE 75; RESP 18
[2018-07-19] MEDS: LEVOTHYROXINE 88 MCG TAB PO SCH (06:12)
--- NOTE | 2018-07-19 06:39 | NUR ---
No acute distress noted. No complaints of pain/discomfort noted. Due medications given via PO & meds crushed with applesauce. Strict aspiration precautions observed. Pt is on PVR checks PRN, pt able to void and maintain PVR <350. Repositioned patient Q2H and PRN. Pt kept clean and dry. Slept well during the night. Pt stable. Safety precautions observed at all times. Will endorse to AM nurse all pertinent information.
[2018-07-19 07:00] VITALS: BP 83/49; PULSE 69; RESP 18
--- NOTE | 2018-07-19 08:50 | PN ---
Date/Time of Note Date/Time of Note DATE: 07/19/18 TIME: 08:49 Subjective Patient's current status reviewed with daughter Objective Vital Signs Date Temp Pulse Resp B/P (MAP) Pulse Ox O2 O2 Flow FiO2 Time Delivery Rate 07/19/18 98.2 75 18 110/70 98 Room Air 02:00 (83) Intake and Output 07/18/18 07/18/18 07/19/18 1515:00 23:00 07:00 IntakeIntake Total 50 ml 420 ml BalanceBalance 50 ml 420 ml Exam pulm-cta bd-soft min/mod Results/Medications Result Diagram: 07/18/18 0814 07/17/18 0614 Medications Current Medications Atorvastatin Calcium (Lipitor) 20 mg DAILY@21 PO Last administered on 07/18/18 20:38; Admin Dose 20 MG; Start 06/26/18 at 23:09 Albuterol (Proventil 0.5% (Neb)) 2.5 mg Q4H RESP THERAPY PRN INH PRN DYSPNEA; Start 06/26/18 at 23:09 Ipratropium [place] (Atrovent 0.02% (Neb)) 0.5 mg Q4H RESP THERAPY PRN INH DYSPNEA; Start 06/26/18 at 23:09 Nystatin (Nystatin Susp) 5 ml BID PO Last administered on 07/18/18 20:38; Admin Dose 5 ML; Start 06/26/18 at 23:09 Olanzapine (Zyprexa) 2.5 mg QHS PO Last administered on 07/18/18 20:38; Admin Dose 2.5 MG; Start 06/26/18 at 23:09 Enoxaparin Sodium (Lovenox) 40 mg DAILY SC Last administered on 07/18/18 10:22; Admin Dose 40 MG; Start 06/26/18 at 23:09 Nystatin (Nystatin Powder) 1 applic TID TOP Last administered on 07/18/18 20:41; Admin Dose 1 APPLIC; Start 06/26/18 at 23:09 Eye Lubricant (Akwa Oint) 1 applic Q1H PRN BOTH EYES PRN; Start 06/26/18 at 23:09 Lactulose (Enulose) 20 gm DAILY PRN GTB CONSTIPATION; Start 06/27/18 at 00:00 Bisacodyl (Dulcolax Supp) 10 mg DAILY PRN [place] CONSTIPATION; Start 06/27/18 at 00:00 Acetaminophen/ Hydrocodone Bitart ([place] (5/325)) 1 tab Q24H PRN GTB SEVERE PA IN LEVEL 7-10 Last administered on 07/07/18 07:45; Admin Dose 1 TAB; Start 07/02/18 at 12:00 Lidocaine (Lidoderm) 1 patch 0800 TD Last administered on 07/18/18 08:59; Admin Dose 1 PATCH; Start 07/10/18 at 08:00 Acetaminophen (Tylenol Liquid) 650 mg Q4H PRN PO MILD PAIN LEVEL 1-3 Last administered on 07/18/18 08:59; Admin Dose 650 MG; Start 07/10/18 at 23:09 Acetaminophen (Tylenol Liquid) 650 mg Q4H PRN PO PRN FOR FEVER; Start 07/10/18 at 23:09 Amlodipine Besylate (Norvasc) 10 mg DAILY PO Last administered on 07/18/18 09:02; Admin Dose 10 MG; Start 07/11/18 at 09:00 Baclofen (Lioresal) 10 mg TID PO Last administered on 07/18/18 20:38; Admin Dose 10 MG; Start 07/10/18 at 21:00 Docusate Sodium (Colace Liquid Cup) 100 mg BID PO Last administered on 07/18/18 20:38; Admin Dose 100 MG; Start 07/10/18 at 21:00 Famotidine (Pepcid) 20 mg BID PO Last administered on 07/18/18 20:37; Admin Dose 20 MG; Start 07/10/18 at 21:00 Gabapentin (Neurontin) 100 mg BID PO Last administered on 07/18/18 20:38; Admin Dose 100 MG; Start 07/10/18 at 21:00 Lacosamide (Vimpat Liq) 50 mg BID PO Last administered on 07/18/18 20:38; Admin Dose 50 MG; Start 07/10/18 at 21:00 Levetiracetam (Keppra Liquid) 500 mg BID PO Last administered on 07/18/18 20:41; Admin Dose 500 MG; Start 07/10/18 at 21:00 Levothyroxine Sodium (Synthroid) 88 mcg DAILY@06 PO Last administered on 1/20/19at 06:12; Admin Dose 88 MCG; Start 07/11/18 at 06:00 Magnesium Hydroxide (Milk Of Mag) 30 ml BID PRN PO CONSTIPATION; Start 07/10/18 at 20:00 Simethicone (Mylicon) 80 mg QID PRN PO DISTENSION/GAS/BLOATING; Start 07/10/18 at 20:00 Zolpidem Tartrate (Ambien) 5 mg HS PO Last administered on 07/18/18at 20:37; Admin Dose 5 MG; Start 07/10/18 at 21:00 Assessment/Plan Additional Assessment/Plan Rehab- L SAH/hydrocephalus-s/p crani & clipping of the L [employer] aneurysm and L frontal ventriculostomy placement; Encephalopathy Continue rehab activities Pain- continue current medications Dysphagia- overall improved po intake, continue therapy and education for patient and family. Seizure Disorder-continue seizure precautions Respiratory Failure- decannulated, doing well - Urinary retention- voiding well with low PVRs. Monitor, and begin family education with regards to bladder management. Spasticity with increased tone in Right Upper and Lower Extremity- Continue baclofen, continue ROM Hypothyroidism ROB CARMONA MD Jul 19, 2018 08:50
[2018-07-19] MEDS: DOCUSATE SODIUM 10 MG/ML (10ML CUP) PO SCH ×2 (09:00→21:00)
[2018-07-19] MEDS: NYSTATIN 30 GM POWDER BTL TOP SCH ×3 (09:00→20:47)
[2018-07-19] MEDS: BALSAM PERU/CASTOR OIL 60 GM TUBE TOP SCH ×2 (09:00→20:48)
[2018-07-19] MEDS: AMLODIPINE 10 MG TAB PO SCH (09:00)
--- NOTE | 2018-07-19 09:16 | PN ---
Date/Time of Note Date/Time of Note DATE: 07/19/18 TIME: 09:16 Assessment/Plan VTE Prophylaxis Risk score (from Ns)>0 risk: 2 SCD applied (from Ns): No SCD contraindicated: other Pharmacological prophylaxis: other Lines/Catheters [facility] [place] Urinary Cath still in place: No Assessment/Plan Hospital Course medicine follow up she is awake and tracking no fever, chills, new rash, hematuria, melena, dyspnea or seizure like activiti es. d/w family at the bedside ROS: 13 point ROS was done and pertinent findings are in HPI PHYSICAL EXAMINATION: GENERAL: Shows her to be well developed, well nourished, in no acute distress. HEENT: Status post craniotomy. Pupils are slightly equal, left larger than right. Right is reactive. Left questionably reactive. Fundi: Unable. Ears: Externally normal. Nose: Unremarkable. Mouth and throat: Limited exam. No inflammation seen. NECK: Shows tracheostomy in place. No definite JVD. Nodes are negative, neck and supraclavicular. HEART: Regular rate and rhythm without definite murmurs or gallops appreciated. CHEST: Shows slightly coarse breath sounds, a few rhonchi. No wheeze. Exam limited to supine position. ABDOMEN: Soft, nontender. No masses or organomegaly appreciated. Binders in place. G-tube in place. EXTREMITIES: No clubbing, cyanosis, or edema. No evidence for deep vein thrombosis. NEUROLOGIC: awake but non-verbal Impression and Plan: 1. Acute hypoxemic respiratory failure, clinically stable after decannulation. 2. 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 surgical scar is well healed. continue anti-seizure meds. she is moving left side of her body and is doing well with rehab. continue rehab 3. Seizure secondary to above, controlled. 4. Ischemic encephalopathy due to the above, status post vasospasm, status post obstructive hydrocephalus. 5. Dysphagia, tolerating tube feeding. 6. Hypothyroidism. 7. UTI Result Diagram: 07/18/18 0814 07/17/18 0614 Exam/Review of Systems Vital Signs Vitals Vital Signs Date Temp Pulse Resp B/P (MAP) Pulse Ox O2 O2 Flow FiO2 Time Delivery Rate 07/19/18 97.8 69 18 83/49 (60) 100 Room Air 07:00 Intake and Output 07/18/18 07/18/18 07/19/18 1515:00 23:00 07:00 IntakeIntake Total 50 ml 420 ml BalanceBalance 50 ml 420 ml Medications Medications Current Medications Atorvastatin Calcium (Lipitor) 20 mg DAILY@21 PO Last administered on 07/18/18 20:38; Admin Dose 20 MG; Start 06/26/18 at 23:09 Albuterol (Proventil 0.5% (Neb)) 2.5 mg Q4H RESP THERAPY PRN INH PRN DYSPNEA; Start 06/26/18 at 23:09 Ipratropium [place] (Atrovent 0.02% (Neb)) 0.5 mg Q4H RESP THERAPY PRN INH DYSPNEA; Start 06/26/18 at 23:09 Nystatin (Nystatin Susp) 5 ml BID PO Last administered on 07/18/18 20:38; Admin Dose 5 ML; Start 06/26/18 at 23:09 Olanzapine (Zyprexa) 2.5 mg QHS PO Last administered on 07/18/18 20:38; Admin Dose 2.5 MG; Start 06/26/18 at 23:09 Enoxaparin Sodium (Lovenox) 40 mg DAILY SC Last administered on 07/18/18 10:22; Admin Dose 40 MG; Start 06/26/18 at 23:09 Nystatin (Nystatin Powder) 1 applic TID TOP Last administered on 07/18/18 20:41; Admin Dose 1 APPLIC; Start 06/26/18 at 23:09 Eye Lubricant (Akwa Oint) 1 applic Q1H PRN BOTH EYES PRN; Start 06/26/18 at 23:09 Lactulose (Enulose) 20 gm DAILY PRN GTB CONSTIPATION; Start 06/27/18 at 00:00 Bisacodyl (Dulcolax Supp) [address] CONSTIPATION; Start 06/27/18 at 00:00 Acetaminophen/ Hydrocodone Bitart ([place] (5/325)) 1 tab Q24H PRN GTB SEVERE PAIN LEVEL 7-10 Last administered on 07/07/18 07:45; Admin Dose 1 TAB; Start 07/02/18 at 12:00 Lidocaine (Lidoderm) 1 patch 0800 TD Last administered on 07/18/18 08:59; Admin Dose 1 PATCH; Start 07/10/18 at 08:00 Acetaminophen (Tylenol Liquid) 650 mg Q4H PRN PO MILD PAIN LEVEL 1-3 Last administered on 07/18/18 08:59; Admin Dose 650 MG; Start 07/10/18 at 23:09 Acetaminophen (Tylenol Liquid) 650 mg Q4H PRN PO PRN FOR FEVER; Start 07/10/18 at 23:09 Amlodipine Besylate (Norvasc) 10 mg DAILY PO Last administered on 07/18/18 09:02; Admin Dose 10 MG; Start 07/11/18 at 09:00 Baclofen (Lioresal) 10 mg TID PO Last administered on 07/18/18 20:38; Admin Dose 10 MG; Start 07/10/18 at 21:00 Docusate Sodium (Colace Liquid Cup) 100 mg BID PO Last administered on 07/18/18 20:38; Admin Dose 100 MG; Start 07/10/18 at 21:00 Famotidine (Pepcid) 20 mg BID PO Last administered on 07/18/18 20:37; Admin Dose 20 MG; Start 07/10/18 at 21:00 Gabapentin (Neurontin) 100 mg BID PO Last administered on 07/18/18 20:38; Adm in Dose 100 MG; Start 07/10/18 at 21:00 Lacosamide (Vimpat Liq) 50 mg BID PO Last administered on 07/18/18 20:38; Admin Dose 50 MG; Start 07/10/18 at 21:00 Levetiracetam (Keppra Liquid) 500 mg BID PO Last administered on 07/18/18 20:41; Admin Dose 500 MG; Start 07/10/18 at 21:00 Levothyroxine Sodium (Synthroid) 88 mcg DAILY@06 PO Last administered on 07/19/18 06:12; Admin Dose 88 MCG; Start 07/11/18 at 06:00 Magnesium Hydroxide (Milk Of Mag) 30 ml BID PRN PO CONSTIPATION; Start 07/10/18 at 20:00 Simethicone (Mylicon) 80 mg QID PRN PO DISTENSION/GAS/BLOATING; Start 07/10/18 at 20:00 Zolpidem Tartrate (Ambien) 5 mg HS PO Last administered on 07/18/18at 20:37; Admin Dose 5 MG; Start 07/10/18 at 21:00 HERNAN SHIPLEY DO Jul 19, 2018 09:16
[2018-07-19] MEDS: LEVETIRACETAM (100 MG/ML) 5ML CUP PO SCH ×2 (09:39→20:46)
[2018-07-19] MEDS: NYSTATIN SUSP 5 ML CUP PO SCH ×2 (09:39→20:46)
[2018-07-19] MEDS: FAMOTIDINE 20 MG TAB PO SCH ×2 (09:40→20:46)
[2018-07-19] MEDS: GABAPENTIN 100 MG CAP PO SCH ×2 (09:40→20:46)
[2018-07-19] MEDS: BACLOFEN 10 MG TAB PO SCH ×3 (09:40→20:46)
[2018-07-19] MEDS: LACOSAMIDE (100 MG/10 ML PO SYR) PO SCH ×2 (09:40→20:46)
[2018-07-19] MEDS: LIDOCAINE 5% PATCH TD SCH (09:41)
[2018-07-19] MEDS: ENOXAPARIN 40 MG/0.4 ML SYG SC SCH (09:45)
[2018-07-19 14:00] VITALS: BP 108/57; PULSE 80; RESP 18
--- NOTE | 2018-07-19 18:02 | NUR ---
Patient sleeping in bed with family at bedside. All meds taken, patient total assist with toileting , multiple incontinent bm today.All hygiene needs met.Call light in reach, bed alarm on.
[2018-07-19 20:10] VITALS: BP 142/72; PULSE 92; RESP 18
[2018-07-19] MEDS: ZOLPIDEM 5 MG TAB PO SCH (20:46)
[2018-07-19] MEDS: OLANZAPINE 2.5 MG TAB PO SCH (20:46)
[2018-07-19] MEDS: ATORVASTATIN 20 MG TAB PO SCH (20:46)
[2018-07-19] MEDS: ACETAMINOPHEN 650MG/20.3ML CUP PO PRN (21:13)
[2018-07-20 01:54] VITALS: BP 116/63; PULSE 76; RESP 18
--- NOTE | 2018-07-20 05:05 | NUR ---
PATIENT SLEPT WELL. NO VOIDING DURING THE NIGHT. CONTINUE MONITOR BLADDER SCAN. MEDICATED WITH TYLENOL FOR STOMACH, ARM PAIN WITH RELIEF. RECREATIONAL ACTIVITIES PROVIDED TO PATIENT; WATCHING TV. AT BEDSIDE. CALL LIGHT WITHIN REACH
[2018-07-20] MEDS: LEVOTHYROXINE 88 MCG TAB PO SCH (05:38)
[2018-07-20 07:30] VITALS: BP 121/72; PULSE 66; RESP 20
--- NOTE | 2018-07-20 07:57 | PN ---
DATE: 07/20/2018 SUBJECTIVE: The patient is stable, no events overnight. No fevers, chills, nausea, or vomiting. OBJECTIVE: VITAL SIGNS: Blood pressure is 116/63, respirations 18, pulse 76, temperature 97.9. HEENT: Head is normocephalic. NECK: Supple. HEART: Regular rate. LUNGS: Show diminished breath sounds at the base. ABDOMEN: Soft, nontender to palpation without rebound or guarding. EXTREMITIES: Negative for clubbing, cyanosis, no edema. DERMATOLOGIC: No rashes. MUSCULOSKELETAL: No joint effusion. NEUROLOGIC: No change in exam. MEDICATIONS: Reviewed. LABORATORY DATA: Reviewed. ASSESSMENT AND PLAN: 1. Urinary retention. The patient is currently stable. Continue to monitor postvoid residuals. Co ntinue in and out catheterization. 2. Seizure disorder. Continue medical management. 3. Hypothyroidism. Continue Synthroid. 4. Chronic encephalopathy, stable. Continue to monitor. 5. Hypertension. Continue current blood pressure regimen. 6. History of cerebrovascular accident. Continue medical management. 7. Behavioral mood disorder. Continue Zyprexa. 8. Neuropathy. Continue Neurontin. 9. Status post urinary tract infection. 10. Status post respiratory failure. 11. Status post subarachnoid hemorrhage. Dictated By: ANGIE CORDOVA DO NR/NTS Conf#: [id number] DID#: [id number] CC: BRENDEN ENRIQUE MD; HERNAN SHIPLEY DO;*EndCC*
[2018-07-20] MEDS: LIDOCAINE 5% PATCH TD SCH (08:10)
[2018-07-20] MEDS: LACOSAMIDE (100 MG/10 ML PO SYR) PO SCH ×2 (08:11→20:21)
[2018-07-20] MEDS: ACETAMINOPHEN 650MG/20.3ML CUP PO PRN (08:11)
[2018-07-20] MEDS: DOCUSATE SODIUM 10 MG/ML (10ML CUP) PO SCH ×2 (08:11→20:22)
[2018-07-20] MEDS: LEVETIRACETAM (100 MG/ML) 5ML CUP PO SCH ×2 (08:11→20:22)
[2018-07-20] MEDS: NYSTATIN SUSP 5 ML CUP PO SCH ×2 (08:11→20:22)
[2018-07-20] MEDS: ENOXAPARIN 40 MG/0.4 ML SYG SC SCH (08:12)
[2018-07-20] MEDS: AMLODIPINE 10 MG TAB PO SCH (08:12)
[2018-07-20] MEDS: GABAPENTIN 100 MG CAP PO SCH ×2 (08:12→20:22)
[2018-07-20] MEDS: BACLOFEN 10 MG TAB PO SCH ×3 (08:12→20:22)
[2018-07-20] MEDS: FAMOTIDINE 20 MG TAB PO SCH ×2 (08:12→20:22)
--- NOTE | 2018-07-20 08:12 | PN ---
DATE: 07/17/2018 SUBJECTIVE: The patient is stable, no events overnight. No fevers, chills, nausea, vomiting. OBJECTIVE: VITAL SIGNS: Blood pressure is 117/72, respirations 15, pulse 62, temperature 97.8. HEENT: Head is normocephalic. NECK: Supple. HEART: Regular rate. LUNGS: Show diminished breath sounds at the base. ABDOMEN: Soft, nontender to palpation without rebound or guarding. EXTREMITIES: Negative for clubbing, cyanosis, no edema. DERMATOLOGIC: No rashes. MUSCULOSKELETAL: No joint effusion. NEUROLOGIC: No change in exam. MEDICATIONS: The patient's medications have been reviewed. LABORATORY DATA: From 07/17/2018 was reviewed. The patient's BMP within normal limits, a white coun t of 12.2, hemoglobin 11.8. ASSESSMENT AND PLAN: 1. Urinary retention. Continue to monitor postvoid residuals. Continue in and out catheterization as needed. Follow up with urology. 2. Urinary tract infection. Patient completing antibiotic course. 3. Seizure disorder. Continue medical management. 4. Hypertension. She is Synthroid. 5. Leukocytosis, systematic inflammatory response syndrome. Continue to monitor. Repeat a CBC. No obvious signs of infection at this time. 6. Chronic encephalopathy. Continue to monitor. 7. Hypertension. Continue current blood pressure regimen. 8. History of cerebrovascular accident. 9. Mood disorder. Continue Zyprexa. 10. Neuropathy. Continue Neurontin. 11. Status post respiratory failure. 12. Status post subarachnoid hemorrhage. Dictated By: ANGIE CORDOVA DO NR/NTS Conf#: [id number] DID#: [id number] CC: HERNAN SHIPLEY DO;*EndCC*
[2018-07-20] MEDS: BALSAM PERU/CASTOR OIL 60 GM TUBE TOP SCH ×2 (08:13→20:29)
[2018-07-20] MEDS: NYSTATIN 30 GM POWDER BTL TOP SCH ×3 (08:13→20:29)
[2018-07-20] MEDS: HYDROCODONE/APAP (5/325) TAB GTB PRN (10:16)
--- NOTE | 2018-07-20 13:26 | PN ---
Date/Time of Note Date/Time of Note DATE: 07/20/18 TIME: 13:22 Subjective No new complaints Objective Vital Signs Date Temp Pulse Resp B/P (MAP) Pulse Ox O2 O2 Flow FiO2 Time Delivery Rate 07/20/18 96.5 66 20 121/72 98 Room Air 07:30 (88) Intake and Output 07/19/18 07/19/18 07/20/18 1515:00 23:00 07:00 IntakeIntake Total 1100 ml 50 ml OutputOutput Total 400 ml BalanceBalance 700 ml 50 ml Exam Physical Exam: Pulm-cta Abd-soft BOWEL- Cont BLADDER-Cont/incont SKIN- intact OT- DRESSING- mod/max BATHING-mod/max TOILETING-mod/max PT- BED MOBILITY-mod/min TRANSFERS-mod/min AMBULATION-min 150 feet SPEECH- COGNITION-max Dysphagia- tolerating ground diet A/P- Interdisciplinary team conference held today. Please see interdisciplinary sheet. Working toward d.c. on 07/23 with post discharge follow up of physical therapy, occupational therapy, speech therapy at transitional facility Results/Medications Result Diagram: 07/18/18 0814 07/17/18 0614 Medications Current Medications Atorvastatin Calcium (Lipitor) 20 mg DAILY@21 PO Last administered on 07/19/18at 20:46; Admin Dose 20 MG; Start 06/26/18 at 23:09 Albuterol (Proventil 0.5% (Neb)) 2.5 mg Q4H RESP THERAPY PRN INH PRN DYSPNEA; Start 06/26/18 at 23:09 Ipratropium [place] (Atrovent 0.02% (Neb)) 0.5 mg Q4H RESP THERAPY PRN INH DYSPNEA; Start 06/26/18 at 23:09 Nystatin (Nystatin Susp) 5 ml BID PO Last administered on 07/20/18at 08:11; Admin Dose 5 ML; Start 06/26/18 at 23:09 Olanzapine (Zyprexa) 2.5 mg QHS PO Last administered on 07/19/18at 20:46; Admin Dose 2.5 MG; Start 06/26/18 at 23:09 Enoxaparin Sodium (Lovenox) 40 mg DAILY SC Last administered on 07/20/18at 08:12; Admin Dose 40 MG; Start 06/26/18 at 23:09 Nystatin (Nystatin Powder) 1 applic TID TOP Last administered on 07/20/18 12:38; Admin Dose 1 APPLIC; Start 06/26/18 at 23:09 Eye Lubricant (Akwa Oint) 1 applic Q1H PRN BOTH EYES PRN; Start 06/26/18 at 23:09 Lactulose (Enulose) 20 gm DAILY PRN GTB CONSTIPATION; Start 06/27/18 at 00:00 Bisacodyl (Dulcolax Supp) 10 mg DAILY PRN [place] CONSTIPATION; Start 06/27/18 at 00:00 Acetaminophen/ Hydrocodone Bitart ([place] (5/325)) 1 tab Q24H PRN GTB SEVERE PAIN LEVEL 7-10 Last administered on 07/20/18 10:16; Admin Dose 1 TAB; Start 07/02/18 at 12:00 Lidocaine (Lidoderm) 1 patch 0800 TD Last administered on 07/20/18 08:10; Admin Dose 1 PATCH; Start 07/10/18 at 08:00 Acetaminophen (Tylenol Liquid) 650 mg Q4H PRN PO MILD PAIN LEVEL 1-3 Last administered on 07/20/18 08:11; Admin Dose 650 MG; Start 07/10/18 at 23:09 Acetaminophen (Tylenol Liquid) 650 mg Q4H PRN PO PRN FOR FEVER; Start 07/10/18 at 23:09 Amlodipine Besylate (Norvasc) 10 mg DAILY PO Last administered on 07/20/18 08:12; Admin Dose 10 MG; Start 07/11/18 at 09:00 Baclofen (Lioresal) 10 mg TID PO Last administered on 07/20/18 12:38; Admin Dose 10 MG; Start 07/10/18 at 21:00 Docusate Sodium (Colace Liquid Cup) 100 mg BID PO Last administered on 07/20/18 08:11; Admin Dose 100 MG; Start 07/10/18 at 21:00 Famotidine (Pepcid) 20 mg BID PO Last administered on 07/20/18 08:12; Admin Dose 20 MG; Start 07/10/18 at 21:00 Gabapentin (Neurontin) 100 mg BID PO Last administered on 07/20/18 08:12; Admin Dose 100 MG; Start 07/10/18 at 21:00 Lacosamide (Vimpat Liq) 50 mg BID PO Last administered on 07/20/18at 08:11; Admin Dose 50 MG; Start 07/10/18 at 21:00 Levetiracetam (Keppra Liquid) 500 mg BID PO Last administered on 07/20/18at 08:11; Admin Dose 500 MG; Start 07/10/18 at 21:00 Levothyroxine Sodium (Synthroid) 88 mcg DAILY@06 PO Last administered on 07/20/18at 05:38; Admin Dose 88 MCG; Start 07/11/18 at 06:00 Magnesium Hydroxide (Milk Of Mag) 30 ml BID PRN PO CONSTIPATION; Start 07/10/18 at 20:00 Simethicone (Mylicon) 80 mg QID PRN PO DISTENSION/GAS/BLOATING; Start 07/10/18 at 20:00 Zolpidem Tartrate (Ambien) 5 mg HS PO Last administered on 07/19/18at 20:46; Admin Dose 5 MG; Start 07/10/18 at 21:00 ROB CARMONA MD Jul 20, 2018 13:26
[2018-07-20 14:00] VITALS: BP 114/81; PULSE 77; RESP 18
--- NOTE | 2018-07-20 15:30 | NUR ---
[facility] PT Weekly Summary Dates From: 07/13/18 to 07/20/18 Patient Name: AG MCCOLLUM MR#: [id number] Height: 5 ft 3 in Weight: 139 lbs 5.314 oz 63.200 kg Reason for Visit: NON TRAUMATIC BRAIN INJURY Precautions: fall risk, Rt hemiplegia, Rt-side neglect, confused, emotionally labile, premedicate for RUE pain per Dr. Gill Date: 07/20/18 Time: 1530 User: BHARGAVI PATEL Short-term Goals: 1. Bed Mobility with Min A 2. All transfers with Min A 3. Gait training with AD with min A 50ft x20 Pt making very conservative progress during her stay at [facility]. Pt demonstrates Max A for bed mobility, Mod A for transfers, Min A for gait using Lt rail in the hallway/JOY OPERATOR 2PA for WC follow [id number], Dep for WC mobility x10ft. Barriers: Rt hemiplegia, Rt neglect, confusion, follows less than 25% simple commands, emotional lability, poor carryover of learning/dec ability to retain information, multiple refusals, at times resistive and uncooperative. Recommend FWW with Rt FA trough, manual WC with swing away foot rests, BSC, home with HHPT and 24hr assistance. Cont POC and progress as tolerated.
--- NOTE | 2018-07-20 17:28 | NUR ---
Patient in bed eating dinner accompanied by nurse blacksmith assistant. Offered TV & educational materials for recreational activities. Alert, oriented x 1 with periods of confusion. No SOB. Denies pain. No seizure episode noted. Patient refused padded siderails. Offered 3x but refused 3x. Explained risks & benefits but she still refused. Patient kept removing padded siderails. Kept clean & dry. All due meds given. Call light within reach. Bed alarm on & in low position. Kept comfortable.
[2018-07-20 19:47] VITALS: BP 131/62; PULSE 83; RESP 18
[2018-07-20] MEDS: ZOLPIDEM 5 MG TAB PO SCH (20:22)
[2018-07-20] MEDS: OLANZAPINE 2.5 MG TAB PO SCH (20:22)
[2018-07-20] MEDS: ATORVASTATIN 20 MG TAB PO SCH (20:22)
[2018-07-21 01:54] VITALS: BP 119/74; PULSE 74; RESP 18
[2018-07-21] MEDS: LEVOTHYROXINE 88 MCG TAB PO SCH (06:58)
--- NOTE | 2018-07-21 07:02 | NUR ---
PT SLEPT WELL AFTER TAKING HER MEDS WHEN WAS HERE AT BEDSIDE. DENIES PAIN. NO DISTRESS NOTED. LIDODERM PATCH REMOVED. BLADDER SCAN PER ORDER. PT STILL INC. KEPT DRY AND CLEAN. TURN AND REPOSITION Q 2 HOURS. HOURLY ROUNDING MADE. CALL LIGHT AND TABLE ARE WITHIN REACH.
[2018-07-21 07:30] VITALS: BP 103/60; PULSE 62; RESP 18
[2018-07-21] MEDS: DOCUSATE SODIUM 10 MG/ML (10ML CUP) PO SCH ×2 (08:19→20:47)
[2018-07-21] MEDS: LEVETIRACETAM (100 MG/ML) 5ML CUP PO SCH ×2 (08:20→20:47)
[2018-07-21] MEDS: ACETAMINOPHEN 650MG/20.3ML CUP PO PRN (08:20)
[2018-07-21] MEDS: GABAPENTIN 100 MG CAP PO SCH ×2 (08:20→20:46)
[2018-07-21] MEDS: AMLODIPINE 10 MG TAB PO SCH (08:20)
[2018-07-21] MEDS: NYSTATIN SUSP 5 ML CUP PO SCH ×2 (08:21→20:47)
[2018-07-21] MEDS: LACOSAMIDE (100 MG/10 ML PO SYR) PO SCH ×2 (08:21→20:47)
[2018-07-21] MEDS: LIDOCAINE 5% PATCH TD SCH (08:21)
[2018-07-21] MEDS: FAMOTIDINE 20 MG TAB PO SCH ×2 (08:21→20:46)
[2018-07-21] MEDS: BACLOFEN 10 MG TAB PO SCH ×3 (08:21→20:46)
[2018-07-21] MEDS: ENOXAPARIN 40 MG/0.4 ML SYG SC SCH (08:22)
[2018-07-21] MEDS: BALSAM PERU/CASTOR OIL 60 GM TUBE TOP SCH ×2 (08:23→21:03)
[2018-07-21] MEDS: NYSTATIN 30 GM POWDER BTL TOP SCH ×3 (08:23→21:02)
--- NOTE | 2018-07-21 08:31 | PN ---
DATE: 07/21/2018 SUBJECTIVE: The patient is stable. No events overnight. OBJECTIVE: VITAL SIGNS: Blood pressure is 131/62, pulse 83, respirations 20, temperature 98.0. HEENT: Head is normocephalic. NECK: Supple. HEART: Regular rate. LUNGS: Show diminished breath sounds at the base. ABDOMEN: Soft, nontender to palpation without rebound or guarding. EXTREMITIES: Negative for clubbing, cyanosis, no edema. DERMATOLOGIC: No rashes. MUSCULOSKELETAL: No joint effusion. NEUROLOGIC: No change in exam. MEDICATIONS: Reviewed. LABORATORY DATA: Reviewed. ASSESSMENT AND PLAN: 1. Urinary retention, improving. Continue to monitor postvoid residuals. Continue in and out erick terization. 2. Seizure disorder. Continue medical management. 3. Hypertension. Continue current blood pressure regimen. 4. Hypothyroidism. Continue Synthroid. 5. Systemic inflammatory response syndrome. Continue to monitor. No signs of infection. 6. Chronic encephalopathy. Continue to monitor. 7. History of cerebrovascular accident. Continue medical management. 8. Mood disorder. Continue Zyprexa. 9. Neuropathy. Continue Neurontin. 10. Status post urinary tract infection. 11. Status post respiratory failure. 12. Status post subarachnoid hemorrhage. Dictated By: ANGIE CORDOVA DO NR/NTS Conf#: [id number] DID#: [id number] CC: BRENDEN ENRIQUE MD; HERNAN SHIPLEY DO;*EndCC*
--- NOTE | 2018-07-21 11:11 | NUR ---
SOCIAL WORK NOTE: This underwriter solicitation director spoke w/ Dione at [facility] [phone], reports that the request was sent to pt insurance on 07/20/18, turn around time is up to 48 hrs. Dione will update this social human services assistants as soon as she gets response from the insurance. This underwriter solicitation director discussed w/ pt and daughter, both are still in agreement.
--- NOTE | 2018-07-21 11:59 | PN ---
Date/Time of Note Date/Time of Note DATE: 07/21/18 TIME: 11:59 Subjective Patient following commands Objective Vital Signs Date Temp Pulse Resp B/P (MAP) Pulse Ox O2 O2 Flow FiO2 Time Delivery Rate 07/21/18 97.7 62 18 103/60 96 Room Air 07:30 (74) Intake and Output 07/20/18 07/20/18 07/21/18 1515:00 23:00 07:00 IntakeIntake Total 1010 ml BalanceBalance 1010 ml Exam pulm-cta abd-soft mod assist Results/Medications Result Diagram: 07/18/1814 07/17/1814 Medications Current Medications Atorvastatin Calcium (Lipitor) 20 mg DAILY@21 PO Last administered on 07/20/18 20:22; Admin Dose 20 MG; Start 06/26/18 at 23:09 Albuterol (Proventil 0.5% (Neb)) 2.5 mg Q4H RESP THERAPY PRN INH PRN DYSPNEA; Start 06/26/18 at 23:09 Ipratropium [place] (Atrovent 0.02% (Neb)) 0.5 mg Q4H RESP THERAPY PRN INH DYSPNEA; Start 06/26/18 at 23:09 Nystatin (Nystatin Susp) 5 ml BID PO Last administered on 07/21/18 08:21; Admin Dose 5 ML; Start 06/26/18 at 23:09 Olanzapine (Zyprexa) 2.5 mg QHS PO Last administered on 07/20/18 20:22; Admin Dose 2.5 MG; Start 06/26/18 at 23:09 Enoxaparin Sodium (Lovenox) 40 mg DAILY SC Last administered on 07/21/18 08:22; Admin Dose 40 MG; Start 06/26/18 at 23:09 Nystatin (Nystatin Powder) 1 applic TID TOP Last administered on 07/21/18 08:23; Admin Dose 1 APPLIC; Start 06/26/18 at 23:09 Eye Lubricant (Akwa Oint) 1 applic Q1H PRN BOTH EYES PRN; Start 06/26/18 at 23:09 Lactulose (Enulose) 20 gm DAILY PRN GTB CONSTIPATION; Start 06/27/18 at 00:00 Bisacodyl (Dulcolax Supp) 10 mg DAILY PRN [place] CONSTIPATION; Start 06/27/18 at 00:00 Acetaminophen/ Hydrocodone Bitart ([place] (5/325)) 1 tab Q24H PRN GTB SEVERE PAIN LEVEL 7-10 Last administered on 07/20/18 10:16; Admin Dose 1 TAB; Start 07/02/18 at 12:00 Lidocaine (Lidoderm) 1 patch 0800 TD Last administered on 07/21/18 08:21; Admin Dose 1 PATCH; Start 07/10/18 at 08:00 Acetaminophen (Tylenol Liquid) 650 mg Q4H PRN PO MILD PAIN LEVEL 1-3 Last administered on 07/21/18 08:20; Admin Dose 650 MG; Start 07/10/18 at 23:09 Acetaminophen (Tylenol Liquid) 650 mg Q4H PRN PO PRN FOR FEVER; Start 07/10/18 at 23:09 Amlodipine Besylate (Norvasc) 10 mg DAILY PO Last administered on 07/20/18 08:12; Admin Dose 10 MG; Start 07/11/18 at 09:00 Baclofen (Lioresal) 10 mg TID PO Last administered on 07/21/18 08:21; Admin Dose 10 MG; Start 07/10/18 at 21:00 Docusate Sodium (Colace Liquid Cup) 100 mg BID PO Last administered on 07/21/18 08:19; Admin Dose 100 MG; Start 07/10/18 at 21:00 Famotidine (Pepcid) 20 mg BID PO Last administered on 07/21/18 08:21; Admin Dose 20 MG; Start 07/10/18 at 21:00 Gabapentin (Neurontin) 100 mg BID PO Last administered on 07/21/18 08:20; Admin Dose 100 MG; Start 07/10/18 at 21:00 Lacosamide (Vimpat Liq) 50 mg BID PO Last administered on 07/21/18 08:21; Admin Dose 50 MG; Start 07/10/18 at 21:00 Levetiracetam (Keppra Liquid) 500 mg BID PO Last administered on 07/21/18 08:20; Admin Dose 500 MG; Start 07/10/18 at 21:00 Levothyroxine Sodium (Synthroid) 88 mcg DAILY@06 PO Last administered on 07/21/18 06:58; Admin Dose 88 MCG; Start 07/11/18 at 06:00 Magnesium Hydroxide (Milk Of Mag) 30 ml BID PRN PO CONSTIPATION; Start 07/10/18 at 20:00 Simethicone (Mylicon) 80 mg QID PRN PO DISTENSION/GAS/BLOATING; Start 07/10/18 at 20:00 Zolpidem Tartrate (Ambien) 5 mg HS PO Last administered on 07/20/18at 20:22; Admin Dose 5 MG; Start 07/10/18 at 21:00 Assessment/Plan Additional Assessment/Plan Rehab- L SAH/hydrocephalus-s/p crani & clipping of the 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 Seizure Disorder-continue seizure precautions Respiratory Failure- decannulated, doing well - Urinary retention- voiding well with low PVRs. Monitor, and begin family education with regards to bladder management. Spasticity with increased tone in Right Upper and Lower Extremity- Continue baclofen, continue ROM Hypothyroidism ROB CARMONA MD Jul 21, 2018 11:59
--- NOTE | 2018-07-21 13:08 | CONS ---
Date/Time of Note Date/Time of Note DATE: 07/21/18 TIME: 13:05 Consult Date/Type/Reason Admit Date/Time Jun 26, 2018 at 21:04 Initial Consult Date 07/07/18 Type of Consultation: Urology Reason for Consultation Urinary retention Requesting Provider: ROB CARMONA MD Subjective Patient sitting up in the chair. She appears to be comfortable. Her is at her bedside. Objective Vital Signs Date Temp Pulse Resp B/P (MAP) Pulse Ox O2 O2 Flow FiO2 Time Delivery Rate 07/21/18 97.7 62 18 103/60 96 Room Air 07:30 (74) Intake and Output 07/20/18 07/20/18 07/21/18 1515:00 23:00 07:00 IntakeIntake Total 1010 ml BalanceBalance 1010 ml Exam The patient has been voiding and much better when she is sitting to urinate. The postvoid residual then is low and she does not need any straight catheterization Results/Medications Result Diagram: 07/18/18 0814 07/17/18 0614 Medications Current Medications Atorvastatin Calcium (Lipitor) 20 mg DAILY@21 PO Last administered on 07/20/18 20:22; Admin Dose 20 MG; Start 06/26/18 at 23:09 Albuterol (Proventil 0.5% (Neb)) 2.5 mg Q4H RESP THERAPY PRN INH PRN DYSPNEA; Start 06/26/18 at 23:09 Ipratropium [place] (Atrovent 0.02% (Neb)) 0.5 mg Q4H RESP THERAPY PRN INH DYSPNEA; Start 06/26/18 at 23:09 Nystatin (Nystatin Susp) 5 ml BID PO Last administered on 07/21/18 08:21; Admin Dose 5 ML; Start 06/26/18 at 23:09 Olanzapine (Zyprexa) 2.5 mg QHS PO Last administered on 07/20/18 20:22; Admin Dose 2.5 MG; Start 06/26/18 at 23:09 Enoxaparin Sodium (Lovenox) 40 mg DAILY SC Last administered on 07/21/18 08:22; Admin Dose 40 MG; Start 06/26/18 at 23:09 Nystatin (Nystatin Powder) 1 applic TID TOP Last administered on 07/21/18 12:26; Admin Dose 1 APPLIC; Start 06/26/18 at 23:09 Eye Lubricant (Akwa Oint) 1 applic Q1H PRN BOTH EYES PRN; Start 06/26/18 at 23:09 Lactulose (Enulose) 20 gm DAILY PRN GTB CONSTIPATION; Start 06/27/18 at 00:00 Bisacodyl (Dulcolax Supp) 10 mg DAILY PRN [place] CONSTIPATION; Start 06/27/18 at 00:00 Acetaminophen/ Hydrocodone Bitart ([place] (5/325)) 1 tab Q24H PRN GTB SEVERE PAIN LEVEL 7-10 Last administered on 07/20/18 10:16; Admin Dose 1 TAB; Start 07/02/18 at 12:00 Lidocaine (Lidoderm) 1 patch 0800 TD Last administered on 07/21/18 08:21; Admin Dose 1 PATCH; Start 07/10/18 at 08:00 Acetaminophen (Tylenol Liquid) 650 mg Q4H PRN PO MILD PAIN LEVEL 1-3 Last admin istered on 07/21/18 08:20; Admin Dose 650 MG; Start 07/10/18 at 23:09 Acetaminophen (Tylenol Liquid) 650 mg Q4H PRN PO PRN FOR FEVER; Start 07/10/18 at 23:09 Amlodipine Besylate (Norvasc) 10 mg DAILY PO Last administered on 07/20/18 08:12; Admin Dose 10 MG; Start 07/11/18 at 09:00 Baclofen (Lioresal) 10 mg TID PO Last administered on 07/21/18 12:25; Admin Dose 10 MG; Start 07/10/18 at 21:00 Docusate Sodium (Colace Liquid Cup) 100 mg BID PO Last administered on 07/21/18 08:19; Admin Dose 100 MG; Start 07/10/18 at 21:00 Famotidine (Pepcid) 20 mg BID PO Last administered on 07/21/18 08:21; Admin Dose 20 MG; Start 07/10/18 at 21:00 Gabapentin (Neurontin) 100 mg BID PO Last administered on 07/21/18 08:20; Admin Dose 100 MG; Start 07/10/18 at 21:00 Lacosamide (Vimpat Liq) 50 mg BID PO Last administered on 1/22/19at 08:21; Admin Dose 50 MG; Start 07/10/18 at 21:00 Levetiracetam (Keppra Liquid) 500 mg BID PO Last administered on 07/21/18at 08:20; Admin Dose 500 MG; Start 07/10/18 at 21:00 Levothyroxine Sodium (Synthroid) 88 mcg DAILY@06 PO Last administered on 07/21/18at 06:58; Admin Dose 88 MCG; Start 07/11/18 at 06:00 Magnesium Hydroxide (Milk Of Mag) 30 ml BID PRN PO CONSTIPATION; Start 07/10/18 at 20:00 Simethicone (Mylicon) 80 mg QID PRN PO DISTENSION/GAS/BLOATING; Start 07/10/18 at 20:00 Zolpidem Tartrate (Ambien) 5 mg HS PO Last administered on 07/20/18at 20:22; A dmin Dose 5 MG; Start 07/10/18 at 21:00 Assessment/Plan Chief Complaint/Hosp Course 57-year-old female was transferred from [facility]. 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 She was stabilized, discharged on 04/07/2018 and readmitted on with neck stiffness with major subarachnoid hemorrhage with midline shift and subfalcine herniation. This progressed to paralysis with altered ment al status. She underwent left craniotomy on 04/10/2018 with clipping of the left posterior communicating artery aneurysm and left frontal ventriculostomy placement for drainage of the intraventricular hemorrhage. She had persistent major neurologic deficit with obstructive hydrocephalus, ischemic encephalopathy, and some vasospasm. She had a PEG placement on 04/28/2018 and tracheostomy on 05/01/2018. She had ongoing seizures requiring multiple medications for control. She had urinary tract infection, apparently was treated. On 05/12 she was transferred to [place] for continuity of care and then to the rehab floor at [facility]. Patient was initially incontinent and then she was placed on intermittent catheterization. She had urinary retention on and off. As her neurological condition improved her voiding did improve as well and now she is voiding and her postvoid residual has been low and not requiring any catheterization. Continue present treatment BRENDEN ENRIQUE MD Jul 21, 2018 13:08
--- NOTE | 2018-07-21 19:26 | NUR ---
Patient up in wheelchair eating dinner accompanied by nurse photography assistant. Offered TV & educational materials for recreational activities. Alert, oriented x 1 with periods of confusion. No SOB. Denies pain. No seizure episode noted. Patient refused padded siderails. Offered 3x but refused 3x. Explained risks & benefits but she still refused. Patient kept removing padded siderails. Kept clean & dry. All due meds given. Call light within reach. Chair alarm on. Kept comfortable.
[2018-07-21 20:32] VITALS: BP 122/68; PULSE 74; RESP 18
[2018-07-21] MEDS: OLANZAPINE 2.5 MG TAB PO SCH (20:46)
[2018-07-21] MEDS: ZOLPIDEM 5 MG TAB PO SCH (20:46)
[2018-07-21] MEDS: ATORVASTATIN 20 MG TAB PO SCH (20:46)
[2018-07-22 02:07] VITALS: BP 118/59; PULSE 64; RESP 18
--- NOTE | 2018-07-22 06:02 | NUR ---
Slept well. Resp unlabored. Incontinent of bladder and blader, kept clean and dry. Needs attended. Relative at bedside. Call light within reached, bed alarm is activated. No acute distress noted.
[2018-07-22] MEDS: LEVOTHYROXINE 88 MCG TAB PO SCH (06:31)
[2018-07-22 07:00] VITALS: BP 138/76; PULSE 77; RESP 18
--- NOTE | 2018-07-22 08:33 | PN ---
DATE: 07/22/2018 SUBJECTIVE: The patient is stable. No events overnight. OBJECTIVE: VITAL SIGNS: Blood pressure is 122/68, pulse 74, respirations 18, temperature 98.0. HEENT: Head is normocephalic. NECK: Supple. HEART: Regular rate. LUNGS: Show diminished breath sounds at the base. ABDOMEN: Soft, nontender to palpation. No rebound or guarding. EXTREMITIES: Negative for clubbing, cyanosis, no edema. DERMATOLOGIC: No rashes. MUSCULOSKELETAL: No joint effusions. NEUROLOGIC: No change in exam. MEDICATIONS: Reviewed. LABORATORY DATA: Reviewed. ASSESSMENT AND PLAN: 1. Urinary retention. The patient is improving. The patient no longer required catheterization. C ontinue to monitor. 2. Seizure disorder. Continue medical management. 3. Hypertension. Continue current blood pressure regimen. 4. Hypothyroidism. Continue Synthroid. 5. Chronic encephalopathy, improving. Continue to monitor. 6. Cerebrovascular accident. Continue physical therapy. 7. Mood disorder. Continue Zyprexa. 8. Neuropathy. Continue Neurontin. 9. Status post urinary tract infection. 10. Status post respiratory failure. 11. Status post subarachnoid hemorrhage. Dictated By: ANGIE CORDOVA DO NR/NTS Conf#: [id number] DID#: [id number] CC: BRENDEN ENRIQUE MD; HERNAN SHIPLEY DO;*EndCC*
[2018-07-22] MEDS: AMLODIPINE 10 MG TAB PO SCH (09:00)
[2018-07-22] MEDS: LACOSAMIDE (100 MG/10 ML PO SYR) PO SCH ×2 (11:09→20:45)
[2018-07-22] MEDS: LEVETIRACETAM (100 MG/ML) 5ML CUP PO SCH ×2 (11:11→20:45)
[2018-07-22] MEDS: ENOXAPARIN 40 MG/0.4 ML SYG SC SCH (11:13)
[2018-07-22] MEDS: LIDOCAINE 5% PATCH TD SCH (11:18)
[2018-07-22] MEDS: GABAPENTIN 100 MG CAP PO SCH ×2 (11:22→20:45)
[2018-07-22] MEDS: BACLOFEN 10 MG TAB PO SCH ×3 (11:22→20:44)
[2018-07-22] MEDS: FAMOTIDINE 20 MG TAB PO SCH ×2 (11:23→20:45)
[2018-07-22] MEDS: NYSTATIN SUSP 5 ML CUP PO SCH ×2 (11:23→20:45)
[2018-07-22] MEDS: BALSAM PERU/CASTOR OIL 60 GM TUBE TOP SCH ×2 (11:23→21:00)
[2018-07-22] MEDS: DOCUSATE SODIUM 10 MG/ML (10ML CUP) PO SCH ×2 (11:23→20:45)
[2018-07-22] MEDS: NYSTATIN 30 GM POWDER BTL TOP SCH ×3 (11:24→21:00)
--- NOTE | 2018-07-22 13:11 | PN ---
Date/Time of Note Date/Time of Note DATE: 07/22/18 TIME: 13:11 Subjective Continued improvement with rehab Objective Vital Signs Date Temp Pulse Resp B/P (MAP) Pulse Ox O2 O2 Flow FiO2 Time Delivery Rate 07/22/18 97.7 77 18 138/76 97 Room Air 07:00 (96) Intake and Output 07/21/18 07/21/18 07/22/18 1414:59 22:59 06:59 IntakeIntake Total 100 ml 840 ml 120 ml BalanceBalance 100 ml 840 ml 120 ml Exam pulm-cta abd-soft min/mod ambulation Results/Medications Result Diagram: 07/18/18 0814 Medications Current Medications Atorvastatin Calcium (Lipitor) 20 mg DAILY@21 PO Last administered on 07/21/18 20:46; Admin Dose 20 MG; Start 06/26/18 at 23:09 Albuterol (Proventil 0.5% (Neb)) 2.5 mg Q4H RESP THERAPY PRN INH PRN DYSPNEA; Start 06/26/18 at 23:09 Ipratropium [place] (Atrovent 0.02% (Neb)) 0.5 mg Q4H RESP THERAPY PRN INH DYSPNEA; Start 06/26/18 at 23:09 Nystatin (Nystatin Susp) 5 ml BID PO Last administered on 07/22/18 11:23; Admin Dose 5 ML; Start 06/26/18 at 23:09 Olanzapine (Zyprexa) 2.5 mg QHS PO Last administered on 07/21/18 20:46; Admin Dose 2.5 MG; Start 06/26/18 at 23:09 Enoxaparin Sodium (Lovenox) 40 mg DAILY SC Last administered on 07/22/18 11:13; Admin Dose 40 MG; Start 06/26/18 at 23:09 Nystatin (Nystatin Powder) 1 applic TID TOP Last administered on 07/22/18 11:24; Admin Dose 1 APPLIC; Start 06/26/18 at 23:09 Eye Lubricant (Akwa Oint) 1 applic Q1H PRN BOTH EYES PRN; Start 06/26/18 at 23:09 Lactulose (Enulose) 20 gm DAILY PRN GTB CONSTIPATION; Start 06/27/18 at 00:00 Bisacodyl (Dulcolax Supp) 10 mg DAILY PRN [place] CONSTIPATION; Start 06/27/18 at 00:00 Acetaminophen/ Hydrocodone Bitart ([place] (5/325)) 1 tab Q24H PRN GTB SEVERE PAIN LEVEL 7-10 Last administered on 07/20/18 10:16; Admin Dose 1 TAB; Start 07/02/18 at 12:00 Lidocaine (Lidoderm) 1 patch 0800 TD Last administered on 07/22/18 11:18; Admin Dose 1 PATCH; Start 07/10/18 at 08:00 Acetaminophen (Tylenol Liquid) 650 mg Q4H PRN PO MILD PAIN LEVEL 1-3 Last administered on 07/21/18 08:20; Admin Dose 650 MG; Start 07/10/18 at 23:09 Acetaminophen (Tylenol Liquid) 650 mg Q4H PRN PO PRN FOR FEVER; Start 07/10/18 at 23:09 Amlodipine Besylate (Norvasc) 10 mg DAILY PO Last administered on 07/20/18 08:12; Admin Dose 10 MG; Start 07/11/18 at 09:00 Baclofen (Lioresal) 10 mg TID PO Last administered on 07/22/18 11:22; Admin Dose 10 MG; Start 07/10/18 at 21:00 Docusate Sodium (Colace Liquid Cup) 100 mg BID PO Last administered on 07/22/18 11:23; Admin Dose 100 MG; Start 07/10/18 at 21:00 Famotidine (Pepcid) 20 mg BID PO Last administered on 07/22/18 11:23; Admin Dose 20 MG; Start 07/10/18 at 21:00 Gabapentin (Neurontin) 100 mg BID PO Last administered on 07/22/18 11:22; Admin Dose 100 MG; Start 07/10/18 at 21:00 Lacosamide (Vimpat Liq) 50 mg BID PO Last administered on 07/22/18 11:09; Admin Dose 50 MG; Start 07/10/18 at 21:00 Levetiracetam (Keppra Liquid) 500 mg BID PO Last administered on 07/22/18 11:11; Admin Dose 500 MG; Start 07/10/18 at 21:00 Levothyroxine Sodium (Synthroid) 88 mcg DAILY@06 PO Last administered on 1/23/ 19at 06:31; Admin Dose 88 MCG; Start 07/11/18 at 06:00 Magnesium Hydroxide (Milk Of Mag) 30 ml BID PRN PO CONSTIPATION; Start 07/10/18 at 20:00 Simethicone (Mylicon) 80 mg QID PRN PO DISTENSION/GAS/BLOATING; Start 07/10/18 at 20:00 Zolpidem Tartrate (Ambien) 5 mg HS PO Last administered on 07/21/18at 20:46; Admin Dose 5 MG; Start 07/10/18 at 21:00 Assessment/Plan Additional Assessment/Plan Rehab- L SAH/hydrocephalus-s/p crani & clipping of the 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 Pain- overall improved on current medications Dysphagia- overall improved po intake, continue therapy and education for patient and family. Seizure Disorder-continue seizure precautions Respiratory Failure- decannulated, doing well - Urinary retention- voiding well with low PVRs. Monitor, and begin family education with regards to bladder management. Spasticity with increased tone in Right Upper and Lower Extremity- Continue baclofen, continue ROM Hypothyroidism ROB CARMONA MD Jul 22, 2018 13:11
[2018-07-22 14:00] VITALS: BP 130/76; PULSE 76; RESP 18
--- NOTE | 2018-07-22 15:44 | NUR ---
NUTRITION NOTE: Pt asleep at time of visit. Spoke to RN and SLAB LIFTING SUPERVISOR, pt reported to be tolerating PO intake with fair-good appetite. No n/v. Having some loose stools at times. LBM 07/22 x 1, however on other days, pt may have up to BM's x 7, loose. Continues to take Boost TID. Loose stools likely not related to Boost considering pt has been taking Boost, not a new addition. Will add Nutrisource Fiber 1 packet per day, PRN to help with loose stools. Discharge planning in process.
--- NOTE | 2018-07-22 18:40 | NUR ---
RN note: Emotional lability persists, though she appears to be very comforted by presence of family. VSS. Encouraged to participate in all therapies as much as possible.
[2018-07-22 20:07] VITALS: BP 111/65; PULSE 85; RESP 18
[2018-07-22] MEDS: OLANZAPINE 2.5 MG TAB PO SCH (20:44)
[2018-07-22] MEDS: ATORVASTATIN 20 MG TAB PO SCH (20:44)
[2018-07-22] MEDS: ZOLPIDEM 5 MG TAB PO SCH (20:45)
[2018-07-22] MEDS: ACETAMINOPHEN 650MG/20.3ML CUP PO PRN (20:46)
[2018-07-23 02:00] VITALS: BP 113/68; PULSE 64; RESP 18
--- NOTE | 2018-07-23 05:30 | NUR ---
Relatives at bedside. Medicated for body pain with tylenol with good effect. Slept well. Incontinent of bladder and bowel, kept clean and dry. Needs attended. Call light within reached, bed alarm is activated. No acute distress noted.
[2018-07-23] MEDS: LEVOTHYROXINE 88 MCG TAB PO SCH (06:51)
[2018-07-23 08:08] VITALS: BP 120/95; PULSE 68; RESP 18
--- NOTE | 2018-07-23 08:27 | PN ---
DATE: 07/23/2018 SUBJECTIVE: The patient is stable overnight, no fevers, chills, nausea, vomiting. OBJECTIVE: VITAL SIGNS: Blood pressure is 138/76, pulse 85, respiration 18, temperature 98.2. HEENT: Head is normocephalic. NECK: Supple. HEART: Regular rate. LUNGS: Show diminished breath sounds at base. ABDOMEN: Soft, nontender to palpation without rebound or guarding. EXTREMITIES: Negative for clubbing, cyanosis, no edema. DERMATOLOGIC: No rashes. MUSCULOSKELETAL: No joint effusion. NEUROLOGIC: No change in exam. MEDICATIONS: Have been reviewed. LABORATORY DATA: Has been reviewed. ASSESSMENT AND PLAN: 1. Urinary retention, improved. Continue to monitor. 2. Seizure disorder. Continue medical management. 3. Hypertension. Continue current blood pressure regimen. 4. Hypothyroidism. Continue Synthroid. 5. Chronic encephalopathy, improved. Continue to monitor. 6. Cerebrovascular accident. Continue physical therapy. 7. Mood disorder. Continue Zyprexa. 8. Neuropathy. Continue Neurontin. 9. Status post urinary tract infection. 10. Status post respiratory failure. 11. Status post subarachnoid hemorrhage. Dictated By: ANGIE CORDOVA DO NR/NTS Conf#: [id number] DID#: [id number] CC: HERNAN SHIPLEY DO;*EndCC*
[2018-07-23] MEDS: ACETAMINOPHEN 650MG/20.3ML CUP PO PRN (08:35)
[2018-07-23] MEDS: LEVETIRACETAM (100 MG/ML) 5ML CUP PO SCH ×2 (08:35→21:53)
[2018-07-23] MEDS: NYSTATIN SUSP 5 ML CUP PO SCH ×2 (08:35→21:54)
[2018-07-23] MEDS: LIDOCAINE 5% PATCH TD SCH (08:35)
[2018-07-23] MEDS: DOCUSATE SODIUM 10 MG/ML (10ML CUP) PO SCH ×2 (08:35→21:53)
[2018-07-23] MEDS: AMLODIPINE 10 MG TAB PO SCH (08:36)
[2018-07-23] MEDS: LACOSAMIDE (100 MG/10 ML PO SYR) PO SCH ×2 (08:36→21:54)
[2018-07-23] MEDS: ENOXAPARIN 40 MG/0.4 ML SYG SC SCH (08:37)
[2018-07-23] MEDS: GABAPENTIN 100 MG CAP PO SCH ×2 (08:37→21:54)
[2018-07-23] MEDS: BACLOFEN 10 MG TAB PO SCH ×3 (08:37→21:54)
[2018-07-23] MEDS: FAMOTIDINE 20 MG TAB PO SCH ×2 (08:37→21:54)
[2018-07-23] MEDS: BALSAM PERU/CASTOR OIL 60 GM TUBE TOP SCH ×2 (08:38→21:55)
[2018-07-23] MEDS: NYSTATIN 30 GM POWDER BTL TOP SCH ×3 (08:38→21:56)
--- NOTE | 2018-07-23 11:49 | CONS ---
Consult Date/Type/Reason Admit Date/Time Jun 26, 2018 at 21:04 Initial Consult Date Type of Consultation: Pulm Requesting Provider: ROB CARMONA MD Date/Time of Note DATE: 07/23/18 TIME: 11:41 Subjective Remains stable no resp distress post decannulation. Objective Vitals Vital Signs Date Temp Pulse Resp B/P (MAP) Pulse Ox O2 O2 Flow FiO2 Time Delivery Rate 07/23/18 97.9 68 18 120/95 97 08:08 (103) 07/22/18 Room Air 14:00 Intake and Output 07/22/18 07/22/18 07/23/18 1515:00 23:00 07:00 IntakeIntake Total 1400 ml 200 ml OutputOutput Total 400 ml 1 ml BalanceBalance 1000 ml 199 ml Exam GENERAL: Well-nourished well-developed lady comfortable at rest no acute distress VITAL SIGNS: per chart NECK: Supple. No JVD or lymphadenopathy. Trach stoma site healing well CARDIAC EXAM: S1, S2. No added sounds or murmurs. CHEST: clear bilaterally, No added sounds, rales or wheezes ABDOMEN: Soft, nontender. No guarding or rebound. EXTREMITIES: No cyanosis, clubbing or edema. NEUROLOGIC: Generalized weakness. Hemiplegia Results/Medications Medications Current Medications Atorvastatin Calcium (Lipitor) 20 mg DAILY@21 PO Last administered on 07/22/18 20:44; Admin Dose 20 MG; Start 06/26/18 at 23:09 Albuterol (Proventil 0.5% (Neb)) 2.5 mg Q4H RESP THERAPY PRN INH PRN DYSPNEA; Start 06/26/18 at 23:09 Ipratropium [place] (Atrovent 0.02% (Neb)) 0.5 mg Q4H RESP THERAPY PRN INH DYSPNEA; Start 06/26/18 at 23:09 Nystatin (Nystatin Susp) 5 ml BID PO Last administered on 07/23/18 08:35; Admin Dose 5 ML; Start 06/26/18 at 23:09 Olanzapine (Zyprexa) 2.5 mg QHS PO Last administered on 07/22/18 20:44; Admin Dose 2.5 MG; Start 06/26/18 at 23:09 Enoxaparin Sodium (Lovenox) 40 mg DAILY SC Last administered on 07/23/18 08:37; Admin Dose 40 MG; Start 06/26/18 at 23:09 Nystatin (Nystatin Powder) 1 applic TID TOP Last administered on 07/23/18 08:38; Admin Dose 1 APPLIC; Start 06/26/18 at 23:09 Eye Lubricant (Akwa Oint) 1 applic Q1H PRN BOTH EYES PRN; Start 06/26/18 at 23:09 Lactulose (Enulose) 20 gm DAILY PRN GTB CONSTIPATION; Start 06/27/18 at 00:00 Bisacodyl (Dulcolax Supp) 10 mg DAILY PRN [place] CONSTIPATION; Start 06/27/18 at 00:00 Acetaminophen/ Hydrocodone Bitart ([place] (5/325)) 1 tab Q24H PRN GTB SEVERE PAIN LEVEL 7-10 Last administered on 07/20/18 10:16; Admin Dose 1 TAB; Start 07/02/18 at 12:00 Lidocaine (Lidoderm) 1 patch 0800 TD Last administered on 07/23/18 08:35; Admin Dose 1 PATCH; Start 07/10/18 at 08:00 Acetaminophen (Tylenol Liquid) 650 mg Q4H PRN PO MILD PAIN LEVEL 1-3 Last administered on 07/23/18 08:35; Admin Dose 650 MG; Start 07/10/18 at 23:09 Acetaminophen (Tylenol Liquid) 650 mg Q4H PRN PO PRN FOR FEVER; Start 07/10/18 at 23:09 Amlodipine Besylate (Norvasc) 10 mg DAILY PO Last administered on 07/23/18 08:36; Admin Dose 10 MG; Start 07/11/18 at 09:00 Baclofen (Lioresal) 10 mg TID PO Last administered on 07/23/18 08:37; Admin Dose 10 MG; Start 07/10/18 at 21:00 Docusate Sodium (Colace Liquid Cup) 100 mg BID PO Last administered on 07/23/18 08:35; Admin Dose 100 MG; Start 07/10/18 at 21:00 Famotidine (Pepcid) 20 mg BID PO Last administered on 07/23/18 08:37; Admin Dose 20 MG; Start 07/10/18 at 21:00 Gabapentin (Neurontin) 100 mg BID PO Last administered on 07/23/18 08:37; Admi n Dose 100 MG; Start 07/10/18 at 21:00 Lacosamide (Vimpat Liq) 50 mg BID PO Last administered on 07/23/18 08:36; Admin Dose 50 MG; Start 07/10/18 at 21:00 Levetiracetam (Keppra Liquid) 500 mg BID PO Last administered on 07/23/18at 08:35; Admin Dose 500 MG; Start 07/10/18 at 21:00 Levothyroxine Sodium (Synthroid) 88 mcg DAILY@06 PO Last administered on 07/23/18at 06:51; Admin Dose 88 MCG; Start 07/11/18 at 06:00 Magnesium Hydroxide (Milk Of Mag) 30 ml BID PRN PO CONSTIPATION; Start 07/10/18 at 20:00 Simethicone (Mylicon) 80 mg QID PRN PO DISTENSION/GAS/BLOATING; Start 07/10/18 at 20:00 Zolpidem Tartrate (Ambien) 5 mg HS PO Last administered on 07/22/18at 20:45; Admin Dose 5 MG; Start 07/10/18 at 21:00 Assessment/Plan Hospital Course (Demo Recall) IMPRESSION 1. Status post respiratory failure. 2. 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 3. Dysphagia with G-tube. PLAN: 1. ST recs 2. Stoma site care 3,. PT GERTRUDIS ROACH MD, [facility] Jul 23, 2018 11:49
--- NOTE | 2018-07-23 12:17 | PN ---
Date/Time of Note Date/Time of Note DATE: 07/23/18 TIME: 12:15 Subjective Participating Objective Vital Signs Date Temp Pulse Resp B/P (MAP) Pulse Ox O2 O2 Flow FiO2 Time Delivery Rate 07/23/18 97.9 68 18 120/95 97 08:08 (103) 07/22/18 Room Air 14:00 Intake and Output 07/22/18 07/22/18 07/23/18 1515:00 23:00 07:00 IntakeIntake Total 1400 ml 200 ml OutputOutput Total 400 ml 1 ml BalanceBalance 1000 ml 199 ml Exam pulm-cta abd-soft mod assist Results/Medications Medications Current Medications Atorvastatin Calcium (Lipitor) 20 mg DAILY@21 PO Last administered on 07/22/18 20:44; Admin Dose 20 MG; Start 06/26/18 at 23:09 Albuterol (Proventil 0.5% (Neb)) 2.5 mg Q4H RESP THERAPY PRN INH PRN DYSPNEA; Start 06/26/18 at 23:09 Ipratropium [place] (Atrovent 0.02% (Neb)) 0.5 mg Q4H RESP THERAPY PRN INH DYSPNEA; Start 06/26/18 at 23:09 Nystatin (Nystatin Susp) 5 ml BID PO Last administered on 07/23/18 08:35; Admin Dose 5 ML; Start 06/26/18 at 23:09 Olanzapine (Zyprexa) 2.5 mg QHS PO Last administered on 07/22/18 20:44; Admin Dose 2.5 MG; Start 06/26/18 at 23:09 Enoxaparin Sodium (Lovenox) 40 mg DAILY SC Last administered on 07/23/18 08:37; Admin Dose 40 MG; Start 06/26/18 at 23:09 Nystatin (Nystatin Powder) 1 applic TID TOP Last administered on 07/23/18 08:38; Admin Dose 1 APPLIC; Start 06/26/18 at 23:09 Eye Lubricant (Akwa Oint) 1 applic Q1H PRN BOTH EYES PRN; Start 06/26/18 at 23:09 Lactulose (Enulose) 20 gm DAILY PRN GTB CONSTIPATION; Start 06/27/18 at 00:00 Bisacodyl (Dulcolax Supp) 10 mg DAILY PRN [place] CONSTIPATION; Start 06/27/18 at 00:00 Acetaminophen/ Hydrocodone Bitart ([place] (5/325)) 1 tab Q24H PRN GTB SEVERE PAIN LEVEL 7-10 Last administered on 07/20/18 10:16; Admin Dose 1 TAB; Start 07/02/18 at 12:00 Lidocaine (Lidoderm) 1 patch 0800 TD Last administered on 07/23/18 08:35; Admin Dose 1 PATCH; Start 07/10/18 at 08:00 Acetaminophen (Tylenol Liquid) 650 mg Q4H PRN PO MILD PAIN LEVEL 1-3 Last administered on 07/23/18 08:35; Admin Dose 650 MG; Start 07/10/18 at 23:09 Acetaminophen (Tylenol Liquid) 650 mg Q4H PRN PO PRN FOR FEVER; Start 07/10/18 at 23:09 Amlodipine Besylate (Norvasc) 10 mg DAILY PO Last administered on 07/23/18 08:36; Admin Dose 10 MG; Start 07/11/18 at 09:00 Baclofen (Lioresal) 10 mg TID PO Last administered on 07/23/18 08:37; Admin Dose 10 MG; Start 07/10/18 at 21:00 Docusate Sodium (Colace Liquid Cup) 100 mg BID PO Last administered on 07/23/18 08:35; Admin Dose 100 MG; Start 07/10/18 at 21:00 Famotidine (Pepcid) 20 mg BID PO Last administered on 07/23/18 08:37; Admin Dose 20 MG; Start 07/10/18 at 21:00 Gabapentin (Neurontin) 100 mg BID PO Last administered on 07/23/18 08:37; Admin Dose 100 MG; Start 07/10/18 at 21:00 Lacosamide (Vimpat Liq) 50 mg BID PO Last administered on 07/23/18 08:36; Admin Dose 50 MG; Start 07/10/18 at 21:00 Levetiracetam (Keppra Liquid) 500 mg BID PO Last administered on 07/23/18 08:35; Admin Dose 500 MG; Start 07/10/18 at 21:00 Levothyroxine Sodium (Synthroid) 88 mcg DAILY@06 PO Last administered on 07/23/18 06:51; Admin Dose 88 MCG; Start 07/11/18 at 06:00 Magnesium Hydroxide (Milk Of Mag) 30 ml BID PRN PO CONSTIPATION; Start 07/10/18 at 20:00 Simethicone (Mylicon) 80 mg QID PRN PO DISTENSION/GAS/BLOATING; Start 07/10/18 at 20:00 Zolpidem Tartrate (Ambien) 5 mg HS PO Last administered on 07/22/18at 20:45; Admin Dose 5 MG; Start 07/10/18 at 21:00 Assessment/Plan Additional Assessment/Plan Rehab- L SAH/hydrocephalus-s/p 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 Long peer to peer with insurance company. Patient has been making excellent progress, and would benefit from extension of stay. Patient authorized for dc on 08/01. Pain- overall improved on current medications Dysphagia- overall improved po intake, continue therapy and education for patient and family. Seizure Disorder-continue seizure precautions Respiratory Failure- decannulated, doing well - Urinary retention- voiding well with low PVRs. Monitor, and begin family education with regards to bladder management. Spasticity with increased tone in Right Upper and Lower Extremity- Continue baclofen, continue ROM Hypothyroidism ROB CARMONA MD Jul 23, 2018 12:17
[2018-07-23 14:35] VITALS: BP 102/55; PULSE 84; RESP 18
--- NOTE | 2018-07-23 17:00 | NUR ---
Patient in bed eating dinner accompanied by nurse prosthetics assistant. Offered TV & educational materials for recreational activities. Alert, oriented x 1 with periods of confusion. No SOB. Denies pain. No seizure episode noted. Patient refused padded siderails. Offered 3x but refused 3x. Explained risks & benefits but she still refused. Patient kept removing padded siderails. Kept clean & dry. All due meds given. Call light within reach. Bed alarm on & in low position. Kept comfortable.
[2018-07-23 20:02] VITALS: BP 108/72; PULSE 75; RESP 18
[2018-07-23] MEDS: ATORVASTATIN 20 MG TAB PO SCH (21:54)
[2018-07-23] MEDS: ZOLPIDEM 5 MG TAB PO SCH (21:54)
[2018-07-23] MEDS: OLANZAPINE 2.5 MG TAB PO SCH (21:54)
[2018-07-24 02:00] VITALS: BP 114/65; PULSE 73; RESP 18
--- NOTE | 2018-07-24 06:10 | NUR ---
Pt had a good night rest. Pt remains alert & oriented x1 with episodes of confusion and forgetfulness. No complaints of any pain/discomfort noted. Pt remains on strict aspiration precaution. Meds crushed and given with apple sauce. On PVR checks. PVR remains <350 during my shift. Padded side rails still refused by patient despite risk and benefits explained. All due medications and all needs attended. Safety measures in place. Hourly roundings done. Bed alarm activated for safety. Call light and bedside table within reach. Will endorse to pt to Am nurse.
[2018-07-24] MEDS: LEVOTHYROXINE 88 MCG TAB PO SCH (06:42)
[2018-07-24 07:00] VITALS: BP 127/71; PULSE 74; RESP 18
--- NOTE | 2018-07-24 08:12 | PN ---
DATE: 07/24/2018 SUBJECTIVE: The patient is stable, no events overnight. No fever, chills, nausea, vomiting. OBJECTIVE: VITAL SIGNS: Blood pressure is 114/65, respiration 18, pulse 73, temperature 97.9. HEENT: Head is normocephalic. NECK: Supple. HEART: Regular rate. LUNGS: Show diminished breath sounds at the base. ABDOMEN: Soft, nontender to palpation without rebound or guarding. EXTREMITIES: Negative for clubbing, cyanosis, no edema. DERMATOLOGIC: No rashes. MUSCULOSKELETAL: No joint effusion. NEUROLOGIC: No change in exam. MEDICATIONS: Reviewed. LABORATORY DATA: Has been reviewed. ASSESSMENT AND PLAN: 1. Urinary retention, improved. Continue to monitor. 2. Seizure disorder. Continue medical management. 3. Hypertension. Continue current blood pressure regimen. 4. Hypothyroidism. Continue Synthroid. 5. Chronic encephalopathy, improved. 6. History of cerebrovascular accident. Continue physical therapy. 7. Mood disorder. Continue Zyprexa. 8. Neuropathy. Continue Neurontin. 9. Status post urinary tract infection. 10. Status post respiratory failure. 11. Status post subarachnoid hemorrhage. Dictated By: ANGIE CORDOVA DO NR/NTS Conf#: [id number] DID#: [id number] CC: HERNAN SHIPLEY DO;*EndCC*
[2018-07-24] MEDS: LIDOCAINE 5% PATCH TD SCH (08:13)
[2018-07-24] MEDS: DOCUSATE SODIUM 10 MG/ML (10ML CUP) PO SCH ×2 (09:00→21:00)
[2018-07-24] MEDS: LEVETIRACETAM (100 MG/ML) 5ML CUP PO SCH ×2 (09:00→21:41)
[2018-07-24] MEDS: LACOSAMIDE (100 MG/10 ML PO SYR) PO SCH ×2 (09:01→21:41)
[2018-07-24] MEDS: FAMOTIDINE 20 MG TAB PO SCH ×2 (09:01→21:41)
[2018-07-24] MEDS: NYSTATIN SUSP 5 ML CUP PO SCH ×2 (09:01→21:41)
[2018-07-24] MEDS: BACLOFEN 10 MG TAB PO SCH ×3 (09:01→21:41)
[2018-07-24] MEDS: GABAPENTIN 100 MG CAP PO SCH ×2 (09:01→21:41)
[2018-07-24] MEDS: AMLODIPINE 10 MG TAB PO SCH (09:01)
[2018-07-24] MEDS: BALSAM PERU/CASTOR OIL 60 GM TUBE TOP SCH ×2 (09:05→21:00)
[2018-07-24] MEDS: NYSTATIN 30 GM POWDER BTL TOP SCH ×3 (09:05→21:00)
[2018-07-24] MEDS: ENOXAPARIN 40 MG/0.4 ML SYG SC SCH (09:07)
--- NOTE | 2018-07-24 10:53 | PN ---
Date/Time of Note Date/Time of Note DATE: 07/24/18 TIME: 10:53 Subjective Comfortable Objective Vital Signs Date Temp Pulse Resp B/P (MAP) Pulse Ox O2 O2 Flow FiO2 Time Delivery Rate 07/24/18 97.5 74 18 127/71 96 Room Air 07:00 (89) Intake and Output 07/23/18 07/23/18 07/24/18 1515:00 23:00 07:00 IntakeIntake Total 150 ml 550 ml BalanceBalance 150 ml 550 ml Exam pulm-cta bd-soft mod Results/Medications Medications Current Medications Atorvastatin Calcium (Lipitor) 20 mg DAILY@21 PO Last administered on 07/23/18 21:54; Admin Dose 20 MG; Start 06/26/18 at 23:09 Albuterol (Proventil 0.5% (Neb)) 2.5 mg Q4H RESP THERAPY PRN INH PRN DYSPNEA; Start 06/26/18 at 23:09 Ipratropium [place] (Atrovent 0.02% (Neb)) 0.5 mg Q4H RESP THERAPY PRN INH DYSPNEA; Start 06/26/18 at 23:09 Nystatin (Nystatin Susp) 5 ml BID PO Last administered on 07/24/18 09:01; Admin Dose 5 ML; Start 06/26/18 at 23:09 Olanzapine (Zyprexa) 2.5 mg QHS PO Last administered on 07/23/18 21:54; Admin Dose 2.5 MG; Start 06/26/18 at 23:09 Enoxaparin Sodium (Lovenox) 40 mg DAILY SC Last administered on 07/24/18 09:07; Admin Dose 40 MG; Start 06/26/18 at 23:09 Nystatin (Nystatin Powder) 1 applic TID TOP Last administered on 07/24/18 09:05; Admin Dose 1 APPLIC; Start 06/26/18 at 23:09 Eye Lubricant (Akwa Oint) 1 applic Q1H PRN BOTH EYES PRN; Start 06/26/18 at 23:09 Lactulose (Enulose) 20 gm DAILY PRN GTB CONSTIPATION; Start 06/27/18 at 00:00 Bisacodyl (Dulcolax Supp) 10 mg DAILY PRN [place] CONSTIPATION; Start 06/27/18 at 00:00 Acetaminophen/ Hydrocodone Bitart ([place] (5/325)) 1 tab Q24H PRN GTB SEVERE PAIN LEVEL 7-10 Last administered on 07/20/18 10:16; Admin Dose 1 TAB; Start 07/02/18 at 12:00 Lidocaine (Lidoderm) 1 patch 0800 TD Last administered on 07/24/18 08:13; Admin Dose 1 PATCH; Start 07/10/18 at 08:00 Acetaminophen (Tylenol Liquid) 650 mg Q4H PRN PO MILD PAIN LEVEL 1-3 Last administered on 07/23/18 08:35; Admin Dose 650 MG; Start 07/10/18 at 23:09 Acetaminophen (Tylenol Liquid) 650 mg Q4H PRN PO PRN FOR FEVER; Start 07/10/18 at 23:09 Amlodipine Besylate (Norvasc) 10 mg DAILY PO Last administered on 07/24/18 09:01; Admin Dose 10 MG; Start 07/11/18 at 09:00 Baclofen (Lioresal) 10 mg TID PO Last administered on 07/24/18 09:01; Admin Dose 10 MG; Start 07/10/18 at 21:00 Docusate Sodium (Colace Liquid Cup) 100 mg BID PO Last administered on 07/23/18 21:53; Admin Dose 100 MG; Start 07/10/18 at 21:00 Famotidine (Pepcid) 20 mg BID PO Last administered on 07/24/18 09:01; Admin Dose 20 MG; Start 07/10/18 at 21:00 Gabapentin (Neurontin) 100 mg BID PO Last administered on 07/24/18 09:01; Admin Dose 100 MG; Start 07/10/18 at 21:00 Lacosamide (Vimpat Liq) 50 mg BID PO Last administered on 07/24/18 09:01; Admin Dose 50 MG; Start 07/10/18 at 21:00 Levetiracetam (Keppra Liquid) 500 mg BID PO Last administered on 07/24/18 09: 00; Admin Dose 500 MG; Start 07/10/18 at 21:00 Levothyroxine Sodium (Synthroid) 88 mcg DAILY@06 PO Last administered on 07/24/18 06:42; Admin Dose 88 MCG; Start 07/11/18 at 06:00 Magnesium Hydroxide (Milk Of Mag) 30 ml BID PRN PO CONSTIPATION; Start 07/10/18 at 20:00 Simethicone (Mylicon) 80 mg QID PRN PO DISTENSION/GAS/BLOATING; Start 07/10/18 at 20:00 Zolpidem Tartrate (Ambien) 5 mg HS PO Last administered on 07/23/18at 21:54; Admin Dose 5 MG; Start 07/10/18 at 21:00 Assessment/Plan Additional Assessment/Plan Rehab- L SAH/hydrocephalus-s/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 Pain- overall improved on current medications Dysphagia- overall improved po intake, continue therapy and education for patient and family. Seizure Disorder-continue seizure precautions Respiratory Failure- decannulated, doing well - Urinary retention- voiding well with low PVRs. Monitor, and begin family education with regards to bladder management. Spasticity with increased tone in Right Upper and Lower Extremity- Continue ba clofen, continue ROM Hypothyroidism ROB CARMONA MD Jul 24, 2018 10:53
[2018-07-24 14:00] VITALS: BP 119/71; PULSE 82; RESP 18
[2018-07-24 19:34] VITALS: BP 112/63; PULSE 86; RESP 18
--- NOTE | 2018-07-24 19:55 | NUR ---
Patient seen not in distress or discomfort this time. Participated with therapy today. Denies any nausea or vomiting. Family at bedside at the beginning of the shift. Remains on PVR check. Call light and bedside table placed within reach. Bed alarm activated for safety and bed placed on lowest position. Due medications given. Needs attended. Endorsed to next shift.
[2018-07-24] MEDS: ATORVASTATIN 20 MG TAB PO SCH (21:41)
[2018-07-24] MEDS: ZOLPIDEM 5 MG TAB PO SCH (21:41)
[2018-07-24] MEDS: OLANZAPINE 2.5 MG TAB PO SCH (21:41)
[2018-07-25 02:00] VITALS: BP 128/65; PULSE 75; RESP 18
--- NOTE | 2018-07-25 05:39 | NUR ---
Pt had a good night rest. Pt remains stable with no acute distress noted. Family member at bedside. No complaints of any pain/discomfort noted. Pt remains on strict aspiration precaution. Meds crushed and given with apple sauce. On PVR checks. PVR remains <350 during my shift. Pt kept clean and dry, repositioned patient every 2h and prn. All due medications and all needs attended. Safety measures in place. Hourly roundings done. Bed alarm activated for safety. Call light and bedside table within reach. Will endorse to pt to Am nurse.
[2018-07-25] MEDS: LEVOTHYROXINE 88 MCG TAB PO SCH (06:45)
[2018-07-25 07:00] VITALS: BP 116/76; PULSE 82; RESP 16
--- NOTE | 2018-07-25 08:19 | PN ---
DATE: 07/25/2018 SUBJECTIVE: The patient is stable, no events overnight. No fevers, chills, nausea, vomiting. OBJECTIVE: VITAL SIGNS: Blood pressure is 128/65, respirations 18, pulse 75, temperature 98.0. HEENT: Head is normocephalic. NECK: Supple. HEART: Regular rate. LUNGS: Show diminished breath sounds at the base. ABDOMEN: Soft, nontender to palpation, without rebound or guarding. EXTREMITIES: Negative for clubbing, cyanosis. No edema. DERMATOLOGIC: No rashes. MUSCULOSKELETAL: No joint effusions. NEUROLOGIC: No change in exam. MEDICATIONS: Reviewed. LABORATORY DATA: Shows a white count of 12.0, hemoglobin of 14.0, platelet count is 339. Sodium 144 , BUN 12, creatinine 0.53. ASSESSMENT AND PLAN: 1. History of cerebrovascular accident. The patient is clinically improving. Continue physical the rapy. 2. Encephalopathy, chronic. The patient's mental status has been stable. Continue to monitor. 3. Mood disorder. Continue Zyprexa. 4. Hypertension. Continue current blood pressure regimen. 5. Seizure disorder. Continue medical management. 6. Urinary retention, improving. Continue to monitor. 7. Leukocytosis, systemic inflammatory response syndrome. Continue to monitor. Follow repeat CBC l evel. No active evidence of infection. 8. Neuropathy. Continue Neurontin. 9. Status post urinary tract infection. 10. Status post respiratory failure. 11. Status post subarachnoid hemorrhage. Dictated By: ANGIE CORDOVA DO NR/NTS Conf#: [id number] DID#: [id number] CC: HERNAN SHIPLEY DO;*EndCC*
[2018-07-25 08:43] VITALS: BP 116/73; PULSE 86
[2018-07-25] MEDS: BACLOFEN 10 MG TAB PO SCH ×3 (08:44→21:15)
[2018-07-25] MEDS: GABAPENTIN 100 MG CAP PO SCH ×2 (08:44→21:15)
[2018-07-25] MEDS: LEVETIRACETAM (100 MG/ML) 5ML CUP PO SCH ×2 (08:44→21:16)
[2018-07-25] MEDS: NYSTATIN SUSP 5 ML CUP PO SCH ×2 (08:44→21:16)
[2018-07-25] MEDS: FAMOTIDINE 20 MG TAB PO SCH ×2 (08:44→21:16)
[2018-07-25] MEDS: DOCUSATE SODIUM 10 MG/ML (10ML CUP) PO SCH ×3 (08:44→21:00)
[2018-07-25] MEDS: LIDOCAINE 5% PATCH TD SCH (08:45)
[2018-07-25] MEDS: AMLODIPINE 10 MG TAB PO SCH (08:47)
[2018-07-25] MEDS: LACOSAMIDE (100 MG/10 ML PO SYR) PO SCH ×2 (08:47→21:16)
[2018-07-25] MEDS: ENOXAPARIN 40 MG/0.4 ML SYG SC SCH (08:49)
[2018-07-25] MEDS: NYSTATIN 30 GM POWDER BTL TOP SCH ×3 (08:55→21:22)
[2018-07-25] MEDS: BALSAM PERU/CASTOR OIL 60 GM TUBE TOP SCH ×2 (08:55→21:23)
--- NOTE | 2018-07-25 10:50 | PN ---
Date/Time of Note Date/Time of Note DATE: 07/25/18 TIME: 10:47 Subjective Comfortable Objective Vital Signs Date Temp Pulse Resp B/P (MAP) Pulse Ox O2 O2 Flow FiO2 Time Delivery Rate 07/25/18 86 116/73 08:43 (87) 07/25/18 97.5 16 96 Room Air 07:00 Intake and Output 07/24/18 07/24/18 07/25/18 1515:00 23:00 07:00 IntakeIntake Total 800 ml 850 ml OutputOutput Total 400 ml BalanceBalance 400 ml 850 ml Exam pulm-cta mod transfer Results/Medications Result Diagram: 07/25/18 0612 07/25/18 0612 Results 24 hrs Laboratory Tests Test 07/25/18 06:12 White Blood Count 12.0 #H Red Blood Count 4.55 Hemoglobin 14.0 Hematocrit 42.1 Mean Corpuscular Volume 92.5 Mean Corpuscular Hemoglobin 30.8 Mean Corpuscular Hemoglobin Concent 33.3 Red Cell Distribution Width 12.7 Platelet Count 339 Mean Platelet Volume 9.8 Immature Granulocytes % 0.600 H Neutrophils % 67.9 Lymphocytes % 22.3 Monocytes % 6.9 Eosinophils % 1.9 Basophils % 0.4 Nucleated Red Blood Cells % 0.0 Immature Granulocytes # 0.070 H Neutrophils # 8.1 H Lymphocytes # 2.7 Monocytes # 0.8 Eosinophils # 0.2 Basophils # 0.1 Nucleated Red Blood Cells # 0.0 Sodium Level 144 Potassium Level 3.5 Chloride Level 101 Carbon Dioxide Level 29 Anion Gap 14 H Blood Urea Nitrogen 12 Creatinine 0.53 Est Glomerular Filtrat Rate mL/min > 60 Glucose Level 103 Calcium Level 9.9 Phosphorus Level 5.4 H Magnesium Level 2.1 Medications Current Medications Atorvastatin Calcium (Lipitor) 20 mg DAILY@21 PO Last administered on 07/24/18at 21:41; Admin Dose 20 MG; Start 06/26/18 at 23:09 Albuterol (Proventil 0.5% (Neb)) 2.5 mg Q4H RESP THERAPY PRN INH PRN DYSPNEA; Start 06/26/18 at 23:09 Ipratropium [place] (Atrovent 0.02% (Neb)) 0.5 mg Q4H RESP THERAPY PRN INH DYSPNEA; Start 06/26/18 at 23:09 Nystatin (Nystatin Susp) 5 ml BID PO Last administered on 07/25/18 08:44; Admin Dose 5 ML; Start 06/26/18 at 23:09 Olanzapine (Zyprexa) 2.5 mg QHS PO Last administered on 07/24/18 21:41; Admin Dose 2.5 MG; Start 06/26/18 at 23:09 Enoxaparin Sodium (Lovenox) 40 mg DAILY SC Last administered on 07/25/18 08:49; Admin Dose 40 MG; Start 06/26/18 at 23:09 Nystatin (Nystatin Powder) 1 applic TID TOP Last administered on 07/25/18 08:55; Admin Dose 1 APPLIC; Start 06/26/18 at 23:09 Eye Lubricant (Akwa Oint) 1 applic Q1H PRN BOTH EYES PRN; Start 06/26/18 at 23:09 Lactulose (Enulose) 20 gm DAILY PRN GTB CONSTIPATION; Start 06/27/18 at 00:00 Bisacodyl (Dulcolax Supp) 10 mg DAILY PRN [place] CONSTIPATION; Start 06/27/18 at 00:00 Acetaminophen/ Hydrocodone Bitart ([place] (5/325)) 1 tab Q24H PRN GTB SEVERE PAIN LEVEL 7-10 Last administered on 07/20/18 10:16; Admin Dose 1 TAB; Start 07/02/18 at 12:00 Lidocaine (Lidoderm) 1 patch 0800 TD Last administered on 07/25/18 08:45; Admin Dose 1 PATCH; Start 07/10/18 at 08:00 Acetaminophen (Tylenol Liquid) 650 mg Q4H PRN PO MILD PAIN LEVEL 1-3 Last administered on 07/23/18 08:35; Admin Dose 650 MG; Start 07/10/18 at 23:09 Acetaminophen (Tylenol Liquid) 650 mg Q4H PRN PO PRN FOR FEVER; Start 07/10/18 at 23:09 Amlodipine Besylate (Norvasc) 10 mg DAILY PO Last administered on 07/25/18 08:47; Admin Dose 10 MG; Start 07/11/18 at 09:00 Baclofen (Lioresal) 10 mg TID PO Last administered on 07/25/18 08:44; Admin Dose 10 MG; Start 07/10/18 at 21:00 Docusate Sodium (Colace Liquid Cup) 100 mg BID PO Last administered on 07/25/18 08:44; Admin Dose 100 MG; Start 07/10/18 at 21:00 Famotidine (Pepcid) 20 mg BID PO Last administered on 07/25/18 08:44; Admin Dose 20 MG; Start 07/10/18 at 21:00 Gabapentin (Neurontin) 100 mg BID PO Last administered on 07/25/18 08:44; Admin Dose 100 MG; Start 07/10/18 at 21:00 Lacosamide (Vimpat Liq) 50 mg BID PO Last administered on 07/25/18 08:47; Admin Dose 50 MG; Start 07/10/18 at 21:00 Levetiracetam (Keppra Liquid) 500 mg BID PO Last administered on 07/25/18 08:44; Admin Dose 500 MG; Start 07/10/18 at 21:00 Levothyroxine Sodium (Synthroid) 88 mcg DAILY@06 PO Last administered on 07/25/18at 06:45; Admin Dose 88 MCG; Start 07/11/18 at 06:00 Magnesium Hydroxide (Milk Of Mag) 30 ml BID PRN PO CONSTIPATION; Start 07/10/18 at 20:00 Simethicone (Mylicon) 80 mg QID PRN PO DISTENSION/GAS/BLOATING; Start 07/10/18 at 20:00 Zolpidem Tartrate (Ambien) 5 mg HS PO Last administered on 07/24/18at 21:41; Admin Dose 5 MG; Start 07/10/18 at 21:00 Assessment/Plan Additional Assessment/Plan Rehab- L SAH/hydrocephalus-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 now reportinghe would like to work towards transitional living facility Pain- overall improved on current medications Dysphagia- overall improved po intake, continue therapy and education for patient and family. Seizure Disorder-continue seizure precautions Respiratory Failure- decannulated, doing well - Urinary retention- voiding well with low PVRs. Monitor, and begin family education with regards to bladder management. Spasticity with increased tone in Right Upper and Lower Extremity- Continue baclofen, continue ROM Hypothyroidism ROB CARMONA MD Jul 25, 2018 10:50
[2018-07-25 14:00] VITALS: BP 103/68; PULSE 87; RESP 16
[2018-07-25] MEDS: ACETAMINOPHEN 650MG/20.3ML CUP PO PRN (15:30)
--- NOTE | 2018-07-25 19:39 | NUR ---
END OF SHIFT SUMMARY: PT IS AWAKE, AMERICAN SPEAKING ONLY. VITAL SIGNS STABLE. NO COMPLAINS OF PAIN. FAMILY AT BEDSIDE. PT IS INCONTINENT. PT VOIDING THRU DIAPER. PVR DONE. SEE FOR DOCUMENTATION. CALL LIGHT WAS WITHIN REACH.
[2018-07-25 20:10] VITALS: BP 98/65; PULSE 106; RESP 20
[2018-07-25] MEDS: ATORVASTATIN 20 MG TAB PO SCH (21:15)
[2018-07-25] MEDS: OLANZAPINE 2.5 MG TAB PO SCH (21:16)
[2018-07-25] MEDS: ZOLPIDEM 5 MG TAB PO SCH (21:16)
[2018-07-26 02:09] VITALS: BP 98/59; PULSE 78; RESP 18
--- NOTE | 2018-07-26 04:23 | NUR ---
LEXIC RN Weekly Summary Dates From: 07/20/18 to 07/26/18 Patient Name: AG MCCOLLUM MR#: [id number] Height: 5 ft 3 in Weight: 139 lbs 5.314 oz 63.200 kg Reason for Visit: NON TRAUMATIC BRAIN INJURY Precautions: FALL/PRESSURE ULCER/VTE/ASPIRATION/SEIZURE Date: 07/26/18 Time: 0424 User: ANITA DELGADO Short-term Goals: 1. Pt will be free of falls or injuries 2. Pt will maintain skin integrity 3. No episode of aspiration 4. Pt will have a regular BM 5. Pt will have good pain control Patient's progress: Fair Short-term goals not met and reason/barriers: Ongoing Bladder - level of function and accidents: 1, 17 accidents Bowel - level of function and accidents: 1, 7 accidents Skin: Status: Bilateral heel and sacrococcyx blanching, left lower back scratches,abdomen bruising Treatment: Venelex applied to left and right heels Changes: Pain: Yes Level: 3-7/10 on pain scale Location: Right arm Management:Tab.[place] and Tylenol given Changes: No Functional levels: Self Care:1 Transfers: 1 Locomotion: 1 Assistance requirements: Communication: 2 Social Cognition: 2 Safety awareness: Yes, high risk for falls, bed alarm activated and call light within pt's reach for safety. Interdisciplinary interactions: PT/OT/ST/SW/RN/MD Patient education: Yes, education given QS and PRN to pt and family regarding safety, medications. Discharge needs: Plan to d/c 08/01/18 Comorbid conditions: 1. Encephalopathy 2. Dysphagia-s/p PEG 3. Seizure Disorder 4. Respiratory Failure- s/p tracheostomy, tolerating cap 5. Urinary Tract Infection 6. Spasticity with increased tone in Right upper and Lower extremity 7. Hypothyroidism 8. Impairments in self care, mobility, and cognition Plan of Care continuation: Yes, continue current plan of care.
[2018-07-26] MEDS: LEVOTHYROXINE 88 MCG TAB PO SCH (06:26)
--- NOTE | 2018-07-26 06:45 | NUR ---
Pt stable with no acute distress noted. Pt had a good night rest. No complaints of pain/discomfort noted. Pt stable and vitals noted WNL. All due medications given and all needs attended. Crushed meds with apple sauce, strict aspiration precaution observed. Pt remains incontinent of B&B. Still on PVR checks, remained <350 throughout the shift. Pt repositioned Q2H and as needed. Pt had episode of 3 loose BM last night, will continue to monitor for any more loose BM. Safety measures in place. Hourly roundings done. Bed alarm activated. Both side rails up for safety.
[2018-07-26 07:00] VITALS: BP 105/64; PULSE 84; RESP 18
[2018-07-26] MEDS: AMLODIPINE 10 MG TAB PO SCH (09:00)
[2018-07-26] MEDS: DOCUSATE SODIUM 10 MG/ML (10ML CUP) PO SCH ×2 (09:00→21:00)
[2018-07-26] MEDS: LIDOCAINE 5% PATCH TD SCH (09:43)
[2018-07-26] MEDS: LEVETIRACETAM (100 MG/ML) 5ML CUP PO SCH ×2 (09:44→21:51)
[2018-07-26] MEDS: BACLOFEN 10 MG TAB PO SCH ×3 (09:44→21:52)
[2018-07-26] MEDS: ENOXAPARIN 40 MG/0.4 ML SYG SC SCH (09:46)
[2018-07-26] MEDS: NYSTATIN 30 GM POWDER BTL TOP SCH ×3 (09:46→21:50)
[2018-07-26] MEDS: LACOSAMIDE (100 MG/10 ML PO SYR) PO SCH ×2 (09:46→21:51)
[2018-07-26] MEDS: BALSAM PERU/CASTOR OIL 60 GM TUBE TOP SCH ×2 (09:47→21:50)
[2018-07-26] MEDS: NYSTATIN SUSP 5 ML CUP PO SCH ×2 (09:47→21:51)
[2018-07-26] MEDS: GABAPENTIN 100 MG CAP PO SCH ×2 (09:47→21:51)
[2018-07-26] MEDS: FAMOTIDINE 20 MG TAB PO SCH ×2 (09:47→21:52)
--- NOTE | 2018-07-26 11:48 | PN ---
DATE: 07/26/2018 SUBJECTIVE: The patient is stable. No events overnight. OBJECTIVE: VITAL SIGNS: Blood pressure is 98/59, respiration 18, pulse 78, temperature 98.0. HEENT: Head is normocephalic. NECK: Supple. HEART: Regular rate. LUNGS: Show diminished breath sounds at the base. ABDOMEN: Soft, nontender to palpation without rebound or guarding. EXTREMITIES: Negative for clubbing, cyanosis, no edema. DERMATOLOGIC: No rashes. MUSCULOSKELETAL: No joint effusions. NEUROLOGIC: No change in exam. MEDICATIONS: Reviewed. LABORATORY DATA: Shows white count 12.3, hemoglobin 13.3, platelet count 332. Sodium 144. ASSESSMENT AND PLAN: 1. History of cerebrovascular accident. The patient is clinically improving. Continue physical the rapy. 2. Leukocytosis with previous history of UTI. Will recheck UA with microanalysis and culture and se nsitivity. Continue to monitor CBC. The patient remains afebrile. Hold antibiotics at this time. 3. Chronic encephalopathy. The patient's mental status has been stable. Continue to monitor. 4. Mood disorder. Continue Zyprexa. 5. Hypertension. Continue current blood pressure regimen. 6. Seizure disorder. Continue medical management. 7. Urinary retention, improving. Continue to monitor PVRs. Appreciate urology's evaluation. 8. Neuropathy. Continue Neurontin. 9. Status post UTI. 10. Status post respiratory failure. 11. Status post subarachnoid hemorrhage. Dictated By: ANGIE CORDOVA DO NR/NTS Conf#: [id number] DID#: [id number] CC: HERNAN SHIPLEY DO;*EndCC*
--- NOTE | 2018-07-26 12:20 | NUR ---
Stool, loose and mucoid, non-foul, moderate amount on absorbent pad. Stool specimen sent for C. Diff and DESTINY Levin did I/O cath for urine UA and Urine c/s. Both specimen sent to lab by volunteer.
[2018-07-26 14:00] VITALS: BP 91/56; PULSE 85; RESP 18
--- NOTE | 2018-07-26 19:00 | NUR ---
End of shift summary note Patient seen not in distress or discomfort and no noted complaints of pain during the shift. No shortness of breath or difficulty of breathing noted. All due medications given. Noted with multiple episode of bowel movement and sample sent to lab. Still on PVR checks. Recreational activity offered like watching TV. Call light and bedside table placed within reach. Bed alarm activated for safety. Continuous monitoring provided and needs attended. Will endorse to next shift.
[2018-07-26 20:15] VITALS: BP 123/69; PULSE 79; RESP 18
[2018-07-26] MEDS: ZOLPIDEM 5 MG TAB PO SCH (21:51)
[2018-07-26] MEDS: ATORVASTATIN 20 MG TAB PO SCH (21:51)
[2018-07-26] MEDS: OLANZAPINE 2.5 MG TAB PO SCH (21:52)
[2018-07-27 02:00] VITALS: BP 112/81; PULSE 88; RESP 18
--- NOTE | 2018-07-27 06:15 | NUR ---
Pt asleep at this time. BM x 4 this shift, still awaiting results of C-diff and urine culture tests done yesterday, 07/27/18. Verbalized mild abdominal pain early this AM but refused [place] and Tylenol as ordered; stated that sleep might help the pt and that the pain might go away on its own. RN offered other interventions, said "it's ok, let's just let her sleep." Due meds given. Needs attended to. Safety precautions in place. Kept clean and comfortable. Encouraged to call for help whenever necessary. Frequent checks done. at bedside at this time. Will endorse accordingly.
[2018-07-27] MEDS: LEVOTHYROXINE 88 MCG TAB PO SCH (06:25)
[2018-07-27 08:00] VITALS: BP 121/73; PULSE 72; RESP 18
[2018-07-27] MEDS: NYSTATIN 30 GM POWDER BTL TOP SCH ×3 (09:00→21:00)
[2018-07-27] MEDS: DOCUSATE SODIUM 10 MG/ML (10ML CUP) PO SCH ×2 (09:00→20:56)
--- NOTE | 2018-07-27 09:10 | PN ---
DATE: 07/27/2018 SUBJECTIVE: The patient is stable, no events overnight. OBJECTIVE: VITAL SIGNS: Blood pressure is 112/81, respiration 18, pulse 88, temperature 97.8. HEENT: Head is normocephalic. NECK: Supple. HEART: Regular rate. LUNGS: Show diminished breath sounds at base. ABDOMEN: Soft, nontender to palpation without rebound or guarding. EXTREMITIES: Negative for clubbing, cyanosis, no edema. DERMATOLOGIC: No rashes. MUSCULOSKELETAL: No joint effusion. NEUROLOGIC: No change in exam. MEDICATIONS: Reviewed. LABORATORY DATA: Shows white count of 12.1 , hemoglobin 13.0, platelet count is 319. ASSESSMENT AND PLAN: 1. History of cerebrovascular accident. The patient is clinically improving. Continue physical the rapy. 2. Leukocytosis, etiology is unclear. We will rule out infection. Will repeat a urinalysis. C. di ff has also been sent. The patient is noted to have diarrhea. Continue to monitor closely. Conside r ID evaluation. 3. Chronic encephalopathy. Patient stable. Continue to monitor. 4. Mood disorder. Continue Zyprexa. 5. Hypertension. Continue current blood pressure regimen. 6. Seizure disorder. Continue medical management. 7. Urinary retention, improved. Continue to monitor. 8. Neuropathy. Continue Neurontin. 9. Status post urinary tract infection. 10. Status post respiratory failure. 11. Status post subarachnoid hemorrhage. Dictated By: ANGIE CORDOVA DO NR/NTS Conf#: [id number] DID#: [id number] CC: HERNAN SHIPLEY DO;*EndCC*
[2018-07-27] MEDS: AMLODIPINE 10 MG TAB PO SCH (10:34)
[2018-07-27] MEDS: FAMOTIDINE 20 MG TAB PO SCH ×2 (10:34→20:56)
[2018-07-27] MEDS: GABAPENTIN 100 MG CAP PO SCH ×2 (10:34→20:56)
[2018-07-27] MEDS: BACLOFEN 10 MG TAB PO SCH ×3 (10:35→20:56)
[2018-07-27] MEDS: LIDOCAINE 5% PATCH TD SCH (10:35)
[2018-07-27] MEDS: NYSTATIN SUSP 5 ML CUP PO SCH ×2 (10:36→20:57)
[2018-07-27] MEDS: LACOSAMIDE (100 MG/10 ML PO SYR) PO SCH ×2 (10:36→20:56)
[2018-07-27] MEDS: ENOXAPARIN 40 MG/0.4 ML SYG SC SCH (10:38)
[2018-07-27] MEDS: LEVETIRACETAM (100 MG/ML) 5ML CUP PO SCH ×2 (10:39→20:56)
[2018-07-27] MEDS: BALSAM PERU/CASTOR OIL 60 GM TUBE TOP SCH ×2 (11:41→21:00)
--- NOTE | 2018-07-27 12:22 | PN ---
Date/Time of Note Date/Time of Note DATE: 07/27/18 TIME: 12:22 Objective Vital Signs Date Temp Pulse Resp B/P (MAP) Pulse Ox O2 O2 Flow FiO2 Time Delivery Rate 07/27/18 97.7 72 18 121/73 97 08:00 (89) 07/27/18 Room Air 02:00 Intake and Output 07/26/18 07/26/18 07/27/18 1515:00 23:00 07:00 IntakeIntake Total 2000 ml BalanceBalance 2000 ml Exam INTERDISCIPLINARY TEAM CONFERENCE Physical Exam: Pulm-cta Abd-soft BOWEL- Cont BLADDER-Cont SKIN- intact OT- DRESSING- min/mod BATHING-mod TOILETING-mod PT- BED MOBILITY-min TRANSFERS-min AMBULATION-min 150 feet SPEECH- COGNITION-mod/max Dysphagia-tolerating current diet A/P- Interdisciplinary team conference held today. Please see interdisciplinary sheet. Working toward d.cEduardo on 07/28 with post discharge follow up of physical therapy, occupational therapy. Results/Medications Result Diagram: 07/27/18 0622 07/25/18 0612 Results 24 hrs Laboratory Tests Test 07/27/18 06:22 White Blood Count 12.0 H Red Blood Count 4.28 Hemoglobin 13.0 Hematocrit 39.4 Mean Corpuscular Volume 92.1 Mean Corpuscular Hemoglobin 30.4 Mean Corpuscular Hemoglobin Concent 33.0 Red Cell Distribution Width 12.8 Platelet Count 319 Mean Platelet Volume 10.3 Immature Granulocytes % 0.300 Neutrophils % 59.7 Lymphocytes % 27.0 Monocytes % 9.7 Eosinophils % 2.8 Basophils % 0.5 Nucleated Red Blood Cells % 0.0 Immature Granulocytes # 0.040 H Neutrophils # 7.1 Lymphocytes # 3.2 H Monocytes # 1.2 H Eosinophils # 0.3 Basophils # 0.1 Nucleated Red Blood Cells # 0.0 Medications Current Medications Atorvastatin Calcium (Lipitor) 20 mg DAILY@21 PO Last administered on 07/26/18at 21:51; Admin Dose 20 MG; Start 06/26/18 at 23:09 Albuterol (Proventil 0.5% (Neb)) 2.5 mg Q4H RESP THERAPY PRN INH PRN DYSPNEA; Start 06/26/18 at 23:09 Ipratropium [place] (Atrovent 0.02% (Neb)) 0.5 mg Q4H RESP THERAPY PRN INH DY SPNEA; Start 06/26/18 at 23:09 Nystatin (Nystatin Susp) 5 ml BID PO Last administered on 07/27/18 10:36; Admin Dose 5 ML; Start 06/26/18 at 23:09 Olanzapine (Zyprexa) 2.5 mg QHS PO Last administered on 07/26/18 21:52; Admin Dose 2.5 MG; Start 06/26/18 at 23:09 Enoxaparin Sodium (Lovenox) 40 mg DAILY SC Last administered on 07/27/18 10:38; Admin Dose 40 MG; Start 06/26/18 at 23:09 Nystatin (Nystatin Powder) 1 applic TID TOP Last administered on 07/27/18 09:00; Admin Dose 1 APPLIC; Start 06/26/18 at 23:09 Eye Lubricant (Akwa Oint) 1 applic Q1H PRN BOTH EYES PRN; Start 06/26/18 at 23:09 Lactulose (Enulose) 20 gm DAILY PRN GTB CONSTIPATION; Start 06/27/18 at 00:00 Bisacodyl (Dulcolax Supp) 10 mg DAILY PRN [place] CONSTIPATION; Start 06/27/18 at 00:00 Acetaminophen/ Hydrocodone Bitart ([place] (5/325)) 1 tab Q24H PRN GTB SEVERE PAIN LEVEL 7-10 Last administered on 07/20/18 10:16; Admin Dose 1 TAB; Start 07/02/18 at 12:00 Lidocaine (Lidoderm) 1 patch 0800 TD Last administered on 07/27/18 10:35; Admin Dose 1 PATCH; Start 07/10/18 at 08:00 Acetaminophen (Tylenol Liquid) 650 mg Q4H PRN PO MILD PAIN LEVEL 1-3 Last administered on 07/25/18 15:30; Admin Dose 650 MG; Start 07/10/18 at 23:09 Acetaminophen (Tylenol Liquid) 650 mg Q4H PRN PO PRN FOR FEVER; Start 07/10/18 at 23:09 Amlodipine Besylate (Norvasc) 10 mg DAILY PO Last administered on 07/27/18 10:34; Admin Dose 10 MG; Start 07/11/18 at 09:00 Baclofen (Lioresal) 10 mg TID PO Last administered on 07/27/18 10:35; Admin Dose 10 MG; Start 07/10/18 at 21:00 Docusate Sodium (Colace Liquid Cup) 100 mg BID PO Last administered on 07/23/18 21:53; Admin Dose 100 MG; Start 07/10/18 at 21:00 Famotidine (Pepcid) 20 mg BID PO Last administered on 07/27/18 10:34; Admin Dose 20 MG; Start 07/10/18 at 21:00 Gabapentin (Neurontin) 100 mg BID PO Last administered on 07/27/18 10:34; Admin Dose 100 MG; Start 07/10/18 at 21:00 Lacosamide (Vimpat Liq) 50 mg BID PO Last administered on 07/27/18 10:36; Admin Dose 50 MG; Start 07/10/18 at 21:00 Levetiracetam (Keppra Liquid) 500 mg BID PO Last administered on 07/27/18 10:39; Admin Dose 500 MG; Start 07/10/18 at 21:00 Levothyroxine Sodium (Synthroid) 88 mcg DAILY@06 PO Last administered on 07/27/18 06:25; Admin Dose 88 MCG; Start 07/11/18 at 06:00 Magnesium Hydroxide (Milk Of Mag) 30 ml BID PRN PO CONSTIPATION; Start 07/10/18 at 20:00 Simethicone (Mylicon) 80 mg QID PRN PO DISTENSION/GAS/BLOATING; Start 07/10/18 at 20:00 Zolpidem Tartrate (Ambien) 5 mg HS PO Last administered on 07/26/18 21:51; Admin Dose 5 MG; Start 07/10/18 at 21:00 ROB CARMONA MD Jul 27, 2018 12:22
--- NOTE | 2018-07-27 13:56 | NUR ---
Received call from the lab. Patient positive for CDiff. Dr. Gill and Dr. Castañeda notified. Medication ordered given and entered. Isolation cart to room, and cohorted patient moved to different room. Discussed with family.
[2018-07-27 14:00] VITALS: BP 123/55; PULSE 87; RESP 18
[2018-07-27] MEDS: VANCOMYCIN HCL 250 MG/5ML POSYG PO SCH ×2 (15:53→19:22)
--- NOTE | 2018-07-27 18:30 | NUR ---
Patient remains in stable condition, no complaints of pain or discomfort noted. She is alert, with occasional episode of crying, but no behavioral issues noted. All due meds given. Call light in reach, bed alarm on.
[2018-07-27 20:00] VITALS: BP 107/54; PULSE 87; RESP 18
[2018-07-27] MEDS: OLANZAPINE 2.5 MG TAB PO SCH (20:56)
[2018-07-27] MEDS: ZOLPIDEM 5 MG TAB PO SCH (20:56)
[2018-07-27] MEDS: ATORVASTATIN 20 MG TAB PO SCH (20:56)
[2018-07-27] MEDS: ACETAMINOPHEN 650MG/20.3ML CUP PO PRN (20:57)
[2018-07-28] MEDS: VANCOMYCIN HCL 250 MG/5ML POSYG PO SCH ×4 (00:44→18:41)
[2018-07-28 02:00] VITALS: BP 115/67; PULSE 69; RESP 18
[2018-07-28] MEDS: LEVOTHYROXINE 88 MCG TAB PO SCH (06:31)
--- NOTE | 2018-07-28 06:45 | NUR ---
Slept well. Resp unlabored. Incontinent of bowel and bladder, kept clean and dry.Needs attended. On contact isolation for C-diff, observed. Denies pain. Kept comfortable. Family at bedside. Call light within reached. Bed alarm is activated. No acute distress noted.
[2018-07-28 07:30] VITALS: BP 99/60; PULSE 68; RESP 20
--- NOTE | 2018-07-28 08:49 | PN ---
DATE: 07/28/2018 SUBJECTIVE: The patient is stable. The patient was noted to have C. Diff yesterday, currently on or al vancomycin. No other events noted. OBJECTIVE: VITAL SIGNS: Blood pressure is 115/67, respiration 18, pulse 69, temperature 98.0. HEENT: Head is normocephalic. NECK: Supple. HEART: Regular rate. LUNGS: Show diminished breath sounds at the base. ABDOMEN: Soft, nontender to palpation without rebound or guarding. EXTREMITIES: Negative for clubbing, cyanosis, no edema. DERMATOLOGIC: No rashes. MUSCULOSKELETAL: No joint effusions. NEUROLOGIC: No change in exam. MEDICATIONS: The patient's medications have been reviewed. LABORATORY DATA: Currently pending. ASSESSMENT AND PLAN: 1. History of cerebrovascular accident. The patient is clinically improving. Continue physical the rapy. 2. Clostridium difficile. The patient is currently on oral vancomycin. Will continue. Continue to monitor labs and electrolytes closely. 3. Chronic encephalopathy, currently stable. Continue to monitor. 4. Mood disorder. Continue Zyprexa. 5. Hypertension. Continue current blood pressure regimen. 6. Seizure disorder. Continue current medical management. 7. Urinary retention, improved. 8. Neuropathy. Continue Neurontin. 9. Status post urinary 10. Status post respiratory failure. 11. Status post subarachnoid hemorrhage. Dictated By: ANGIE CORDOVA DO NR/NTS Conf#: [id number] DID#: [id number] CC: HERNAN SHIPLEY DO; BRENDEN ENRIQUE MD;*EndCC*
[2018-07-28] MEDS: BALSAM PERU/CASTOR OIL 60 GM TUBE TOP SCH ×2 (09:00→22:01)
[2018-07-28] MEDS: NYSTATIN 30 GM POWDER BTL TOP SCH ×3 (09:00→22:00)
[2018-07-28] MEDS: DOCUSATE SODIUM 10 MG/ML (10ML CUP) PO SCH ×2 (09:00→21:00)
[2018-07-28] MEDS: NYSTATIN SUSP 5 ML CUP PO SCH ×2 (09:00→21:59)
[2018-07-28] MEDS: ENOXAPARIN 40 MG/0.4 ML SYG SC SCH (09:00)
[2018-07-28] MEDS: LIDOCAINE 5% PATCH TD SCH (12:12)
[2018-07-28] MEDS: GABAPENTIN 100 MG CAP PO SCH ×2 (12:13→22:02)
[2018-07-28] MEDS: BACLOFEN 10 MG TAB PO SCH ×3 (12:13→22:02)
[2018-07-28] MEDS: AMLODIPINE 10 MG TAB PO SCH (12:13)
[2018-07-28] MEDS: LACOSAMIDE (100 MG/10 ML PO SYR) PO SCH ×2 (12:13→22:00)
[2018-07-28] MEDS: FAMOTIDINE 20 MG TAB PO SCH ×2 (12:13→22:02)
[2018-07-28] MEDS: LEVETIRACETAM (100 MG/ML) 5ML CUP PO SCH ×2 (12:15→22:00)
--- NOTE | 2018-07-28 12:24 | PN ---
Date/Time of Note Date/Time of Note DATE: 07/28/18 TIME: 12:23 Subjective comfortable Objective Vital Signs Date Temp Pulse Resp B/P (MAP) Pulse Ox O2 O2 Flow FiO2 Time Delivery Rate 07/28/18 97.6 68 20 99/60 (73) 92 Room Air 07:30 Intake and Output 07/27/18 07/27/18 07/28/18 1515:00 23:00 07:00 IntakeIntake Total 800 ml 200 ml BalanceBalance 800 ml 200 ml Exam pulm-cta abd-soft min transfer Results/Medications Result Diagram: 07/28/18 0831 07/28/18 0831 Results 24 hrs Laboratory Tests Test 07/28/18 08:31 White Blood Count 9.0 # Red Blood Count 4.33 Hemoglobin 13.3 Hematocrit 39.5 Mean Corpuscular Volume 91.2 Mean Corpuscular Hemoglobin 30.7 Mean Corpuscular Hemoglobin Concent 33.7 Red Cell Distribution Width 12.6 Platelet Count 323 Mean Platelet Volume 10.1 Immature Granulocytes % 0.400 Neutrophils % 53.0 Lymphocytes % 33.2 Monocytes % 9.1 Eosinophils % 3.7 Basophils % 0.6 Nucleated Red Blood Cells % 0.0 Immature Granulocytes # 0.040 H Neutrophils # 4.8 Lymphocytes # 3.0 H Monocytes # 0.8 Eosinophils # 0.3 Basophils # 0.1 Nucleated Red Blood Cells # 0.0 Sodium Level 143 Potassium Level 4.3 Chloride Level 102 Carbon Dioxide Level 27 Anion Gap 14 H Blood Urea Nitrogen 14 Creatinine 0.49 Est Glomerular Filtrat Rate mL/min > 60 Glucose Level 100 Calcium Level 9.4 Medications Current Medications Atorvastatin Calcium (Lipitor) 20 mg DAILY@21 PO Last administered on 07/27/18at 20:56; Admin Dose 20 MG; Start 06/26/18 at 23:09 Albuterol (Proventil 0.5% (Neb)) 2.5 mg Q4H RESP THERAPY PRN INH PRN DYSPNEA; Start 06/26/18 at 23:09 Ipratropium [place] (Atrovent 0.02% (Neb)) 0.5 mg Q4H RESP THERAPY PRN INH DYSPNEA; Start 06/26/18 at 23:09 Nystatin (Nystatin Susp) 5 ml BID PO Last administered on 07/27/18at 20:57; Admin Dose 5 ML; Start 06/26/18 at 23:09 Olanzapine (Zyprexa) 2.5 mg QHS PO Last administered on 07/27/18 20:56; Admin Dose 2.5 MG; Start 06/26/18 at 23:09 Enoxaparin Sodium (Lovenox) 40 mg DAILY SC Last administered on 07/27/18 10:38; Admin Dose 40 MG; Start 06/26/18 at 23:09 Nystatin (Nystatin Powder) 1 applic TID TOP Last administered on 07/27/18 09:00; Admin Dose 1 APPLIC; Start 06/26/18 at 23:09 Eye Lubricant ([place]wa Oint) 1 applic Q1H PRN BOTH EYES PRN; Start 06/26/18 at 23:09 Lactulose (Enulose) 20 gm DAILY PRN GTB CONSTIPATION; Start 06/27/18 at 00:00 Bisacodyl (Dulcolax Supp) 10 mg DAILY PRN [place] CONSTIPATION; Start 06/27/18 at 00:00 Lidocaine (Lidoderm) 1 patch 0800 TD Last administered on 07/27/18 10:35; Admin Dose 1 PATCH; Start 07/10/18 at 08:00 Acetaminophen (Tylenol Liquid) 650 mg Q4H PRN PO MILD PAIN LEVEL 1-3 Last administered on 07/27/18 20:57; Admin Dose 650 MG; Start 07/10/18 at 23:09 Acetaminophen (Tylenol Liquid) 650 mg Q4H PRN PO PRN FOR FEVER; Start 07/10/18 at 23:09 Amlodipine Besylate (Norvasc) 10 mg DAILY PO Last administered on 07/28/18 12:13; Admin Dose 10 MG; Start 07/11/18 at 09:00 Baclofen (Lioresal) 10 mg TID PO Last administered on 07/28/18 12:13; Admin Dose 10 MG; Start 07/10/18 at 21:00 Docusate Sodium (Colace Liquid Cup) 100 mg BID PO Last administered on 07/27/18 20:56; Admin Dose 100 MG; Start 07/10/18 at 21:00 Famotidine (Pepcid) 20 mg BID PO Last administered on 07/28/18 12:13; Admin Dose 20 MG; Start 07/10/18 at 21:00 Gabapentin (Neurontin) 100 mg BID PO Last administered on 07/28/18 12:13; Admin Dose 100 MG; Start 07/10/18 at 21:00 Lacosamide (Vimpat Liq) 50 mg BID PO Last administered on 07/28/18 12:13; Admin Dose 50 MG; Start 07/10/18 at 21:00 Levetiracetam (Keppra Liquid) 500 mg BID PO Last administered on 07/28/18 12:15; Admin Dose 500 MG; Start 07/10/18 at 21:00 Levothyroxine Sodium (Synthroid) 88 mcg DAILY@06 PO Last administered on 07/28/18 06:31; Admin Dose 88 MCG; Start 07/11/18 at 06:00 Magnesium Hydroxide (Milk Of Mag) 30 ml BID PRN PO CONSTIPATION; Start 07/10/18 at 20:00 Simethicone (Mylicon) 80 mg QID PRN PO DISTENSION/GAS/BLOATING; Start 07/10/18 at 20:00 Zolpidem Tartrate (Ambien) 5 mg HS PO Last administered on 07/27/18at 20:56; Admin Dose 5 MG; Start 07/10/18 at 21:00 Vancomycin HCl (Vancomycin Oral Syringe) 250 mg Q6 PO Last administered on 07/28/18 06:31; Admin Dose 250 MG; Start 07/27/18 at 12:30 Assessment/Plan Additional Assessment/Plan Rehab- L SAH/hydrocephalus-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 Seizure Disorder-continue seizure precautions Respiratory Failure- decannulated, doing well - Urinary retention- voiding well Spasticity with increased tone in Right Upper and Lower Extremity- Continue baclofen, continue ROM Hypothyroidism GI- cdif, on abx ROB CARMONA MD Jul 28, 2018 12:24
[2018-07-28 14:00] VITALS: BP 105/70; PULSE 95; RESP 18
[2018-07-28] MEDS ORDERED: ONDANSETRON 4 MG INJ IV STA (14:10)
[2018-07-28] MEDS ORDERED: ONDANSETRON 4 MG INJ IM STA (14:14)
[2018-07-28 19:00] VITALS: BP 120/71; PULSE 87; RESP 18
[2018-07-28 20:00] VITALS: BP 120/71; PULSE 87; RESP 18
[2018-07-28] MEDS: ZOLPIDEM 5 MG TAB PO SCH (22:01)
[2018-07-28] MEDS: ATORVASTATIN 20 MG TAB PO SCH (22:02)
[2018-07-28] MEDS: OLANZAPINE 2.5 MG TAB PO SCH (22:02)
[2018-07-29] MEDS: VANCOMYCIN HCL 250 MG/5ML POSYG PO SCH ×4 (00:14→17:31)
[2018-07-29 02:00] VITALS: BP 110/67; PULSE 65; RESP 18
[2018-07-29] MEDS: LEVOTHYROXINE 88 MCG TAB PO SCH (06:08)
--- NOTE | 2018-07-29 06:26 | NUR ---
Pt asleep at this time. No complaints of pain during the shift. No s/s of distress. Due meds given. Needs attended to. Safety precautions in place. Kept clean and comfortable. Encouraged to call for help whenever necessary. Frequent checks done. [id number]-[id number] spent the night at bedside. Will endorse accordingly.
[2018-07-29 07:30] VITALS: BP 121/80; PULSE 81; RESP 18
[2018-07-29] MEDS: DOCUSATE SODIUM 10 MG/ML (10ML CUP) PO SCH ×2 (09:00→22:03)
--- NOTE | 2018-07-29 09:21 | PN ---
DATE: 07/29/2018 SUBJECTIVE: The patient is stable, no events overnight. No fevers, chills, nausea, or vomiting. OBJECTIVE: VITAL SIGNS: Blood pressure is 120/71, pulse 95, respirations 18, temperature 98.2. HEENT: Head is normocephalic. NECK: Supple. HEART: Regular rate. LUNGS: Show diminished breath sounds at the base. ABDOMEN: Soft, nontender to palpation without rebound or guarding. EXTREMITIES: Negative for clubbing, cyanosis, no edema. DERMATOLOGIC: No rashes. MUSCULOSKELETAL: No joint effusion. NEUROLOGIC: No change in exam. MEDICATIONS: Reviewed. LABORATORY DATA: Reviewed. ASSESSMENT AND PLAN: 1. History of cerebrovascular accident. The patient is clinically improving. Continue physical the rapy. 2. Clostridium difficile. The patient is on oral vancomycin. The patient's diarrhea is improving. Continue to monitor. 3. Chronic encephalopathy, currently stable. 4. Mood disorder. Continue Zyprexa. 5. Hypertension. Continue current blood pressure regimen. 6. Seizure disorder. Continue medical management. 7. Urinary retention, improved. 8. Neuropathy. Continue Neurontin. 9. Status post urinary tract infection. 10. Status post respiratory failure. 11. Status post subarachnoid hemorrhage. Dictated By: ANGIE CORDOVA DO NR/NTS Conf#: [id number] DID#: [id number] CC: HERNAN SHIPLEY DO; BRENDEN ENRIQUE MD;*EndCC*
[2018-07-29] MEDS: GABAPENTIN 100 MG CAP PO SCH ×2 (10:01→22:02)
[2018-07-29] MEDS: LEVETIRACETAM (100 MG/ML) 5ML CUP PO SCH ×2 (10:02→22:09)
[2018-07-29] MEDS: FAMOTIDINE 20 MG TAB PO SCH ×2 (10:02→22:02)
[2018-07-29] MEDS: BACLOFEN 10 MG TAB PO SCH ×3 (10:02→22:02)
[2018-07-29] MEDS: AMLODIPINE 10 MG TAB PO SCH (10:02)
[2018-07-29] MEDS: LACOSAMIDE (100 MG/10 ML PO SYR) PO SCH ×2 (10:02→22:04)
[2018-07-29] MEDS: NYSTATIN SUSP 5 ML CUP PO SCH ×2 (10:02→22:03)
[2018-07-29] MEDS: ACETAMINOPHEN 650MG/20.3ML CUP PO PRN (10:03)
[2018-07-29] MEDS: LIDOCAINE 5% PATCH TD SCH (10:04)
[2018-07-29] MEDS: ENOXAPARIN 40 MG/0.4 ML SYG SC SCH (10:05)
[2018-07-29] MEDS: NYSTATIN 30 GM POWDER BTL TOP SCH ×3 (10:06→21:00)
[2018-07-29] MEDS: BALSAM PERU/CASTOR OIL 60 GM TUBE TOP SCH ×2 (10:06→21:00)
--- NOTE | 2018-07-29 11:08 | NUR ---
[facility] OT Weekly Summary Dates From: 07/19/18 to 07/25/18 Patient Name: AG MCCOLLUM MR#: [id number] Height: 5 ft 3 in Weight: 139 lbs 5.314 oz 63.200 kg Reason for Visit: NON TRAUMATIC BRAIN INJURY Precautions: fall risk and confusion Date: 07/29/18 Time: 1108 User: EVELYN BETTS Short-term Goals: 1. Setup w/ Feeding (updated on 07/25/18) 2. Setup w/ Grooming (updated on 07/25/18) 3. Min A/ Mod A w/ UB/LB dressing 4. Mod A w/ Toileting 5. Mod A w/ Bathing 6. Mod A w/ functional transfers Upon admission pt has the following levels: Grooming: Dep, Feeding: Dep, UB/LB dress: Dep/Dep, Toileting: Dep, Bathing: Dep, Functional transfers: Dep. Pt making steady progress towards goal ADL retraining NMRE, thera ex and actv. Pt current levels are: Feeding: Min A, Grooming: Min A, Bathing: Max A, UB/LB dress: Mod A/ Dependent, Toileting: dependent, Funct transfers: Max A. Recommended DME: commode, shower chair. Inconsistent progress towards goals d/t cognitive deficits, pt still has difficulty w/ initiating task- responds well w/ backward chaining, pt requiring max multimodal cues to complete ADL tasks at this time. Barriers include emotional lability, poor carryover of learning.
--- NOTE | 2018-07-29 13:17 | DS ---
Date/Time of Note Date/Time of Note DATE: 07/29/18 TIME: 13:16 Discharge Summary Admission/Discharge Info Admit Date/Time Jun 26, 2018 at 21:04 Discharge Date/Time Discharge Diagnosis 1. 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 2. Dysphagia-s/p PEG- now removed with good po intake 3. Seizure Disorder 4. Respiratory Failure- s/p tracheostomy, now doing well decannulated 5. C difficile 6. Spasticity 7. Hypothyroidism 8. Improvements in self care, mobility, and cognition Patient Condition: Good Hospital Course The patient was admitted for comprehensive interdisciplinary rehabilitation and made steady functional gains from a Max/dep level to a Min level for self care tasks and mobility including ambulating over 150 feet with the use of a FWW. Patient was successfully decannulated during the course of her stay,and tolerated advancement of diet, discontinuation of tube feeds, and dc of PEG duringthe course of her rehabilitation. Her agitation significantly improved, and she demonstrated improvement in cognition. Patient is being discharged to lower level of care for continued therapies. The DC meds are per the medication reconciliation sheet. The discharge equipment recommendations include: FWW, BSC, shower chair. The patient will follow up with PMD upon DC. Primary Care Provider Asael Pearl DO Pending Labs Laboratory Tests Test 07/29/18 09:28 White Blood Count 7.8 10^3/ul (4.8-10.8) Red Blood Count 4.59 10^6/ul (4.20-5.40) Hemoglobin 14.0 g/dl (12.0-16.0) Hematocrit 41.5 % (37.0-47.0) Mean Corpuscular Volume 90.4 fl (82.0-101.0) Mean Corpuscular Hemoglobin 30.5 pg (29.0-33.0) Mean Corpuscular Hemoglobin Concent 33.7 g/dl (32.0-37.0) Red Cell Distribution Width 12.7 % (11.5-14.5) Platelet Count 349 10^3/UL (140-415) Mean Platelet Volume 9.8 fl (7.4-10.4) Immature Granulocytes % 0.600 % (0.001-0.429) Neutrophils % 58.6 % (39.0-77.0) Lymphocytes % 29.4 % (15.0-51.0) Monocytes % 8.1 % (0.0-11.0) Eosinophils % 2.8 % (0.0-7.0) Basophils % 0.5 % (0.0-2.0) Nucleated Red Blood Cells % 0.0 /100WBC (0.0-0.0) Immature Granulocytes # 0.050 10^3/ul (0.0-0.031) Neutrophils # 4.6 10^3/ul (1.6-7.5) Lymphocytes # 2.3 10^3/ul (0.8-2.9) Monocytes # 0.6 10^3/ul (0.3-0.9) Eosinophils # 0.2 10^3/ul (0.0-0.5) Basophils # 0.0 10^3/ul (0.0-0.1) Nucleated Red Blood Cells # 0.0 10^3/ul (0.0-0.0) Sodium Level 143 mmol/L (135-144) Potassium Level 3.1 mmol/L (3.5-5.1) Chloride Level 102 mmol/L (97-110) Carbon Dioxide Level 25 mmol/L (21-31) Anion Gap 16 (5-13) Blood Urea Nitrogen 11 mg/dl (7-20) Creatinine 0.46 mg/dl (0.44-1.00) Est Glomerular Filtrat Rate mL/min > 60 mL/min (>60) Glucose Level 92 mg/dl (70-220) Calcium Level 9.4 mg/dl (8.4-10.2) Phosphorus Level 4.3 mg/dl (2.5-4.9) Magnesium Level 1.9 mg/dl (1.7-2.5) ROB CARMONA MD Jul 29, 2018 13:17
[2018-07-29 14:00] VITALS: BP 100/61; PULSE 85; RESP 18
--- NOTE | 2018-07-29 15:21 | NUR ---
[facility] PT Weekly Summary Dates From: 07/21/18 to 07/29/18 Patient Name: AG MCCOLLUM MR#: [id number] Height: 5 ft 3 in Weight: 139 lbs 5.314 oz 63.200 kg Reason for Visit: NON TRAUMATIC BRAIN INJURY Precautions: fall risk, Rt hemiplegia, Rt-side neglect, confused, emotionally labile, premedicate for RUE pain per Dr. Gill Date: 07/29/18 Time: 1521 User: SYLVIA RIVERA Short-term Goals: 1. Bed Mobility with Min A 2. All transfers with Min A 3. Gait training with AD with min A 50ft x20 Pt making fair progress while here in [facility]. Currently demonstrates min A for bed mobility, min A for bed <> w/c transfer, Min A for gait with L hand on w/c handle x 100 ft (refused other assistive device), mod A WC mobility x 100ft. Barriers: Rt hemiparesis, Rt neglect, confusion, emotional lability, poor carryover of learning/dec ability to retain information, poor carryover of learning, multiple refusals, at times resistive and uncooperative. Recommended transitional living facility ([facility]) but declined due to far location. Recomm. FWW with Rt FA trough, manual WC with swing away foot rests, BSC, home with HHPT and 24hr assistance. Cont POC and progress as tolerated.
--- NOTE | 2018-07-29 17:00 | NUR ---
Patient in bed eating dinner assisted by nurse administrative support assistant. Offered TV & educational materials for recreational activities. Alert, oriented x 1 with periods of confusion. No SOB. Complained of mild pain so given Tylenol. Relieved after 30 minutes. No adverse reaction noted with PO ATB. No seizure episode noted. Patient refused padded siderails. Offered 3x but refused 3x. Explained risks & benefits but she still refused. Patient kept removing padded siderails. Kept clean & dry. All due meds given. Call light within reach. Bed alarm on & in low position. Kept comfortable.
[2018-07-29] MEDS ORDERED: POTASSIUM CHLORIDE 20 MEQ POWDER FOR ORAL SOLN PO ONE (18:30)
[2018-07-29 19:33] VITALS: BP 118/68; PULSE 78; RESP 18
[2018-07-29] MEDS: OLANZAPINE 2.5 MG TAB PO SCH (22:02)
[2018-07-29] MEDS: ZOLPIDEM 5 MG TAB PO SCH (22:02)
[2018-07-29] MEDS: ATORVASTATIN 20 MG TAB PO SCH (22:02)
[2018-07-30] MEDS: VANCOMYCIN HCL 250 MG/5ML POSYG PO SCH ×3 (00:52→11:22)
[2018-07-30 02:00] VITALS: BP 122/64; PULSE 82; RESP 18
--- NOTE | 2018-07-30 06:45 | NUR ---
Slept well. Resp unlabored. Incontinent of bladder, kept clean and dry. Contact spores isolation observed for C-Diff of stools. Needs attended. Family member at bedside. Call light within reached. No acute distress noted.
[2018-07-30] MEDS: LEVOTHYROXINE 88 MCG TAB PO SCH (06:53)
[2018-07-30 07:00] VITALS: BP 116/73; PULSE 83; RESP 18
[2018-07-30] MEDS: NYSTATIN 30 GM POWDER BTL TOP SCH ×2 (09:00→13:00)
[2018-07-30] MEDS: FAMOTIDINE 20 MG TAB PO SCH (09:00)
--- NOTE | 2018-07-30 09:22 | PN ---
DATE: 07/30/2018 SUBJECTIVE: The patient is clinically improving. Diarrhea is improving. No other events noted. OBJECTIVE: VITAL SIGNS: Blood pressure is 122/64, pulse 85, respirations 18, temperature 98.2. HEENT: Head is normocephalic. NECK: Supple. HEART: Regular rate. LUNGS: Show diminished breath sounds at the base. ABDOMEN: Soft, nontender to palpation without rebound or guarding. EXTREMITIES: Negative for clubbing, cyanosis, no edema. DERMATOLOGIC: No rashes. MUSCULOSKELETAL: No joint effusion. NEUROLOGIC: No change in exam. MEDICATIONS: Reviewed. LABORATORY DATA: From 07/29/2018 was reviewed. ASSESSMENT AND PLAN: 1. History of cerebrovascular accident. The patient is currently improving. Continue geophysical drafter apy. 2. Clostridium difficile. Continue oral vancomycin. Plan is to complete a 2-week course. 3. Chronic encephalopathy, currently stable. 4. Mood disorder. Continue Zyprexa. 5. Hypertension. Continue current blood pressure regimen. 6. Seizure disorder. Continue medical management. 7. Urinary retention, improved. 8. Neuropathy. Continue Neurontin. 9. Status post urinary tract infection. 10. Status post respiratory failure. 11. Status post subarachnoid hemorrhage. Dictated By: ANGIE CORDOVA DO NR/NTS Conf#: [id number] DID#: [id number] CC: BRENDEN ENRIQUE MD; HERNAN SHIPLEY DO;*EndCC*
--- NOTE | 2018-07-30 10:00 | NUR ---
Nursing Notes: patient was transferred in [facility] with Director Religious Education. All instructions and Medication List given to Director Religious Education Staff.
[2018-07-30] MEDS: ACETAMINOPHEN 650MG/20.3ML CUP PO PRN (10:35)
--- NOTE | 2018-07-30 11:00 | NUR ---
[facility] travel insurance agent Summary Date of Discharge: 07/30/18 Patient Name: AG MCCOLLUM MR#: [id number] Height: 5 ft 3 in Weight: 139 lbs 5.314 oz 63.200 kg Reason for Visit: NON TRAUMATIC BRAIN INJURY Precautions: Date: 07/30/18 Time: 2201 User: KIRBY TURK Patient's progress, Adm-->DC: Short-term Goals: 1. patient will be bowel and bladder continent- not met, remain incontinent 2. patient will have no pain- not met with pain at times 3. patient will have no falls while in ARU- goal met 4. patient will not developed skin breakdown- goal met 5. Short-term goals not met and reason/barriers: Achievement of Long-term Goals: Long-term Goals not met and reason/barriers: Bladder - level of function and accidents: Bowel - level of function and accidents: Skin: Status: Treatment: Changes: Pain: Level: Location: Management: Changes: Functional levels: Self Care: Transfers: Locomotion: Assistance requirements: Communication: Social Cognition: Safety awareness: Interdisciplinary interactions: Patient education: Discharge needs: Comorbid conditions:
--- NOTE | 2018-07-30 11:00 | NUR ---
Nursing Notes report given to [facility] Staff
[2018-07-30] MEDS: LACOSAMIDE (100 MG/10 ML PO SYR) PO SCH (11:01)
[2018-07-30] MEDS: NYSTATIN SUSP 5 ML CUP PO SCH (11:01)
[2018-07-30] MEDS: BACLOFEN 10 MG TAB PO SCH ×2 (11:02→13:53)
[2018-07-30] MEDS: AMLODIPINE 10 MG TAB PO SCH (11:02)
[2018-07-30] MEDS: GABAPENTIN 100 MG CAP PO SCH (11:02)
[2018-07-30] MEDS: DOCUSATE SODIUM 10 MG/ML (10ML CUP) PO SCH (11:03)
[2018-07-30] MEDS: LEVETIRACETAM (100 MG/ML) 5ML CUP PO SCH (11:03)
[2018-07-30] MEDS: LIDOCAINE 5% PATCH TD SCH (11:04)
[2018-07-30] MEDS: BALSAM PERU/CASTOR OIL 60 GM TUBE TOP SCH (11:04)
[2018-07-30] MEDS: ENOXAPARIN 40 MG/0.4 ML SYG SC SCH (11:13)
--- NOTE | 2018-07-31 08:42 | NUR ---
[facility] ST Discharge Summary Date of Discharge: 07/30/18 Patient Name: AG MCCOLLUM MR#: [id number] Height: 139 ft 3 in Weight: 139 lbs 5.314 oz 63.200 kg Reason for Visit: NON TRAUMATIC BRAIN INJURY Precautions: Date: 07/31/18 Time: 0842 User: AMANDA SEBASTIAN Patient's progress, Adm-->DC: Short-term Goals: 1. Express basic wants and needs with mod verbal prompting in 80% opportunities. 2. Name basic items 75% with mod verbal prompting. Short-term goals not met and reason/barriers: Not met 2/2 severity of impairments and impact of perseveration on internal distractions (ex. stomach discomfort). Achievement of Long-term Goals: LTG partially met. Patient is tolerating her least restrictive diet without s/s aspiration. Swallow: Soft solids/ thin liquids Functional level: Eating: Needs assist to self feed- pt unable to scoop food onto fork/ spoon. Can self - present if given utensil with food on it. Assistance requirements: Communication: Mod - max A to express basic wants and needs. Total A required when internally distracted. Pt requires mod - max phonemic / semantic prompting to name basic objects. Automatic naming with mod phonemic / semantic prompting. Still unable to read or use written visual aids. Able to make basic choices between two verbal prompts. Emerging yes/ no reliability. Social Cognition: Difficult to fully assess 2/2 severity of language impairments. Cont. to demonstrate impulsivity and requires 24 hour supervision. Motivation: Fluctuating Safety awareness: Poor Patient / family education: Purpose of ST, POC, goals, diet modification Discharge needs: 24 hour supervision, cont. ST in other facility
--- NOTE | 2018-08-03 07:48 | NUR ---
[facility] OT Discharge Summary Date of Discharge: 07/30/18 Patient Name: AG MCCOLLUM MR#: [id number] Height:5 ft 3 in Weight:139 lbs 5.314 oz 63.200 kg Reason for Visit: NON TRAUMATIC BRAIN INJURY Precautions: fall risk, confusion Date: 08/03/18 Time: 0748 User: EVELYN BETTS Short-term Goals: 1. Setup w/ Feeding (updated on 07/25/18) 2. Setup w/ Grooming (updated on 07/25/18) 3. Min A/ Mod A w/ UB/LB dressing 4. Mod A w/ Toileting 5. Mod A w/ Bathing 6. Mod A w/ functional transfers Upon admission pt has the following levels: Grooming: Dep, Feeding: Dep, UB/LB dress: Dep/Dep, Toileting: Dep, Bathing: Dep, Functional transfers: Dep. Pt making steady progress towards goal ADL retraining NMRE, thera ex and actv. Pt functional levels upon discharge: Feeding: Min A, Grooming: Min A, Bathing: Dep, UB/LB dress: Mod A/ Max A, Toileting: dependent, Funct transfers: Min A. Patient met some of the OT short term goals. Barriers to progress include emotional lability, poor carryover of learning. Patient d/sheldon to SNF.
--- NOTE | 2018-08-08 14:10 | NUR ---
[facility] PT Discharge Summary Date of Discharge: 08/08/18 Patient Name: AG MCCOLLUM MR#: [id number] Height: 5 ft 3 in Weight: 139 lbs 5.314 oz 63.200 kg Reason for Visit: NON TRAUMATIC BRAIN INJURY Precautions: Date: 08/08/18 Time: 1410 User: ALMA ROSA HOFFMAN Patient's progress, Adm-->DC: Patient demonstrated significant gains during her stay at the ARU at [facility]. She improved with functional mobility, transfers, gait and endurance, w/c mobility, positioning, awareness of fall prevention, safety awareness, activity tolerance, strength and stability. Level of function at her time of discharge on 07/30/18: 5/10 RUE pain expressed with a grimace Rolling L/R with SBA Supine <-> sit with the bed flat with min assist. Sit <-> stand with min assist. Bed <-> w/c and BSC transfer with min A Toileting D Gait training with FWW min A 100 ft x 2 with 2 turns W/C mobility 100 ft, 50 ft and 50 ft with min assist manual with 2 turns Balance: Sitting S/D: F/F-, Standing S/D: F-/P+ Actiity tolerance Poor Safety awareness Fair STGs: Bed mobility with min assist, Achieved All transfers with min assist, Achieved Gait training with AD min assist 50 ft x 2, Achieved Patient was discharged to SNF on 07/30/18
== END 2018-07-30 14:00 | DRG 65 ==
LOC: VRC 21:04
PROVIDERS: ADMIT Internal Medicine Nephrology; ATTEND Internal Medicine Nephrology
PROC: F07Z5ZZ Bed Mobility Treatment (ICD-10-PCS; principal; 2018-06-26)
PROC: F08Z2ZZ Grooming/Personal Hygiene Treatment (ICD-10-PCS; 2018-06-26)
DX: I60.9 Nontraumatic subarachnoid hemorrhage, unspecified (principal); N39.0 Urinary tract infection, site not specified; I69.091 Dysphagia following nontraumatic subarachnoid hemorrhage; E03.9 Hypothyroidism, unspecified; R25.2 Cramp and spasm; Z98.2 Presence of cerebrospinal fluid drainage device; G40.909 Epilepsy, unspecified, not intractable, without status epilepticus; E78.5 Hyperlipidemia, unspecified; F39 Unspecified mood [affective] disorder; R52 Pain, unspecified; Z93.1 Gastrostomy status; G62.9 Polyneuropathy, unspecified
CPT/HCPCS: 71045; 74018; 80048; 80053; 81001; 83735; 84100; 85025; 87075; 87081; 87086; 92507; 92523; 92526; 92610; 97110; 97112; 97116; 97163; 97167; 97530; 97535; 97542; A4310; J1650; J2405; L1932; L2820